=== PATIENT | male | born 1950 | race Two or more races ===

== ENCOUNTER 2017-02-26 08:55 | Inpatient (IN) | payer MEDICARE, MEDICAID ==
[2017-02-26] VITALS (9 sets, daily range): BP systolic 94–160; BP diastolic 41–63
[~2017-02-26] VITALS: Ht 165.1 cm; Wt 57.6 kg
--- NOTE | 2017-02-26 08:59 | Emergency Room Report ---
History of Present Illness General Chief Complaint: To Be Triaged Present Illness HPI [id number] here because of missed HD sessions 2x last week because "they were unorganized." Denies chest pain, SOB, abd pain, fever/chills. Feels well otherwise Has had intractable hiccups. Allergies: Coded Allergies: No Known Allergies (Unverified , 02/15/13) Patient History Past Medical History: DM, LA, CAD, renal disease, dialysis, other - Anemia, HLD Past Surgical History: none Pertinent Family History: none Social History: Denies: alcohol use, drug use, smoking Immunizations: UTD Reviewed Nursing Documentation: PMH: Agreed, PSxH: Agreed Nursing Documentation-PMH Hx Cardiac Problems: Yes - Hyperlipidemia Hx Hypertension: Yes Hx Diabetes: Yes Hx Cancer: No Hx Gastrointestinal Problems: No Hx Neurological Problems: No Review of Systems All Other Systems: negative except mentioned in HPI Physical Exam Sp02 EP Interpretation: reviewed, normal General Appearance: normal inspection, well appearing, no apparent distress, alert, GCS 15, non-toxic, other - Intractable hiccups Head: normocephalic, atraumatic Eyes: bilateral eye EOMI, bilateral eye PERRL ENT: normal ENT inspection, hearing grossly normal, normal voice Neck: normal inspection, full range of motion, supple, no bony tend Respiratory: normal inspection, lungs clear, normal breath sounds, no respiratory distress, no retraction, no accessory muscle use, no wheezing, speaking full sentences Cardiovascular #1: regular rate, rhythm, no edema Gastrointestinal: normal inspection, normal bowel sounds, non tender, soft, no guarding, no hernia Genitourinary: no CVA tenderness Musculoskeletal: normal inspection, back normal, normal range of motion, Christian' s Sign negative Neurologic: normal inspection, alert, oriented x3, responsive, azure architect III-XII nml as tested, motor strength/tone normal, speech normal Psychiatric: normal inspection, judgement/insight normal, mood/affect normal Skin: normal inspection, normal color, no rash Lymphatic: normal inspection Medical Decision Making Diagnostic Impression: Primary Impression: ESRD (end stage renal disease) on dialysis Additional Impression: Hyperkalemia ER Course Missed dialysis, ESRD HyperK - 6.3 - no significant EKG changes - Tx in ED with nebs, kayexelate, calcium - Elevated BNP in setting of elevated serumCr is unreliable - CXR: No PNA or pulm congestion. Endorsed to Dr Armendariz for tele admit at 1130am. EKG Diagnostic Results Rate: normal Rhythm: NSR ST Segments: no acute changes ASA given to the pt in ED: No Rhythm Strip Diag. Results EP Interpretation: yes Rate: 77 Rhythm: NSR, no PVC's, no ectopy Chest X-Ray Diagnostic Results Chest X-Ray Diagnostic Results : Chest X-Ray Ordered: Yes # of Views/Limited/Complete: 1 View Indication: Other - missed HD EP Interpretation: Yes Interpretation: no consolidation, no pneumothorax, no acute cardiopulmonary disease Impression: No acute disease Interpreting ER Provider: Electronically signed by Dr Saab Status: improved Disposition: ADMITTED INPATIENT Condition: Serious GRACIELA SAAB M.D. Feb 26, 2017 08:59
[2017-02-26 10:16] LABS: BASOPHILS % (AUTO) 0.6 % (0.0-2.0); EOSINOPHILS % (AUTO) 0.4 % (0.0-3.0); LYMPHOCYTES % (AUTO) 8.3 % (20.0-45.0); MEAN CORPUSCULAR HEMOGLOBIN 33.9 PG (27.0-31.0); MEAN CORPUSCULAR HGB CONC 32.1 G/DL (32.0-36.0); MEAN CORPUSCULAR VOLUME 106 FL (80-99); MONOCYTES % (AUTO) 9.3 % (1.0-10.0); NEUTROPHILS % (AUTO) 81.4 % (45.0-75.0); PLATELET COUNT 335 K/UL (150-450); RED BLOOD COUNT 3.45 M/UL (4.70-6.10); RED CELL DISTRIBUTION WIDTH 15.6 % (11.6-14.8); WHITE BLOOD COUNT 8.5 K/UL (4.8-10.8)
[2017-02-26 10:30] LABS: ALBUMIN/GLOBULIN RATIO 0.8 (1.0-2.7); CALCIUM 8.7 mg/dL (8.6-10.2); CREATININE 7.1 mg/dL (0.7-1.2); GLOMERULAR FILTRATION RATE 7.8 mL/min (>60); TOTAL PROTEIN 7.3 g/dL (6.6-8.7); TROPONIN I < 0.30 ng/mL (<=0.30)
[2017-02-26 10:33] LABS: POTASSIUM 6.3 mEQ/L (3.4-4.9)
[2017-02-26 10:40] LABS: CKMB 5.8 ng/mL (< 6.7)
[2017-02-26] MEDS ORDERED: Calcium Gluconate 1gm/10ml vial IVP ONE (10:45)
[2017-02-26] MEDS ORDERED: Sodium Polystyrene Sulfonate 15gm Powder ORAL ONE (10:45)
[2017-02-26] MEDS: Albuterol ud Inhalation HHN SCH ×6 (10:48→12:00)
[2017-02-26] MEDS ORDERED: ATORVASTATIN CA80 MG ORAL (11:42)
[2017-02-26] MEDS ORDERED: ENALAPRIL MALEAT5 MG ORAL (11:42)
[2017-02-26] MEDS ORDERED: ASPIR 8181 MG ORAL (11:42)
[2017-02-26] MEDS ORDERED: METOPROLOL SUCC25 MG ORAL (11:43)
[2017-02-26] MEDS ORDERED: Miralax 17gm pkt ORAL PRN ×2 (13:15→16:16)
[2017-02-26] MEDS ORDERED: DuoNeb 0.5-3(2.5)mg/3ml neb HHN PRN ×2 (13:15→16:15)
--- NOTE | 2017-02-26 15:14 | Cardiac Electrophysiology PN ---
Subjective Subjective [id number]. [facility] records reviewed Atrial flutter with RVR Transfer to ICU on Bridget bueno S/P RCA stent and PINTO to LAD MIDCAB at [facility] 02/17/17 Ischemic cardiomyopathy EF 30% ESRD on HD DW Dr Larsen Objective Last 24 Hour Vital Signs Date Time Temp Pulse Resp B/P Pulse Ox O2 Delivery O2 Flow Rate FiO2 02/26/17 13:05 97.9 109 20 127/51 100 Room Air 02/26/17 12:45 109 20 127/51 100 02/26/17 12:25 150 20 123/51 100 02/26/17 12:22 150 18 100 Room Air 02/26/17 12:22 Room Air 02/26/17 12:00 95 20 142/56 100 02/26/17 11:59 96 18 100 Room Air 02/26/17 11:55 21 02/26/17 11:55 96 18 100 Room Air 02/26/17 11:37 21 02/26/17 11:36 89 16 100 Room Air 02/26/17 11:26 88 14 100 Room Air 02/26/17 11:23 21 02/26/17 11:22 88 14 100 Room Air 02/26/17 11:08 89 14 100 Room Air 02/26/17 11:07 21 02/26/17 11:06 88 14 100 Room Air 02/26/17 10:54 02/26/17 10:54 85 14 100 Room Air 02/26/17 10:53 85 14 100 Room Air 02/26/17 10:50 85 14 Room Air 02/26/17 08:56 97.9 81 16 163/72 100 Room Air Laboratory Tests Test 02/26/17 09:20 White Blood Count 8.5 K/UL (4.8-10.8) Red Blood Count 3.45 M/UL (4.70-6.10) L Hemoglobin 11.7 G/DL (14.2-18.0) L Hematocrit 36.5 % (42.0-52.0) L Mean Corpuscular Volume 106 FL (80-99) H Mean Corpuscular Hemoglobin 33.9 PG (27.0-31.0) H Mean Corpuscular Hemoglobin Concent 32.1 G/DL (32.0-36.0) Red Cell Distribution Width 15.6 % (11.6-14.8) H Platelet Count 335 K/UL (150-450) Mean Platelet Volume 5.0 FL (6.5-10.1) L Neutrophils (%) (Auto) 81.4 % (45.0-75.0) H Lymphocytes (%) (Auto) 8.3 % (20.0-45.0) L Monocytes (%) (Auto) 9.3 % (1.0-10.0) Eosinophils (%) (Auto) 0.4 % (0.0-3.0) Basophils (%) (Auto) 0.6 % (0.0-2.0) Sodium Level 141 mEQ/L (135-145) Potassium Level 6.3 mEQ/L (3.4-4.9) *H Chloride Level 100 mEQ/L (98-107) Carbon Dioxide Level 16 mEQ/L (20-30) L Anion Gap 25 (5-15) H Blood Urea Nitrogen 88 mg/dL (7-23) H Creatinine 7.1 mg/dL (0.7-1.2) H Estimat Glomerular Filtration Rate 7.8 mL/min (>60) Glucose Level 73 mg/dL (74-106) L Calcium Level 8.7 mg/dL (8.6-10.2) Total Bilirubin 0.5 mg/dL (0.0-1.2) Aspartate Amino Transf (AST/SGOT) 30 U/L (5-40) Alanine Aminotransferase (ALT/SGPT) 11 U/L (3-41) Alkaline Phosphatase 81 U/L (40-129) Total Creatine Kinase 141 U/L (38-174) Creatine Kinase MB 5.8 ng/mL (< 6.7) Creatine Kinase MB Relative Index 4.1 Troponin I < 0.30 ng/mL (<=0.30) Pro-B-Type Natriuretic Peptide 9833 pg/mL (0-125) H Total Protein 7.3 g/dL (6.6-8.7) Albumin 3.4 g/dL (3.5-5.2) L Globulin 3.9 g/dL Albumin/Globulin Ratio 0.8 (1.0-2.7) SAMM JOHNSON Feb 26, 2017 15:14
[2017-02-26] MEDS ORDERED: Heparin 25,000u/D5W 500ml 500 ML IV SCH ×3 (15:45→23:58)
[2017-02-26] MEDS ORDERED: Heparin 5000 units/ml inj IV ONE (15:45)
[2017-02-26 16:26] LABS: MEAN CORPUSCULAR HEMOGLOBIN 36.1 PG (27.0-31.0); MEAN CORPUSCULAR HGB CONC 33.8 G/DL (32.0-36.0); MEAN CORPUSCULAR VOLUME 107 FL (80-99); PLATELET COUNT 273 K/UL (150-450); RED BLOOD COUNT 2.92 M/UL (4.70-6.10); RED CELL DISTRIBUTION WIDTH 15.4 % (11.6-14.8); WHITE BLOOD COUNT 10.3 K/UL (4.8-10.8)
[2017-02-26 16:30] LABS: BASOPHILS % (AUTO) 0.4 % (0.0-2.0); LYMPHOCYTES % (AUTO) 3.3 % (20.0-45.0); MONOCYTES % (AUTO) 5.3 % (1.0-10.0)
[2017-02-26] MEDS ORDERED: HYDROmorphone 1mg/ml Carpuject IVP PRN (16:30)
--- NOTE | 2017-02-26 16:38 | History & Physical ---
History and Physical History & Physicial Dictsted for Int Med-Dr Armendariz ICU no. [id number]. RIP VEGA Feb 26, 2017 16:38
[2017-02-26] MEDS: Metoprolol 50mg tab ORAL SCH (20:27)
[2017-02-26] MEDS ORDERED: Heparin 5000 units/ml inj SUBQ SCH (21:00)
[2017-02-26] MEDS ORDERED: Metoprolol 50mg tab ORAL SCH (21:00)
[2017-02-26] MEDS ORDERED: Atorvastatin 80mg tab ORAL SCH ×2 (21:00)
[2017-02-26] MEDS ORDERED: Heparin 5000 units/ml inj SUBQ ONE (23:45)
[2017-02-27] VITALS (21 sets, daily range): BP systolic 99–178; BP diastolic 0–100
[2017-02-27] MEDS ORDERED: Heparin 5000 units/ml inj IV ONE (00:30)
--- NOTE | 2017-02-27 03:00 | History and Physical Report ---
DATE OF ADMISSION: 02/26/2017 CHIEF COMPLAINT: The patient is a 66-year-old male with history of coronary artery bypass graft on Monday02/17/2017, who presents with chief complaint of shortness of breath. HISTORY OF PRESENT ILLNESS: The patient was admitted to [facility] earlier this month. The patient underwent a robotically assisted system minimally invasive direct coronary artery bypass graft on 02/17/2017 at [facility]. The patient has dialysis every Monday, Monday, and Monday. The patient's last dialysis was on Monday02/20/2017. The patient began to experience shortness of breath on Monday02/25/2017. The patient presented to the [place] [facility]. The patient was admitted for shortness of breath and probable volume overload secondary to missed dialysis. PAST MEDICAL HISTORY: Significant for: 1. Type 2 diabetes. 2. Hypertension. 3. Coronary artery disease. 4. Congestive heart failure. 5. Hypercholesterolemia. PAST SURGICAL HISTORY: Significant for: 1. Robotically assisted system minimally invasive direct coronary artery bypass graft on 02/17/2017 at [facility]. 2. Left arteriovenous graft for dialysis. CURRENT MEDICATIONS: 1. Aspirin 81 mg one tablet p.o. daily. 2. Lipitor 80 mg one tablet p.o. daily. 3. Vasotec 5 mg one tablet p.o. daily. 4. Metoprolol 25 mg one tablet p.o. daily. ALLERGIES: No known drug allergies. SOCIAL HISTORY: The patient is . The patient denies tobacco use having quit 20 years ago. The patient admits to social alcohol use. REVIEW OF SYSTEMS: Constitutional: The patient denies weight loss or weight gain. The patient denies fevers or chills. HEENT: The patient denies ear or throat pain. The patient denies headache. Cardiovascular: The patient denies palpitations or chest pain. Chest: The patient complains of shortness of breath as above. The patient denies wheezes. Abdomen: The patient denies nausea, vomiting, diarrhea, or constipation. Genitourinary: The patient denies dysuria or increased frequency of urination. PHYSICAL EXAMINATION: VITAL SIGNS: Temperature 97.9 degrees, respirations 20, pulse 109 to 150, and blood pressure 127/51. GENERAL: The patient is a well-developed, well-nourished, male, in no apparent distress. HEENT: Eyes, pupils are equal and responsive to light and accommodation. Extraocular movements are intact. NECK: Supple without lymphadenopathy. CHEST: Decreased breath sounds at bilateral bases with few crackles. Otherwise, without wheezes or rales. CARDIOVASCULAR: Tachycardic. Regular rhythm. S1 and S2 are normal without murmurs, rubs, or gallops. ABDOMEN: Soft, nontender, and nondistended. Positive bowel sounds. No hepatosplenomegaly. Currently, no rebound or guarding noted. EXTREMITIES: Negative for clubbing, cyanosis, or edema. RECTAL: Refused. GENITAL: Refused. NEUROLOGICAL: Cranial nerves II through XII are grossly intact without focal deficits. Motor strength is 5/5 bilaterally. Deep tendon reflexes are 2+ plantar. presence of an approximate 10 cm scar under the left areola. Wound is clean and dry. LABORATORY STUDIES: WBC 8.5, hemoglobin 11.7, hematocrit 36.5, and platelets 325,000. Sodium 141, potassium elevated at 6.3, chloride 100, CO2 16, BUN 88, creatinine 7.1, and glucose 73. Troponin is less than 0.3. BNP elevated at 9833. ASSESSMENT: This is a 66-year-old male. 1. Shortness of breath. 2. End-stage renal disease. 3. Diabetes type 2. 4. Hypertension. 5. Hypercholesterolemia. 6. Coronary artery disease. 7. Congestive heart failure. TREATMENT: 1. Shortness of breath/end-stage renal disease. The patient has missed dialysis x2. The patient's last dialysis was on Monday02/20/2017. A Renal consultation was obtained with Dr. Noel Julio. We will follow recommendations of Dr. Julio. 2. Diabetes type 2. The patient is currently off antihyperglycemic medication. 3. Hypertension. The patient is currently receiving Cardizem for blood pressure control as well as heart rate. 4. Hypercholesterolemia. Continue Lipitor as above. 5. Coronary artery disease. The patient is status post coronary artery bypass graft on 02/17/2017. 6. Congestive heart failure. A Cardiology consultation was obtained with Dr. Aron Nichols. 7. Hypercholesterolemia. Continue Lipitor as above. Claude Larsen M.D. DR: CRISTIAN JOB#: [id number] CC:
--- NOTE | 2017-02-27 03:15 | Consultation ---
DATE OF CONSULTATION: 02/26/2017 CARDIOLOGY CONSULTATION REFERRING PHYSICIAN: Alok Armendariz M.D. REASON FOR CONSULTATION: Management of atrial flutter with rapid ventricular response in a patient with history of coronary artery disease. HISTORY OF PRESENT ILLNESS: The patient is a very pleasant 66-year-old, gentleman with history of hypertension and coronary artery disease, who underwent recently PCI to the right coronary artery as well as MIDCAB with PINTO to the LAD at [facility]. The patient was discharged just last week. The patient also has end-stage renal disease, on hemodialysis as well as ischemic cardiomyopathy with ejection fraction of only 30%. The patient presented to the hospital as he missed dialysis since last week and hiccups was intractable. The patient came to the emergency room and was admitted to the telemetry unit. In the telemetry, the patient was found to be in atrial flutter with rapid ventricular response under 150. This was confirmed by 12-lead electrocardiogram. The patient denies any chest pain or shortness of breath. PAST MEDICAL HISTORY: 1. Hypertension. 2. Coronary artery disease. 3. History of RCA stent in July in 2016 and status post PINTO to the LAD with da Kathy on 02/17/2017 at [facility]. 4. Ischemic cardiomyopathy with ejection fraction of only 30% to 35%. 5. Congestive heart failure. 6. History of right total ischemia status post angioplasty in December [address] Mckeon. Of note, the patient was discharged on 02/21/2017 from [facility]. FAMILY HISTORY: Noncontributory. SOCIAL HISTORY: He does not smoke or drink alcohol. MEDICATIONS ON DISCHARGE: 1. Metoprolol 25 mg b.i.d. 2. Aspirin 81 mg daily. 3. Lipitor 80 mg daily. 4. Plavix 75 mg daily. 5. Glipizide. REVIEW OF SYSTEMS: Review of systems was performed and was negative other than what was mentioned in history of present illness. PHYSICAL EXAMINATION: VITAL SIGNS: Show blood pressure of 127/51, pulse 150, respirations 20, and he is afebrile. HEAD AND NECK: Shows no JVD. LUNGS: Decreased breath sounds. CARDIOVASCULAR: Tachycardic. S1 and S2 with no gallop. Status post MIDCAB surgery. Incision is still under the left nipple. ABDOMEN: Soft. EXTREMITIES: No pitting edema. LABORATORY AND DIAGNOSTIC DATA: His EKG showed atrial flutter with rapid ventricular response in the old inferolateral infarct. His labs showed white count of 8.5, hemoglobin , hematocrit 36.5, and platelets 235,000. Sodium 141, potassium 6.3, BUN 80, creatinine 7.1, and glucose 73. BNP is 9833. Troponin is negative. ASSESSMENT AND PLAN: 1. Atrial flutter with rapid ventricular response. We will transfer the patient to the intensive care unit. We will start the patient on Cardizem drip. In the meantime, we will maximize his metoprolol to 50 mg twice a day and hopefully we will be able to take him off of his Cardizem soon. In the meantime, we will start the patient on anticoagulation to prevent thromboembolic event. 2. Ischemic cardiomyopathy. Ejection fraction is 30%. The patient is on aspirin and Lipitor 80 mg as well as as that will be as mentioned above. 3. History of right coronary artery stent as well as PINTO to the LAD and MIDCAB, single-vessel bypass on 02/17/2017, on aspirin, Lopressor, and Lipitor. 4. History of peripheral vascular disease. 5. End-stage renal disease, on hemodialysis. 6. Hyperkalemia. 7. Diabetes. Thank you very much, Dr. Armendariz and Dr. Larsen for allowing me to participate in the care of this patient. Please do not hesitate to contact me for any questions regarding my evaluation. Aron Nicohls M.D. DR: HUGO JOB#: [id number] CC:
[2017-02-27 06:05] LABS: BASOPHILS % (AUTO) 0.9 % (0.0-2.0); EOSINOPHILS % (AUTO) 0.6 % (0.0-3.0); LYMPHOCYTES % (AUTO) 7.5 % (20.0-45.0); MEAN CORPUSCULAR HEMOGLOBIN 33.9 PG (27.0-31.0); MEAN CORPUSCULAR HGB CONC 32.7 G/DL (32.0-36.0); MEAN CORPUSCULAR VOLUME 104 FL (80-99); MEAN PLATELET VOLUME 5.1 FL (6.5-10.1); MONOCYTES % (AUTO) 12.2 % (1.0-10.0); NEUTROPHILS % (AUTO) 78.8 % (45.0-75.0); PLATELET COUNT 278 K/UL (150-450); RED BLOOD COUNT 2.95 M/UL (4.70-6.10); WHITE BLOOD COUNT 7.9 K/UL (4.8-10.8)
[2017-02-27 06:31] LABS: CALCIUM 7.9 mg/dL (8.6-10.2); CREATININE 7.4 mg/dL (0.7-1.2); GLOMERULAR FILTRATION RATE 7.5 mL/min (>60); POTASSIUM 4.1 mEQ/L (3.4-4.9)
[2017-02-27 06:41] LABS: TROPONIN I 1.72 ng/mL (<=0.30)
[2017-02-27 06:42] LABS: THYROID STIMULATING HORMONE 0.23 uIU/mL (0.300-4.500)
[2017-02-27] MEDS: Metoprolol 50mg tab ORAL SCH ×2 (08:16→20:46)
[2017-02-27] MEDS: Heparin 25,000u/D5W 500ml 500 ML IV SCH ×2 (08:21→16:37)
--- NOTE | 2017-02-27 08:39 | Diagnostic Imaging Report ---
Indication: Chest pain Technique: XRAY CHEST 1 V Comparison: None Findings: Cardiac silhouette is prominent. There is a right internal jugular permacath. There is tenting of the left hemidiaphragm. There is no obvious consolidation or pleural effusion. There is a questionable nodular density projecting over the left upper lobe measuring approximately 1.5 cm. Impression: No acute cardiopulmonary disease. Cardiomegaly and right internal jugular permacath. Tenting of the left hemidiaphragm. Questionable 1.5 cm nodular density projecting over the left upper lobe. Comparison to prior study should be made if available. Consider followup or further evaluation.
[2017-02-27] MEDS ORDERED: Enalapril 5mg tab ORAL SCH ×2 (09:00)
[2017-02-27] MEDS ORDERED: Aspirin EC 81mg tab ORAL SCH ×2 (09:00)
--- NOTE | 2017-02-27 09:07 | Consultation ---
Consult Note Assessment/Plan Renal consult dictated # [id number] CONCETTA NEGRO Feb 27, 2017 09:07
[2017-02-27] MEDS ORDERED: chlorproMAZINE 10mg tab ORAL PRN ×2 (10:00→22:00)
--- NOTE | 2017-02-27 10:18 | Pulmonolgy Critical Care Note ---
Critical Care - Asmt/Plan Problems: (1) Non-STEMI (non-ST elevated myocardial infarction) (2) Atrial flutter (3) ESRD (end stage renal disease) on dialysis (4) HTN (hypertension) (5) Cardiomyopathy (6) Diabetes mellitus Respiratory: monitor respiratory rate, adjust FIO2 Cardiac: continue to monitor HR/BP Renal: check electrolytes Gastrointestinal: continue feedings/current rate Endocrine: monitor blood sugar, other - start sliding scale Hematologic: monitor H/H Neurologic: PRN Ativan, PRN Morphine Affect: PRN ativan Prophylaxis: Protonix Notes Reviewed: hypo dipper, cardio, renal Discussed with: nurses, consultants Critical Care - Objective Last 24 Hour Vital Signs Date Time Temp Pulse Resp B/P Pulse Ox O2 Delivery O2 Flow Rate FiO2 02/27/17 10:00 67 18 157/58 100 Nasal Cannula 2.0 02/27/17 09:00 68 18 178/61 100 Nasal Cannula 2.0 02/27/17 08:00 57 02/27/17 08:00 97.5 69 17 161/55 100 Nasal Cannula 2.0 02/27/17 07:00 60 16 118/50 100 Nasal Cannula 2.0 02/27/17 06:47 100 Nasal Cannula 2.0 02/27/17 06:47 87 16 Nasal Cannula 2.0 02/27/17 06:47 Nasal Cannula 2.0 02/27/17 06:00 64 16 164/66 100 Nasal Cannula 2.0 02/27/17 05:00 69 17 164/58 100 Nasal Cannula 2.0 02/27/17 04:00 97.7 66 18 164/58 100 Nasal Cannula 2.0 02/27/17 04:00 67 02/27/17 03:00 63 15 128/54 100 Nasal Cannula 2.0 02/27/17 02:00 63 14 116/50 100 Nasal Cannula 2.0 02/27/17 01:00 66 14 118/46 100 Nasal Cannula 2.0 02/27/17 00:00 76 02/27/17 00:00 97.8 67 15 109/51 100 Nasal Cannula 2.0 02/26/17 23:14 76 21 100 Facial 30 02/26/17 23:00 78 18 122/51 100 Nasal Cannula 2.0 02/26/17 22:00 73 19 113/41 100 Nasal Cannula 2.0 02/26/17 21:00 87 18 113/41 100 Nasal Cannula 2.0 02/26/17 20:27 89 160/60 02/26/17 20:00 89 18 134/63 100 Nasal Cannula 2.0 02/26/17 20:00 92 02/26/17 19:04 Nasal Cannula 2.0 02/26/17 19:04 100 Nasal Cannula 2.0 02/26/17 19:03 89 22 Nasal Cannula 2.0 02/26/17 19:00 97.9 88 19 160/51 100 Nasal Cannula 2.0 02/26/17 16:54 102 94/51 02/26/17 16:30 100 02/26/17 16:00 98.7 105 22 94/51 100 Nasal Cannula 2.0 02/26/17 16:00 108 02/26/17 13:05 97.9 109 20 127/51 100 Room Air 21 02/26/17 12:45 109 20 127/51 100 02/26/17 12:25 150 20 123/51 100 02/26/17 12:22 150 18 100 Room Air 21 02/26/17 12:22 Room Air 21 02/26/17 12:00 95 20 142/56 100 02/26/17 11:59 96 18 100 Room Air 02/26/17 11:55 21 02/26/17 11:55 96 18 100 Room Air 21 02/26/17 11:37 21 02/26/17 11:36 89 16 100 Room Air 02/26/17 11:26 88 14 100 Room Air 02/26/17 11:23 21 02/26/17 11:22 88 14 100 Room Air 02/26/17 11:08 89 14 100 Room Air 02/26/17 11:07 21 02/26/17 11:06 88 14 100 Room Air 02/26/17 10:54 21 02/26/17 10:54 85 14 100 Room Air 21 02/26/17 10:53 85 14 100 Room Air 02/26/17 10:50 85 14 Room Air 21 Status: awake Condition: critical HEENT: atraumatic, normocephalic Neck: full ROM Lungs: clear Heart: HR/BP stable Abdomen: soft, non-tender, feeding tube Extremities: no C/C/E, edema Decubiti: location Critical Care - Subjective ROS Limited/Unobtainable: No ICU Day: 2 Interval Events: 66 year old male with hx of ESRF on HD MWF, DM, CAD, CABG 8 years ago, presented to ER because he missed his HD twice. He had atrial flutter, started on cardizem drip and heparin and transferred to ICU. Pt converted to sinus already and getting his HD now. FI02: 30 Sputum Amount: None Fluids: 0 I&O: Intake and Output 02/26/17 02/27/17 19:00 07:00 Intake Total 204.742 ml 445.854 ml Output Total 280 ml Balance 204.742 ml 165.854 ml Intake Oral 150 ml 100 ml IV Total 54.742 ml 345.854 ml Output Urine Total 250 ml Emesis 30 ml # Voids 2 # Bowel Movements 1 CXR: cardiomegaly Labs: Laboratory Tests Test 02/26/17 16:02 02/26/17 22:50 02/27/17 05:50 White Blood Count 10.3 K/UL (4.8-10.8) 7.9 K/UL (4.8-10.8) Red Blood Count 2.92 M/UL (4.70-6.10) L 2.95 M/UL (4.70-6.10) L Hemoglobin 10.5 G/DL (14.2-18.0) L 10.0 G/DL (14.2-18.0) L Hematocrit 31.2 % (42.0-52.0) L 30.7 % (42.0-52.0) L Mean Corpuscular Volume 107 FL (80-99) H 104 FL (80-99) H Mean Corpuscular Hemoglobin 36.1 PG (27.0-31.0) H 33.9 PG (27.0-31.0) H Mean Corpuscular Hemoglobin Concent 33.8 G/DL (32.0-36.0) 32.7 G/DL (32.0-36.0) Red Cell Distribution Width 15.4 % (11.6-14.8) H 15.0 % (11.6-14.8) H Platelet Count 273 K/UL (150-450) 278 K/UL (150-450) Mean Platelet Volume 5.0 FL (6.5-10.1) L 5.1 FL (6.5-10.1) L Neutrophils (%) (Auto) 91.0 % (45.0-75.0) H 78.8 % (45.0-75.0) H Lymphocytes (%) (Auto) 3.3 % (20.0-45.0) L 7.5 % (20.0-45.0) L Monocytes (%) (Auto) 5.3 % (1.0-10.0) 12.2 % (1.0-10.0) H Eosinophils (%) (Auto) 0.0 % (0.0-3.0) 0.6 % (0.0-3.0) Basophils (%) (Auto) 0.4 % (0.0-2.0) 0.9 % (0.0-2.0) Activated Partial Thromboplast Time 29 SEC (23-33) 59 SEC (23-33) H > 150 SEC (23-33) *H Sodium Level 140 mEQ/L (135-145) Potassium Level 4.1 mEQ/L (3.4-4.9) Chloride Level 99 mEQ/L (98-107) Carbon Dioxide Level 20 mEQ/L (20-30) Anion Gap 21 (5-15) H Blood Urea Nitrogen 93 mg/dL (7-23) H Creatinine 7.4 mg/dL (0.7-1.2) H Estimat Glomerular Filtration Rate 7.5 mL/min (>60) Glucose Level 237 mg/dL (74-106) #H Calcium Level 7.9 mg/dL (8.6-10.2) L Troponin I 1.72 ng/mL (<=0.30) *H Pro-B-Type Natriuretic Peptide 70648 pg/mL (0-125) H Thyroid Stimulating Hormone (TSH) 0.230 uIU/mL (0.300-4.500) Free Thyroxine 1.30 ng/dL (0.86-1.85) JASPAL MENDOZA Feb 27, 2017 10:18
--- NOTE | 2017-02-27 11:07 | Internal Med Progress Note ---
Subjective Date of Service: Feb 27, 2017 Physician Name LarsenRip hughes Attending Physician Alok Armendariz MD Current Medications Medications (Trade) Dose Ordered Sig/Ailyn Route PRN Reason Start Time Stop Time Status Last Admin Dose Admin Acetaminophen (Tylenol) 650 mg Q4H PRN ORAL Fever 02/26/17 16:15 03/28/17 16:14 Albuterol/ Ipratropium (DuoNeb 0.5-3(2.5)mg/3ml) 3 ml Q4H PRN HHN Shortness of Breath 02/26/17 16:15 03/03/17 16:14 Aspirin (Ecotrin) 81 mg DAILY ORAL 02/27/17 09:00 03/29/17 08:59 02/27/17 08:13 Atorvastatin Calcium (Lipitor) 80 mg BEDTIME ORAL 02/26/17 21:00 03/28/17 20:59 02/26/17 20:27 Baclofen 5 mg 5 mg Q8H PRN ORAL hiccups 02/26/17 19:45 03/28/17 19:44 02/27/17 04:25 Chlorhexidine Gluconate (Lora-Hex 2%) 1 applic QHS TOPIC 02/27/17 21:00 03/29/17 20:59 Chlorpromazine (Thorazine) 10 mg Q6H PRN ORAL hiccups 02/27/17 10:00 03/29/17 09:59 02/27/17 09:36 Dextrose (Dextrose 50%) 50 ml STAT PRN IV Hypoglycemia 02/26/17 16:15 03/28/17 16:14 Diltiazem HCl/ Dextrose (Cardizem/D5W) 125 ml @ 5 mls/hr Q24H IV 02/26/17 16:30 03/28/17 16:29 02/26/17 16:54 Enalapril Maleate (Vasotec) 5 mg DAILY ORAL 02/27/17 09:00 03/29/17 08:59 Heparin Sodium/ Dextrose (Heparin) 500 ml @ 19.885 mls/ hr adjust per protocol IV 02/27/17 08:00 03/29/17 07:59 02/27/17 08:21 Hydromorphone HCl (Dilaudid) 1 mg Q4H PRN IVP For Pain 4-10 02/26/17 16:30 03/05/17 16:29 Metoprolol Tartrate (Lopressor) 50 mg Q12HR ORAL 02/26/17 21:00 03/28/17 20:59 02/26/17 20:27 Ondansetron HCl (Zofran) 4 mg Q6H PRN IVP Nausea & Vomiting 02/26/17 16:16 03/28/17 16:15 02/26/17 20:42 Polyethylene Glycol (Miralax) 17 gm DAILYPRN PRN ORAL Constipation 02/26/17 16:16 03/28/17 16:15 Temazepam 15 mg 15 mg HSPRN PRN ORAL Insomnia 02/26/17 16:16 03/05/17 16:15 Allergies: Coded Allergies: No Known Allergies (Unverified , 02/15/13) ROS Limited/Unobtainable: No Constitutional: Reports: no symptoms HEENT: Reports: no symptoms Cardiovascular: Reports: chest pain Respiratory: Reports: shortness of breath Gastrointestinal/Abdominal: Reports: no symptoms Genitourinary: Reports: no symptoms Neurologic/Psychiatric: Reports: no symptoms Subjective 66 YO M admitted with shortness of breath. Now elevated troponin and atrial flutter. Cover for Int Med - Dr Armendariz. Currently on hemodialysis Objective Last Vital Signs Date Time Temp Pulse Resp B/P Pulse Ox O2 Delivery O2 Flow Rate FiO2 02/27/17 10:00 67 18 157/58 100 Nasal Cannula 2.0 02/27/17 08:00 97.5 02/26/17 23:14 30 General Appearance: alert, mild distress, thin EENT: PERRL/EOMI, normal ENT inspection Neck: non-tender, normal alignment, supple, normal inspection Cardiovascular: normal peripheral pulses, normal rate, regular rhythm, no gallop/murmur, no JVD Respiratory/Chest: chest wall non-tender, no accessory muscle use, crackles/ rales Abdomen: normal bowel sounds, non tender, soft, no organomegaly, no mass 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: 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 grossly normal Skin: normal pigmentation, warm/dry Laboratory Tests Test 02/26/17 16:02 02/26/17 22:50 02/27/17 05:50 White Blood Count 10.3 K/UL (4.8-10.8) 7.9 K/UL (4.8-10.8) Red Blood Count 2.92 M/UL (4.70-6.10) L 2.95 M/UL (4.70-6.10) L Hemoglobin 10.5 G/DL (14.2-18.0) L 10.0 G/DL (14.2-18.0) L Hematocrit 31.2 % (42.0-52.0) L 30.7 % (42.0-52.0) L Mean Corpuscular Volume 107 FL (80-99) H 104 FL (80-99) H Mean Corpuscular Hemoglobin 36.1 PG (27.0-31.0) H 33.9 PG (27.0-31.0) H Mean Corpuscular Hemoglobin Concent 33.8 G/DL (32.0-36.0) 32.7 G/DL (32.0-36.0) Red Cell Distribution Width 15.4 % (11.6-14.8) H 15.0 % (11.6-14.8) H Platelet Count 273 K/UL (150-450) 278 K/UL (150-450) Mean Platelet Volume 5.0 FL (6.5-10.1) L 5.1 FL (6.5-10.1) L Neutrophils (%) (Auto) 91.0 % (45.0-75.0) H 78.8 % (45.0-75.0) H Lymphocytes (%) (Auto) 3.3 % (20.0-45.0) L 7.5 % (20.0-45.0) L Monocytes (%) (Auto) 5.3 % (1.0-10.0) 12.2 % (1.0-10.0) H Eosinophils (%) (Auto) 0.0 % (0.0-3.0) 0.6 % (0.0-3.0) Basophils (%) (Auto) 0.4 % (0.0-2.0) 0.9 % (0.0-2.0) Activated Partial Thromboplast Time 29 SEC (23-33) 59 SEC (23-33) H > 150 SEC (23-33) *H Sodium Level 140 mEQ/L (135-145) Potassium Level 4.1 mEQ/L (3.4-4.9) Chloride Level 99 mEQ/L (98-107) Carbon Dioxide Level 20 mEQ/L (20-30) Anion Gap 21 (5-15) H Blood Urea Nitrogen 93 mg/dL (7-23) H Creatinine 7.4 mg/dL (0.7-1.2) H Estimat Glomerular Filtration Rate 7.5 mL/min (>60) Glucose Level 237 mg/dL (74-106) #H Calcium Level 7.9 mg/dL (8.6-10.2) L Troponin I 1.72 ng/mL (<=0.30) *H Pro-B-Type Natriuretic Peptide 30445 pg/mL (0-125) H Thyroid Stimulating Hormone (TSH) 0.230 uIU/mL (0.300-4.500) Free Thyroxine 1.30 ng/dL (0.86-1.85) Intake and Output 02/26/17 02/27/17 19:00 07:00 Intake Total 204.742 ml 445.854 ml Output Total 280 ml Balance 204.742 ml 165.854 ml Intake Oral 150 ml 100 ml IV Total 54.742 ml 345.854 ml Output Urine Total 250 ml Emesis 30 ml # Voids 2 # Bowel Movements 1 Assessment/Plan Problem List: (1) Hypercholesterolemia (2) CAD (coronary artery disease) (3) CHF exacerbation (4) Shortness of breath Assessment & Plan: Due to acute exacerbation of CHF (5) ESRD (end stage renal disease) on dialysis Assessment & Plan: Hemodialysis today per nephrology (6) Elevated troponin Assessment & Plan: See cardiology note. (7) HTN (hypertension) Assessment & Plan: Continue metoprolol and diltiazem (8) Diabetes mellitus (9) Hyperkalemia (10) Atrial flutter Assessment & Plan: Continue cardizem drip and heparin drip per cardiology Status: not improved RIP LARSEN Feb 27, 2017 11:07
--- NOTE | 2017-02-27 11:30 | Consultation ---
DATE OF CONSULTATION: NEPHROLOGY CONSULTATION REFERRING PHYSICIAN: Alok Armendariz M.D. REASON FOR CONSULTATION: End-stage renal disease, requiring hemodialysis. HISTORY OF PRESENT ILLNESS: This is a 66-year-old male with history of diabetes mellitus, hypertension, and cardiomyopathy, who was just recently discharged from [facility] after having the PCI to right coronary artery as well as coronary artery bypass graft, PINTO to LAD. The patient went to his dialysis unit last week, however, he wanted his PermCath to be used and there was no order for it, so the nurse called me to get the order. By the time I called back, the patient had become angry and left the unit without getting dialysis. The patient was admitted last night with a diagnosis of a atrial flutter with rapid ventricular response and he was started on Cardizem drip and admitted to intensive care unit. The patient himself he said that he is not complaining of any palpitations. He says that he has had hiccups since he left the hospital then he continues to have hiccups. PAST MEDICAL HISTORY: Also includes history of diabetes mellitus, peripheral vascular disease. He has history of eye problems from diabetes and history of hyperlipidemia. MEDICATIONS: Reviewed in the EMR. ALLERGIES: No known drug allergies. SOCIAL HISTORY: No history of smoking or alcohol abuse. The patient lives at home with . REVIEW OF SYSTEMS: As above. PHYSICAL EXAMINATION: GENERAL: The patient is a 66-year-old male. He has continuous hiccups. VITAL SIGNS: Blood pressure is 161/55, pulse 69, temperature 97.9, and respiratory rate is 17. HEENT: Some pale conjunctivae. Anicteric sclerae. NECK: Supple. LUNGS: Clear to auscultation. HEART: S1 and S2 without murmurs or rubs. ABDOMEN: Soft and nontender. EXTREMITIES: No cyanosis or edema. LABORATORY FINDINGS: The CBC shows a WBC of 7.9, hematocrit is 30.7, hemoglobin is 10, and platelet is 278,000. Chemistry panel shows a serum sodium 140, potassium 4.1, chloride 99, CO2 20, BUN is 93, creatinine 7.4, blood sugar is 237, and calcium is 7.9. Troponin is 1.72. TSH is 0.23. ASSESSMENT: This is a 66-year-old male was admitted with atrial flutter or fibrillation with rapid ventricular response. He was started on Cardizem drip. He converted to sinus rhythm. He was hypokalemic. He is being dialyzed now. He has also elevated troponin the possibility of acute myocardial infarction. PLAN: The patient will be dialysis as tolerated. I will restart the patient on Thorazine p.r.n. for hiccups, GI consultation will be obtained. The patient will be followed by wrister. The case was also discussed with the ICU nurse. Noel Julio M.D. DR: ZEN JOB#: [id number] CC:
--- NOTE | 2017-02-27 13:28 | Diagnostic Imaging Report ---
Indication: Dyspnea Comparison: 02/26/17 A single view chest radiograph was obtained. Findings: Heart is enlarged. Pulmonary vascularity is within normal limits. There is a vague density in the left perihilar region but this was seen previously as well as likely chronic disease. There is a right-sided permacath in good position. Bones are osteopenic. Impression: No acute disease
--- NOTE | 2017-02-27 18:03 | Cardiology Progress Note ---
Assessment/Plan Assessment/Plan nstemi related to natalee mclain underlying cad cad (pci to rca mid cab ro lad recently need pci to cx ) icm htn aflutter s/p conversion dm esrn on hd will transfer to tele will try to se if able to transfer to [facility] for cath pci soon when bed avialbel keep on heparin adn antiplt agent and statin repeat serial trop ekg echo [id number] Objective Last 24 Hour Vital Signs Date Time Temp Pulse Resp B/P Pulse Ox O2 Delivery O2 Flow Rate FiO2 02/27/17 17:00 72 17 145/62 100 Nasal Cannula 2.0 02/27/17 16:36 72 148/57 02/27/17 16:00 68 02/27/17 16:00 97.5 70 15 148/57 100 Nasal Cannula 2.0 02/27/17 15:00 72 17 138/58 100 Nasal Cannula 2.0 02/27/17 14:00 70 18 161/70 100 Nasal Cannula 2.0 02/27/17 14:00 73 15 138/58 100 Nasal Cannula 2.0 02/27/17 13:00 73 18 164/84 100 Nasal Cannula 2.0 02/27/17 12:00 72 02/27/17 12:00 98.0 74 17 134/100 100 Nasal Cannula 2.0 02/27/17 11:15 Room Air 2.0 02/27/17 11:00 71 18 99/55 99 Nasal Cannula 2.0 02/27/17 10:00 67 18 157/58 100 Nasal Cannula 2.0 02/27/17 09:00 68 18 178/61 100 Nasal Cannula 2.0 02/27/17 08:10 Nasal Cannula 2.0 02/27/17 08:00 57 02/27/17 08:00 97.5 69 17 161/55 100 Nasal Cannula 2.0 02/27/17 07:00 60 16 118/50 100 Nasal Cannula 2.0 02/27/17 06:47 100 Nasal Cannula 2.0 02/27/17 06:47 87 16 Nasal Cannula 2.0 02/27/17 06:47 Nasal Cannula 2.0 02/27/17 06:00 64 16 164/66 100 Nasal Cannula 2.0 02/27/17 05:00 69 17 164/58 100 Nasal Cannula 2.0 02/27/17 04:00 97.7 66 18 164/58 100 Nasal Cannula 2.0 02/27/17 04:00 67 02/27/17 03:00 63 15 128/54 100 Nasal Cannula 2.0 02/27/17 02:00 63 14 116/50 100 Nasal Cannula 2.0 02/27/17 01:00 66 14 118/46 100 Nasal Cannula 2.0 02/27/17 00:00 76 02/27/17 00:00 97.8 67 15 109/51 100 Nasal Cannula 2.0 02/26/17 23:14 76 21 100 Facial 30 02/26/17 23:00 78 18 122/51 100 Nasal Cannula 2.0 02/26/17 22:00 73 19 113/41 100 Nasal Cannula 2.0 02/26/17 21:00 87 18 113/41 100 Nasal Cannula 2.0 02/26/17 20:27 89 160/60 02/26/17 20:00 89 18 134/63 100 Nasal Cannula 2.0 02/26/17 20:00 92 02/26/17 19:04 Nasal Cannula 2.0 02/26/17 19:04 100 Nasal Cannula 2.0 02/26/17 19:03 89 22 Nasal Cannula 2.0 02/26/17 19:00 97.9 88 19 160/51 100 Nasal Cannula 2.0 Intake and Output 02/26/17 02/27/17 19:00 07:00 Intake Total 204.742 ml 445.854 ml Output Total 280 ml Balance 204.742 ml 165.854 ml Intake Oral 150 ml 100 ml IV Total 54.742 ml 345.854 ml Output Urine Total 250 ml Emesis 30 ml # Voids 2 # Bowel Movements 1 Laboratory Tests Test 02/26/17 22:50 02/27/17 05:50 02/27/17 14:30 Activated Partial Thromboplast Time 59 SEC (23-33) H > 150 SEC (23-33) *H 89 SEC (23-33) H White Blood Count 7.9 K/UL (4.8-10.8) Red Blood Count 2.95 M/UL (4.70-6.10) L Hemoglobin 10.0 G/DL (14.2-18.0) L Hematocrit 30.7 % (42.0-52.0) L Mean Corpuscular Volume 104 FL (80-99) H Mean Corpuscular Hemoglobin 33.9 PG (27.0-31.0) H Mean Corpuscular Hemoglobin Concent 32.7 G/DL (32.0-36.0) Red Cell Distribution Width 15.0 % (11.6-14.8) H Platelet Count 278 K/UL (150-450) Mean Platelet Volume 5.1 FL (6.5-10.1) L Neutrophils (%) (Auto) 78.8 % (45.0-75.0) H Lymphocytes (%) (Auto) 7.5 % (20.0-45.0) L Monocytes (%) (Auto) 12.2 % (1.0-10.0) H Eosinophils (%) (Auto) 0.6 % (0.0-3.0) Basophils (%) (Auto) 0.9 % (0.0-2.0) Sodium Level 140 mEQ/L (135-145) Potassium Level 4.1 mEQ/L (3.4-4.9) Chloride Level 99 mEQ/L (98-107) Carbon Dioxide Level 20 mEQ/L (20-30) Anion Gap 21 (5-15) H Blood Urea Nitrogen 93 mg/dL (7-23) H Creatinine 7.4 mg/dL (0.7-1.2) H Estimat Glomerular Filtration Rate 7.5 mL/min (>60) Glucose Level 237 mg/dL (74-106) #H Calcium Level 7.9 mg/dL (8.6-10.2) L Troponin I 1.72 ng/mL (<=0.30) *H Pro-B-Type Natriuretic Peptide 52650 pg/mL (0-125) H Thyroid Stimulating Hormone (TSH) 0.230 uIU/mL (0.300-4.500) Free Thyroxine 1.30 ng/dL (0.86-1.85) RAY COYLE Feb 27, 2017 18:03
--- NOTE | 2017-02-27 18:22 | Cardiac Electrophysiology PN ---
Assessment/Plan Assessment/Plan 1. Atrial flutter with rapid ventricular response. Converted to SR. DC Cardizem drip. Continue metoprolol 50 mg twice a day and heparin drip. 2. Ischemic cardiomyopathy EF 30%. Ejection fraction is ow 60%. Continue aspirin Lipitor 80 mg and Lopressor. 3. Troponin leak and history of right coronary artery stent as well as PINTO to the LAD and MIDCAB, single-vessel bypass on 02/17/2017, on aspirin, Lopressor, and Lipitor. [place] Schroeder. Likely needs to be transferred to [facility] for intervention on his Cx. 4. History of peripheral vascular disease. 5. End-stage renal disease, on hemodialysis. 6. Hyperkalemia. 7. Diabetes. DW Dr. 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 In ICU no chest pain or SOB. Objective Last 24 Hour Vital Signs Date Time Temp Pulse Resp B/P Pulse Ox O2 Delivery O2 Flow Rate FiO2 02/27/17 18:00 75 16 155/0 100 Nasal Cannula 2.0 02/27/17 17:00 72 17 145/62 100 Nasal Cannula 2.0 02/27/17 16:36 72 148/57 02/27/17 16:00 68 02/27/17 16:00 97.5 70 15 148/57 100 Nasal Cannula 2.0 02/27/17 15:00 72 17 138/58 100 Nasal Cannula 2.0 02/27/17 14:00 70 18 161/70 100 Nasal Cannula 2.0 02/27/17 14:00 73 15 138/58 100 Nasal Cannula 2.0 02/27/17 13:00 73 18 164/84 100 Nasal Cannula 2.0 02/27/17 12:00 72 02/27/17 12:00 98.0 74 17 134/100 100 Nasal Cannula 2.0 02/27/17 11:15 Room Air 2.0 02/27/17 11:00 71 18 99/55 99 Nasal Cannula 2.0 02/27/17 10:00 67 18 157/58 100 Nasal Cannula 2.0 02/27/17 09:00 68 18 178/61 100 Nasal Cannula 2.0 02/27/17 08:10 Nasal Cannula 2.0 02/27/17 08:00 57 02/27/17 08:00 97.5 69 17 161/55 100 Nasal Cannula 2.0 02/27/17 07:00 60 16 118/50 100 Nasal Cannula 2.0 02/27/17 06:47 100 Nasal Cannula 2.0 02/27/17 06:47 87 16 Nasal Cannula 2.0 02/27/17 06:47 Nasal Cannula 2.0 02/27/17 06:00 64 16 164/66 100 Nasal Cannula 2.0 02/27/17 05:00 69 17 164/58 100 Nasal Cannula 2.0 02/27/17 04:00 97.7 66 18 164/58 100 Nasal Cannula 2.0 02/27/17 04:00 67 02/27/17 03:00 63 15 128/54 100 Nasal Cannula 2.0 02/27/17 02:00 63 14 116/50 100 Nasal Cannula 2.0 02/27/17 01:00 66 14 118/46 100 Nasal Cannula 2.0 02/27/17 00:00 76 02/27/17 00:00 97.8 67 15 109/51 100 Nasal Cannula 2.0 02/26/17 23:14 76 21 100 Facial 30 02/26/17 23:00 78 18 122/51 100 Nasal Cannula 2.0 02/26/17 22:00 73 19 113/41 100 Nasal Cannula 2.0 02/26/17 21:00 87 18 113/41 100 Nasal Cannula 2.0 02/26/17 20:27 89 160/60 02/26/17 20:00 89 18 134/63 100 Nasal Cannula 2.0 02/26/17 20:00 92 02/26/17 19:04 Nasal Cannula 2.0 02/26/17 19:04 100 Nasal Cannula 2.0 02/26/17 19:03 89 22 Nasal Cannula 2.0 02/26/17 19:00 97.9 88 19 160/51 100 Nasal Cannula 2.0 Intake and Output 02/26/17 02/27/17 19:00 07:00 Intake Total 204.742 ml 445.854 ml Output Total 280 ml Balance 204.742 ml 165.854 ml Intake Oral 150 ml 100 ml IV Total 54.742 ml 345.854 ml Output Urine Total 250 ml Emesis 30 ml # Voids 2 # Bowel Movements 1 Laboratory Tests Test 02/26/17 22:50 02/27/17 05:50 7/17/17 14:30 Activated Partial Thromboplast Time 59 SEC (23-33) H > 150 SEC (23-33) *H 89 SEC (23-33) H White Blood Count 7.9 K/UL (4.8-10.8) Red Blood Count 2.95 M/UL (4.70-6.10) L Hemoglobin 10.0 G/DL (14.2-18.0) L Hematocrit 30.7 % (42.0-52.0) L Mean Corpuscular Volume 104 FL (80-99) H Mean Corpuscular Hemoglobin 33.9 PG (27.0-31.0) H Mean Corpuscular Hemoglobin Concent 32.7 G/DL (32.0-36.0) Red Cell Distribution Width 15.0 % (11.6-14.8) H Platelet Count 278 K/UL (150-450) Mean Platelet Volume 5.1 FL (6.5-10.1) L Neutrophils (%) (Auto) 78.8 % (45.0-75.0) H Lymphocytes (%) (Auto) 7.5 % (20.0-45.0) L Monocytes (%) (Auto) 12.2 % (1.0-10.0) H Eosinophils (%) (Auto) 0.6 % (0.0-3.0) Basophils (%) (Auto) 0.9 % (0.0-2.0) Sodium Level 140 mEQ/L (135-145) Potassium Level 4.1 mEQ/L (3.4-4.9) Chloride Level 99 mEQ/L (98-107) Carbon Dioxide Level 20 mEQ/L (20-30) Anion Gap 21 (5-15) H Blood Urea Nitrogen 93 mg/dL (7-23) H Creatinine 7.4 mg/dL (0.7-1.2) H Estimat Glomerular Filtration Rate 7.5 mL/min (>60) Glucose Level 237 mg/dL (74-106) #H Calcium Level 7.9 mg/dL (8.6-10.2) L Troponin I 1.72 ng/mL (<=0.30) *H Pro-B-Type Natriuretic Peptide 80454 pg/mL (0-125) H Thyroid Stimulating Hormone (TSH) 0.230 uIU/mL (0.300-4.500) Free Thyroxine 1.30 ng/dL (0.86-1.85) Objective HEAD AND NECK: Shows no JVD. LUNGS: Decreased breath sounds. CARDIOVASCULAR: Regular S1 and S2 with no gallop. Status post MIDCAB surgery. Incision is still under the left nipple. ABDOMEN: Soft. EXTREMITIES: No pitting edema. SAMM DANG Feb 27, 2017 18:22
--- NOTE | 2017-02-27 18:56 | GI Initial Consult Note ---
Lucero,Shonaavel Guillermo NCierra 02/27/17 1856: History of Present Illness General Date patient seen: Feb 27, 2017 Time patient seen: 18:38 Reason for Hospitalization: General Complaint Referring physician: DHAVAL ASH Reason for Consultation: HICCUPS Present Illness HPI 66YOM here because of missed HD sessions 2x last week because "they were unorganized." Denies chest pain, SOB, abd pain, fever/chills. Feels well otherwise Has had intractable hiccups. GI Consult. HPI as noted above. GI consulted for hiccups. Pt seen on floor, awake A&Ox NAD with no active s/sx of hiccups. On diet, but refusing to eat, states eating causes him to have hiccups. He presents today with anemia and intractable hiccups. Home Meds Reported Medications Metoprolol Succinate* (METOPROLOL SUCCINATE*) 25 Mg Tab.er.24h, 25 MG ORAL DAILY , TAB 02/26/17 Atorvastatin Calcium* (LIPITOR*) 80 Mg Tablet, 80 MG ORAL BEDTIME, TAB 02/26/17 Enalapril Maleate* (ENALAPRIL MALEATE*) 5 Mg Tablet, 5 MG ORAL, TAB 02/26/17 Aspirin* (ASPIR 81*) 81 Mg Tablet.dr, 81 MG ORAL DAILY, TAB 02/26/17 Med list reviewed/reconciled: Yes Allergies: Coded Allergies: No Known Allergies (Unverified , 02/15/13) Patient History History Provided By: Patient, Medical Record PMH Narrative Past Medical History: DM, [place], CAD, renal disease, dialysis, other - Anemia, HLD Past Surgical History: none Pertinent Family History: none Social History: Denies: alcohol use, drug use, smoking Immunizations: UTD Reviewed Nursing Documentation: PMH: Agreed, PSxH: Agreed Nursing Documentation-PMH Hx Cardiac Problems: Yes - Hyperlipidemia Hx Hypertension: Yes Hx Diabetes: Yes Hx Cancer: No Hx Gastrointestinal Problems: No Hx Neurological Problems: No Social History: Denies: alcohol use, drug use, other, smoking Review of Systems All Other Systems: negative except mentioned in HPI Physical Exam Vital Signs Date Time Temp Pulse Resp B/P Pulse Ox O2 Delivery O2 Flow Rate FiO2 02/26/17 08:56 97.9 81 16 163/72 100 Room Air 7/16/17 10:50 21 02/26/17 16:00 2.0 Sp02 EP Interpretation: reviewed Labs Laboratory Tests Test 02/26/17 22:50 02/27/17 05:50 02/27/17 14:30 Activated Partial Thromboplast Time 59 SEC (23-33) H > 150 SEC (23-33) *H 89 SEC (23-33) H White Blood Count 7.9 K/UL (4.8-10.8) Red Blood Count 2.95 M/UL (4.70-6.10) L Hemoglobin 10.0 G/DL (14.2-18.0) L Hematocrit 30.7 % (42.0-52.0) L Mean Corpuscular Volume 104 FL (80-99) H Mean Corpuscular Hemoglobin 33.9 PG (27.0-31.0) H Mean Corpuscular Hemoglobin Concent 32.7 G/DL (32.0-36.0) Red Cell Distribution Width 15.0 % (11.6-14.8) H Platelet Count 278 K/UL (150-450) Mean Platelet Volume 5.1 FL (6.5-10.1) L Neutrophils (%) (Auto) 78.8 % (45.0-75.0) H Lymphocytes (%) (Auto) 7.5 % (20.0-45.0) L Monocytes (%) (Auto) 12.2 % (1.0-10.0) H Eosinophils (%) (Auto) 0.6 % (0.0-3.0) Basophils (%) (Auto) 0.9 % (0.0-2.0) Sodium Level 140 mEQ/L (135-145) Potassium Level 4.1 mEQ/L (3.4-4.9) Chloride Level 99 mEQ/L (98-107) Carbon Dioxide Level 20 mEQ/L (20-30) Anion Gap 21 (5-15) H Blood Urea Nitrogen 93 mg/dL (7-23) H Creatinine 7.4 mg/dL (0.7-1.2) H Estimat Glomerular Filtration Rate 7.5 mL/min (>60) Glucose Level 237 mg/dL (74-106) #H Calcium Level 7.9 mg/dL (8.6-10.2) L Troponin I 1.72 ng/mL (<=0.30) *H Pro-B-Type Natriuretic Peptide 19059 pg/mL (0-125) H Thyroid Stimulating Hormone (TSH) 0.230 uIU/mL (0.300-4.500) Free Thyroxine 1.30 ng/dL (0.86-1.85) General Appearance: well appearing, no apparent distress, alert Head: normocephalic EENT: normal ENT inspection Neck: supple Respiratory: normal breath sounds, no respiratory distress Cardiovascular: normal rate Gastrointestinal: normal inspection, non tender, soft Rectal: deferred Genitourinary: no CVA tenderness Musculoskeletal: back normal Neurologic: normal inspection, alert, oriented x3, responsive Psychiatric: normal inspection, judgement/insight normal, memory normal Skin: normal inspection, normal color, no rash, warm/dry Lymphatic: normal inspection, no adenopathy Current Medications Current Medications Medications (Trade) Dose Ordered Sig/Ailyn Route PRN Reason Start Time Stop Time Status Last Admin Dose Admin Acetaminophen (Tylenol) 650 mg Q4H PRN ORAL Fever 02/26/17 16:15 03/28/17 16:14 Albuterol/ Ipratropium (DuoNeb 0.5-3(2.5)mg/3ml) 3 ml Q4H PRN HHN Shortness of Breath 02/26/17 16:15 03/03/17 16:14 Aspirin (Ecotrin) 81 mg DAILY ORAL 02/27/17 09:00 03/29/17 08:59 02/27/17 08:13 Atorvastatin Calcium (Lipitor) 80 mg BEDTIME ORAL 02/26/17 21:00 03/28/17 20:59 02/26/17 20:27 Baclofen 5 mg 5 mg Q8H PRN ORAL hiccups 02/26/17 19:45 03/28/17 19:44 02/27/17 12:46 Chlorhexidine Gluconate (Lora-Hex 2%) 1 applic QHS TOPIC 02/27/17 21:00 03/29/17 20:59 Chlorpromazine (Thorazine) 10 mg Q6H PRN ORAL hiccups 02/27/17 10:00 03/29/17 09:59 02/27/17 09:36 Dextrose (Dextrose 50%) 50 ml STAT PRN IV Hypoglycemia 02/26/17 16:15 03/28/17 16:14 Enalapril Maleate (Vasotec) 5 mg DAILY ORAL 02/27/17 09:00 03/29/17 08:59 Heparin Sodium/ Dextrose (Heparin) 500 ml @ 19.885 mls/ hr adjust per protocol IV 02/27/17 08:00 03/29/17 07:59 02/27/17 16:37 Hydromorphone HCl (Dilaudid) 1 mg Q4H PRN IVP For Pain 4-10 02/26/17 16:30 03/05/17 16:29 Metoprolol Tartrate (Lopressor) 50 mg Q12HR ORAL 02/26/17 21:00 03/28/17 20:59 02/26/17 20:27 Ondansetron HCl (Zofran) 4 mg Q6H PRN IVP Nausea & Vomiting 02/26/17 16:16 03/28/17 16:15 02/27/17 13:06 Pantoprazole (Protonix) 40 mg DAILY ORAL 02/27/17 12:00 03/29/17 11:59 02/27/17 12:08 Polyethylene Glycol (Miralax) 17 gm DAILYPRN PRN ORAL Constipation 02/26/17 16:16 03/28/17 16:15 Temazepam (Restoril) 15 mg HSPRN PRN ORAL Insomnia 02/26/17 16:16 03/05/17 16:15 GI: Plan Problems: (1) Intractable hiccups (2) Anemia (3) Diabetes mellitus Plan defer GI procedures given elevated troponin levels - multiple GI dx that can irritate vagus or phrenic nerve >> patient will benefit from EGD when stable. intractable hiccups >> cont ppi + Thorazine + baclofen consider physical maneuvers - interrupt normal respiratory function (breath holding, Valsalva) - stimulate nasopharynx of uvula (sipping cold water) - increase vagal stimulation (pressing on the eye balls) - counteract irritation of the diaphragm (pulling needs to chest to compress chest.) anemia work up OB stool r/o GI bleed ADA diet, pt refusing due to hiccups. fu labs Discussed with Dr. Fung. Thank you for referring this patient, we will follow. YANDEL FUNG 03/01/17 3060: History of Present Illness General Reason for Hospitalization: General Complaint Present Illness Home Meds Reported Medications Metoprolol Succinate* (METOPROLOL SUCCINATE*) 25 Mg Tab.er.24h, 25 MG ORAL DAILY , TAB 02/26/17 Atorvastatin Calcium* (LIPITOR*) 80 Mg Tablet, 80 MG ORAL BEDTIME, TAB 02/26/17 Enalapril Maleate* (ENALAPRIL MALEATE*) 5 Mg Tablet, 5 MG ORAL, TAB 02/26/17 Aspirin* (ASPIR 81*) 81 Mg Tablet.dr, 81 MG ORAL DAILY, TAB 02/26/17 Allergies: Coded Allergies: No Known Allergies (Unverified , 02/15/13) GI: Plan Plan The patient was seen and examined at bedside and all new and available data was reviewed in the patients chart. I agree with the above findings, impression and plan. (Patient seen earlier today. Signature stamp does not reflect patient encounter time.). -Sparkle Aparicio MDh Eagle TonyPKaryna Feb 27, 2017 18:56 YANDEL FUNG Mar 01, 2017 07:50
[2017-02-27] MEDS ORDERED: Heparin 25,000u/D5W 500ml 500 ML IV SCH (20:00)
[2017-02-27] MEDS ORDERED: DuoNeb 0.5-3(2.5)mg/3ml neb HHN PRN (20:15)
[2017-02-27] MEDS ORDERED: HYDROmorphone 1mg/ml Carpuject IVP PRN (20:30)
[2017-02-27] MEDS ORDERED: Atorvastatin 80mg tab ORAL SCH (21:00)
[2017-02-27] MEDS ORDERED: Dyna-Hex 2% Top Sol 8oz TOPIC SCH ×2 (21:00)
[2017-02-27 21:07] LABS: TROPONIN I 2.78 ng/mL (<=0.30)
[2017-02-28] VITALS: BP 146/70
--- NOTE | 2017-02-28 02:45 | Consultation ---
DATE OF CONSULTATION: 02/27/2017 CARDIAC CONSULTATION REFERRING PHYSICIAN: Alok Armendariz M.D. HISTORY OF PRESENT ILLNESS: This is a middle-aged gentleman, 66 years old, who is known to me. The patient has basically history of cardiomyopathy. He had underlying coronary disease and was treated after acute event back in July and subsequently was stapled and the plan of care had included the possibility of performing the PINTO to LAD, off pump bypass surgery, which he had one done last week and was discharged procedure was to have the PCI in the future date. He apparently came to the hospital because of shortness of breath and having missed his dialysis session on Monday and was subsequently admitted to the hospital. He subsequently developed atrial fibrillation with rapid ventricular response and atrial flutter and was started on Cardizem drip, on anticoagulation and has spontaneously converted to sinus. The patient has had cardiac enzyme abnormalities therefore this consultation has been requested in addition to follow up on this fibrillation and today the patient converted back in sinus rhythm. PAST MEDICAL HISTORY: History of congestive heart failure, cardiomyopathy, and coronary disease as mentioned, ejection fraction 30% to 35%, diabetes mellitus type 2, peripheral vascular disease, end-stage renal disease on hemodialysis, history of anemia and PCI, hyperlipidemia, and hypertension. He had a cardiac stent implanted in July 2014, and AV fistula creation and then subsequently, institution of dialysis therapy. ALLERGIES: He is not known to be allergic to any medications. SOCIAL HISTORY: He does not smoke or drink alcoholic beverages. At the present time, he does not use drugs. REVIEW OF SYSTEMS: Gastrointestinal: He has had hiccups right now. He has had some nausea and vomiting and not been able to keep much in the past few days. He had some constipation. Genitourinary: He does make some urine, but he is on dialysis. As mentioned, he has missed his dialysis session. Pulmonary: He has basically hiccups as mentioned. Constitutional: No fevers, chills, or night sweats. Neurologic: Negative. PHYSICAL EXAMINATION: GENERAL: Shows him to be middle-aged gentleman, in no respiratory distress. He is in the intensive care unit on monitor. NECK: Supple. No jugular venous distention. There is a dialysis catheter that tunnel towards the right side of the chest and neck. LUNGS: Appear to be clear to auscultation at the present time. CARDIAC: S1 is normal. S2 is normal. Regular rate and rhythm. No heaves, thrills, gallops, or rubs are noted. ABDOMEN: Soft and nontender. Positive bowel sounds. EXTREMITIES: He has basically no clubbing, cyanosis, or edema. NEUROLOGIC: He is awake, alert, responsive, in no apparent respiratory distress. LABORATORY VALUES: White count 7.9, hemoglobin 10, and platelet count of 278,000. Sodium is 140, potassium 4.1, chloride 99, bicarbonate of 20, BUN of 92, creatinine 7.4, and glucose of 236. Calcium 7.9. First set of cardiac enzymes less than 0.3 yesterday subsequently troponin at 5 o'clock this morning was 1.72. His TSH is 0.23 and free T4 is 1.3, which is normal. His proBNP is 12,766 and his PTT of 89 on heparin drip. Urinalysis . His vital signs his temperature is 97.5, actually heart rate is 72, and blood pressure 145/62. EKG Findings: EKG shows atrial flutter with 2:1 block and some nonspecific ST and T-wave changes. Subsequent EKG post conversion, shown sinus rhythm/sinus bradycardia with leftward axis and T-wave inversions in lead V2 and V3 only. ASSESSMENT: 1. Non-ST elevation myocardial infarction likely secondary to combination of demand and coronary artery disease. 2. Coronary artery disease with history of percutaneous coronary intervention to the right coronary artery status post MIDCAB with PINTO to LAD approximately two weeks ago with the circumflex artery needing PCI. 3. Cardiomyopathy. 4. Hypertension. 5. Diabetes mellitus. 6. End-stage renal disease, on hemodialysis. 7. Hyperlipidemia. 8. History of atrial flutter, status post conversion. 9. Borderline hypothyroidism. PLAN: This patient was seen in cardiac consultation. The patient should have repeat cardiac enzymes, should be on aspirin and he is on anticoagulation to be continued. I will try to see if I can arrange for a cardiac catheterization to treat the underlying circumflex disease. He should be continued on his Lipitor, aspirin, and other blood pressure medications to control his blood pressure. Beta-blockers to be continued. He had been on some nifedipine previously as well as ARIADNA inhibitors. Those are to be continued. Statins also will be continued until arrangements are properly made. Donnie Schroeder M.D. DR: JAVIER JOB#: [id number] CC:
[2017-02-28 04:06] VITALS: BP 148/62
[2017-02-28 07:47] VITALS: BP 155/82
[2017-02-28 08:24] LABS: BASOPHILS % (AUTO) 0.6 % (0.0-2.0); EOSINOPHILS % (AUTO) 0.8 % (0.0-3.0); MEAN CORPUSCULAR HGB CONC 34.6 G/DL (32.0-36.0); MEAN CORPUSCULAR VOLUME 101 FL (80-99); MEAN PLATELET VOLUME 5.4 FL (6.5-10.1); MONOCYTES % (AUTO) 10.2 % (1.0-10.0); NEUTROPHILS % (AUTO) 77.4 % (45.0-75.0); PLATELET COUNT 180 K/UL (150-450); RED BLOOD COUNT 3.02 M/UL (4.70-6.10); WHITE BLOOD COUNT 6.9 K/UL (4.8-10.8)
[2017-02-28 08:37] LABS: CALCIUM 8.1 mg/dL (8.6-10.2); CREATININE 5.7 mg/dL (0.7-1.2); GLOMERULAR FILTRATION RATE 10.1 mL/min (>60); POTASSIUM 3.2 mEQ/L (3.4-4.9)
[2017-02-28] MEDS ORDERED: Enalapril 5mg tab ORAL SCH (09:00)
[2017-02-28] MEDS ORDERED: Aspirin EC 81mg tab ORAL SCH (09:00)
[2017-02-28] MEDS: Metoprolol 50mg tab ORAL SCH (09:19)
--- NOTE | 2017-02-28 10:08 | Cardiac Electrophysiology PN ---
Assessment/Plan Assessment/Plan 1.Recurrent Atrial flutter with rapid ventricular response. Converted to SR. Continue metoprolol 50 mg twice a day and heparin drip.Add Amiodarone 400 bid. 2. Ischemic cardiomyopathy EF 30%. Ejection fraction is ow 60%. Continue aspirin Lipitor 80 mg and Lopressor. 3. Troponin leak and history of right coronary artery stent as well as PINTO to the LAD and MIDCAB, single-vessel bypass on 02/17/2017, on aspirin, Lopressor, and Lipitor. [place] Schroeder. Likely needs to be transferred to [facility] for intervention on his Cx. 4. History of peripheral vascular disease. 5. End-stage renal disease, on hemodialysis. 6. Hyperkalemia. 7. Diabetes. [place] RN Subjective Subjective Converted to fib again last night and back again to SR . Out of ICU. no chest pain or SOB. Objective Last 24 Hour Vital Signs Date Time Temp Pulse Resp B/P Pulse Ox O2 Delivery O2 Flow Rate FiO2 02/28/17 09:19 88 155/82 02/28/17 09:18 155/82 02/28/17 07:47 99.3 88 20 155/82 99 Room Air 02/28/17 04:06 97.9 74 18 148/62 99 Nasal Cannula 3.0 02/28/17 04:00 109 02/28/17 00:00 72 02/28/17 00:00 98.1 74 19 146/70 99 Nasal Cannula 3.0 02/27/17 20:46 80 149/75 02/27/17 20:19 Nasal Cannula 2.0 02/27/17 20:19 99 Nasal Cannula 2.0 02/27/17 20:18 83 18 Nasal Cannula 2.0 02/27/17 20:00 98.2 81 20 149/71 100 Room Air 02/27/17 20:00 89 02/27/17 19:00 74 13 133/56 100 Nasal Cannula 2.0 02/27/17 18:00 75 16 155/60 100 Nasal Cannula 2.0 02/27/17 17:00 72 17 145/62 100 Nasal Cannula 2.0 02/27/17 16:36 72 148/57 02/27/17 16:00 68 02/27/17 16:00 97.5 70 15 148/57 100 Nasal Cannula 2.0 02/27/17 15:00 72 17 138/58 100 Nasal Cannula 2.0 02/27/17 14:00 70 18 161/70 100 Nasal Cannula 2.0 02/27/17 14:00 73 15 138/58 100 Nasal Cannula 2.0 02/27/17 13:00 73 18 164/84 100 Nasal Cannula 2.0 02/27/17 12:00 72 02/27/17 12:00 98.0 74 17 134/100 100 Nasal Cannula 2.0 02/27/17 11:15 Room Air 2.0 02/27/17 11:00 71 18 99/55 99 Nasal Cannula 2.0 Intake and Output 02/27/17 02/28/17 19:00 07:00 Intake Total 368.965 ml 678.850 ml Output Total 1860 ml Balance -1491.035 ml 678.850 ml Intake Oral 60 ml 480 ml IV Total 218.965 ml 198.850 ml Other 90 ml Emesis 10 ml Hemodialysis UF 1850 ml # Voids 2 2 Laboratory Tests Test 02/27/17 14:30 02/27/17 19:50 02/28/17 07:15 Activated Partial Thromboplast Time 89 SEC (23-33) H 89 SEC (23-33) H Troponin I 2.78 ng/mL (<=0.30) *H 2.00 ng/mL (<=0.30) *H White Blood Count 6.9 K/UL (4.8-10.8) Red Blood Count 3.02 M/UL (4.70-6.10) L Hemoglobin 10.6 G/DL (14.2-18.0) L Hematocrit 30.6 % (42.0-52.0) L Mean Corpuscular Volume 101 FL (80-99) H Mean Corpuscular Hemoglobin 35.0 PG (27.0-31.0) H Mean Corpuscular Hemoglobin Concent 34.6 G/DL (32.0-36.0) Red Cell Distribution Width 14.0 % (11.6-14.8) Platelet Count 180 K/UL (150-450) Mean Platelet Volume 5.4 FL (6.5-10.1) L Neutrophils (%) (Auto) 77.4 % (45.0-75.0) H Lymphocytes (%) (Auto) 11.0 % (20.0-45.0) L Monocytes (%) (Auto) 10.2 % (1.0-10.0) H Eosinophils (%) (Auto) 0.8 % (0.0-3.0) Basophils (%) (Auto) 0.6 % (0.0-2.0) Sodium Level 140 mEQ/L (135-145) Potassium Level 3.2 mEQ/L (3.4-4.9) L Chloride Level 96 mEQ/L (98-107) L Carbon Dioxide Level 24 mEQ/L (20-30) Anion Gap 20 (5-15) H Blood Urea Nitrogen 49 mg/dL (7-23) #H Creatinine 5.7 mg/dL (0.7-1.2) H Estimat Glomerular Filtration Rate 10.1 mL/min (>60) Glucose Level 179 mg/dL (74-106) H Calcium Level 8.1 mg/dL (8.6-10.2) L Pro-B-Type Natriuretic Peptide 70050 pg/mL (0-125) H Microbiology Date/Time Source Procedure Growth Status 02/26/17 12:30 Nasal Nares MRSA Culture - Final NO METHICILLIN RESISTANT STAPH AUREUS... Complete 02/26/17 12:30 Rectum VRE Culture - Final NO VANCOMYCIN RESISTANT ENTEROCOCCUS ... Complete Objective HEAD AND NECK: Shows no JVD. LUNGS: Decreased breath sounds. CARDIOVASCULAR: Regular S1 and S2 with no gallop. Status post MIDCAB surgery. Incision healing under the left breast. ABDOMEN: Soft. EXTREMITIES: No pitting edema. SAMM DANG Feb 28, 2017 10:08
[2017-02-28 11:28] VITALS: BP 119/57
--- NOTE | 2017-02-28 12:17 | GI Progress Note ---
Assessment/Plan Problems: (1) Diabetes mellitus ICD Codes: E11.9 - Type 2 diabetes mellitus without complications SNOMED: 13125495 (2) Anemia ICD Codes: D64.9 - Anemia, unspecified SNOMED: 053508910 (3) Intractable hiccups ICD Codes: R06.6 - Hiccough SNOMED: 89709814 (4) Elevated troponin ICD Codes: R79.89 - Other specified abnormal findings of blood chemistry SNOMED: 117567394, 615725626 Status: unchanged Status Narrative Discussed with Dr. Carl. Assessment/Plan defer GI procedures given elevated troponin levels - multiple GI dx that can irritate vagus or phrenic nerve >> patient will benefit from EGD when stable. intractable hiccups >> cont ppi + Thorazine + baclofen consider physical maneuvers - interrupt normal respiratory function (breath holding, Valsalva) - stimulate nasopharynx of uvula (sipping cold water) - increase vagal stimulation (pressing on the eye balls) - counteract irritation of the diaphragm (pulling knees to chest to compress chest.) OB stool r/o GI bleed ADA diet, tolerating fu labs Subjective Subjective hiccups resolved tolerating diet Objective Last 24 Hour Vital Signs Date Time Temp Pulse Resp B/P Pulse Ox O2 Delivery O2 Flow Rate FiO2 02/28/17 11:28 97.2 68 20 119/57 99 Room Air 02/28/17 09:19 88 155/82 02/28/17 09:18 155/82 02/28/17 08:43 98 Room Air 02/28/17 08:43 Room Air 02/28/17 08:43 74 18 Room Air 02/28/17 07:47 99.3 88 20 155/82 99 Room Air 02/28/17 04:06 97.9 74 18 148/62 99 Nasal Cannula 3.0 02/28/17 04:00 109 02/28/17 00:00 72 02/28/17 00:00 98.1 74 19 146/70 99 Nasal Cannula 3.0 02/27/17 20:46 80 149/75 02/27/17 20:19 Nasal Cannula 2.0 02/27/17 20:19 99 Nasal Cannula 2.0 02/27/17 20:18 83 18 Nasal Cannula 2.0 02/27/17 20:00 98.2 81 20 149/71 100 Room Air 02/27/17 20:00 89 02/27/17 19:00 74 13 133/56 100 Nasal Cannula 2.0 02/27/17 18:00 75 16 155/60 100 Nasal Cannula 2.0 02/27/17 17:00 72 17 145/62 100 Nasal Cannula 2.0 02/27/17 16:36 72 148/57 02/27/17 16:00 68 02/27/17 16:00 97.5 70 15 148/57 100 Nasal Cannula 2.0 02/27/17 15:00 72 17 138/58 100 Nasal Cannula 2.0 02/27/17 14:00 70 18 161/70 100 Nasal Cannula 2.0 02/27/17 14:00 73 15 138/58 100 Nasal Cannula 2.0 02/27/17 13:00 73 18 164/84 100 Nasal Cannula 2.0 Intake and Output 02/27/17 02/28/17 19:00 07:00 Intake Total 368.965 ml 678.850 ml Output Total 1860 ml Balance -1491.035 ml 678.850 ml Intake Oral 60 ml 480 ml IV Total 218.965 ml 198.850 ml Other 90 ml Emesis 10 ml Hemodialysis UF 1850 ml # Voids 2 2 Laboratory Tests Test 02/27/17 14:30 02/27/17 19:50 02/28/17 07:15 Activated Partial Thromboplast Time 89 SEC (23-33) H 89 SEC (23-33) H Troponin I 2.78 ng/mL (<=0.30) *H 2.00 ng/mL (<=0.30) *H White Blood Count 6.9 K/UL (4.8-10.8) Red Blood Count 3.02 M/UL (4.70-6.10) L Hemoglobin 10.6 G/DL (14.2-18.0) L Hematocrit 30.6 % (42.0-52.0) L Mean Corpuscular Volume 101 FL (80-99) H Mean Corpuscular Hemoglobin 35.0 PG (27.0-31.0) H Mean Corpuscular Hemoglobin Concent 34.6 G/DL (32.0-36.0) Red Cell Distribution Width 14.0 % (11.6-14.8) Platelet Count 180 K/UL (150-450) Mean Platelet Volume 5.4 FL (6.5-10.1) L Neutrophils (%) (Auto) 77.4 % (45.0-75.0) H Lymphocytes (%) (Auto) 11.0 % (20.0-45.0) L Monocytes (%) (Auto) 10.2 % (1.0-10.0) H Eosinophils (%) (Auto) 0.8 % (0.0-3.0) Basophils (%) (Auto) 0.6 % (0.0-2.0) Sodium Level 140 mEQ/L (135-145) Potassium Level 3.2 mEQ/L (3.4-4.9) L Chloride Level 96 mEQ/L (98-107) L Carbon Dioxide Level 24 mEQ/L (20-30) Anion Gap 20 (5-15) H Blood Urea Nitrogen 49 mg/dL (7-23) #H Creatinine 5.7 mg/dL (0.7-1.2) H Estimat Glomerular Filtration Rate 10.1 mL/min (>60) Glucose Level 179 mg/dL (74-106) H Calcium Level 8.1 mg/dL (8.6-10.2) L Pro-B-Type Natriuretic Peptide 50376 pg/mL (0-125) H Height (Feet): 5 Height (Inches): 5.00 Weight (Pounds): 127 General Appearance: no apparent distress, alert Cardiovascular: normal rate Respiratory/Chest: normal breath sounds, no respiratory distress Abdominal Exam: normal bowel sounds, non tender, soft Extremities: normal range of motion Shona Lucero N.P. Feb 28, 2017 12:17
--- NOTE | 2017-02-28 15:19 | Nephrology Progress Note ---
Assessment/Plan Problem List: (1) ESRD (end stage renal disease) on dialysis (2) Atrial flutter (3) Diabetes mellitus (4) Cardiomyopathy (5) HTN (hypertension) (6) CAD (coronary artery disease) (7) Elevated troponin (8) CHF exacerbation Plan HD tomorrow Transfer [facility] today Discussed with Dr Schroeder Subjective Subjective Hiccups gone Objective Objective Last 24 Hour Vital Signs Date Time Temp Pulse Resp B/P Pulse Ox O2 Delivery O2 Flow Rate FiO2 02/28/17 12:00 67 02/28/17 11:28 97.2 68 20 119/57 99 Room Air 02/28/17 09:19 88 155/82 02/28/17 09:18 155/82 02/28/17 08:43 98 Room Air 02/28/17 08:43 Room Air 02/28/17 08:43 74 18 Room Air 02/28/17 08:00 91 02/28/17 07:47 99.3 88 20 155/82 99 Room Air 02/28/17 04:06 97.9 74 18 148/62 99 Nasal Cannula 3.0 02/28/17 04:00 109 02/28/17 00:00 72 02/28/17 00:00 98.1 74 19 146/70 99 Nasal Cannula 3.0 02/27/17 20:46 80 149/75 02/27/17 20:19 Nasal Cannula 2.0 02/27/17 20:19 99 Nasal Cannula 2.0 02/27/17 20:18 83 18 Nasal Cannula 2.0 02/27/17 20:00 98.2 81 20 149/71 100 Room Air 02/27/17 20:00 89 02/27/17 19:00 74 13 133/56 100 Nasal Cannula 2.0 02/27/17 18:00 75 16 155/60 100 Nasal Cannula 2.0 02/27/17 17:00 72 17 145/62 100 Nasal Cannula 2.0 02/27/17 16:36 72 148/57 02/27/17 16:00 68 02/27/17 16:00 97.5 70 15 148/57 100 Nasal Cannula 2.0 Intake and Output 02/27/17 02/28/17 19:00 07:00 Intake Total 368.965 ml 678.850 ml Output Total 1860 ml Balance -1491.035 ml 678.850 ml Intake Oral 60 ml 480 ml IV Total 218.965 ml 198.850 ml Other 90 ml Emesis 10 ml Hemodialysis UF 1850 ml # Voids 2 2 Laboratory Tests 02/27/17 19:50: Troponin I 2.78*H 02/28/17 07:15: Troponin I 2.00*H, White Blood Count 6.9, Red Blood Count 3.02L, Hemoglobin 10.6L, Hematocrit 30.6L, Mean Corpuscular Volume 101H, Mean Corpuscular Hemoglobin 35.0H, Mean Corpuscular Hemoglobin Concent 34.6, Red Cell Distribution Width 14.0, Platelet Count 180, Mean Platelet Volume 5.4L, Neutrophils (%) (Auto) 77.4H, Lymphocytes (%) (Auto) 11.0L, Monocytes (%) (Auto ) 10.2H, Eosinophils (%) (Auto) 0.8, Basophils (%) (Auto) 0.6, Activated Partial Thromboplast Time 89H, Sodium Level 140, Potassium Level 3.2L, Chloride Level 96L, Carbon Dioxide Level 24, Anion Gap 20H, Blood Urea Nitrogen 49#H, Creatinine 5.7H, Estimat Glomerular Filtration Rate 10.1, Glucose Level 179H, Calcium Level 8.1L, Pro-B-Type Natriuretic Peptide 26200D Height (Feet): 5 Height (Inches): 5.00 Weight (Pounds): 127 Cardiovascular: normal rate Respiratory/Chest: lungs clear Extremities: other - no edema CONCETTA NEGRO Feb 28, 2017 15:19
[2017-02-28 15:27] VITALS: BP 114/55
[2017-02-28] MEDS ORDERED: Miralax 17gm pkt ORAL PRN (16:30)
--- NOTE | 2017-02-28 16:34 | Internal Med Progress Note ---
Subjective Date of Service: Feb 28, 2017 Physician Name Vega,Rip Attending Physician Alok Armendariz MD Current Medications Medications (Trade) Dose Ordered Sig/Ailyn Route PRN Reason Start Time Stop Time Status Last Admin Dose Admin Acetaminophen (Tylenol) 650 mg Q4H PRN ORAL Fever 02/27/17 20:15 03/29/17 20:14 Albuterol/ Ipratropium (DuoNeb 0.5-3(2.5)mg/3ml) 3 ml Q4H PRN HHN Shortness of Breath 02/27/17 20:15 03/04/17 20:14 Amiodarone HCl (Cordarone) 400 mg EVERY 12 HOURS ORAL 02/28/17 21:00 03/07/17 20:59 Aspirin (Ecotrin) 81 mg DAILY ORAL 02/28/17 09:00 03/30/17 08:59 02/28/17 09:18 Atorvastatin Calcium (Lipitor) 80 mg BEDTIME ORAL 02/27/17 21:00 03/29/17 20:59 02/27/17 20:45 Baclofen (Lioresal) 5 mg Q8H PRN ORAL hiccups 02/28/17 03:45 03/30/17 03:44 Chlorhexidine Gluconate (Lora-Hex 2%) 1 applic QHS TOPIC 02/27/17 21:00 03/29/17 20:59 02/27/17 20:48 Chlorpromazine (Thorazine) 10 mg Q6H PRN ORAL hiccups 02/27/17 22:00 03/29/17 21:59 Dextrose (Dextrose 50%) 50 ml STAT PRN IV Hypoglycemia 02/28/17 16:15 03/30/17 16:14 Enalapril Maleate (Vasotec) 5 mg DAILY ORAL 02/28/17 09:00 03/30/17 08:59 02/28/17 09:18 Heparin Sodium/ Dextrose (Heparin) 500 ml @ 19.885 mls/ hr adjust per protocol IV 02/27/17 20:00 03/29/17 19:59 02/27/17 20:45 Hydromorphone HCl (Dilaudid) 1 mg Q4H PRN IVP For Pain 4-10 02/27/17 20:30 03/06/17 20:29 Metoprolol Tartrate (Lopressor) 50 mg Q12HR ORAL 02/27/17 21:00 03/29/17 20:59 02/28/17 09:19 Ondansetron HCl (Zofran) 4 mg Q6H PRN IVP Nausea & Vomiting 02/27/17 22:30 03/29/17 22:29 Pantoprazole (Protonix) 40 mg DAILY ORAL 02/28/17 09:00 03/30/17 08:59 02/28/17 09:18 Polyethylene Glycol (Miralax) 17 gm DAILYPRN PRN ORAL Constipation 02/28/17 16:30 03/30/17 16:29 Temazepam (Restoril) 15 mg HSPRN PRN ORAL Insomnia 02/28/17 16:30 03/07/17 16:29 Allergies: Coded Allergies: No Known Allergies (Unverified , 02/15/13) ROS Limited/Unobtainable: No Constitutional: Reports: no symptoms HEENT: Reports: no symptoms Cardiovascular: Reports: no symptoms Respiratory: Reports: shortness of breath Gastrointestinal/Abdominal: Reports: no symptoms Genitourinary: Reports: no symptoms Neurologic/Psychiatric: Reports: no symptoms Subjective 66 YO M admitted with shortness of breath. Now elevated troponin and atrial flutter. Cover for Int Med - Dr Armendariz. Await transfer to [facility] for cardiac catheterization Objective Last Vital Signs Date Time Temp Pulse Resp B/P Pulse Ox O2 Delivery O2 Flow Rate FiO2 02/28/17 15:27 98.1 66 20 114/55 99 Room Air 02/28/17 04:06 3.0 02/26/17 23:14 30 Laboratory Tests Test 02/27/17 19:50 02/28/17 07:15 Troponin I 2.78 ng/mL (<=0.30) *H 2.00 ng/mL (<=0.30) *H White Blood Count 6.9 K/UL (4.8-10.8) Red Blood Count 3.02 M/UL (4.70-6.10) L Hemoglobin 10.6 G/DL (14.2-18.0) L Hematocrit 30.6 % (42.0-52.0) L Mean Corpuscular Volume 101 FL (80-99) H Mean Corpuscular Hemoglobin 35.0 PG (27.0-31.0) H Mean Corpuscular Hemoglobin Concent 34.6 G/DL (32.0-36.0) Red Cell Distribution Width 14.0 % (11.6-14.8) Platelet Count 180 K/UL (150-450) Mean Platelet Volume 5.4 FL (6.5-10.1) L Neutrophils (%) (Auto) 77.4 % (45.0-75.0) H Lymphocytes (%) (Auto) 11.0 % (20.0-45.0) L Monocytes (%) (Auto) 10.2 % (1.0-10.0) H Eosinophils (%) (Auto) 0.8 % (0.0-3.0) Basophils (%) (Auto) 0.6 % (0.0-2.0) Activated Partial Thromboplast Time 89 SEC (23-33) H Sodium Level 140 mEQ/L (135-145) Potassium Level 3.2 mEQ/L (3.4-4.9) L Chloride Level 96 mEQ/L (98-107) L Carbon Dioxide Level 24 mEQ/L (20-30) Anion Gap 20 (5-15) H Blood Urea Nitrogen 49 mg/dL (7-23) #H Creatinine 5.7 mg/dL (0.7-1.2) H Estimat Glomerular Filtration Rate 10.1 mL/min (>60) Glucose Level 179 mg/dL (74-106) H Calcium Level 8.1 mg/dL (8.6-10.2) L Pro-B-Type Natriuretic Peptide 74147 pg/mL (0-125) H Microbiology Date/Time Source Procedure Growth Status 02/26/17 12:30 Nasal Nares MRSA Culture - Final NO METHICILLIN RESISTANT STAPH AUREUS... Complete 02/26/17 12:30 Rectum VRE Culture - Final NO VANCOMYCIN RESISTANT ENTEROCOCCUS ... Complete Intake and Output 02/27/17 02/28/17 19:00 07:00 Intake Total 368.965 ml 678.850 ml Output Total 1860 ml Balance -1491.035 ml 678.850 ml Intake Oral 60 ml 480 ml IV Total 218.965 ml 198.850 ml Other 90 ml Emesis 10 ml Hemodialysis UF 1850 ml # Voids 2 2 Objective General Appearance: alert, mild distress, thin EENT: PERRL/EOMI, normal ENT inspection Neck: non-tender, normal alignment, supple, normal inspection Cardiovascular: normal peripheral pulses, normal rate, regular rhythm, no gallop/murmur, no JVD Respiratory/Chest: chest wall non-tender, no accessory muscle use, crackles/ rales Abdomen: normal bowel sounds, non tender, soft, no organomegaly, no mass 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 (3) CHF exacerbation (4) Shortness of breath Assessment & Plan: Due to acute exacerbation of CHF (5) ESRD (end stage renal disease) on dialysis Assessment & Plan: Hemodialysis today per nephrology (6) Elevated troponin Assessment & Plan: See cardiology note. (7) HTN (hypertension) Assessment & Plan: Continue metoprolol and diltiazem (8) Diabetes mellitus (9) Hyperkalemia (10) Atrial flutter Assessment & Plan: Continue cardizem drip and heparin drip per cardiology Status: not improved RIP VEGA Feb 28, 2017 16:34
--- NOTE | 2017-02-28 17:51 | Cardiology Report ---
APPROVED REPORT EKG Measurement Heart [id number] [place] [id number] [id number] Sinus tachycardia Septal infarct, age undetermined Possible Inferior infarct, age undetermined Abnormal ECG
--- NOTE | 2017-02-28 17:54 | Cardiology Report ---
APPROVED REPORT EKG Measurement Heart [id number] [place] 170P57 [id number] Normal sinus rhythm Inferior infarct, age undetermined Cannot rule out Anterior infarct, age undetermined Abnormal ECG
--- NOTE | 2017-02-28 18:44 | Pulmonology Progress Note ---
Assessment/Plan Problems: (1) CHF exacerbation (2) Cardiomyopathy (3) Diabetes mellitus (4) Atrial flutter (5) ESRD (end stage renal disease) on dialysis (6) Anemia (7) HTN (hypertension) Assessment/Plan improving no new complains, continue current management HD dc planning Subjective ROS Limited/Unobtainable: No Constitutional: Reports: no symptoms HEENT: Repors: no symptoms Respiratory: Reports: no symptoms Allergies: Coded Allergies: No Known Allergies (Unverified , 02/15/13) Objective Last 24 Hour Vital Signs Date Time Temp Pulse Resp B/P Pulse Ox O2 Delivery O2 Flow Rate FiO2 02/28/17 15:27 98.1 66 20 114/55 99 Room Air 02/28/17 12:00 67 02/28/17 11:28 97.2 68 20 119/57 99 Room Air 02/28/17 09:19 88 155/82 02/28/17 09:18 155/82 02/28/17 08:43 98 Room Air 02/28/17 08:43 Room Air 02/28/17 08:43 74 18 Room Air 02/28/17 08:00 91 02/28/17 07:47 99.3 88 20 155/82 99 Room Air 02/28/17 04:06 97.9 74 18 148/62 99 Nasal Cannula 3.0 02/28/17 04:00 109 02/28/17 00:00 72 02/28/17 00:00 98.1 74 19 146/70 99 Nasal Cannula 3.0 02/27/17 20:46 80 149/75 02/27/17 20:19 Nasal Cannula 2.0 02/27/17 20:19 99 Nasal Cannula 2.0 02/27/17 20:18 83 18 Nasal Cannula 2.0 02/27/17 20:00 98.2 81 20 149/71 100 Room Air 02/27/17 20:00 89 02/27/17 19:00 74 13 133/56 100 Nasal Cannula 2.0 Intake and Output 02/27/17 02/28/17 19:00 07:00 Intake Total 368.965 ml 678.850 ml Output Total 1860 ml Balance -1491.035 ml 678.850 ml Intake Oral 60 ml 480 ml IV Total 218.965 ml 198.850 ml Other 90 ml Emesis 10 ml Hemodialysis UF 1850 ml # Voids 2 2 General Appearance: WD/WN HEENT: normocephalic Respiratory/Chest: chest wall non-tender, lungs clear, normal breath sounds Cardiovascular: normal peripheral pulses, normal rate Abdomen: normal bowel sounds, soft, non tender, no scars Genitourinary: normal external genitalia Extremities: no cyanosis Microbiology Date/Time Source Procedure Growth Status 02/26/17 12:30 Nasal Nares MRSA Culture - Final NO METHICILLIN RESISTANT STAPH AUREUS... Complete 02/26/17 12:30 Rectum VRE Culture - Final NO VANCOMYCIN RESISTANT ENTEROCOCCUS ... Complete Laboratory Tests 02/27/17 19:50: Troponin I 2.78*H 02/28/17 07:15: Troponin I 2.00*H, White Blood Count 6.9, Red Blood Count 3.02L, Hemoglobin 10.6L, Hematocrit 30.6L, Mean Corpuscular Volume 101H, Mean Corpuscular Hemoglobin 35.0H, Mean Corpuscular Hemoglobin Concent 34.6, Red Cell Distribution Width 14.0, Platelet Count 180, Mean Platelet Volume 5.4L, Neutrophils (%) (Auto) 77.4H, Lymphocytes (%) (Auto) 11.0L, Monocytes (%) (Auto ) 10.2H, Eosinophils (%) (Auto) 0.8, Basophils (%) (Auto) 0.6, Activated Partial Thromboplast Time 89H, Sodium Level 140, Potassium Level 3.2L, Chloride Level 96L, Carbon Dioxide Level 24, Anion Gap 20H, Blood Urea Nitrogen 49#H, Creatinine 5.7H, Estimat Glomerular Filtration Rate 10.1, Glucose Level 179H, Calcium Level 8.1L, Pro-B-Type Natriuretic Peptide [id number] JASPAL MENDOZA Feb 28, 2017 18:44
[2017-02-28] MEDS ORDERED: Amiodarone 200mg tab ORAL SCH ×2 (21:00)
--- NOTE | 2017-03-01 08:40 | Cardiology Report ---
APPROVED REPORT EKG Measurement Heart [id number] [place] [id number] [id number] Atrial Flutter. Possible Lateral infarct, age undetermined Inferior infarct, age undetermined Abnormal ECG
--- NOTE | 2017-03-01 16:18 | Cardiology Report ---
APPROVED REPORT EXAM: Two-dimensional and M-mode echocardiogram with Doppler and color Doppler. INDICATION Left ventricular function M-Mode DIMENSIONS IVSd1.1 (0.7-1.1cm)Left Atrium (MM)3.6 (1.6-4.0cm) LVDd4.0 (3.5-5.6cm)Aortic Root2.6 (2.0-3.7cm) PWd1.2 (0.7-1.1cm)Aortic Cusp Exc.1.6 (1.5-2.0cm) LVDs2.7 (2.5-4.0cm) PWs1.3 cm Normal left ventricular chamber size, systolic function and wall motion. Left ventricular ejection fraction estimated to be 60-65%. No evidence of left ventricular hypertrophy. Small posterior pericardial effusion. All other cardiac chamber sizes are within normal limits. Focal aortic valve sclerosis with adequate cusp excursion Thickened mitral valve leaflets with normal excursion. Mitral annulus and aortic root calcification. Pulmonic valve is well visualized. Normal tricuspid valve structure. IVC is normal in size with physiologic collapse. Probable pacemaker wire present in the right side chambers. A color flow and spectral Doppler study was performed and revealed: Mild aortic regurgitation. Trace mitral regurgitation. Left ventricular diastolic dysfunction not obtainable due to arrhythmia. Trace tricuspid regurgitation. Tricuspid systolic velocities suggests peak right ventricular systolic pressure of 30 mmHg
--- NOTE | 2017-03-01 16:53 | Cardiology Report ---
APPROVED REPORT EKG Measurement Heart [id number] [place] 174P46 [id number] Normal sinus rhythm Minimal voltage criteria for LVH, may be normal variant Inferior infarct, age undetermined Abnormal ECG
--- NOTE | 2017-03-02 09:45 | Cardiology Report ---
APPROVED REPORT EKG Measurement Heart [id number] [place] 176P52 [id number] Normal sinus rhythm Normal ECG
--- NOTE | 2017-03-02 16:29 | Discharge Summary ---
Discharge Summary Hospital Course Date of Admission Feb 26, 2017 at 11:53 Date of Discharge Feb 28, 2017 at 17:00 Admitting Diagnosis weakness/dialysis HPI Ashwin Santos is a 66 year old male who was admitted on Feb 26, 2017 at 11:53 for Weakness,Dialysis Hospital Course [id number] Discharge Discharge Disposition Patient was discharged to [facility] Discharge Diagnoses: Joanie Jones NP Mar 02, 2017 16:29
--- NOTE | 2017-03-02 19:15 | Discharge Summary 2 SIG ---
DATE OF ADMISSION: 02/26/2017 DATE OF DISCHARGE: 02/28/2017 CONSULTANTS: 1. Donnie Schroeder M.D. 2. Aron Nichols M.D. 3. Noel Julio M.D. 4. Robinson Carl M.d. BRIEF HOSPITAL COURSE: The patient is an 66-year-old male with history of coronary artery bypass graft on 02/17/2017, presented to ED for evaluation of shortness of breath. The patient was recently admitted to [facility] early this month and underwent the robotically-assisted minimally invasive direct coronary artery bypass graft on 02/17/2017 and began to experience shortness of breath. He has history of end-stage renal disease, on hemodialysis and has missed hemodialysis sessions. He presented to [facility] [place] ED and on evaluation, had hyperkalemia, potassium was 6.3. There were no significant EKG changes. He was given nebulizer treatments, Kayexalate, and calcium. He also had elevated BNP. Chest x-ray done showed no pneumonia or pulmonary congestion. EKG was in normal sinus rhythm. He was admitted to telemetry for shortness of breath due to missed hemodialysis, diabetes mellitus, hypertension, hypercholesterolemia, coronary artery disease, congestive heart failure, and hypercholesterolemia. Dr. Julio was consulted for inpatient hemodialysis. The patient was initially admitted to telemetry, however, the patient went into rapid atrial fibrillation and to atrial flutter on arrival to the floor. The patient was then immediately transferred to ICU and was started on Cardizem drip. Metoprolol was increased to 50 mg twice a day. He was continued on aspirin and Lipitor 80 mg. Echocardiogram done showed ejection fraction 60% to 65%. On admission, troponin was less than 0.30, however, subsequent troponins were elevated. The patient had a non-ST elevated myocardial infarction related to demand ischemia. The patient converted back to sinus rhythm and was transferred out of ICU. Amiodarone 400 mg b.i.d. was added. He was also seen by gastrointestinal for evaluation of hiccups, which were intractable. Gastrointestinal procedures were deferred secondary to elevated troponin level. The patient will benefit from an esophagogastroduodenoscopy when stable. He was given Thorazine and baclofen. He was eventually transferred to [facility] for cardiac catheterization. FINAL DIAGNOSES: 1. Non-ST elevated myocardial infarction. 2. Coronary artery disease. 3. End-stage renal disease, on hemodialysis. 4. Acute congestive heart failure exacerbation. 5. Hypercholesterolemia. 6. Hypertension. 7. Hyperkalemia. 8. Recurrent atrial flutter with rapid ventricular response. 9. Ischemic cardiomyopathy. 10. Peripheral vascular disease. 11. Intractable hiccups. 12. Anemia. Claude Larsen M.D. I have been assigned to dictate discharge summary on this account and I was not involved in the patient's management. Joanie Jones N.P. DR: NEHEMIAS JOB#: [id number] CC:
== END 2017-02-28 17:00 | disposition short-term general hospital (02) | DRG 280 ==
LOC: EMR 09:22 → EDBEDREQSVC 11:20 → EDBEDREQ 11:30 → 2E 11:53 → ICU 15:23 → 2E 02-27 19:49
PROC: 5A1D00Z (ICD-10-PCS; principal; 2017-02-27)
DX: I21.4 Non-ST elevation (NSTEMI) myocardial infarction (principal); N18.6 End stage renal disease; I12.0 Hypertensive chronic kidney disease with stage 5 chronic kidney disease or end stage renal disease; I48.92 Unspecified atrial flutter; I73.9 Peripheral vascular disease, unspecified; E13.39 Other specified diabetes mellitus with other diabetic ophthalmic complication; I25.5 Ischemic cardiomyopathy; Z99.2 Dependence on renal dialysis; Z95.1 Presence of aortocoronary bypass graft; I25.10 Atherosclerotic heart disease of native coronary artery without angina pectoris; E78.00 Pure hypercholesterolemia, unspecified; E87.5 Hyperkalemia; R06.6 Hiccough; D64.9 Anemia, unspecified; Z95.5 Presence of coronary angioplasty implant and graft; Z79.02 Long term (current) use of antithrombotics/antiplatelets
CPT/HCPCS: 36415; 71010; 80048; 80053; 82550; 82553; 83880; 84439; 84443; 84484; 85025; 85730; 87081; 93005; 93306; 94640; 94664; 94760; J2405

== ENCOUNTER 2017-05-18 11:31 | Inpatient (IN) | payer MEDICARE, MEDICAID ==
[~2017-05-18] VITALS: Ht 165.1 cm; Wt 61.2 kg
[~2017-05-18 11:31] MED LIST: ASPIR 8181 MG ORAL; ATORVASTATIN CA80 MG ORAL; ENALAPRIL MALEAT5 MG ORAL; FERROUS SULFAT325 MG ORAL; GLIPIZIDE5 MG ORAL; LIPITOR80 MG ORAL; LOVASTATIN10 MG ORAL; METOPROLOL SUCC25 MG ORAL; NIFEDIPINE ER60 M2 ORAL
[2017-05-18 11:32] VITALS: BP 156/50
[2017-05-18 12:01] VITALS: BP 133/85
--- NOTE | 2017-05-18 12:28 | Emergency Room Report ---
History of Present Illness General Chief Complaint: Altered Level of Consciousness Source: Patient, Medical Record Present Illness HPI Patient presents with complaints of altered mental status Patient is a diabetic and was found to be hypoglycemic by paramedics Patient resides at a rehabilitation facility Has diabetic foot ulcers Patient reports that this has happened to him before when his blood sugar has become very low Currently complain of some nausea denies any chest pain or shortness of breath denies any back or flank pain Denies any recent fevers patient reports he ate breakfast this morning as usual Allergies: Coded Allergies: No Known Allergies (Unverified , 02/15/13) Patient History Past Medical History: see triage record Pertinent Family History: none Reviewed Nursing Documentation: PMH: Agreed, PSxH: Agreed Nursing Documentation-PMH Past Medical History: No History, Except For Hx Cardiac Problems: Yes Hx Hypertension: Yes Hx Pacemaker: No Hx Asthma: No Hx COPD: No Hx Diabetes: Yes Hx Cancer: No Hx Gastrointestinal Problems: No Hx Dialysis: Yes - CKD, MWF History Of Psychiatric Problem: No Hx Neurological Problems: No Hx Cerebrovascular Accident: No Hx Seizures: No Hx Neurologic Surgery: No Review of Systems All Other Systems: negative except mentioned in HPI Physical Exam Vital Signs Date Time Temp Pulse Resp B/P (MAP) Pulse Ox O2 Delivery O2 Flow Rate FiO2 05/18/17 11:32 97.5 82 19 156/50 100 Room Air Sp02 EP Interpretation: reviewed, normal General Appearance: lethargic Head: normocephalic, atraumatic Eyes: bilateral eye PERRL, bilateral eye EOMI ENT: hearing grossly normal, normal pharynx, TMs + canals normal, uvula midline Neck: full range of motion, supple, no meningismus, no bony tend Respiratory: lungs clear, normal breath sounds, no rhonchi, no respiratory distress, no retraction, no accessory muscle use Cardiovascular #1: normal peripheral pulses, regular rate, rhythm, no edema, no gallop, no JVD, no murmur Gastrointestinal: normal bowel sounds, non tender, soft, no mass, no organomegaly, non-distended, no guarding, no hernia, no pulsatile mass, no rebound Genitourinary: no CVA tenderness Musculoskeletal: normal inspection Neurologic: oriented x3, responsive, pot washer III-XII nml as tested, motor strength/ tone normal, sensory intact Psychiatric: mood/affect normal Skin: other - Bilateral heel ulcers Lymphatic: normal inspection, no adenopathy Medical Decision Making Diagnostic Impression: Primary Impression: Sepsis Additional Impressions: Cellulitis of foot Cellulitis in diabetic foot ER Course Multiple differentials considered including but not limited to medication, infectious, cardiac Patient's white blood cell count returned significantly elevated Patient has had bilateral foot cellulitis and ulcer Patient however also has a PICC line in place which raises concern of line sepsis patient provided with broad-spectrum antibiotics and admitted for further care Labs Test 05/18/17 11:55 05/18/17 12:55 White Blood Count 21.4 K/UL (4.8-10.8) Red Blood Count 3.26 M/UL (4.70-6.10) Hemoglobin 10.2 G/DL (14.2-18.0) Hematocrit 30.6 % (42.0-52.0) Mean Corpuscular Volume 94 FL (80-99) Mean Corpuscular Hemoglobin 31.4 PG (27.0-31.0) Mean Corpuscular Hemoglobin Concent 33.5 G/DL (32.0-36.0) Red Cell Distribution Width 13.7 % (11.6-14.8) Platelet Count 272 K/UL (150-450) Mean Platelet Volume 5.3 FL (6.5-10.1) Neutrophils (%) (Auto) % (45.0-75.0) Lymphocytes (%) (Auto) % (20.0-45.0) Monocytes (%) (Auto) % (1.0-10.0) Eosinophils (%) (Auto) % (0.0-3.0) Basophils (%) (Auto) % (0.0-2.0) Differential Total Cells Counted 100 Neutrophils % (Manual) 91 % (45-75) Lymphocytes % (Manual) 3 % (20-45) Monocytes % (Manual) 4 % (1-10) Eosinophils % (Manual) 2 % (0-3) Basophils % (Manual) 0 % (0-2) Band Neutrophils 0 % (0-8) Platelet Estimate Adequate Platelet Morphology Normal Hypochromasia 1+ Sodium Level 131 mEQ/L (135-145) Potassium Level 3.8 mEQ/L (3.4-4.9) Chloride Level 93 mEQ/L (98-107) Carbon Dioxide Level 19 mEQ/L (20-30) Anion Gap 19 (5-15) Blood Urea Nitrogen 59 mg/dL (7-23) Creatinine 6.6 mg/dL (0.7-1.2) Estimat Glomerular Filtration Rate 8.5 mL/min (>60) Glucose Level 208 mg/dL (74-106) Calcium Level 7.7 mg/dL (8.6-10.2) Total Bilirubin < 0.2 mg/dL (0.0-1.2) Aspartate Amino Transf (AST/SGOT) 47 U/L (5-40) Alanine Aminotransferase (ALT/SGPT) 40 U/L (3-41) Alkaline Phosphatase 88 U/L (40-129) Total Creatine Kinase 57 U/L (38-174) Creatine Kinase MB 4.1 ng/mL (< 6.7) Creatine Kinase MB Relative Index 7.1 Troponin I < 0.30 ng/mL (<=0.30) Total Protein 6.5 g/dL (6.6-8.7) Albumin 2.4 g/dL (3.5-5.2) Globulin 4.1 g/dL Albumin/Globulin Ratio 0.5 (1.0-2.7) Urine Color Pale yellow Urine Appearance Clear Urine pH 8 (4.5-8.0) Urine Specific [place] 1.010 (1.005-1.035) Urine Protein 3+ (NEGATIVE) Urine Glucose (UA) 2+ (NEGATIVE) Urine Ketones Negative (NEGATIVE) Urine Occult Blood 1+ (NEGATIVE) Urine Nitrite Negative (NEGATIVE) Urine Bilirubin Negative (NEGATIVE) Urine Urobilinogen Normal MG/DL (0.0-1.0) Urine Leukocyte Esterase Negative (NEGATIVE) Urine RBC 2-4 /HPF (0 - 0) Urine WBC 0-2 /HPF (0 - 0) Urine Squamous Epithelial Cells Occasional /LPF Urine Bacteria Occasional /HPF (NONE) Lactic Acid Level 1.70 mmol/L (0.66-2.22) Rhythm Strip Diag. Results EP Interpretation: yes Rate: 88 Rhythm: NSR, no PVC's, no ectopy Chest X-Ray Diagnostic Results Chest X-Ray Diagnostic Results : Chest X-Ray Ordered: Yes # of Views/Limited/Complete: 1 View Indication: Chest Pain EP Interpretation: Yes Interpretation: no consolidation, no effusion, no pneumothorax, no acute cardiopulmonary disease Impression: No acute disease Electronically Signed by: Ali Jamehdor, DO CT/MRI/US Diagnostic Results CT/MRI/US Diagnostic Results : Impression CT abdomen pelvisImpression: Mild dilatation of diffuse fluid-filled small bowel. Suspect enteritis. Please correlate clinically. Atherosclerotic vascular disease involving small vessels. Right basal atelectasis Small hiatal hernia Lower lumbar degenerative changes. Last Vital Signs Date Time Temp Pulse Resp B/P (MAP) Pulse Ox O2 Delivery O2 Flow Rate FiO2 05/18/17 11:32 97.5 82 19 156/50 100 Room Air Status: improved Disposition: ADMITTED INPATIENT Condition: Serious Referrals: NON PHYSICIAN (PCP) LAUREN MCKINLEY D.O. May 18, 2017 12:28
[2017-05-18 12:35] LABS: MEAN CORPUSCULAR HEMOGLOBIN 31.4 PG (27.0-31.0); MEAN CORPUSCULAR HGB CONC 33.5 G/DL (32.0-36.0); MEAN CORPUSCULAR VOLUME 94 FL (80-99); MEAN PLATELET VOLUME 5.3 FL (6.5-10.1); PLATELET COUNT 272 K/UL (150-450); RED BLOOD COUNT 3.26 M/UL (4.70-6.10); RED CELL DISTRIBUTION WIDTH 13.7 % (11.6-14.8); WHITE BLOOD COUNT 21.4 K/UL (4.8-10.8)
[2017-05-18 12:53] LABS: ALANINE AMINOTRANSFERASE 40 U/L (3-41); ALBUMIN/GLOBULIN RATIO 0.5 (1.0-2.7); ANION GAP 19 (5-15); ASPARTATE AMINO TRANSFERASE 47 U/L (5-40); CALCIUM 7.7 mg/dL (8.6-10.2); CARBON DIOXIDE 19 mEQ/L (20-30); CHLORIDE 93 mEQ/L (98-107); CREATININE 6.6 mg/dL (0.7-1.2); GLOMERULAR FILTRATION RATE 8.5 mL/min (>60); HEMOLYSIS 2; POTASSIUM 3.8 mEQ/L (3.4-4.9); SODIUM 131 mEQ/L (135-145); TOTAL PROTEIN 6.5 g/dL (6.6-8.7)
[2017-05-18 12:55] LABS: TROPONIN I < 0.30 ng/mL (<=0.30)
[2017-05-18 13:05] LABS: CKMB 4.1 ng/mL (< 6.7)
[2017-05-18] MEDS ORDERED: Piperacillin/Tazobactam 3.375 GM in NS 110 ML IVPB ONE (13:15)
[2017-05-18 13:22] LABS: APPEARANCE,URINE CLEAR; KETONES,URINE NEGATIVE (NEGATIVE); LEUKOCYTE ESTERASE ,URINE NEGATIVE (NEGATIVE); NITRITE,URINE NEGATIVE (NEGATIVE); PH,URINE 8 (4.5-8.0); PROTEIN,URINE 3+ (NEGATIVE); UROBILINOGEN,URINE NORMAL MG/DL (0.0-1.0)
[2017-05-18 13:29] LABS: BAND NEUTROPHILS % (MANUAL) 0 % (0-8); BASOPHILS % (MANUAL) 0 % (0-2); EOSINOPHILS % (MANUAL) 2 % (0-3); HYPOCHROMASIA 1+; LYMPHOCYTES % (MANUAL) 3 % (20-45); NEUTROPHILS % (MANUAL) 91 % (45-75); PLATELET ESTIMATE ADEQUATE; PLATELET MORPHOLOGY NORMAL; TOTAL CELLS COUNTED 100
[2017-05-18 13:44] LABS: BACTERIA,URINE OCCASIONAL /HPF; SQUAMOUS EPITHELIAL CELL,UR OCCASIONAL /LPF (NONE/OCC); WBC,URINE 0-2 /HPF (0 - 0)
[2017-05-18] MEDS ORDERED: Zosyn 3.375gm inj ONE (13:44)
[2017-05-18 13:56] VITALS: BP 132/86
--- NOTE | 2017-05-18 14:09 | Diagnostic Imaging Report ---
Indication: Dyspnea Comparison: None A single view chest radiograph was obtained. Findings: PICC line is in good position. Heart size is normal. Lungs are clear. Bones are unremarkable. Impression: No acute disease. PICC line in good position
[2017-05-18] MEDS ORDERED: NEPHROVITE1 TAB ORAL (14:18)
[2017-05-18] MEDS ORDERED: ASPIR 8181 MG ORAL (14:18)
[2017-05-18] MEDS ORDERED: ADALAT10 MG ORAL (14:18)
[2017-05-18] MEDS ORDERED: CYMBALTA30 MG ORAL (14:18)
[2017-05-18] MEDS ORDERED: GLIPIZIDE5 MG ORAL (14:18)
[2017-05-18] MEDS ORDERED: NORCO 10/3251 EA ORAL (14:18)
[2017-05-18] MEDS ORDERED: ACETAMINOPHEN325 M1 ORAL (14:18)
[2017-05-18] MEDS ORDERED: NORCO 5-325 TA1 EAC1 ORAL (14:18)
[2017-05-18] MEDS ORDERED: LEVOFLOXACIN250 MG ORAL (14:18)
[2017-05-18] MEDS ORDERED: CALCITRIOL0.5 MCG PO (14:18)
[2017-05-18] MEDS ORDERED: CLOPIDOGREL75 MG ORAL (14:18)
[2017-05-18] MEDS ORDERED: PRINIVIL10 MG ORAL (14:18)
[2017-05-18] MEDS ORDERED: LYRICA75 M1 ORAL (14:18)
[2017-05-18] MEDS ORDERED: METOPROLOL SUCC50 MG ORAL (14:18)
[2017-05-18] MEDS ORDERED: Miralax 17gm pkt ORAL PRN (14:45)
[2017-05-18] MEDS ORDERED: Zolpidem 5mg tab ORAL PRN (14:45)
[2017-05-18] MEDS ORDERED: Albuterol/Ipratropium 3ml neb HHN PRN (14:45)
[2017-05-18] MEDS ORDERED: Mylanta II UD 30ml ORAL PRN (14:45)
--- NOTE | 2017-05-18 14:51 | Diagnostic Imaging Report ---
Indication: Abdominal pain Technique: Continuous helical transaxial imaging of the abdomen and pelvis was obtained from the lung bases to the pubic symphysis. No intravenous contrast was administered. Coronal 2-D reformats were also obtained. Total Dose length Product (DLP): [address] Dose Index Volume (CTDIvol): 0.15, 10.45 mGy Comparison: none Findings: There are basilar horizontally oriented densities likely atelectasis noted at the right lung base and some extent on the left as well. Extensive vascular calcifications are present. This also involves small vessels that extend into both kidneys likely accounting for the calcification seen within the kidneys. Difficult to completely exclude the possibility of one or 2 small nonobstructive stones. That said the calcifications seen appear largely vascular in nature. There is no hydronephrosis. Multiple mildly distended loops of small bowel that are fluid-filled demonstrated. There is also some liquefied stool the colon. Please correlate clinically for enteritis. Gallbladder is grossly unremarkable in appearance. There is no ascites. Urinary bladder is unremarkable. Degenerative disc disease with vacuum phenomenon narrowing at L5-S1 and L4-5 noted. Facet hypertrophy noted as well the lower lumbar spine. Impression: Mild dilatation of diffuse fluid-filled small bowel. Suspect enteritis. Please correlate clinically. Atherosclerotic vascular disease involving small vessels. Right basal atelectasis Small hiatal hernia Lower lumbar degenerative changes. The CT scanner at [facility] is accredited by the [employer] and the scans are performed using dose optimization techniques as appropriate to a performed exam including Automatic Exposure control.
--- NOTE | 2017-05-18 15:25 | History and Physical ---
History of Present Illness General Reason for Hospitalization: Altered Level of Consciousness Present Illness HPI 66 year old male with hx of ESRF, dm, necrotic left foot, [facility] resident was brought in by paramedics with CC of aloc and hypoglycemia. Pt was persistently hypoglycemia in the ER and also was diagnosed with cellulitis of right foot ulcer. Allergies: Coded Allergies: No Known Allergies (Unverified , 02/15/13) Medication History Scheduled Aspirin* (Aspir 81*), 81 MG ORAL DAILY, (Reported) Aspirin* (Aspir 81*), 81 MG ORAL DAILY, (Reported) Atorvastatin Calcium* (Lipitor*), 80 MG ORAL BEDTIME, (Reported) Calcitriol (Calcitriol), 0.5 MCG PO DAILY, (Reported) Clopidogrel* (Clopidogrel*), 75 MG ORAL DAILY, (Reported) Duloxetine Hcl* (Cymbalta*), 30 MG ORAL DAILY, (Reported) Glipizide* (Glipizide*), 5 MG ORAL DAILY, (Reported) Levofloxacin (Levofloxacin*), 250 MG ORAL DAILY, (Reported) Lisinopril* (Prinivil*), 10 MG ORAL BID, (Reported) Metoprolol Succinate* (Metoprolol Succinate*), 25 MG ORAL DAILY, (Reported) Metoprolol Succinate* (Metoprolol Succinate*), 50 MG ORAL DAILY, (Reported) Metoprolol Succinate* (Metoprolol Succinate*), 50 MG ORAL DAILY, (Reported) Nifedipine (Nifedipine*), 10 MG ORAL DAILY, (Reported) Pregabalin* (Lyrica*), 75 MG ORAL Q12HR, (Reported) Vitamin B Cmplx/Vit C/Folic AC (Nephro-Kofi Tablet), 1 TAB ORAL DAILY, (Reported ) Scheduled PRN Acetaminophen* (Acetaminophen 325MG Tablet*), 650 MG ORAL Q4H PRN for For Pain Level <=5, (Reported) Hydrocodone Bit/Acetaminophen 5-325* ([place] 5-325 Tablet*), 1 TAB ORAL Q4H PRN for For Pain, (Reported) Hydrocodone/Acetaminophen (Hydrocodon-Acetaminophn 10-325), 1 TAB ORAL Q4H PRN for For Pain, (Reported) Miscellaneous Medications Enalapril Maleate* (Enalapril Maleate*), 5 MG ORAL, (Reported) Patient History Healthcare decision maker Resuscitation status Full Code Advanced Directive on File No Past Medical/Surgical History Past Medical/Surgical History: (1) Anemia (2) Cellulitis of foot (3) CAD (coronary artery disease) (4) HTN (hypertension) (5) Diabetes mellitus (6) ESRD (end stage renal disease) on dialysis Review of Systems All Other Systems: negative except mentioned in HPI Physical Exam General Appearance: WD/WN, no apparent distress, cachetic Lines, tubes and drains: peripheral, central line HEENT: normocephalic, atraumatic Neck: non-tender, normal alignment Respiratory/Chest: chest wall non-tender, lungs clear Breasts: no masses Cardiovascular/Chest: normal rate Abdomen: normal bowel sounds, non tender Genitourinary/Rectal: normal genital exam Extremities: normal range of motion Skin Exam: normal pigmentation 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 Last 24 Hour Vital Signs Date Time Temp Pulse Resp B/P (MAP) Pulse Ox O2 Delivery O2 Flow Rate FiO2 05/18/17 14:36 97.6 71 17 132/86 100 Room Air 05/18/17 13:56 97.6 70 14 132/86 100 Room Air 05/18/17 12:01 97.6 68 17 133/85 100 Room Air 05/18/17 11:32 97.5 82 19 156/50 100 Room Air 05/18/17 11:32 97.5 82 19 156/50 100 Room Air Intake and Output 05/18/17 05/19/17 19:00 07:00 Intake Total 0 ml Balance 0 ml Intake Oral 0 ml Laboratory Tests Test 05/18/17 11:55 05/18/17 12:55 White Blood Count 21.4 K/UL (4.8-10.8) H Red Blood Count 3.26 M/UL (4.70-6.10) L Hemoglobin 10.2 G/DL (14.2-18.0) L Hematocrit 30.6 % (42.0-52.0) L Mean Corpuscular Volume 94 FL (80-99) Mean Corpuscular Hemoglobin 31.4 PG (27.0-31.0) H Mean Corpuscular Hemoglobin Concent 33.5 G/DL (32.0-36.0) Red Cell Distribution Width 13.7 % (11.6-14.8) Platelet Count 272 K/UL (150-450) Mean Platelet Volume 5.3 FL (6.5-10.1) L Neutrophils (%) (Auto) % (45.0-75.0) Lymphocytes (%) (Auto) % (20.0-45.0) Monocytes (%) (Auto) % (1.0-10.0) Eosinophils (%) (Auto) % (0.0-3.0) Basophils (%) (Auto) % (0.0-2.0) Differential Total Cells Counted 100 Neutrophils % (Manual) 91 % (45-75) H Lymphocytes % (Manual) 3 % (20-45) L Monocytes % (Manual) 4 % (1-10) Eosinophils % (Manual) 2 % (0-3) Basophils % (Manual) 0 % (0-2) Band Neutrophils 0 % (0-8) Platelet Estimate Adequate Platelet Morphology Normal Hypochromasia 1+ Sodium Level 131 mEQ/L (135-145) L Potassium Level 3.8 mEQ/L (3.4-4.9) Chloride Level 93 mEQ/L (98-107) L Carbon Dioxide Level 19 mEQ/L (20-30) L Anion Gap 19 (5-15) H Blood Urea Nitrogen 59 mg/dL (7-23) H Creatinine 6.6 mg/dL (0.7-1.2) H Estimat Glomerular Filtration Rate 8.5 mL/min (>60) Glucose Level 208 mg/dL (74-106) H Calcium Level 7.7 mg/dL (8.6-10.2) L Total Bilirubin < 0.2 mg/dL (0.0-1.2) Aspartate Amino Transf (AST/SGOT) 47 U/L (5-40) H Alanine Aminotransferase (ALT/SGPT) 40 U/L (3-41) Alkaline Phosphatase 88 U/L (40-129) Total Creatine Kinase 57 U/L (38-174) Creatine Kinase MB 4.1 ng/mL (< 6.7) Creatine Kinase MB Relative Index 7.1 Troponin I < 0.30 ng/mL (<=0.30) Total Protein 6.5 g/dL (6.6-8.7) L Albumin 2.4 g/dL (3.5-5.2) L Globulin 4.1 g/dL Albumin/Globulin Ratio 0.5 (1.0-2.7) L Urine Color Pale yellow Urine Appearance Clear Urine pH 8 (4.5-8.0) Urine Specific [place] 1.010 (1.005-1.035) Urine Protein 3+ (NEGATIVE) H Urine Glucose (UA) 2+ (NEGATIVE) H Urine Ketones Negative (NEGATIVE) Urine Occult Blood 1+ (NEGATIVE) H Urine Nitrite Negative (NEGATIVE) Urine Bilirubin Negative (NEGATIVE) Urine Urobilinogen Normal MG/DL (0.0-1.0) Urine Leukocyte Esterase Negative (NEGATIVE) Urine RBC 2-4 /HPF (0 - 0) H Urine WBC 0-2 /HPF (0 - 0) Urine Squamous Epithelial Cells Occasional /LPF Urine Bacteria Occasional /HPF (NONE) Lactic Acid Level 1.70 mmol/L (0.66-2.22) Height (Feet): 5 Height (Inches): 5.00 Weight (Pounds): 135 Medications Current Medications Medications (Trade) Dose Ordered Sig/Ailyn Route PRN Reason Start Time Stop Time Status Last Admin Dose Admin Acetaminophen (Tylenol) 650 mg Q4H PRN ORAL fever 05/18/17 14:45 06/17/17 14:44 Acetaminophen/ Hydrocodone Bitart ([place] 5/325) 1 tab Q4H PRN ORAL For Pain 4-6 05/18/17 14:45 05/25/17 14:44 Al Hydroxide/Mg Hydroxide (Mylanta II) 30 ml Q6H PRN ORAL dyspepsia 05/18/17 14:45 06/17/17 14:44 Albuterol/ Ipratropium (DuoNeb 0.5-3(2.5)mg/3ml) 3 ml Q6HR PRN HHN dyspnea 05/18/17 14:45 05/23/17 14:44 Clonidine HCl (Catapres) 0.1 mg Q4H PRN ORAL SBP > 160 05/18/17 14:45 06/17/17 14:44 Dextrose (Dextrose 50%) STAT PRN IV Hypoglycemia 05/18/17 14:45 06/17/17 14:44 Duloxetine HCl (Cymbalta) 30 mg DAILY ORAL 05/19/17 09:00 06/18/17 08:59 Enalapril Maleate (Vasotec) 5 mg DAILY ORAL 05/19/17 09:00 06/18/17 08:59 Furosemide (Lasix) 100 mg Q8H PRN IV dyspnea due to volume overload 05/18/17 15:00 06/17/17 14:44 Heparin Sodium (Porcine) (Heparin 5000 units/ml) 5,000 units EVERY 12 HOURS SUBQ 05/18/17 21:00 06/17/17 20:59 Insulin Aspart (NovoLOG) BEFORE MEALS AND HS SUBQ 05/18/17 16:30 06/17/17 16:29 Lisinopril (Zestril) 10 mg BID ORAL 05/18/17 18:00 06/17/17 17:59 Metoprolol Succinate (Toprol XL) 50 mg DAILY ORAL 05/19/17 09:00 06/18/17 08:59 Morphine Sulfate (Morphine Sulfate) 1 mg Q4H PRN IVP For Pain 7-10 05/18/17 14:45 05/25/17 14:44 Nifedipine (Adalat) 10 mg DAILY ORAL 05/19/17 09:00 06/18/17 08:59 UNV Ondansetron HCl (Zofran) 4 mg Q6H PRN IVP Nausea & Vomiting 05/18/17 14:45 06/17/17 14:44 Polyethylene Glycol (Miralax) 17 gm HSPRN PRN ORAL Constipation 05/18/17 14:45 06/17/17 14:44 Pregabalin (Lyrica) 75 mg Q12HR ORAL 05/18/17 21:00 06/17/17 20:59 Zolpidem Tartrate (Ambien) 5 mg HSPRN PRN ORAL Insomnia 05/18/17 14:45 05/25/17 14:44 Assessment/Plan Problem List: (1) Hypoglycemia ICD Codes: E16.2 - Hypoglycemia, unspecified SNOMED: 068270244 (2) Cellulitis in diabetic foot ICD Codes: E13.628 - Other specified diabetes mellitus with other skin complications; L03.119 - Cellulitis of unspecified part of limb SNOMED: 008280017, 37690445 (3) Diabetes mellitus ICD Codes: E11.9 - Type 2 diabetes mellitus without complications SNOMED: 28290622 (4) Anemia ICD Codes: D64.9 - Anemia, unspecified SNOMED: 342712188 (5) ESRD (end stage renal disease) on dialysis ICD Codes: N18.6 - End stage renal disease; Z99.2 - Dependence on renal dialysis SNOMED: 133590050 Assessment/Plan DW fluids wound care endo consult renal consult for HD JASPAL MENDOZA May 18, 2017 15:25
[2017-05-18 15:30] VITALS: BP 156/61
[2017-05-18 16:00] VITALS: BP 137/54
[2017-05-18] MEDS: NovoLOG Insulin Flexpen SUBQ SCH ×2 (16:30→20:55)
[2017-05-18] MEDS: Lisinopril 10mg tab ORAL SCH (18:13)
[2017-05-18 20:00] VITALS: BP 126/58
[2017-05-18] MEDS: Lyrica 75mg cap ORAL SCH (20:41)
[2017-05-18] MEDS: Heparin 5000 units/ml inj SUBQ SCH (20:43)
[2017-05-19] VITALS: BP 117/51
[2017-05-19] MEDS: Norco 5mg/325mg tab ORAL PRN (00:41)
[2017-05-19 04:00] VITALS: BP 115/51
[2017-05-19] MEDS: Morphine Sulfate 2mg/ml Inj IVP PRN ×5 (05:00→23:33)
[2017-05-19] MEDS: NovoLOG Insulin Flexpen SUBQ SCH ×4 (06:30→21:00)
[2017-05-19 08:29] VITALS: BP 123/63
[2017-05-19] MEDS: Lisinopril 10mg tab ORAL SCH ×2 (08:44→18:44)
[2017-05-19] MEDS: Metoprolol Succinate XL 50mg tab ORAL SCH (08:44)
[2017-05-19] MEDS: DULoxetine 30mg cap ORAL SCH (08:44)
[2017-05-19] MEDS: Lyrica 75mg cap ORAL SCH ×2 (08:44→20:19)
[2017-05-19] MEDS: Heparin 5000 units/ml inj SUBQ SCH ×2 (08:46→20:21)
[2017-05-19] MEDS ORDERED: NIFEdipine 10mg cap ORAL SCH (09:00)
[2017-05-19] MEDS ORDERED: Enalapril 5mg tab ORAL SCH (09:00)
--- NOTE | 2017-05-19 09:10 | Consultation ---
Consult Note Consult Note ESRD Last dialysis 3 days ago Diabetic Has right foot gangerene HPI Patient presents with complaints of altered mental status Patient is a diabetic and was found to be hypoglycemic by paramedics Patient resides at a rehabilitation facility Has diabetic foot ulcers Patient reports that this has happened to him before when his blood sugar has become very low Currently complain of some nausea denies any chest pain or shortness of breath denies any back or flank pain Denies any recent fevers patient reports he ate breakfast this morning as usual Past Medical History: No History, Except For Hx Cardiac Problems: Yes Hx Hypertension: Yes Hx Diabetes: Yes Hx Dialysis: Yes - CKD, MWF Assessment/Plan ESRD- Right foot gangeren DM Retinopathy plan: per consultants dialysis ordered meds adjusted JADON ROCKWELL May 19, 2017 09:10
[2017-05-19 10:20] LABS: MEAN CORPUSCULAR HEMOGLOBIN 31.7 PG (27.0-31.0); MEAN CORPUSCULAR HGB CONC 33.5 G/DL (32.0-36.0); MEAN CORPUSCULAR VOLUME 94 FL (80-99); MEAN PLATELET VOLUME 4.4 FL (6.5-10.1); PLATELET COUNT 248 K/UL (150-450); RED BLOOD COUNT 2.81 M/UL (4.70-6.10); RED CELL DISTRIBUTION WIDTH 14.1 % (11.6-14.8); WHITE BLOOD COUNT 11.7 K/UL (4.8-10.8)
--- NOTE | 2017-05-19 10:22 | Consultation ---
Consult Note Consult Note PODIATRY CONSULTATION DATE OF CONSULTATION: 05/19/17 REASON FOR CONSULT: BILATERAL FOOT ULCERS HISTORY OF PRESENT ILLNESS: Patient is a 66 year old male with over one month history of bilateral foot ulcers. Patient states wound care was being implemented at the SNF he was at. A wound vac was also being used in the past but was recently discontinued due to desiccation of the wound. Patient reports no nausea, vomiting, fevers, or chills. PAST MEDICAL HISTORY: ESRD on hemodialysis, T2DM, hypercholesterolemia, HTN, CAD , NSTEMI, CHF, and foot cellulitis FAMILY, SURGICAL, AND SOCIAL HISTORY: No pertinent findings ALLERGIES: No known ANTIBIOTICS: Zosyn Last 24 Hour Vital Signs Date Time Temp Pulse Resp B/P (MAP) Pulse Ox O2 Delivery O2 Flow Rate FiO2 05/19/17 09:40 97.6 05/19/17 08:45 123/63 05/19/17 08:44 71 123/63 05/19/17 08:44 123/63 05/19/17 08:43 71 123/63 05/19/17 08:29 97.6 71 18 123/63 97 Room Air 05/19/17 07:44 73 16 Room Air 05/19/17 04:00 97.7 69 18 115/51 99 Room Air 05/19/17 00:00 98.2 69 17 117/51 99 Room Air 05/18/17 20:00 98.2 65 18 126/58 99 Room Air 05/18/17 18:13 140/71 05/18/17 16:00 97.3 84 19 137/54 100 Room Air 05/18/17 15:30 98.1 79 18 156/61 100 Room Air 05/18/17 14:36 97.6 71 17 132/86 100 Room Air 05/18/17 13:56 97.6 70 14 132/86 100 Room Air 05/18/17 12:01 97.6 68 17 133/85 100 Room Air 05/18/17 11:32 97.5 82 19 156/50 100 Room Air 05/18/17 11:32 97.5 82 19 156/50 100 Room Air Laboratory Tests Test 05/18/17 11:55 05/18/17 12:55 05/19/17 09:40 White Blood Count 21.4 K/UL (4.8-10.8) H Pending Red Blood Count 3.26 M/UL (4.70-6.10) L Pending Hemoglobin 10.2 G/DL (14.2-18.0) L Pending Hematocrit 30.6 % (42.0-52.0) L Pending Mean Corpuscular Volume 94 FL (80-99) Pending Mean Corpuscular Hemoglobin 31.4 PG (27.0-31.0) H Pending Mean Corpuscular Hemoglobin Concent 33.5 G/DL (32.0-36.0) Pending Red Cell Distribution Width 13.7 % (11.6-14.8) Pending Platelet Count 272 K/UL (150-450) Pending Mean Platelet Volume 5.3 FL (6.5-10.1) L Pending Neutrophils (%) (Auto) % (45.0-75.0) Pending Lymphocytes (%) (Auto) % (20.0-45.0) Pending Monocytes (%) (Auto) % (1.0-10.0) Pending Eosinophils (%) (Auto) % (0.0-3.0) Pending Basophils (%) (Auto) % (0.0-2.0) Pending Differential Total Cells Counted 100 Neutrophils % (Manual) 91 % (45-75) H Lymphocytes % (Manual) 3 % (20-45) L Monocytes % (Manual) 4 % (1-10) Eosinophils % (Manual) 2 % (0-3) Basophils % (Manual) 0 % (0-2) Band Neutrophils 0 % (0-8) Platelet Estimate Adequate Platelet Morphology Normal Hypochromasia 1+ Sodium Level 131 mEQ/L (135-145) L Pending Potassium Level 3.8 mEQ/L (3.4-4.9) Pending Chloride Level 93 mEQ/L (98-107) L Pending Carbon Dioxide Level 19 mEQ/L (20-30) L Pending Anion Gap 19 (5-15) H Blood Urea Nitrogen 59 mg/dL (7-23) H Pending Creatinine 6.6 mg/dL (0.7-1.2) H Pending Estimat Glomerular Filtration Rate 8.5 mL/min (>60) Pending Glucose Level 208 mg/dL (74-106) H Pending Calcium Level 7.7 mg/dL (8.6-10.2) L Pending Total Bilirubin < 0.2 mg/dL (0.0-1.2) Pending Aspartate Amino Transf (AST/SGOT) 47 U/L (5-40) H Pending Alanine Aminotransferase (ALT/SGPT) 40 U/L (3-41) Pending Alkaline Phosphatase 88 U/L (40-129) Pending Total Creatine Kinase 57 U/L (38-174) Creatine Kinase MB 4.1 ng/mL (< 6.7) Creatine Kinase MB Relative Index 7.1 Troponin I < 0.30 ng/mL (<=0.30) Total Protein 6.5 g/dL (6.6-8.7) L Pending Albumin 2.4 g/dL (3.5-5.2) L Pending Globulin 4.1 g/dL Pending Albumin/Globulin Ratio 0.5 (1.0-2.7) L Urine Color Pale yellow Urine Appearance Clear Urine pH 8 (4.5-8.0) Urine Specific [place] 1.010 (1.005-1.035) Urine Protein 3+ (NEGATIVE) H Urine Glucose (UA) 2+ (NEGATIVE) H Urine Ketones Negative (NEGATIVE) Urine Occult Blood 1+ (NEGATIVE) H Urine Nitrite Negative (NEGATIVE) Urine Bilirubin Negative (NEGATIVE) Urine Urobilinogen Normal MG/DL (0.0-1.0) Urine Leukocyte Esterase Negative (NEGATIVE) Urine RBC 2-4 /HPF (0 - 0) H Urine WBC 0-2 /HPF (0 - 0) Urine Squamous Epithelial Cells Occasional /LPF Urine Bacteria Occasional /HPF (NONE) Lactic Acid Level 1.70 mmol/L (0.66-2.22) Hemoglobin A1c Pending Uric Acid Pending Phosphorus Level Pending Magnesium Level Pending C-Reactive Protein, Quantitative Pending Pro-B-Type Natriuretic Peptide Pending Triglycerides Level Pending Cholesterol Level Pending LDL Cholesterol Pending HDL Cholesterol Pending Cholesterol/HDL Ratio Pending Thyroid Stimulating Hormone (TSH) Pending PHYSICAL EXAM: DERM: Patient has a large full thickness ulcer at the plantar right foot to the level of bone with exposed 5th metatarsal base. Necrotic tissue proximally. Patient also has skin necrosis at the right hallux nail bed. Patient has a left heel partial thickness ulcer. No purulence or malodor from either wounds NEURO: Decreased sensation to light touch VASC: Pedal pulses lightly palpable MSK: Decreased muscle strength noted . Assessment/Plan ASSESSMENT: - Large right plantar foot ulcer with osteomyelitis and exposed bone and necrotic tissue - Left heel with partial thickness ulcer - Leukocytosis - T2DM - Peripheral neuropathy - ESRD on hemodialysis PLAN: - Ordering right foot MRI - Ordering bilateral lower extremity vascular studies - Obtained wound cultures - Continue daily wound care using xeroform and dry dressing - Offload heels - Discussed plan with patient. He is at high risk for more proximal amputation, such as below the knee, if the wound does not improve - Will consider debridement after vascular studies and MRI is completed - Continue antibiotics David Stanley DPM May 19, 2017 10:22
[2017-05-19 10:41] LABS: CHOLESTEROL/HDL RATIO 3.4 (3.3-4.4)
[2017-05-19 10:48] LABS: ALANINE AMINOTRANSFERASE 33 U/L (3-41); ALBUMIN/GLOBULIN RATIO 0.9 (1.0-2.7); ANION GAP 16 (5-15); ASPARTATE AMINO TRANSFERASE 32 U/L (5-40); CALCIUM 6.9 mg/dL (8.6-10.2); CARBON DIOXIDE 20 mEQ/L (20-30); CHLORIDE 90 mEQ/L (98-107); CREATININE 6.7 mg/dL (0.7-1.2); CRP QUANT 6.4 mg/dL (< 0.5); GLOMERULAR FILTRATION RATE 8.4 mL/min (>60); HEMOLYSIS 1; MAGNESIUM 2.2 mg/dL (1.7-2.5); POTASSIUM 4.4 mEQ/L (3.4-4.9); SODIUM 126 mEQ/L (135-145); TOTAL PROTEIN 5.2 g/dL (6.6-8.7); URIC ACID 5.2 mg/dL (3.0-7.5)
[2017-05-19 10:52] LABS: THYROID STIMULATING HORMONE 4.53 uIU/mL (0.300-4.500)
[2017-05-19 10:53] LABS: EOSINOPHILS % (MANUAL) 1 % (0-3); LYMPHOCYTES % (MANUAL) 12 % (20-45); NEUTROPHILS % (MANUAL) 80 % (45-75); TOTAL CELLS COUNTED 100
[2017-05-19 10:54] LABS: ANISOCYTOSIS 1+; BAND NEUTROPHILS % (MANUAL) 0 % (0-8); BASOPHILS % (MANUAL) 0 % (0-2); PLATELET ESTIMATE ADEQUATE; PLATELET MORPHOLOGY NORMAL
[2017-05-19 11:18] LABS: HEMOGLOBIN A1C 5.4 % (< 6.0)
[2017-05-19 12:00] VITALS: BP 142/59
[2017-05-19 16:00] VITALS: BP 121/76
--- NOTE | 2017-05-19 18:54 | Pulmonology Progress Note ---
Assessment/Plan Problems: (1) Hypoglycemia (2) ESRD (end stage renal disease) on dialysis (3) HTN (hypertension) (4) Anemia (5) Diabetes mellitus (6) Cellulitis in diabetic foot Assessment/Plan sliding scale wound care iv abx podiatry anemia work up Subjective ROS Limited/Unobtainable: No Constitutional: Reports: no symptoms HEENT: Repors: no symptoms Respiratory: Reports: no symptoms Cardiovascular: Reports: no symptoms Allergies: Coded Allergies: No Known Allergies (Unverified , 02/15/13) Objective Last 24 Hour Vital Signs Date Time Temp Pulse Resp B/P (MAP) Pulse Ox O2 Delivery O2 Flow Rate FiO2 05/19/17 18:44 121/76 05/19/17 16:30 Room Air 05/19/17 16:00 97.3 72 18 121/76 98 Room Air 05/19/17 13:50 97.3 05/19/17 13:25 Room Air 05/19/17 12:00 97.3 71 20 142/59 98 Room Air 05/19/17 10:15 97.6 05/19/17 09:40 97.6 05/19/17 08:45 123/63 05/19/17 08:44 71 123/63 05/19/17 08:44 123/63 05/19/17 08:43 71 123/63 05/19/17 08:29 97.6 71 18 123/63 97 Room Air 05/19/17 07:44 73 16 Room Air 05/19/17 04:00 97.7 69 18 115/51 99 Room Air 05/19/17 00:00 98.2 69 17 117/51 99 Room Air 05/18/17 20:00 98.2 65 18 126/58 99 Room Air Intake and Output 05/19/17 05/20/17 18:59 06:59 Intake Total 1010 ml Output Total 1300 ml Balance -290 ml Intake Oral 660 ml IV Total 350 ml Output Urine Total 100 ml Hemodialysis UF 1200 ml General Appearance: cachetic HEENT: normocephalic, atraumatic Respiratory/Chest: chest wall non-tender, lungs clear Cardiovascular: normal peripheral pulses, normal rate Abdomen: normal bowel sounds Genitourinary: normal external genitalia Extremities: no clubbing Neurologic/Psychiatric: creative intern II-XII grossly normal Microbiology Date/Time Source Procedure Growth Status 05/19/17 11:00 Foot Right Received Laboratory Tests 05/19/17 09:40: White Blood Count 11.7H, Red Blood Count 2.81L, Hemoglobin 8.9L, Hematocrit 26.6L, Mean Corpuscular Volume 94, Mean Corpuscular Hemoglobin 31.7H, Mean Corpuscular Hemoglobin Concent 33.5, Red Cell Distribution Width 14.1, Platelet Count 248, Mean Platelet Volume 4.4L, Neutrophils (%) (Auto) , Lymphocytes (%) ( Auto) , Monocytes (%) (Auto) , Eosinophils (%) (Auto) , Basophils (%) (Auto) , Differential Total Cells Counted 100, Neutrophils % (Manual) 80H, Lymphocytes % (Manual) 12L, Monocytes % (Manual) 7, Eosinophils % (Manual) 1, Basophils % ( Manual) 0, Band Neutrophils 0, Platelet Estimate Adequate, Platelet Morphology Normal, Hypochromasia , Anisocytosis 1+, Sodium Level 126L, Potassium Level 4.4 , Chloride Level 90L, Carbon Dioxide Level 20, Anion Gap 16H, Blood Urea Nitrogen 61H, Creatinine 6.7H, Estimat Glomerular Filtration Rate 8.4, Glucose Level 261H, Hemoglobin A1c 5.4, Uric Acid 5.2, Calcium Level 6.9L, Phosphorus Level 8.0H, Magnesium Level 2.2, Total Bilirubin < 0.2, Aspartate Amino Transf ( AST/SGOT) 32, Alanine Aminotransferase (ALT/SGPT) 33, Alkaline Phosphatase 73, C -Reactive Protein, Quantitative 6.4H, Pro-B-Type Natriuretic Peptide 7885H, Total Protein 5.2L, Albumin 2.5L, Globulin 2.7, Albumin/Globulin Ratio 0.9L, Triglycerides Level 104, Cholesterol Level 98, LDL Cholesterol 48L, HDL Cholesterol 29, Cholesterol/HDL Ratio 3.4, Thyroid Stimulating Hormone (TSH) 4.530H Current Medications Medications (Trade) Dose Ordered Sig/Ailyn Route PRN Reason Start Time Stop Time Status Last Admin Dose Admin Acetaminophen (Tylenol) 650 mg Q4H PRN ORAL fever 05/18/17 14:45 06/17/17 14:44 Acetaminophen/ Hydrocodone Bitart ([place] 5/325) 1 tab Q4H PRN ORAL For Pain 4-6 05/18/17 14:45 05/25/17 14:44 05/19/17 00:41 Albuterol/ Ipratropium (DuoNeb 0.5-3(2.5)mg/3ml) 3 ml Q6HR PRN HHN dyspnea 05/18/17 14:45 05/23/17 14:44 Chlorhexidine Gluconate (Lora-Hex 2%) 1 applic QHS TOPIC 05/19/17 21:00 06/18/17 20:59 Clonidine HCl (Catapres) 0.1 mg Q4H PRN ORAL SBP > 160 05/18/17 14:45 06/17/17 14:44 Dextrose 1,000 ml @ 50 mls/hr Q20H IV 05/18/17 23:00 06/17/17 22:59 05/18/17 23:00 Dextrose (Dextrose 50%) STAT PRN IV Hypoglycemia 05/18/17 14:45 06/17/17 14:44 05/19/17 02:13 Duloxetine HCl (Cymbalta) 30 mg DAILY ORAL 05/19/17 09:00 06/18/17 08:59 05/19/17 08:44 Heparin Sodium (Porcine) (Heparin 5000 units/ml) 5,000 units EVERY 12 HOURS SUBQ 05/18/17 21:00 06/17/17 20:59 05/19/17 08:46 Insulin Aspart (NovoLOG) BEFORE MEALS AND HS SUBQ 05/18/17 16:30 06/17/17 16:29 Lisinopril (Zestril) 10 mg BID ORAL 05/18/17 18:00 06/17/17 17:59 05/19/17 18:44 Metoprolol Succinate (Toprol XL) 50 mg DAILY ORAL 05/19/17 09:00 06/18/17 08:59 05/19/17 08:44 Morphine Sulfate (Morphine Sulfate) 2 mg Q4H PRN IVP For Pain 7-10 05/19/17 13:00 05/26/17 12:59 05/19/17 18:25 Ondansetron HCl (Zofran) 4 mg Q6H PRN IVP Nausea & Vomiting 05/18/17 14:45 06/17/17 14:44 Pantoprazole (Protonix) 40 mg DAILY ORAL 05/19/17 14:00 06/18/17 13:59 05/19/17 14:41 Polyethylene Glycol (Miralax) 17 gm HSPRN PRN ORAL Constipation 05/18/17 14:45 06/17/17 14:44 Pregabalin (Lyrica) 75 mg Q12HR ORAL 05/18/17 21:00 06/17/17 20:59 05/19/17 08:44 Zolpidem Tartrate (Ambien) 5 mg HSPRN PRN ORAL Insomnia 05/18/17 14:45 05/25/17 14:44 JASPAL MENDOZA May 19, 2017 18:54
--- NOTE | 2017-05-19 19:06 | Consultation ---
History of Present Illness General Date patient seen: May 19, 2017 Time patient seen: 21:15 Chief Complaint: Altered Level of Consciousness Present Illness HPI 66 y/o M with hx of DM2, ESRD on HD MWF, HLD, HTN, CAD, CHF, diabetic foot ulcers is admitted on 05/18 with AMS, found to be hypoglycemic by paramedics Denies nausea, CP, SOB, back/flank pain, fevers/chills ID is consulted for b/l foot ulcers. Ulcers have been present for over 1 month. Receiving wound care at SNF. Hx of wound vac in the past. Evaluated by podiatry and found to have large R plantar foot ulcer with exposed bone and necrotic tissue. MRI R foot ordred and vascular studies. Plan for debridement after MRI results. afebrile. Leukocytossi up to 21, now down to 11. Allergies: Coded Allergies: No Known Allergies (Unverified , 02/15/13) Medication History Scheduled Aspirin* (Aspir 81*), 81 MG ORAL DAILY, (Reported) Aspirin* (Aspir 81*), 81 MG ORAL DAILY, (Reported) Atorvastatin Calcium* (Lipitor*), 80 MG ORAL BEDTIME, (Reported) Calcitriol (Calcitriol), 0.5 MCG PO DAILY, (Reported) Clopidogrel* (Clopidogrel*), 75 MG ORAL DAILY, (Reported) Duloxetine Hcl* (Cymbalta*), 30 MG ORAL DAILY, (Reported) Glipizide* (Glipizide*), 5 MG ORAL DAILY, (Reported) Levofloxacin (Levofloxacin*), 250 MG ORAL DAILY, (Reported) Lisinopril* (Prinivil*), 10 MG ORAL BID, (Reported) Metoprolol Succinate* (Metoprolol Succinate*), 25 MG ORAL DAILY, (Reported) Metoprolol Succinate* (Metoprolol Succinate*), 50 MG ORAL DAILY, (Reported) Metoprolol Succinate* (Metoprolol Succinate*), 50 MG ORAL DAILY, (Reported) Nifedipine (Nifedipine*), 10 MG ORAL DAILY, (Reported) Pregabalin* (Lyrica*), 75 MG ORAL Q12HR, (Reported) Vitamin B Cmplx/Vit C/Folic AC (Nephro-Kofi Tablet), 1 TAB ORAL DAILY, (Reported ) Scheduled PRN Acetaminophen* (Acetaminophen 325MG Tablet*), 650 MG ORAL Q4H PRN for For Pain Level <=5, (Reported) Hydrocodone Bit/Acetaminophen 5-325* ([place] 5-325 Tablet*), 1 TAB ORAL Q4H PRN for For Pain, (Reported) Hydrocodone/Acetaminophen (Hydrocodon-Acetaminophn 10-325), 1 TAB ORAL Q4H PRN for For Pain, (Reported) Miscellaneous Medications Enalapril Maleate* (Enalapril Maleate*), 5 MG ORAL, (Reported) Patient History Healthcare decision maker Resuscitation status Full Code Advanced Directive on File No Patient History Narrative PMHx: Above FHx: non pertinent from ID Social Hx: Lives in SNF Review of Systems All Other Systems: negative except mentioned in HPI Physical Exam Physical Exam Narrative General Appearance: resting comforbly, AAO x3 HEENT: no oral lesions, PERRL Respiratory: lungs clear, normal breath sounds, no rhonchi Cardiovascular normal peripheral pulses, regular rate, rhythm, no edema, no gallop, no JVD, no murmur Gastrointestinal: normal bowel sounds, non tender, soft, no mass, no organomegaly, non-distended Musculoskeletal: R foot: large full thickness ulcer at the plantar right foot to the level of bone with exposed 5th metatarsal base. Necrotic tissue proximally. Patient also has skin necrosis at the right hallux nail bed. Patient has a left heel partial thickness ulcer. No purulence or malodor from either wounds Last 24 Hour Vital Signs Date Time Temp Pulse Resp B/P (MAP) Pulse Ox O2 Delivery O2 Flow Rate FiO2 05/19/17 18:50 97.3 05/19/17 18:44 121/76 05/19/17 16:30 Room Air 05/19/17 16:00 97.3 72 18 121/76 98 Room Air 05/19/17 13:25 Room Air 05/19/17 12:00 97.3 71 20 142/59 98 Room Air 05/19/17 10:15 97.6 05/19/17 09:40 97.6 05/19/17 08:45 123/63 05/19/17 08:44 71 123/63 05/19/17 08:44 123/63 05/19/17 08:43 71 123/63 05/19/17 08:29 97.6 71 18 123/63 97 Room Air 05/19/17 07:44 73 16 Room Air 05/19/17 04:00 97.7 69 18 115/51 99 Room Air 05/19/17 00:00 98.2 69 17 117/51 99 Room Air 05/18/17 20:00 98.2 65 18 126/58 99 Room Air Intake and Output 05/19/17 05/20/17 19:00 07:00 Intake Total 960 ml Output Total 1300 ml Balance -340 ml Intake Oral 660 ml IV Total 300 ml Output Urine Total 100 ml Hemodialysis UF 1200 ml Laboratory Tests Test 05/19/17 09:40 White Blood Count 11.7 K/UL (4.8-10.8) H Red Blood Count 2.81 M/UL (4.70-6.10) L Hemoglobin 8.9 G/DL (14.2-18.0) L Hematocrit 26.6 % (42.0-52.0) L Mean Corpuscular Volume 94 FL (80-99) Mean Corpuscular Hemoglobin 31.7 PG (27.0-31.0) H Mean Corpuscular Hemoglobin Concent 33.5 G/DL (32.0-36.0) Red Cell Distribution Width 14.1 % (11.6-14.8) Platelet Count 248 K/UL (150-450) Mean Platelet Volume 4.4 FL (6.5-10.1) L Neutrophils (%) (Auto) % (45.0-75.0) Lymphocytes (%) (Auto) % (20.0-45.0) Monocytes (%) (Auto) % (1.0-10.0) Eosinophils (%) (Auto) % (0.0-3.0) Basophils (%) (Auto) % (0.0-2.0) Differential Total Cells Counted 100 Neutrophils % (Manual) 80 % (45-75) H Lymphocytes % (Manual) 12 % (20-45) L Monocytes % (Manual) 7 % (1-10) Eosinophils % (Manual) 1 % (0-3) Basophils % (Manual) 0 % (0-2) Band Neutrophils 0 % (0-8) Platelet Estimate Adequate Platelet Morphology Normal Hypochromasia Anisocytosis 1+ Sodium Level 126 mEQ/L (135-145) L Potassium Level 4.4 mEQ/L (3.4-4.9) Chloride Level 90 mEQ/L (98-107) L Carbon Dioxide Level 20 mEQ/L (20-30) Anion Gap 16 (5-15) H Blood Urea Nitrogen 61 mg/dL (7-23) H Creatinine 6.7 mg/dL (0.7-1.2) H Estimat Glomerular Filtration Rate 8.4 mL/min (>60) Glucose Level 261 mg/dL (74-106) H Hemoglobin A1c 5.4 % (< 6.0) Uric Acid 5.2 mg/dL (3.0-7.5) Calcium Level 6.9 mg/dL (8.6-10.2) L Phosphorus Level 8.0 mg/dL (2.5-4.8) H Magnesium Level 2.2 mg/dL (1.7-2.5) Total Bilirubin < 0.2 mg/dL (0.0-1.2) Aspartate Amino Transf (AST/SGOT) 32 U/L (5-40) Alanine Aminotransferase (ALT/SGPT) 33 U/L (3-41) Alkaline Phosphatase 73 U/L (40-129) C-Reactive Protein, Quantitative 6.4 mg/dL (< 0.5) H Pro-B-Type Natriuretic Peptide 7885 pg/mL (0-125) H Total Protein 5.2 g/dL (6.6-8.7) L Albumin 2.5 g/dL (3.5-5.2) L Globulin 2.7 g/dL Albumin/Globulin Ratio 0.9 (1.0-2.7) L Triglycerides Level 104 mg/dL (< 150) Cholesterol Level 98 mg/dL (< 200) LDL Cholesterol 48 mg/dL (60-99) L HDL Cholesterol 29 mg/dL (> 60) Cholesterol/HDL Ratio 3.4 (3.3-4.4) Thyroid Stimulating Hormone (TSH) 4.530 uIU/mL (0.300-4.500) Microbiology Date/Time Source Procedure Growth Status 05/19/17 11:00 Foot Right Received Height (Feet): 5 Height (Inches): 5.00 Weight (Pounds): 135 Medications Current Medications Medications (Trade) Dose Ordered Sig/Aiyln Route PRN Reason Start Time Stop Time Status Last Admin Dose Admin Acetaminophen (Tylenol) 650 mg Q4H PRN ORAL fever 05/18/17 14:45 06/17/17 14:44 Acetaminophen/ Hydrocodone Bitart ([place] 5/325) 1 tab Q4H PRN ORAL For Pain 4-6 05/18/17 14:45 05/25/17 14:44 05/19/17 00:41 Albuterol/ Ipratropium (DuoNeb 0.5-3(2.5)mg/3ml) 3 ml Q6HR PRN HHN dyspnea 05/18/17 14:45 05/23/17 14:44 Chlorhexidine Gluconate (Lora-Hex 2%) 1 applic QHS TOPIC 05/19/17 21:00 06/18/17 20:59 Clonidine HCl (Catapres) 0.1 mg Q4H PRN ORAL SBP > 160 05/18/17 14:45 06/17/17 14:44 Dextrose 1,000 ml @ 50 mls/hr Q20H IV 05/18/17 23:00 06/17/17 22:59 05/19/17 19:05 Dextrose (Dextrose 50%) STAT PRN IV Hypoglycemia 05/18/17 14:45 06/17/17 14:44 05/19/17 02:13 Duloxetine HCl (Cymbalta) 30 mg DAILY ORAL 05/19/17 09:00 06/18/17 08:59 05/19/17 08:44 Heparin Sodium (Porcine) (Heparin 5000 units/ml) 5,000 units EVERY 12 HOURS SUBQ 05/18/17 21:00 06/17/17 20:59 05/19/17 08:46 Insulin Aspart (NovoLOG) BEFORE MEALS AND HS SUBQ 05/18/17 16:30 06/17/17 16:29 Lisinopril (Zestril) 10 mg BID ORAL 05/18/17 18:00 06/17/17 17:59 05/19/17 18:44 Metoprolol Succinate (Toprol XL) 50 mg DAILY ORAL 05/19/17 09:00 06/18/17 08:59 05/19/17 08:44 Morphine Sulfate (Morphine Sulfate) 2 mg Q4H PRN IVP For Pain 7-10 05/19/17 13:00 05/26/17 12:59 05/19/17 18:25 Ondansetron HCl (Zofran) 4 mg Q6H PRN IVP Nausea & Vomiting 05/18/17 14:45 06/17/17 14:44 Pantoprazole (Protonix) 40 mg DAILY ORAL 05/19/17 14:00 06/18/17 13:59 05/19/17 14:41 Polyethylene Glycol (Miralax) 17 gm HSPRN PRN ORAL Constipation 05/18/17 14:45 06/17/17 14:44 Pregabalin (Lyrica) 75 mg Q12HR ORAL 05/18/17 21:00 06/17/17 20:59 05/19/17 08:44 Zolpidem Tartrate (Ambien) 5 mg HSPRN PRN ORAL Insomnia 05/18/17 14:45 05/25/17 14:44 Assessment/Plan Assessment/Plan Abx: IV Zosyn x1 05/18 Assesment: R Diabetic foot ulcer with OM (exposed bone), L heel superficial ulceration -MRI pending -wound cx pending -Bcx pending Leukocytosis, improving -CXR no acute diseae -afebrile AMS, 2ry to hypoglycemia- resolved s/p CT abd/p: dilatation of diffuse fluid-filled small bowel. Suspect enteritis. Atherosclerotic vascular disease involving small vessels. Right basal atelectasis Small hiatal hernia. Lower lumbar degenerative changes. DM2, ESRD on HD MWF, HLD, HTN, CAD, CHF, diabetic foot ulcers Plan: -Start IV Vancomycin and Unasyn pending cx -f/u MRI -f/u cx -wound care -appreciate podiatry input -Monitor CBC/BMP, temperatures Thank you for this consultation. Will continue to follow along with you. Discussed with SRINATH. Ema Wallace M.D. May 19, 2017 19:06
[2017-05-19 20:00] VITALS: BP 126/68
[2017-05-19] MEDS: Dyna-Hex 2% Top Sol 2oz TOPIC SCH (21:00)
[2017-05-19] MEDS: Ampicillin/Sulbactam Sod 3 GM in NS 110 ML IVPB SCH (23:00)
[2017-05-19] MEDS ORDERED: Unasyn 3gm Inj ONE (23:21)
[2017-05-19] MEDS ORDERED: Vancomycin 1gm in D5W 275ml IVPB ONE (23:30)
[2017-05-20 00:43] VITALS: BP 121/74
[2017-05-20] MEDS ORDERED: Vancomycin 1gm inj IVPB ONE (00:55)
[2017-05-20 04:00] VITALS: BP 125/64
[2017-05-20] MEDS: Morphine Sulfate 2mg/ml Inj IVP PRN ×4 (05:22→22:09)
[2017-05-20] MEDS: NovoLOG Insulin Flexpen SUBQ SCH ×4 (06:30→20:41)
[2017-05-20 07:06] LABS: BASOPHILS % (AUTO) 0.6 % (0.0-2.0); EOSINOPHILS % (AUTO) 5.9 % (0.0-3.0); LYMPHOCYTES % (AUTO) 14.1 % (20.0-45.0); MEAN CORPUSCULAR HGB CONC 34.3 G/DL (32.0-36.0); MEAN CORPUSCULAR VOLUME 93 FL (80-99); MEAN PLATELET VOLUME 4.5 FL (6.5-10.1); MONOCYTES % (AUTO) 11.5 % (1.0-10.0); PLATELET COUNT 256 K/UL (150-450); RED CELL DISTRIBUTION WIDTH 13.8 % (11.6-14.8); WHITE BLOOD COUNT 10.1 K/UL (4.8-10.8)
[2017-05-20 07:50] LABS: THYROID STIMULATING HORMONE 4.81 uIU/mL (0.300-4.500)
[2017-05-20 07:53] LABS: ALBUMIN/GLOBULIN RATIO 0.4 (1.0-2.7); CALCIUM 7.2 mg/dL (8.6-10.2); CHOLESTEROL/HDL RATIO 5.2 (3.3-4.4); CREATININE 4.6 mg/dL (0.7-1.2); CRP QUANT 8.9 mg/dL (< 0.5); GLOMERULAR FILTRATION RATE 12.9 mL/min (>60); PHOSPHORUS 5.5 mg/dL (2.5-4.8); URIC ACID 3.3 mg/dL (3.0-7.5)
[2017-05-20 08:00] VITALS: BP 151/66
--- NOTE | 2017-05-20 09:11 | Infectious Diseases Prog Note ---
Assessment/Plan Assessment/Plan Abx: IV Zosyn x1 05/18 Vanc/unasyn 05/19- Assesment: R Diabetic foot ulcer with OM (exposed bone), L heel superficial ulceration -MRI pending -wound cx pending -Bcx pending Leukocytosis, resolved -CXR no acute diseae -afebrile AMS, 2ry to hypoglycemia- resolved s/p CT abd/p: dilatation of diffuse fluid-filled small bowel. Suspect enteritis. Atherosclerotic vascular disease involving small vessels. Right basal atelectasis Small hiatal hernia. Lower lumbar degenerative changes. DM2, ESRD on HD MWF, HLD, HTN, CAD, CHF, diabetic foot ulcers Plan: -Continue IV Vancomycin and Unasyn #2 pending cx -f/u MRI -f/u cx -wound care -appreciate podiatry input -Monitor CBC/BMP, temperatures Thank you for this consultation. Will continue to follow along with you. Discussed with RN. Subjective Allergies: Coded Allergies: No Known Allergies (Unverified , 02/15/13) Subjective afebrile VSS leukocytosis resolved Objective Vital Signs Last 24 Hour Vital Signs Date Time Temp Pulse Resp B/P (MAP) Pulse Ox O2 Delivery O2 Flow Rate FiO2 05/20/17 08:00 97.0 83 18 151/66 98 Room Air 05/20/17 04:00 98.4 74 19 125/64 95 Room Air 05/20/17 00:43 98.4 66 20 121/74 96 Room Air 05/19/17 20:00 98.6 70 19 126/68 95 Room Air 05/19/17 19:00 81 16 Room Air 21 05/19/17 18:50 97.3 05/19/17 18:44 121/76 05/19/17 16:30 Room Air 05/19/17 16:00 97.3 72 18 121/76 98 Room Air 05/19/17 13:25 Room Air 05/19/17 12:00 97.3 71 20 142/59 98 Room Air 05/19/17 10:15 97.6 05/19/17 09:40 97.6 Height (Feet): 5 Height (Inches): 5.00 Weight (Pounds): 135 Objective General Appearance: resting comforbly, AAO x3 HEENT: no oral lesions, PERRL Respiratory: lungs clear, normal breath sounds, no rhonchi Cardiovascular normal peripheral pulses, regular rate, rhythm, no edema, no gallop, no JVD, no murmur Gastrointestinal: normal bowel sounds, non tender, soft, no mass, no organomegaly, non-distended Musculoskeletal: R foot: large full thickness ulcer at the plantar right foot to the level of bone with exposed 5th metatarsal base. Necrotic tissue proximally. Patient also has skin necrosis at the right hallux nail bed. Patient has a left heel partial thickness ulcer. No purulence or malodor from either wounds Microbiology Date/Time Source Procedure Growth Status 05/18/17 12:10 Blood Blood Culture - Preliminary NO GROWTH AFTER 24 HOURS Resulted 05/18/17 11:55 Blood Blood Culture - Preliminary NO GROWTH AFTER 24 HOURS Resulted 05/18/17 22:10 Nasal Nares MRSA Culture - Final NO METHICILLIN RESISTANT STAPH AUREUS... Complete 05/19/17 11:00 Foot Right Gram Stain - Final Resulted 05/19/17 11:00 Foot Right Aerobic Culture Pending Resulted Laboratory Tests Test 05/19/17 09:40 05/20/17 05:30 White Blood Count 11.7 K/UL (4.8-10.8) H 10.1 K/UL (4.8-10.8) Red Blood Count 2.81 M/UL (4.70-6.10) L 2.80 M/UL (4.70-6.10) L Hemoglobin 8.9 G/DL (14.2-18.0) L 9.0 G/DL (14.2-18.0) L Hematocrit 26.6 % (42.0-52.0) L 26.1 % (42.0-52.0) L Mean Corpuscular Volume 94 FL (80-99) 93 FL (80-99) Mean Corpuscular Hemoglobin 31.7 PG (27.0-31.0) H 32.0 PG (27.0-31.0) H Mean Corpuscular Hemoglobin Concent 33.5 G/DL (32.0-36.0) 34.3 G/DL (32.0-36.0) Red Cell Distribution Width 14.1 % (11.6-14.8) 13.8 % (11.6-14.8) Platelet Count 248 K/UL (150-450) 256 K/UL (150-450) Mean Platelet Volume 4.4 FL (6.5-10.1) L 4.5 FL (6.5-10.1) L Neutrophils (%) (Auto) % (45.0-75.0) 68.0 % (45.0-75.0) Lymphocytes (%) (Auto) % (20.0-45.0) 14.1 % (20.0-45.0) L Monocytes (%) (Auto) % (1.0-10.0) 11.5 % (1.0-10.0) H Eosinophils (%) (Auto) % (0.0-3.0) 5.9 % (0.0-3.0) H Basophils (%) (Auto) % (0.0-2.0) 0.6 % (0.0-2.0) Differential Total Cells Counted 100 Neutrophils % (Manual) 80 % (45-75) H Lymphocytes % (Manual) 12 % (20-45) L Monocytes % (Manual) 7 % (1-10) Eosinophils % (Manual) 1 % (0-3) Basophils % (Manual) 0 % (0-2) Band Neutrophils 0 % (0-8) Platelet Estimate Adequate Platelet Morphology Normal Hypochromasia Anisocytosis 1+ Sodium Level 126 mEQ/L (135-145) L 139 mEQ/L (135-145) # Potassium Level 4.4 mEQ/L (3.4-4.9) 4.0 mEQ/L (3.4-4.9) Chloride Level 90 mEQ/L (98-107) L 94 mEQ/L (98-107) L Carbon Dioxide Level 20 mEQ/L (20-30) 29 mEQ/L (20-30) Anion Gap 16 (5-15) H 16 (5-15) H Blood Urea Nitrogen 61 mg/dL (7-23) H 47 mg/dL (7-23) H Creatinine 6.7 mg/dL (0.7-1.2) H 4.6 mg/dL (0.7-1.2) H Estimat Glomerular Filtration Rate 8.4 mL/min (>60) 12.9 mL/min (>60) Glucose Level 261 mg/dL (74-106) H 107 mg/dL (74-106) #H Hemoglobin A1c 5.4 % (< 6.0) Uric Acid 5.2 mg/dL (3.0-7.5) 3.3 mg/dL (3.0-7.5) Calcium Level 6.9 mg/dL (8.6-10.2) L 7.2 mg/dL (8.6-10.2) L Phosphorus Level 8.0 mg/dL (2.5-4.8) H 5.5 mg/dL (2.5-4.8) H Magnesium Level 2.2 mg/dL (1.7-2.5) 2.0 mg/dL (1.7-2.5) Total Bilirubin < 0.2 mg/dL (0.0-1.2) 0.4 mg/dL (0.0-1.2) Aspartate Amino Transf (AST/SGOT) 32 U/L (5-40) 31 U/L (5-40) Alanine Aminotransferase (ALT/SGPT) 33 U/L (3-41) 29 U/L (3-41) Alkaline Phosphatase 73 U/L (40-129) 81 U/L (40-129) C-Reactive Protein, Quantitative 6.4 mg/dL (< 0.5) H 8.9 mg/dL (< 0.5) H Pro-B-Type Natriuretic Peptide 7885 pg/mL (0-125) H 6550 pg/mL (0-125) H Total Protein 5.2 g/dL (6.6-8.7) L 7.0 g/dL (6.6-8.7) # Albumin 2.5 g/dL (3.5-5.2) L 2.1 g/dL (3.5-5.2) L Globulin 2.7 g/dL 4.9 g/dL Albumin/Globulin Ratio 0.9 (1.0-2.7) L 0.4 (1.0-2.7) L Triglycerides Level 104 mg/dL (< 150) 131 mg/dL (< 150) Cholesterol Level 98 mg/dL (< 200) 119 mg/dL (< 200) LDL Cholesterol 48 mg/dL (60-99) L 70 mg/dL (60-99) HDL Cholesterol 29 mg/dL (> 60) 23 mg/dL (> 60) Cholesterol/HDL Ratio 3.4 (3.3-4.4) 5.2 (3.3-4.4) H Thyroid Stimulating Hormone (TSH) 4.530 uIU/mL (0.300-4.500) 4.810 uIU/mL (0.300-4.500) Erythrocyte Sedimentation Rate Pending Iron Level 73 ug/dL (59-158) Total Iron Binding Capacity 90 ug/dL (250-400) L Percent Iron Saturation 81 % (15-50) H Unsaturated Iron Binding 17 ug/dL (112-346) L Ferritin 1107 ng/mL (10-230) H Vitamin B12 Level 146 pg/mL (211-946) L Folate Pending Current Medications Medications (Trade) Dose Ordered Sig/Ailyn Route PRN Reason Start Time Stop Time Status Last Admin Dose Admin Acetaminophen (Tylenol) 650 mg Q4H PRN ORAL fever 05/18/17 14:45 06/17/17 14:44 Acetaminophen/ Hydrocodone Bitart ([place] 5/325) 1 tab Q4H PRN ORAL For Pain 4-6 05/18/17 14:45 05/25/17 14:44 05/19/17 00:41 Albuterol/ Ipratropium (DuoNeb 0.5-3(2.5)mg/3ml) 3 ml Q6HR PRN HHN dyspnea 05/18/17 14:45 05/23/17 14:44 Ampicillin Sodium/ Sulbactam Sodium 3 gm/Sodium Chloride 110 ml @ 220 mls/hr Q24H IVPB 05/19/17 23:00 05/26/17 22:59 05/19/17 23:00 Chlorhexidine Gluconate (Lora-Hex 2%) 1 applic QHS TOPIC 05/19/17 21:00 06/18/17 20:59 05/19/17 21:00 Clonidine HCl (Catapres) 0.1 mg Q4H PRN ORAL SBP > 160 05/18/17 14:45 06/17/17 14:44 Dextrose 1,000 ml @ 50 mls/hr Q20H IV 05/18/17 23:00 06/17/17 22:59 05/19/17 19:05 Dextrose (Dextrose 50%) STAT PRN IV Hypoglycemia 05/18/17 14:45 06/17/17 14:44 05/19/17 02:13 Duloxetine HCl (Cymbalta) 30 mg DAILY ORAL 05/19/17 09:00 06/18/17 08:59 05/19/17 08:44 Heparin Sodium (Porcine) (Heparin 5000 units/ml) 5,000 units EVERY 12 HOURS SUBQ 05/18/17 21:00 06/17/17 20:59 05/19/17 20:21 Insulin Aspart (NovoLOG) BEFORE MEALS AND HS SUBQ 05/18/17 16:30 06/17/17 16:29 Lisinopril (Zestril) 10 mg BID ORAL 05/18/17 18:00 06/17/17 17:59 05/19/17 18:44 Metoprolol Succinate (Toprol XL) 50 mg DAILY ORAL 05/19/17 09:00 06/18/17 08:59 05/19/17 08:44 Morphine Sulfate (Morphine Sulfate) 2 mg Q4H PRN IVP For Pain 7-10 05/19/17 13:00 05/26/17 12:59 05/20/17 05:22 Ondansetron HCl (Zofran) 4 mg Q6H PRN IVP Nausea & Vomiting 05/18/17 14:45 06/17/17 14:44 Pantoprazole (Protonix) 40 mg DAILY ORAL 05/19/17 14:00 06/18/17 13:59 05/19/17 14:41 Polyethylene Glycol (Miralax) 17 gm HSPRN PRN ORAL Constipation 05/18/17 14:45 06/17/17 14:44 Pregabalin (Lyrica) 75 mg Q12HR ORAL 05/18/17 21:00 06/17/17 20:59 05/19/17 20:19 Vancomycin HCl (Vanco rx to dose) 1 ea DAILY PRN MISC Per rx protocol 05/19/17 22:30 06/18/17 22:29 Zolpidem Tartrate (Ambien) 5 mg HSPRN PRN ORAL Insomnia 05/18/17 14:45 05/25/17 14:44 Ema Wallace M.D. May 20, 2017 09:11
[2017-05-20] MEDS: Heparin 5000 units/ml inj SUBQ SCH ×2 (09:18→21:00)
[2017-05-20] MEDS: Lyrica 75mg cap ORAL SCH ×2 (09:18→20:52)
[2017-05-20] MEDS: Metoprolol Succinate XL 50mg tab ORAL SCH (09:18)
[2017-05-20] MEDS: DULoxetine 30mg cap ORAL SCH (09:19)
[2017-05-20] MEDS: Lisinopril 10mg tab ORAL SCH ×2 (09:19→17:08)
--- NOTE | 2017-05-20 09:49 | Diagnostic Imaging Report ---
Indication: Right foot wound/pain Technique: MRI of the right foot was performed on a 1.5 Sheri magnet without intravascular contrast and the following sequences were obtained: Axial, coronal and sagittal T1 and STIR Comparison: None Findings: Examination is markedly limited by gross motion. There is abnormal STIR signal of the first distal phalanx. There is also mild abnormal STIR signal of the second middle and distal phalanges. Abnormal STIR signal is also seen of the base of the fifth metatarsal. Lisfranc ligament is grossly intact. There is mild subcutaneous edema but no gross drainable abscess. There is fluid signal surrounding the flexor digitorum tendons within the midfoot at the tarsal and tarsometatarsal level with apparent foci of susceptibility artifact series 5 image 10. Impression: Examination markedly limited by motion. Apparent abnormal STIR signal of the first distal phalanx, the second middle and distal phalanges in the base of the fifth metatarsal. If overlying soft tissue ulcers are present, early osteomyelitis should be considered. Reactive marrow edema is also a consideration. Clinical correlation recommended. Apparent fluid signal surrounding the flexor digitorum tendons of the plantar midfoot. Few foci of apparent susceptibility artifact also noted within this area. Possibility of infected fluid and gas surrounding the flexor digitorum tendons should be considered. Clinical correlation recommended. Other findings as above. Given limitation stated above, followup recommended as indicated.
--- NOTE | 2017-05-20 09:51 | General Progress Note ---
Assessment/Plan Status: stable Status Narrative stable Assessment/Plan ESRD- Right foot gangeren DM Retinopathy plan: next HD 05/22 per consultants dialysed 05/19 meds adjusted Subjective ROS Limited/Unobtainable: No Constitutional: Reports: malaise, weakness Allergies: Coded Allergies: No Known Allergies (Unverified , 02/15/13) Objective Last 24 Hour Vital Signs Date Time Temp Pulse Resp B/P (MAP) Pulse Ox O2 Delivery O2 Flow Rate FiO2 05/20/17 09:19 151/66 05/20/17 09:18 83 151/66 05/20/17 08:00 97.0 83 18 151/66 98 Room Air 05/20/17 04:00 98.4 74 19 125/64 95 Room Air 05/20/17 00:43 98.4 66 20 121/74 96 Room Air 05/19/17 20:00 98.6 70 19 126/68 95 Room Air 05/19/17 19:00 81 16 Room Air 21 05/19/17 18:50 97.3 05/19/17 18:44 121/76 05/19/17 16:30 Room Air 05/19/17 16:00 97.3 72 18 121/76 98 Room Air 05/19/17 13:25 Room Air 05/19/17 12:00 97.3 71 20 142/59 98 Room Air 05/19/17 10:15 97.6 Intake and Output 05/20/17 05/21/17 19:00 07:00 Intake Total 300 ml Output Total 350 ml Balance -50 ml Intake Oral 300 ml Output Urine Total 350 ml Laboratory Tests 05/20/17 05:30: White Blood Count 10.1, Red Blood Count 2.80L, Hemoglobin 9.0L, Hematocrit 26.1L , Mean Corpuscular Volume 93, Mean Corpuscular Hemoglobin 32.0H, Mean Corpuscular Hemoglobin Concent 34.3, Red Cell Distribution Width 13.8, Platelet Count 256, Mean Platelet Volume 4.5L, Neutrophils (%) (Auto) 68.0, Lymphocytes ( %) (Auto) 14.1L, Monocytes (%) (Auto) 11.5H, Eosinophils (%) (Auto) 5.9H, Basophils (%) (Auto) 0.6, Erythrocyte Sedimentation Rate [Pending], Sodium Level 139#, Potassium Level 4.0, Chloride Level 94L, Carbon Dioxide Level 29, Anion Gap 16H, Blood Urea Nitrogen 47H, Creatinine 4.6H, Estimat Glomerular Filtration Rate 12.9, Glucose Level 107#H, Uric Acid 3.3, Calcium Level 7.2L, Phosphorus Level 5.5H, Magnesium Level 2.0, Iron Level 73, Total Iron Binding Capacity 90L, Percent Iron Saturation 81H, Unsaturated Iron Binding 17L, Ferritin 1107H, Total Bilirubin 0.4, Aspartate Amino Transf (AST/SGOT) 31, Alanine Aminotransferase (ALT/SGPT) 29, Alkaline Phosphatase 81, C-Reactive Protein, Quantitative 8.9H, Pro-B-Type Natriuretic Peptide 6550H, Total Protein 7.0#, Albumin 2.1L, Globulin 4.9, Albumin/Globulin Ratio 0.4L, Triglycerides Level 131, Cholesterol Level 119, LDL Cholesterol 70, HDL Cholesterol 23, Cholesterol/HDL Ratio 5.2H, Vitamin B12 Level 146L, Folate [Pending], Thyroid Stimulating Hormone (TSH) 4.810H Height (Feet): 5 Height (Inches): 5.00 Weight (Pounds): 135 General Appearance: no apparent distress Extremities: other - foot unchanged Objective no change in PE JADON ROCKWELL May 20, 2017 09:51
[2017-05-20 12:00] VITALS: BP 135/60
--- NOTE | 2017-05-20 14:11 | Podiatric Progress Note ---
Assessment/Plan Patient Ashwin Santos is a 66 year old male who was admitted on May 18, 2017 at 12:45 with hypoglycemia Problems: Assessment/Plan ASSESSMENT: - Right plantar foot ulcer with exposed bone. Osteomyelitis. Necrotic tissue - PVD. Moderated ischemia noted with arterial doppler - T2DM - Peripheral neuropathy - Leukocytosis. Improved PLAN: - Recommend wound debridement. However, patient will benefit from vascular optimization due to current necrotic tissue and poor healing potential. Once vascular optimization is complete plan is to debride the wound in the operating room and place a graft along with wound vac. This can also be performed as an outpatient - Patient will require extended antibiotics due to exposed bone and osteomyelitis seen on MRI - Continue daily dressing changes and offloading the heel Subjective Reason for consult Bilateral foot ulcers Allergies: Coded Allergies: No Known Allergies (Unverified , 02/15/13) Subjective Patient states he is doing well. No nausea, vomiting, fevers, or chills Objective Exam Last 24 Hour Vital Signs Date Time Temp Pulse Resp B/P (MAP) Pulse Ox O2 Delivery O2 Flow Rate FiO2 05/20/17 12:00 100.0 83 18 135/60 97 Room Air 05/20/17 10:15 97.0 05/20/17 10:00 97.0 05/20/17 09:19 151/66 05/20/17 09:18 83 151/66 05/20/17 08:40 82 18 Room Air 21 05/20/17 08:00 97.0 83 18 151/66 98 Room Air 05/20/17 04:00 98.4 74 19 125/64 95 Room Air 05/20/17 00:43 98.4 66 20 121/74 96 Room Air 05/19/17 20:00 98.6 70 19 126/68 95 Room Air 05/19/17 19:00 81 16 Room Air 21 05/19/17 18:44 121/76 05/19/17 16:30 Room Air 05/19/17 16:00 97.3 72 18 121/76 98 Room Air Laboratory Tests Test 05/20/17 05:30 White Blood Count 10.1 K/UL (4.8-10.8) Red Blood Count 2.80 M/UL (4.70-6.10) L Hemoglobin 9.0 G/DL (14.2-18.0) L Hematocrit 26.1 % (42.0-52.0) L Mean Corpuscular Volume 93 FL (80-99) Mean Corpuscular Hemoglobin 32.0 PG (27.0-31.0) H Mean Corpuscular Hemoglobin Concent 34.3 G/DL (32.0-36.0) Red Cell Distribution Width 13.8 % (11.6-14.8) Platelet Count 256 K/UL (150-450) Mean Platelet Volume 4.5 FL (6.5-10.1) L Neutrophils (%) (Auto) 68.0 % (45.0-75.0) Lymphocytes (%) (Auto) 14.1 % (20.0-45.0) L Monocytes (%) (Auto) 11.5 % (1.0-10.0) H Eosinophils (%) (Auto) 5.9 % (0.0-3.0) H Basophils (%) (Auto) 0.6 % (0.0-2.0) Erythrocyte Sedimentation Rate 126 MM/HR (0-20) H Sodium Level 139 mEQ/L (135-145) # Potassium Level 4.0 mEQ/L (3.4-4.9) Chloride Level 94 mEQ/L (98-107) L Carbon Dioxide Level 29 mEQ/L (20-30) Anion Gap 16 (5-15) H Blood Urea Nitrogen 47 mg/dL (7-23) H Creatinine 4.6 mg/dL (0.7-1.2) H Estimat Glomerular Filtration Rate 12.9 mL/min (>60) Glucose Level 107 mg/dL (74-106) #H Uric Acid 3.3 mg/dL (3.0-7.5) Calcium Level 7.2 mg/dL (8.6-10.2) L Phosphorus Level 5.5 mg/dL (2.5-4.8) H Magnesium Level 2.0 mg/dL (1.7-2.5) Iron Level 73 ug/dL (59-158) Total Iron Binding Capacity 90 ug/dL (250-400) L Percent Iron Saturation 81 % (15-50) H Unsaturated Iron Binding 17 ug/dL (112-346) L Ferritin 1107 ng/mL (10-230) H Total Bilirubin 0.4 mg/dL (0.0-1.2) Aspartate Amino Transf (AST/SGOT) 31 U/L (5-40) Alanine Aminotransferase (ALT/SGPT) 29 U/L (3-41) Alkaline Phosphatase 81 U/L (40-129) C-Reactive Protein, Quantitative 8.9 mg/dL (< 0.5) H Pro-B-Type Natriuretic Peptide 6550 pg/mL (0-125) H Total Protein 7.0 g/dL (6.6-8.7) # Albumin 2.1 g/dL (3.5-5.2) L Globulin 4.9 g/dL Albumin/Globulin Ratio 0.4 (1.0-2.7) L Triglycerides Level 131 mg/dL (< 150) Cholesterol Level 119 mg/dL (< 200) LDL Cholesterol 70 mg/dL (60-99) HDL Cholesterol 23 mg/dL (> 60) Cholesterol/HDL Ratio 5.2 (3.3-4.4) H Vitamin B12 Level 146 pg/mL (211-946) L Folate Pending Thyroid Stimulating Hormone (TSH) 4.810 uIU/mL (0.300-4.500) Microbiology Date/Time Source Procedure Growth Status 05/18/17 12:10 Blood Blood Culture - Preliminary NO GROWTH AFTER 24 HOURS Resulted 05/18/17 22:10 Nasal Nares MRSA Culture - Final NO METHICILLIN RESISTANT STAPH AUREUS... Complete 05/19/17 11:00 Foot Right Gram Stain - Final Resulted 05/19/17 11:00 Foot Right Aerobic Culture - Preliminary NO GROWTH Resulted Exam Narrative Right plantar foot necrotic ulcer with exposed bone. Left heel with healing blister. Pedal pulses lightly palpable. Decreased sensation to light touch David Stanley DPM May 20, 2017 14:11
[2017-05-20 16:00] VITALS: BP 137/49
--- NOTE | 2017-05-20 16:07 | Pulmonology Progress Note ---
Assessment/Plan Problems: (1) Hypoglycemia (2) ESRD (end stage renal disease) on dialysis (3) HTN (hypertension) (4) Anemia (5) Diabetes mellitus (6) Cellulitis in diabetic foot Assessment/Plan wbc better sliding scale wound care iv abx podiatry anemia work up Subjective ROS Limited/Unobtainable: No Constitutional: Reports: no symptoms HEENT: Repors: no symptoms Respiratory: Reports: no symptoms Allergies: Coded Allergies: No Known Allergies (Unverified , 02/15/13) Objective Last 24 Hour Vital Signs Date Time Temp Pulse Resp B/P (MAP) Pulse Ox O2 Delivery O2 Flow Rate FiO2 05/20/17 12:00 100.0 83 18 135/60 97 Room Air 05/20/17 10:15 97.0 05/20/17 10:00 97.0 05/20/17 09:19 151/66 05/20/17 09:18 83 151/66 05/20/17 08:40 82 18 Room Air 21 05/20/17 08:00 97.0 83 18 151/66 98 Room Air 05/20/17 04:00 98.4 74 19 125/64 95 Room Air 05/20/17 00:43 98.4 66 20 121/74 96 Room Air 05/19/17 20:00 98.6 70 19 126/68 95 Room Air 05/19/17 19:00 81 16 Room Air 21 05/19/17 18:44 121/76 05/19/17 16:30 Room Air Intake and Output 05/20/17 05/21/17 19:00 07:00 Intake Total 600 ml Output Total 550 ml Balance 50 ml Intake Oral 600 ml Output Urine Total 550 ml General Appearance: WD/WN HEENT: normocephalic, anicteric Respiratory/Chest: chest wall non-tender, lungs clear Cardiovascular: normal peripheral pulses Abdomen: normal bowel sounds Genitourinary: normal external genitalia 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 Complete 05/19/17 11:00 Foot Right Gram Stain - Final Resulted 05/19/17 11:00 Foot Right Aerobic Culture - Preliminary NO GROWTH Resulted Laboratory Tests 05/20/17 05:30: White Blood Count 10.1, Red Blood Count 2.80L, Hemoglobin 9.0L, Hematocrit 26.1L , Mean Corpuscular Volume 93, Mean Corpuscular Hemoglobin 32.0H, Mean Corpuscular Hemoglobin Concent 34.3, Red Cell Distribution Width 13.8, Platelet Count 256, Mean Platelet Volume 4.5L, Neutrophils (%) (Auto) 68.0, Lymphocytes ( %) (Auto) 14.1L, Monocytes (%) (Auto) 11.5H, Eosinophils (%) (Auto) 5.9H, Basophils (%) (Auto) 0.6, Erythrocyte Sedimentation Rate 126H, Sodium Level 139# , Potassium Level 4.0, Chloride Level 94L, Carbon Dioxide Level 29, Anion Gap 16H, Blood Urea Nitrogen 47H, Creatinine 4.6H, Estimat Glomerular Filtration Rate 12.9, Glucose Level 107#H, Uric Acid 3.3, Calcium Level 7.2L, Phosphorus Level 5.5H, Magnesium Level 2.0, Iron Level 73, Total Iron Binding Capacity 90L , Percent Iron Saturation 81H, Unsaturated Iron Binding 17L, Ferritin 1107H, Total Bilirubin 0.4, Aspartate Amino Transf (AST/SGOT) 31, Alanine Aminotransferase (ALT/SGPT) 29, Alkaline Phosphatase 81, C-Reactive Protein, Quantitative 8.9H, Pro-B-Type Natriuretic Peptide 6550H, Total Protein 7.0#, Albumin 2.1L, Globulin 4.9, Albumin/Globulin Ratio 0.4L, Triglycerides Level 131 , Cholesterol Level 119, LDL Cholesterol 70, HDL Cholesterol 23, Cholesterol/ HDL Ratio 5.2H, Vitamin B12 Level 146L, Folate [Pending], Thyroid Stimulating Hormone (TSH) 4.810H Current Medications Medications (Trade) Dose Ordered Sig/Ailyn Route PRN Reason Start Time Stop Time Status Last Admin Dose Admin Acetaminophen (Tylenol) 650 mg Q4H PRN ORAL fever 05/18/17 14:45 06/17/17 14:44 Acetaminophen/ Hydrocodone Bitart ([place] 5/325) 1 tab Q4H PRN ORAL For Pain 4-6 05/18/17 14:45 05/25/17 14:44 05/19/17 00:41 Albuterol/ Ipratropium (DuoNeb 0.5-3(2.5)mg/3ml) 3 ml Q6HR PRN HHN dyspnea 05/18/17 14:45 05/23/17 14:44 Ampicillin Sodium/ Sulbactam Sodium 3 gm/Sodium Chloride 110 ml @ 220 mls/hr Q24H IVPB 05/19/17 23:00 05/26/17 22:59 05/19/17 23:00 Chlorhexidine Gluconate (Lora-Hex 2%) 1 applic QHS TOPIC 05/19/17 21:00 06/18/17 20:59 05/19/17 21:00 Clonidine HCl (Catapres) 0.1 mg Q4H PRN ORAL SBP > 160 05/18/17 14:45 06/17/17 14:44 Dextrose (Dextrose 50%) STAT PRN IV Hypoglycemia 05/18/17 14:45 06/17/17 14:44 05/19/17 02:13 Duloxetine HCl (Cymbalta) 30 mg DAILY ORAL 05/19/17 09:00 06/18/17 08:59 05/20/17 09:19 Heparin Sodium (Porcine) (Heparin 5000 units/ml) 5,000 units EVERY 12 HOURS SUBQ 05/18/17 21:00 06/17/17 20:59 05/20/17 09:18 Insulin Aspart (NovoLOG) BEFORE MEALS AND HS SUBQ 05/18/17 16:30 06/17/17 16:29 Lisinopril (Zestril) 20 mg BID ORAL 05/20/17 18:00 06/19/17 17:59 Metoprolol Succinate (Toprol XL) 50 mg DAILY ORAL 05/19/17 09:00 06/18/17 08:59 05/20/17 09:18 Morphine Sulfate (Morphine Sulfate) 2 mg Q4H PRN IVP For Pain 7-10 05/19/17 13:00 05/26/17 12:59 05/20/17 15:30 Mupirocin (Bactroban Oint) 1 applic DAILY TOPIC 05/21/17 09:00 05/26/17 08:59 Ondansetron HCl (Zofran) 4 mg Q6H PRN IVP Nausea & Vomiting 05/18/17 14:45 06/17/17 14:44 Pantoprazole (Protonix) 40 mg DAILY ORAL 05/19/17 14:00 06/18/17 13:59 05/20/17 09:18 Polyethylene Glycol (Miralax) 17 gm HSPRN PRN ORAL Constipation 05/18/17 14:45 06/17/17 14:44 Pregabalin (Lyrica) 75 mg Q12HR ORAL 05/18/17 21:00 06/17/17 20:59 05/20/17 09:18 Vancomycin HCl (Vanco rx to dose) 1 ea DAILY PRN MISC Per rx protocol 05/19/17 22:30 06/18/17 22:29 Zolpidem Tartrate (Ambien) 5 mg HSPRN PRN ORAL Insomnia 05/18/17 14:45 05/25/17 14:44 JASPAL MENDOZA May 20, 2017 16:07
[2017-05-20 20:09] VITALS: BP 124/60
[2017-05-20] MEDS: Dyna-Hex 2% Top Sol 2oz TOPIC SCH (20:52)
[2017-05-20] MEDS: Ampicillin/Sulbactam Sod 3 GM in NS 110 ML IVPB SCH (20:52)
[2017-05-21 00:46] VITALS: BP 120/57
[2017-05-21 04:47] VITALS: BP 118/80
[2017-05-21] MEDS: NovoLOG Insulin Flexpen SUBQ SCH ×4 (06:24→21:00)
--- NOTE | 2017-05-21 07:30 | General Progress Note ---
Assessment/Plan Problem List: (1) Abnormal thyroid blood test ICD Codes: R94.6 - Abnormal results of thyroid function studies SNOMED: 392817203 (2) Diabetes mellitus ICD Codes: E11.9 - Type 2 diabetes mellitus without complications SNOMED: 52817805 (3) CAD (coronary artery disease) ICD Codes: I25.10 - Atherosclerotic heart disease of [place] coronary artery without angina pectoris SNOMED: 86144961 (4) HTN (hypertension) ICD Codes: I10 - Essential (primary) hypertension SNOMED: 66989621 (5) Hypoglycemia ICD Codes: E16.2 - Hypoglycemia, unspecified SNOMED: 701785639 (6) ESRD (end stage renal disease) on dialysis ICD Codes: N18.6 - End stage renal disease; Z99.2 - Dependence on renal dialysis SNOMED: 933090857 Assessment/Plan do not resume Glipizide will start Januvia 25 mg daily repeat thyroid function - TSH is elevated w/o hx of thyroid disease Subjective Allergies: Coded Allergies: No Known Allergies (Unverified , 02/15/13) All Systems: reviewed and negative except above Subjective 6 y/o M with hx of DM2, ESRD on HD MWF, HLD, HTN, CAD, CHF, diabetic foot ulcers is admitted on 05/18 with AMS, found to be hypoglycemic by paramedics on Glipizide monotherapy as OP Objective Last 24 Hour Vital Signs Date Time Temp Pulse Resp B/P (MAP) Pulse Ox O2 Delivery O2 Flow Rate FiO2 05/21/17 04:47 98.1 75 19 118/80 98 Room Air 05/21/17 00:46 97.8 69 18 120/57 97 Room Air 05/20/17 22:39 98.0 05/20/17 22:15 69 16 Room Air 21 05/20/17 21:51 98.0 05/20/17 20:09 98.0 75 18 124/60 98 Room Air 05/20/17 17:08 135/60 05/20/17 16:00 98.2 68 17 137/49 96 Room Air 05/20/17 15:40 Room Air 05/20/17 12:00 100.0 83 18 135/60 97 Room Air 05/20/17 09:19 151/66 05/20/17 09:18 83 151/66 05/20/17 08:40 82 18 Room Air 21 10/7/17 08:00 97.0 83 18 151/66 98 Room Air Height (Feet): 5 Height (Inches): 5.00 Weight (Pounds): 135 General Appearance: no apparent distress Neck: supple Cardiovascular: normal rate Respiratory/Chest: lungs clear Abdomen: normal bowel sounds Objective Current Medications Medications (Trade) Dose Ordered Sig/Ailyn Route PRN Reason Start Time Stop Time Status Last Admin Dose Admin Acetaminophen (Tylenol) 650 mg Q4H PRN ORAL fever 05/18/17 14:45 06/17/17 14:44 Acetaminophen/ Hydrocodone Bitart ([place] 5/325) 1 tab Q4H PRN ORAL For Pain 4-6 05/18/17 14:45 05/25/17 14:44 05/19/17 00:41 Albuterol/ Ipratropium (DuoNeb 0.5-3(2.5)mg/3ml) 3 ml Q6HR PRN HHN dyspnea 05/18/17 14:45 05/23/17 14:44 Ampicillin Sodium/ Sulbactam Sodium 3 gm/Sodium Chloride 110 ml @ 220 mls/hr Q24H IVPB 05/19/17 23:00 05/26/17 22:59 05/20/17 20:52 Chlorhexidine Gluconate ([place]-Hex 2%) 1 applic QHS TOPIC 05/19/17 21:00 06/18/17 20:59 05/20/17 20:52 Clonidine HCl (Catapres) 0.1 mg Q4H PRN ORAL SBP > 160 05/18/17 14:45 06/17/17 14:44 Dextrose (Dextrose 50%) STAT PRN IV Hypoglycemia 05/18/17 14:45 06/17/17 14:44 05/19/17 02:13 Duloxetine HCl (Cymbalta) 30 mg DAILY ORAL 05/19/17 09:00 06/18/17 08:59 05/20/17 09:19 Heparin Sodium (Porcine) (Heparin 5000 units/ml) 5,000 units EVERY 12 HOURS SUBQ 05/18/17 21:00 06/17/17 20:59 05/20/17 21:00 Insulin Aspart (NovoLOG) BEFORE MEALS AND HS SUBQ 05/18/17 16:30 06/17/17 16:29 05/20/17 17:09 Lisinopril (Zestril) 20 mg BID ORAL 05/20/17 18:00 06/19/17 17:59 05/20/17 17:08 Metoprolol Succinate (Toprol XL) 50 mg DAILY ORAL 05/19/17 09:00 06/18/17 08:59 05/20/17 09:18 Morphine Sulfate (Morphine Sulfate) 2 mg Q4H PRN IVP For Pain 7-05/19/17 13:00 05/26/17 12:59 05/20/17 22:09 Mupirocin (Bactroban Oint) 1 applic DAILY TOPIC 05/21/17 09:00 05/26/17 08:59 Ondansetron HCl (Zofran) 4 mg Q6H PRN IVP Nausea & Vomiting 05/18/17 14:45 06/17/17 14:44 Pantoprazole (Protonix) 40 mg DAILY ORAL 05/19/17 14:00 06/18/17 13:59 05/20/17 09:18 Polyethylene Glycol (Miralax) 17 gm HSPRN PRN ORAL Constipation 05/18/17 14:45 06/17/17 14:44 Pregabalin (Lyrica) 75 mg Q12HR ORAL 05/18/17 21:00 06/17/17 20:59 05/20/17 20:52 Vancomycin HCl (Vanco rx to dose) 1 ea DAILY PRN MISC Per rx protocol 05/19/17 22:30 06/18/17 22:29 Zolpidem Tartrate (Ambien) 5 mg HSPRN PRN ORAL Insomnia 05/18/17 14:45 05/25/17 14:44 Item Value Date Time Bedside Blood Glucose 146 mg/dl H 05/21/17 0630 Bedside Blood Glucose 124 mg/dl H 05/20/17 2100 Bedside Blood Glucose 202 mg/dl H 05/20/17 1709 Bedside Blood Glucose 138 mg/dl H 05/20/17 1130 Bedside Blood Glucose 107 mg/dl 05/20/17 0636 ADRI FONG May 21, 2017 07:30
[2017-05-21] MEDS: DULoxetine 30mg cap ORAL SCH (08:38)
[2017-05-21] MEDS: Metoprolol Succinate XL 50mg tab ORAL SCH (08:38)
[2017-05-21] MEDS: Lyrica 75mg cap ORAL SCH ×2 (08:39→21:58)
[2017-05-21] MEDS: Lisinopril 10mg tab ORAL SCH ×2 (08:39→17:13)
[2017-05-21] MEDS: Morphine Sulfate 2mg/ml Inj IVP PRN ×2 (08:42→15:08)
[2017-05-21 08:45] VITALS: BP 157/83
[2017-05-21] MEDS: Heparin 5000 units/ml inj SUBQ SCH ×2 (08:47→22:10)
--- NOTE | 2017-05-21 09:58 | General Progress Note ---
Assessment/Plan Status: stable Assessment/Plan ESRD- Right foot gangeren DM Retinopathy plan: next HD 05/22 per consultants dialysed 05/19 meds adjusted Subjective ROS Limited/Unobtainable: No Constitutional: Reports: malaise Allergies: Coded Allergies: No Known Allergies (Unverified , 02/15/13) Objective Last 24 Hour Vital Signs Date Time Temp Pulse Resp B/P (MAP) Pulse Ox O2 Delivery O2 Flow Rate FiO2 05/21/17 08:45 99.4 80 17 157/83 96 Room Air 05/21/17 08:39 151/83 05/21/17 08:38 80 151/83 05/21/17 07:30 64 16 Room Air 21 05/21/17 04:47 98.1 75 19 118/80 98 Room Air 05/21/17 00:46 97.8 69 18 120/57 97 Room Air 05/20/17 22:39 98.0 05/20/17 22:15 69 16 Room Air 21 05/20/17 21:51 98.0 05/20/17 20:09 98.0 75 18 124/60 98 Room Air 05/20/17 17:08 135/60 05/20/17 16:00 98.2 68 17 137/49 96 Room Air 05/20/17 15:40 Room Air 05/20/17 12:00 100.0 83 18 135/60 97 Room Air Intake and Output 05/21/17 05/22/17 19:00 07:00 Intake Total 240 ml Output Total 300 ml Balance -60 ml Intake Oral 240 ml Output Urine Total 300 ml Height (Feet): 5 Height (Inches): 5.00 Weight (Pounds): 135 General Appearance: no apparent distress Objective no change in PE JADON ROCKWELL May 21, 2017 09:58
--- NOTE | 2017-05-21 10:56 | Infectious Diseases Prog Note ---
Assessment/Plan Assessment/Plan A; Diabetic foot R foot osteomyelitis ESRD on HD PVD Peripheral neuropathy P; Continue Unasyn & Vancomycin will f/u cultures Subjective ROS Limited/Unobtainable: No Constitutional: Reports: other - dosen't feel good Respiratory: Reports: no symptoms Cardiovascular: Reports: no symptoms Gastrointestinal/Abdominal: Reports: no symptoms Genitourinary: Reports: no symptoms Musculoskeletal: Reports: pain, other - in both legs Allergies: Coded Allergies: No Known Allergies (Unverified , 02/15/13) Objective Vital Signs Last 24 Hour Vital Signs Date Time Temp Pulse Resp B/P (MAP) Pulse Ox O2 Delivery O2 Flow Rate FiO2 05/21/17 08:45 99.4 80 17 157/83 96 Room Air 05/21/17 08:39 151/83 05/21/17 08:38 80 151/83 05/21/17 07:30 64 16 Room Air 21 05/21/17 04:47 98.1 75 19 118/80 98 Room Air 05/21/17 00:46 97.8 69 18 120/57 97 Room Air 05/20/17 22:39 98.0 05/20/17 22:15 69 16 Room Air 21 05/20/17 21:51 98.0 05/20/17 20:09 98.0 75 18 124/60 98 Room Air 05/20/17 17:08 135/60 05/20/17 16:00 98.2 68 17 137/49 96 Room Air 05/20/17 15:40 Room Air 05/20/17 12:00 100.0 83 18 135/60 97 Room Air Height (Feet): 5 Height (Inches): 5.00 Weight (Pounds): 135 General Appearance: no acute distress HEENT: other - right eye blindness Respiratory/Chest: lungs clear Cardiovascular: normal rate Abdomen: soft, non tender Extremities: no edema Skin: ulcers, other - bilateral foot R>L Microbiology Date/Time Source Procedure Growth Status 05/18/17 12:10 Blood Blood Culture - Preliminary NO GROWTH AFTER 48 HOURS Resulted 05/18/17 11:55 Blood Blood Culture - Preliminary NO GROWTH AFTER 48 HOURS Resulted 05/18/17 22:10 Nasal Nares MRSA Culture - Final NO METHICILLIN RESISTANT STAPH AUREUS... Complete 05/19/17 11:00 Foot Right Gram Stain - Final Resulted 05/19/17 11:00 Foot Right Aerobic Culture - Preliminary NO GROWTH Resulted Current Medications Medications (Trade) Dose Ordered Sig/Ailyn Route PRN Reason Start Time Stop Time Status Last Admin Dose Admin Acetaminophen (Tylenol) 650 mg Q4H PRN ORAL fever 05/18/17 14:45 06/17/17 14:44 Acetaminophen/ Hydrocodone Bitart ([place] 5/325) 1 tab Q4H PRN ORAL For Pain 4-6 05/18/17 14:45 05/25/17 14:44 05/19/17 00:41 Albuterol/ Ipratropium (DuoNeb 0.5-3(2.5)mg/3ml) 3 ml Q6HR PRN HHN dyspnea 05/18/17 14:45 05/23/17 14:44 Ampicillin Sodium/ Sulbactam Sodium 3 gm/Sodium Chloride 110 ml @ 220 mls/hr Q24H IVPB 05/19/17 23:00 05/26/17 22:59 05/20/17 20:52 Chlorhexidine Gluconate (Lora-Hex 2%) 1 applic QHS TOPIC 05/19/17 21:00 06/18/17 20:59 05/20/17 20:52 Clonidine HCl (Catapres) 0.1 mg Q4H PRN ORAL SBP > 160 05/18/17 14:45 06/17/17 14:44 Dextrose (Dextrose 50%) STAT PRN IV Hypoglycemia 05/18/17 14:45 06/17/17 14:44 05/19/17 02:13 Duloxetine HCl (Cymbalta) 30 mg DAILY ORAL 05/19/17 09:00 06/18/17 08:59 05/21/17 08:38 Heparin Sodium (Porcine) (Heparin 5000 units/ml) 5,000 units EVERY 12 HOURS SUBQ 05/18/17 21:00 06/17/17 20:59 05/21/17 08:47 Insulin Aspart (NovoLOG) BEFORE MEALS AND HS SUBQ 05/18/17 16:30 06/17/17 16:29 05/20/17 17:09 Lisinopril (Zestril) 20 mg BID ORAL 05/20/17 18:00 06/19/17 17:59 05/21/17 08:39 Metoprolol Succinate (Toprol XL) 50 mg DAILY ORAL 05/19/17 09:00 06/18/17 08:59 05/21/17 08:38 Morphine Sulfate (Morphine Sulfate) 2 mg Q4H PRN IVP For Pain 7-10 05/19/17 13:00 05/26/17 12:59 05/21/17 08:42 Mupirocin (Bactroban Oint) 1 applic DAILY TOPIC 05/21/17 09:00 05/26/17 08:59 Ondansetron HCl (Zofran) 4 mg Q6H PRN IVP Nausea & Vomiting 05/18/17 14:45 06/17/17 14:44 Pantoprazole (Protonix) 40 mg DAILY ORAL 05/19/17 14:00 06/18/17 13:59 05/21/17 08:37 Polyethylene Glycol (Miralax) 17 gm HSPRN PRN ORAL Constipation 05/18/17 14:45 06/17/17 14:44 Pregabalin (Lyrica) 75 mg Q12HR ORAL 05/18/17 21:00 06/17/17 20:59 05/21/17 08:39 Sitagliptin Phosphate (Januvia) 25 mg ACBREAKFAST ORAL 05/21/17 11:30 06/20/17 11:29 Vancomycin HCl (Vanco rx to dose) 1 ea DAILY PRN MISC Per rx protocol 05/19/17 22:30 06/18/17 22:29 Zolpidem Tartrate (Ambien) 5 mg HSPRN PRN ORAL Insomnia 05/18/17 14:45 05/25/17 14:44 ROMEL NEGRO May 21, 2017 10:56
[2017-05-21 12:00] VITALS: BP 157/63
--- NOTE | 2017-05-21 12:07 | Pulmonology Progress Note ---
Assessment/Plan Problems: (1) Hypoglycemia (2) ESRD (end stage renal disease) on dialysis (3) HTN (hypertension) (4) Anemia (5) Diabetes mellitus (6) Cellulitis in diabetic foot Assessment/Plan all noted moderate arterial ischemia extensive infection sliding scale wound care iv abx Endo note appreciated, wont restart Glipizide Subjective Constitutional: Reports: no symptoms HEENT: Repors: no symptoms Respiratory: Reports: no symptoms Cardiovascular: Reports: no symptoms Allergies: Coded Allergies: No Known Allergies (Unverified , 02/15/13) Objective Last 24 Hour Vital Signs Date Time Temp Pulse Resp B/P (MAP) Pulse Ox O2 Delivery O2 Flow Rate FiO2 05/21/17 08:45 99.4 80 17 157/83 96 Room Air 05/21/17 08:39 151/83 05/21/17 08:38 80 151/83 05/21/17 07:30 64 16 Room Air 21 05/21/17 04:47 98.1 75 19 118/80 98 Room Air 05/21/17 00:46 97.8 69 18 120/57 97 Room Air 05/20/17 22:39 98.0 05/20/17 22:15 69 16 Room Air 21 05/20/17 21:51 98.0 05/20/17 20:09 98.0 75 18 124/60 98 Room Air 05/20/17 17:08 135/60 05/20/17 16:00 98.2 68 17 137/49 96 Room Air 05/20/17 15:40 Room Air Intake and Output 05/21/17 05/22/17 19:00 07:00 Intake Total 240 ml Output Total 300 ml Balance -60 ml Intake Oral 240 ml Output Urine Total 300 ml General Appearance: WD/WN HEENT: normocephalic, atraumatic Respiratory/Chest: chest wall non-tender, lungs clear Cardiovascular: normal peripheral pulses, normal rate Genitourinary: normal external genitalia Skin: no ulcers Neurologic/Psychiatric: no motor/sensory deficits Microbiology Date/Time Source Procedure Growth Status 05/18/17 12:10 Blood Blood Culture - Preliminary NO GROWTH AFTER 48 HOURS Resulted 05/18/17 22:10 Nasal Nares MRSA Culture - Final NO METHICILLIN RESISTANT STAPH AUREUS... Complete 05/19/17 11:00 Foot Right Gram Stain - Final Resulted 05/19/17 11:00 Foot Right Aerobic Culture - Preliminary NO GROWTH Resulted Current Medications Medications (Trade) Dose Ordered Sig/Ailyn Route PRN Reason Start Time Stop Time Status Last Admin Dose Admin Acetaminophen (Tylenol) 650 mg Q4H PRN ORAL fever 05/18/17 14:45 06/17/17 14:44 Acetaminophen/ Hydrocodone Bitart ([place] 5/325) 1 tab Q4H PRN ORAL For Pain 4-6 05/18/17 14:45 05/25/17 14:44 05/19/17 00:41 Albuterol/ Ipratropium (DuoNeb 0.5-3(2.5)mg/3ml) 3 ml Q6HR PRN HHN dyspnea 05/18/17 14:45 05/23/17 14:44 Ampicillin Sodium/ Sulbactam Sodium 3 gm/Sodium Chloride 110 ml @ 220 mls/hr Q24H IVPB 05/19/17 23:00 05/26/17 22:59 05/20/17 20:52 Chlorhexidine Gluconate (Lora-Hex 2%) 1 applic QHS TOPIC 05/19/17 21:00 06/18/17 20:59 05/20/17 20:52 Clonidine HCl (Catapres) 0.1 mg Q4H PRN ORAL SBP > 160 05/18/17 14:45 06/17/17 14:44 Dextrose (Dextrose 50%) STAT PRN IV Hypoglycemia 05/18/17 14:45 06/17/17 14:44 05/19/17 02:13 Duloxetine HCl (Cymbalta) 30 mg DAILY ORAL 05/19/17 09:00 06/18/17 08:59 05/21/17 08:38 Heparin Sodium (Porcine) (Heparin 5000 units/ml) 5,000 units EVERY 12 HOURS SUBQ 05/18/17 21:00 06/17/17 20:59 05/21/17 08:47 Insulin Aspart (NovoLOG) BEFORE MEALS AND HS SUBQ 05/18/17 16:30 06/17/17 16:29 05/20/17 17:09 Lisinopril (Zestril) 20 mg BID ORAL 05/20/17 18:00 06/19/17 17:59 05/21/17 08:39 Metoprolol Succinate (Toprol XL) 50 mg DAILY ORAL 05/19/17 09:00 06/18/17 08:59 05/21/17 08:38 Morphine Sulfate (Morphine Sulfate) 2 mg Q4H PRN IVP For Pain 7-05/19/17 13:00 05/26/17 12:59 05/21/17 08:42 Mupirocin (Bactroban Oint) 1 applic DAILY TOPIC 05/21/17 09:00 05/26/17 08:59 Ondansetron HCl (Zofran) 4 mg Q6H PRN IVP Nausea & Vomiting 05/18/17 14:45 06/17/17 14:44 Pantoprazole (Protonix) 40 mg DAILY ORAL 05/19/17 14:00 06/18/17 13:59 05/21/17 08:37 Polyethylene Glycol (Miralax) 17 gm HSPRN PRN ORAL Constipation 05/18/17 14:45 06/17/17 14:44 Pregabalin (Lyrica) 75 mg Q12HR ORAL 05/18/17 21:00 06/17/17 20:59 05/21/17 08:39 Sitagliptin Phosphate (Januvia) 25 mg ACBREAKFAST ORAL 05/21/17 11:30 06/20/17 11:29 Vancomycin HCl (Vanco rx to dose) 1 ea DAILY PRN MISC Per rx protocol 05/19/17 22:30 06/18/17 22:29 Zolpidem Tartrate (Ambien) 5 mg HSPRN PRN ORAL Insomnia 05/18/17 14:45 05/25/17 14:44 JASPAL MENDOZA May 21, 2017 12:07
[2017-05-21] MEDS: sitaGLIPtin 25mg tab ORAL SCH (12:53)
[2017-05-21 16:00] VITALS: BP 168/77
[2017-05-21 20:00] VITALS: BP 117/57
[2017-05-21] MEDS: Dyna-Hex 2% Top Sol 2oz TOPIC SCH (21:58)
[2017-05-21] MEDS: Ampicillin/Sulbactam Sod 3 GM in NS 110 ML IVPB SCH (22:15)
[2017-05-22] VITALS (9 sets, daily range): BP systolic 113–157; BP diastolic 55–109
[2017-05-22] MEDS: NovoLOG Insulin Flexpen SUBQ SCH ×4 (06:30→22:57)
[2017-05-22] MEDS: sitaGLIPtin 25mg tab ORAL SCH (06:47)
[2017-05-22 08:08] LABS: BASOPHILS % (AUTO) 0.3 % (0.0-2.0); EOSINOPHILS % (AUTO) 4.1 % (0.0-3.0); LYMPHOCYTES % (AUTO) 11.9 % (20.0-45.0); MEAN CORPUSCULAR HEMOGLOBIN 32.4 PG (27.0-31.0); MEAN CORPUSCULAR HGB CONC 33.5 G/DL (32.0-36.0); MEAN CORPUSCULAR VOLUME 97 FL (80-99); MEAN PLATELET VOLUME 4.8 FL (6.5-10.1); MONOCYTES % (AUTO) 8.5 % (1.0-10.0); NEUTROPHILS % (AUTO) 75.2 % (45.0-75.0); PLATELET COUNT 247 K/UL (150-450); RED BLOOD COUNT 2.51 M/UL (4.70-6.10); RED CELL DISTRIBUTION WIDTH 14.6 % (11.6-14.8); WHITE BLOOD COUNT 12.8 K/UL (4.8-10.8)
[2017-05-22 08:47] LABS: THYROID STIMULATING HORMONE 2.308 uiU/mL (0.360-3.740)
[2017-05-22] MEDS: Lyrica 75mg cap ORAL SCH ×2 (09:00→22:53)
[2017-05-22] MEDS: Lisinopril 10mg tab ORAL SCH ×2 (09:00→18:24)
[2017-05-22] MEDS: Heparin 5000 units/ml inj SUBQ SCH ×2 (09:00→22:55)
[2017-05-22] MEDS: Metoprolol Succinate XL 50mg tab ORAL SCH (09:00)
[2017-05-22] MEDS: DULoxetine 30mg cap ORAL SCH (09:00)
--- NOTE | 2017-05-22 10:12 | Podiatric Progress Note ---
Assessment/Plan Patient Ashwin Santos is a 66 year old male who was admitted on May 18, 2017 at 12:45 with hypoglycemia Problems: Assessment/Plan ASSESSMENT: - Right plantar foot necrotic ulcer with exposed bone - Left heel partial thickness ulcer - T2DM - PVD - Peripheral neuropathy PLAN: - Plan is to optimize patient's healing potential. Recommend vascular consult. Once patient's vascular status has been optimized will perform wound debridement in the operating room with application of graft and wound vac. Okay with podiatry team to perform this as an outpatient if patient is stable for discharge at this time - Discussed with patient that he is still at high risk for loosing his foot and more proximal amputation such as below knee amputation - Continue antibiotics per infectious disease specialist recommendations - Offload heels Subjective Reason for consult Bilateral lower extremity ulcers Allergies: Coded Allergies: No Known Allergies (Unverified , 02/15/13) Subjective Patient states he is doing well. No nausea, vomiting, fevers, or chills. Currently undergoing hemodialysis Objective Exam Last 24 Hour Vital Signs Date Time Temp Pulse Resp B/P (MAP) Pulse Ox O2 Delivery O2 Flow Rate FiO2 05/22/17 09:00 133/109 05/22/17 09:00 65 133/109 05/22/17 08:30 65 16 Room Air 21 05/22/17 08:00 100.6 117 20 133/109 96 Room Air 05/22/17 04:05 98.4 76 20 113/62 100 Room Air 05/22/17 00:58 98.4 85 18 142/73 98 Room Air 05/21/17 23:10 98.6 05/21/17 22:08 62 16 Room Air 21 05/21/17 20:00 100.2 85 18 117/57 97 Room Air 05/21/17 17:13 168/77 05/21/17 16:00 98.5 80 18 168/77 98 Room Air 21 05/21/17 15:30 99.2 05/21/17 12:00 99.2 78 20 157/63 98 Room Air Laboratory Tests Test 05/22/17 04:30 05/22/17 04:32 White Blood Count 12.8 K/UL (4.8-10.8) H Red Blood Count 2.51 M/UL (4.70-6.10) L Hemoglobin 8.1 G/DL (14.2-18.0) L Hematocrit 24.2 % (42.0-52.0) L Mean Corpuscular Volume 97 FL (80-99) Mean Corpuscular Hemoglobin 32.4 PG (27.0-31.0) H Mean Corpuscular Hemoglobin Concent 33.5 G/DL (32.0-36.0) Red Cell Distribution Width 14.6 % (11.6-14.8) Platelet Count 247 K/UL (150-450) Mean Platelet Volume 4.8 FL (6.5-10.1) L Neutrophils (%) (Auto) 75.2 % (45.0-75.0) H Lymphocytes (%) (Auto) 11.9 % (20.0-45.0) L Monocytes (%) (Auto) 8.5 % (1.0-10.0) Eosinophils (%) (Auto) 4.1 % (0.0-3.0) H Basophils (%) (Auto) 0.3 % (0.0-2.0) Sodium Level Pending Potassium Level Pending Chloride Level Pending Carbon Dioxide Level Pending Blood Urea Nitrogen Pending Creatinine Pending Estimat Glomerular Filtration Rate Pending Glucose Level Pending Uric Acid Pending Calcium Level Pending Phosphorus Level Pending Magnesium Level Pending Total Bilirubin Pending Aspartate Amino Transf (AST/SGOT) Pending Alanine Aminotransferase (ALT/SGPT) Pending Alkaline Phosphatase Pending C-Reactive Protein, Quantitative Pending Pro-B-Type Natriuretic Peptide Pending Total Protein Pending Albumin Pending Globulin Pending Random Vancomycin Level 11.4 ug/mL Thyroid Stimulating Hormone (TSH) 2.308 uiU/mL (0.360-3.740) Free Thyroxine 0.90 NG/DL (0.10-1.46) Microbiology Date/Time Source Procedure Growth Status 05/18/17 12:10 Blood Blood Culture - Preliminary NO GROWTH AFTER 72 HOURS Resulted 05/18/17 22:10 Nasal Nares MRSA Culture - Final NO METHICILLIN RESISTANT STAPH AUREUS... Complete 05/19/17 14:00 Foot Right Anaerobic Culture - Preliminary Resulted Exam Narrative Right plantar foot ulcer with necrotic edges and exposed bone from the 5th metatarsal base. Left heel partial thickness ulcer David Stanley DPM May 22, 2017 10:12
[2017-05-22 10:47] LABS: ALANINE AMINOTRANSFERASE 36 U/L (12-78); ALBUMIN/GLOBULIN RATIO 0.3 (1.0-2.7); ANION GAP 14 (5-15); ASPARTATE AMINO TRANSFERASE 34 U/L (15-37); CALCIUM 7.4 MG/DL (8.5-10.1); CARBON DIOXIDE 23 MMOL/L (21-32); CHLORIDE 95 MMOL/L (98-107); MAGNESIUM 2.2 MG/DL (1.8-2.4); PHOSPHORUS 7.5 MG/DL (2.5-4.9); POTASSIUM 4.6 MMOL/L (3.5-5.1); SODIUM 132 MMOL/L (136-145); TOTAL PROTEIN 6.2 G/DL (6.4-8.2); URIC ACID 5.2 MG/DL (2.6-7.2)
--- NOTE | 2017-05-22 11:03 | Diagnostic Imaging Report ---
APPROVED REPORT CPT Code: 44731 Symptoms Comments: Pain RIGHT LEG: Common femoral artery waveform analysis is within normal limits at rest. Color flow duplex sonography reveals calcification throughout the superficial femoral and popliteal arteries. There is no evidence of occlusion within these segments. The tibioperoneal trunk was not well visualized. A mild (1-49%) stenosis is seen in the mid posterior tibial artery.The distal posterior tibial, anterior and dorsalis pedis arteries are also mildly calcified. Doppler tibial artery waveform analysis is compatible with moderate ischemia at rest. LEFT LEG: Common femoral artery waveform analysis is within normal limits at rest. Color flow duplex sonography reveals calcification throughout the superficial femoral and popliteal arteries. There is no evidence of occlusion within these segments. The tibioperoneal trunk was not well visualized. The distal posterior tibial, anterior and dorsalis pedis arteries are also mildly calcified. Doppler tibial artery waveform analysis is compatible with moderate ischemia at rest.
--- NOTE | 2017-05-22 11:24 | General Progress Note ---
Assessment/Plan Status: stable Assessment/Plan ESRD- Right foot gangeren DM Retinopathy plan: next HD 05/22- in process now per consultants meds adjusted Subjective ROS Limited/Unobtainable: No Constitutional: Reports: malaise Allergies: Coded Allergies: No Known Allergies (Unverified , 02/15/13) Objective Last 24 Hour Vital Signs Date Time Temp Pulse Resp B/P (MAP) Pulse Ox O2 Delivery O2 Flow Rate FiO2 05/22/17 10:00 98.8 111 22 121/62 97 Room Air 05/22/17 10:00 Room Air 05/22/17 09:00 133/109 05/22/17 09:00 65 133/109 05/22/17 08:30 65 16 Room Air 21 05/22/17 08:00 100.6 117 20 133/109 96 Room Air 05/22/17 04:05 98.4 76 20 113/62 100 Room Air 05/22/17 00:58 98.4 85 18 142/73 98 Room Air 05/21/17 23:10 98.6 05/21/17 22:08 62 16 Room Air 21 05/21/17 20:00 100.2 85 18 117/57 97 Room Air 05/21/17 17:13 168/77 05/21/17 16:00 98.5 80 18 168/77 98 Room Air 21 05/21/17 15:30 99.2 05/21/17 12:00 99.2 78 20 157/63 98 Room Air Intake and Output 05/22/17 05/23/17 19:00 07:00 Intake Total 250 ml Output Total 300 ml Balance -50 ml Intake Oral 250 ml Output Urine Total 300 ml # Bowel Movements 1 Laboratory Tests 05/22/17 04:30: White Blood Count 12.8H, Red Blood Count 2.51L, Hemoglobin 8.1L, Hematocrit 24.2L, Mean Corpuscular Volume 97, Mean Corpuscular Hemoglobin 32.4H, Mean Corpuscular Hemoglobin Concent 33.5, Red Cell Distribution Width 14.6, Platelet Count 247, Mean Platelet Volume 4.8L, Neutrophils (%) (Auto) 75.2H, Lymphocytes (%) (Auto) 11.9L, Monocytes (%) (Auto) 8.5, Eosinophils (%) (Auto) 4.1H, Basophils (%) (Auto) 0.3, Sodium Level 132L, Potassium Level 4.6, Chloride Level 95L, Carbon Dioxide Level 23, Anion Gap 14, Blood Urea Nitrogen 60H, Creatinine 7.0H, Estimat Glomerular Filtration Rate 8.0, Glucose Level 153H, Uric Acid 5.2, Calcium Level 7.4L, Phosphorus Level 7.5H, Magnesium Level 2.2, Total Bilirubin 0.5, Aspartate Amino Transf (AST/SGOT) 34, Alanine Aminotransferase (ALT/SGPT) 36, Alkaline Phosphatase 94, C-Reactive Protein, Quantitative [Pending], Pro-B-Type Natriuretic Peptide 8021H, Total Protein 6.2L , Albumin 1.6L, Globulin 4.6, Albumin/Globulin Ratio 0.3L, Random Vancomycin Level 11.4 05/22/17 04:32: Thyroid Stimulating Hormone (TSH) 2.308, Free Thyroxine 0.90 Height (Feet): 5 Height (Inches): 5.00 Weight (Pounds): 135 General Appearance: no apparent distress Objective no change in PE JADON ROCKWELL May 22, 2017 11:24
--- NOTE | 2017-05-22 12:06 | Infectious Diseases Prog Note ---
Assessment/Plan Assessment/Plan Abx: IV Zosyn x1 05/18 Vanc/unasyn 05/19- Assesment: R Diabetic foot ulcer with OM (exposed bone) with possible early abscess/gas, L heel superficial ulceration -MRI R foot: Markedly limited by motion. Apparent abnormal STIR signal of the first distal phalanx, the second middle and distal phalanges in the base of the fifth metatarsal. early osteomyelitis should be considered. Reactive marrow edema is also a consideration. Apparent fluid signal surrounding the flexor digitorum tendons of the plantar midfoot. Few foci of apparent susceptibility artifact also noted within this area. Possibility of infected fluid and gas surrounding the flexor digitorum tendons -wound cx pending -Bcx NTD Leukocytosis, overall improved -CXR no acute diseae Low grade fever- 2ry to above AMS, 2ry to hypoglycemia- resolved s/p CT abd/p: dilatation of diffuse fluid-filled small bowel. Suspect enteritis. Atherosclerotic vascular disease involving small vessels. Right basal atelectasis Small hiatal hernia. Lower lumbar degenerative changes. DM2, ESRD on HD MWF, HLD, HTN, CAD, CHF, diabetic foot ulcers Plan: -Switch Unasyn to Zosyn in view of low grade fever, leukocytosis and gas seen on MRI -s/p 4d Unasyn 05/22 -Continue IV Vancomycin #4 pending cx -f/u cx -wound care -appreciate podiatry input; plan for debridement -Monitor CBC/BMP, temperatures Thank you for this consultation. Will continue to follow along with you. Discussed with RN. Subjective Allergies: Coded Allergies: No Known Allergies (Unverified , 02/15/13) Subjective low grade fever this am Tm 100.6 leukocytosis overall improved Bcx NTD wound cx pending Objective Vital Signs Last 24 Hour Vital Signs Date Time Temp Pulse Resp B/P (MAP) Pulse Ox O2 Delivery O2 Flow Rate FiO2 05/22/17 10:00 98.8 111 22 121/62 97 Room Air 05/22/17 10:00 Room Air 05/22/17 09:00 133/109 05/22/17 09:00 65 133/109 05/22/17 08:30 65 16 Room Air 21 05/22/17 08:00 100.6 117 20 133/109 96 Room Air 05/22/17 04:05 98.4 76 20 113/62 100 Room Air 05/22/17 00:58 98.4 85 18 142/73 98 Room Air 05/21/17 23:10 98.6 05/21/17 22:08 62 16 Room Air 21 05/21/17 20:00 100.2 85 18 117/57 97 Room Air 05/21/17 17:13 168/77 05/21/17 16:00 98.5 80 18 168/77 98 Room Air 21 05/21/17 15:30 99.2 Height (Feet): 5 Height (Inches): 5.00 Weight (Pounds): 135 Objective General Appearance: resting comforbly, AAO x3 HEENT: no oral lesions, PERRL Respiratory: lungs clear, normal breath sounds, no rhonchi Cardiovascular normal peripheral pulses, regular rate, rhythm, no edema, no gallop, no JVD, no murmur Gastrointestinal: normal bowel sounds, non tender, soft, no mass, no organomegaly, non-distended Musculoskeletal: R foot: large full thickness ulcer at the plantar right foot to the level of bone with exposed 5th metatarsal base. Necrotic tissue proximally. Patient also has skin necrosis at the right hallux nail bed. Patient has a left heel partial thickness ulcer. No purulence or malodor from either wounds Microbiology Date/Time Source Procedure Growth Status 05/19/17 14:00 Foot Right Anaerobic Culture - Preliminary Resulted Laboratory Tests Test 05/22/17 04:30 05/22/17 04:32 White Blood Count 12.8 K/UL (4.8-10.8) H Red Blood Count 2.51 M/UL (4.70-6.10) L Hemoglobin 8.1 G/DL (14.2-18.0) L Hematocrit 24.2 % (42.0-52.0) L Mean Corpuscular Volume 97 FL (80-99) Mean Corpuscular Hemoglobin 32.4 PG (27.0-31.0) H Mean Corpuscular Hemoglobin Concent 33.5 G/DL (32.0-36.0) Red Cell Distribution Width 14.6 % (11.6-14.8) Platelet Count 247 K/UL (150-450) Mean Platelet Volume 4.8 FL (6.5-10.1) L Neutrophils (%) (Auto) 75.2 % (45.0-75.0) H Lymphocytes (%) (Auto) 11.9 % (20.0-45.0) L Monocytes (%) (Auto) 8.5 % (1.0-10.0) Eosinophils (%) (Auto) 4.1 % (0.0-3.0) H Basophils (%) (Auto) 0.3 % (0.0-2.0) Sodium Level 132 MMOL/L (136-145) L Potassium Level 4.6 MMOL/L (3.5-5.1) Chloride Level 95 MMOL/L (98-107) L Carbon Dioxide Level 23 MMOL/L (21-32) Anion Gap 14 (5-15) Blood Urea Nitrogen 60 mg/dL (7-18) H Creatinine 7.0 MG/DL (0.55-1.30) H Estimat Glomerular Filtration Rate 8.0 mL/min (>60) Glucose Level 153 MG/DL (74-106) H Uric Acid 5.2 MG/DL (2.6-7.2) Calcium Level 7.4 MG/DL (8.5-10.1) L Phosphorus Level 7.5 MG/DL (2.5-4.9) H Magnesium Level 2.2 MG/DL (1.8-2.4) Total Bilirubin 0.5 MG/DL (0.2-1.0) Aspartate Amino Transf (AST/SGOT) 34 U/L (15-37) Alanine Aminotransferase (ALT/SGPT) 36 U/L (12-78) Alkaline Phosphatase 94 U/L (46-116) C-Reactive Protein, Quantitative Pending Pro-B-Type Natriuretic Peptide 8021 (0-125) H Total Protein 6.2 G/DL (6.4-8.2) L Albumin 1.6 G/DL (3.4-5.0) L Globulin 4.6 g/dL Albumin/Globulin Ratio 0.3 (1.0-2.7) L Random Vancomycin Level 11.4 ug/mL Thyroid Stimulating Hormone (TSH) 2.308 uiU/mL (0.360-3.740) Free Thyroxine 0.90 NG/DL (0.10-1.46) Current Medications Medications (Trade) Dose Ordered Sig/Ailyn Route PRN Reason Start Time Stop Time Status Last Admin Dose Admin Acetaminophen (Tylenol) 650 mg Q4H PRN ORAL fever 05/18/17 14:45 06/17/17 14:44 Acetaminophen/ Hydrocodone Bitart (Thomas 5/325) 1 tab Q4H PRN ORAL For Pain 4-6 05/18/17 14:45 05/25/17 14:44 05/19/17 00:41 Albuterol/ Ipratropium (DuoNeb 0.5-3(2.5)mg/3ml) 3 ml Q6HR PRN HHN dyspnea 05/18/17 14:45 05/23/17 14:44 Ampicillin Sodium/ Sulbactam Sodium 3 gm/Sodium Chloride 110 ml @ 220 mls/hr Q24H IVPB 05/19/17 23:00 05/26/17 22:59 05/21/17 22:15 Chlorhexidine Gluconate (Lora-Hex 2%) 1 applic DAILY@2000 TOPIC 05/21/17 20:00 06/20/17 19:59 05/21/17 21:58 Clonidine HCl (Catapres) 0.1 mg Q4H PRN ORAL SBP > 160 05/18/17 14:45 06/17/17 14:44 Dextrose (Dextrose 50%) STAT PRN IV Hypoglycemia 05/18/17 14:45 06/17/17 14:44 05/19/17 02:13 Duloxetine HCl (Cymbalta) 30 mg DAILY ORAL 05/19/17 09:00 06/18/17 08:59 05/21/17 08:38 Heparin Sodium (Porcine) (Heparin 5000 units/ml) 5,000 units EVERY 12 HOURS SUBQ 05/18/17 21:00 06/17/17 20:59 05/21/17 22:10 Insulin Aspart (NovoLOG) BEFORE MEALS AND HS SUBQ 05/18/17 16:30 06/17/17 16:29 05/20/17 17:09 Lisinopril (Zestril) 20 mg BID ORAL 05/20/17 18:00 06/19/17 17:59 05/21/17 17:13 Metoprolol Succinate (Toprol XL) 50 mg DAILY ORAL 05/19/17 09:00 06/18/17 08:59 05/21/17 08:38 Morphine Sulfate (Morphine Sulfate) 2 mg Q4H PRN IVP For Pain 7-10 05/19/17 13:00 05/26/17 12:59 05/21/17 15:08 Mupirocin (Bactroban Oint) 1 applic DAILY TOPIC 05/21/17 09:00 05/26/17 08:59 05/21/17 16:13 Ondansetron HCl (Zofran) 4 mg Q6H PRN IVP Nausea & Vomiting 05/18/17 14:45 06/17/17 14:44 Pantoprazole (Protonix) 40 mg DAILY ORAL 05/19/17 14:00 06/18/17 13:59 05/21/17 08:37 Polyethylene Glycol (Miralax) 17 gm HSPRN PRN ORAL Constipation 05/18/17 14:45 06/17/17 14:44 Pregabalin (Lyrica) 75 mg Q12HR ORAL 05/18/17 21:00 06/17/17 20:59 05/21/17 21:58 Sitagliptin Phosphate (Januvia) 25 mg ACBREAKFAST ORAL 05/21/17 11:30 06/20/17 11:29 05/22/17 06:47 Vancomycin HCl (Vanco rx to dose) 1 ea DAILY PRN MISC Per rx protocol 05/19/17 22:30 06/18/17 22:29 Vancomycin HCl/ Dextrose 250 ml @ 166.667 mls/hr ONCE ONCE IVPB 05/22/17 21:00 05/22/17 22:29 Zolpidem Tartrate (Ambien) 5 mg HSPRN PRN ORAL Insomnia 05/18/17 14:45 05/25/17 14:44 Ema Wallace M.D. May 22, 2017 12:06
[2017-05-22] MEDS ORDERED: Piperacillin/Tazobactam 2.25 GM in D5W 55 ML IVPB SCH (12:15)
[2017-05-22] MEDS: Zosyn 2.25 gm in D5W 55ml IV SCH (13:18)
[2017-05-22] MEDS: Norco 5mg/325mg tab ORAL PRN (14:34)
[2017-05-22] MEDS ORDERED: JANUVIA25 MG ORAL (14:52)
[2017-05-22] MEDS ORDERED: VANCO 1 GR1 GM/250 M IV (15:06)
[2017-05-22] MEDS ORDERED: INVANZ1 G1 IM (15:13)
--- NOTE | 2017-05-22 15:13 | Pulmonology Progress Note ---
Assessment/Plan Problems: (1) Hypoglycemia (2) ESRD (end stage renal disease) on dialysis (3) HTN (hypertension) (4) Anemia (5) Diabetes mellitus (6) Cellulitis in diabetic foot Assessment/Plan all noted moderate arterial ischemia extensive infection sliding scale wound care iv abx Endo note appreciated, wont restart Glipizide d/w Dr Tobias, pt will need outpatient vascular studies. Dr. Cuevas, physician at long-term informed. Subjective ROS Limited/Unobtainable: No Constitutional: Reports: no symptoms HEENT: Repors: no symptoms Respiratory: Reports: no symptoms Allergies: Coded Allergies: No Known Allergies (Unverified , 02/15/13) Objective Last 24 Hour Vital Signs Date Time Temp Pulse Resp B/P (MAP) Pulse Ox O2 Delivery O2 Flow Rate FiO2 05/22/17 13:44 Room Air 05/22/17 13:42 98.0 92 21 156/72 97 Room Air 05/22/17 12:00 98.2 96 19 157/69 96 Room Air 05/22/17 10:00 98.8 111 22 121/62 97 Room Air 05/22/17 10:00 Room Air 05/22/17 09:00 133/109 05/22/17 09:00 65 133/109 05/22/17 08:30 65 16 Room Air 05/22/17 08:00 100.6 117 20 133/109 96 Room Air 05/22/17 04:05 98.4 76 20 113/62 100 Room Air 05/22/17 00:58 98.4 85 18 142/73 98 Room Air 05/21/17 23:10 98.6 05/21/17 22:08 62 16 Room Air 05/21/17 20:00 100.2 85 18 117/57 97 Room Air 05/21/17 17:13 168/77 05/21/17 16:00 98.5 80 18 168/77 98 Room Air 05/21/17 15:30 99.2 Intake and Output 05/22/17 05/23/17 19:00 07:00 Intake Total 600 ml Output Total 2400 ml Balance -1800 ml Intake Oral 600 ml Output Urine Total 300 ml Hemodialysis UF 2100 ml # Voids 1 # Bowel Movements 2 General Appearance: WD/WN HEENT: normocephalic, atraumatic Cardiovascular: normal peripheral pulses, normal rate Abdomen: normal bowel sounds, soft, non tender Genitourinary: normal external genitalia Extremities: no cyanosis Skin: no lesions Neurologic/Psychiatric: river guide II-XII grossly normal Lymphatic: no groin adenopathy Laboratory Tests 05/22/17 04:30: White Blood Count 12.8H, Red Blood Count 2.51L, Hemoglobin 8.1L, Hematocrit 24.2L, Mean Corpuscular Volume 97, Mean Corpuscular Hemoglobin 32.4H, Mean Corpuscular Hemoglobin Concent 33.5, Red Cell Distribution Width 14.6, Platelet Count 247, Mean Platelet Volume 4.8L, Neutrophils (%) (Auto) 75.2H, Lymphocytes (%) (Auto) 11.9L, Monocytes (%) (Auto) 8.5, Eosinophils (%) (Auto) 4.1H, Basophils (%) (Auto) 0.3, Sodium Level 132L, Potassium Level 4.6, Chloride Level 95L, Carbon Dioxide Level 23, Anion Gap 14, Blood Urea Nitrogen 60H, Creatinine 7.0H, Estimat Glomerular Filtration Rate 8.0, Glucose Level 153H, Uric Acid 5.2, Calcium Level 7.4L, Phosphorus Level 7.5H, Magnesium Level 2.2, Total Bilirubin 0.5, Aspartate Amino Transf (AST/SGOT) 34, Alanine Aminotransferase (ALT/SGPT) 36, Alkaline Phosphatase 94, C-Reactive Protein, Quantitative 30.0H, Pro-B-Type Natriuretic Peptide 8021H, Total Protein 6.2L, Albumin 1.6L, Globulin 4.6, Albumin/Globulin Ratio 0.3L, Random Vancomycin Level 11.4 05/22/17 04:32: Thyroid Stimulating Hormone (TSH) 2.308, Free Thyroxine 0.90 Current Medications Medications (Trade) Dose Ordered Sig/Ailyn Route PRN Reason Start Time Stop Time Status Last Admin Dose Admin Acetaminophen (Tylenol) 650 mg Q4H PRN ORAL fever 05/18/17 14:45 06/17/17 14:44 Acetaminophen/ Hydrocodone Bitart ([place] 5/325) 1 tab Q4H PRN ORAL For Pain 4-6 05/18/17 14:45 05/25/17 14:44 05/22/17 14:34 Albuterol/ Ipratropium (DuoNeb 0.5-3(2.5)mg/3ml) 3 ml Q6HR PRN HHN dyspnea 05/18/17 14:45 05/23/17 14:44 Chlorhexidine Gluconate (Lora-Hex 2%) 1 applic DAILY@2000 TOPIC 05/21/17 20:00 06/20/17 19:59 05/21/17 21:58 Clonidine HCl (Catapres) 0.1 mg Q4H PRN ORAL SBP > 160 05/18/17 14:45 06/17/17 14:44 Dextrose (Dextrose 50%) STAT PRN IV Hypoglycemia 05/18/17 14:45 06/17/17 14:44 05/19/17 02:13 Duloxetine HCl (Cymbalta) 30 mg DAILY ORAL 05/19/17 09:00 06/18/17 08:59 05/21/17 08:38 Heparin Sodium (Porcine) (Heparin 5000 units/ml) 5,000 units EVERY 12 HOURS SUBQ 05/18/17 21:00 06/17/17 20:59 05/21/17 22:10 Insulin Aspart (NovoLOG) BEFORE MEALS AND HS SUBQ 05/18/17 16:30 06/17/17 16:29 05/20/17 17:09 Lisinopril (Zestril) 20 mg BID ORAL 05/20/17 18:00 06/19/17 17:59 05/21/17 17:13 Metoprolol Succinate (Toprol XL) 50 mg DAILY ORAL 05/19/17 09:00 06/18/17 08:59 05/21/17 08:38 Morphine Sulfate (Morphine Sulfate) 2 mg Q4H PRN IVP For Pain 7-10 05/19/17 13:00 05/26/17 12:59 05/21/17 15:08 Mupirocin (Bactroban Oint) 1 applic DAILY TOPIC 05/21/17 09:00 05/26/17 08:59 05/21/17 16:13 Ondansetron HCl (Zofran) 4 mg Q6H PRN IVP Nausea & Vomiting 05/18/17 14:45 06/17/17 14:44 Pantoprazole (Protonix) 40 mg DAILY ORAL 05/19/17 14:00 06/18/17 13:59 05/21/17 08:37 Piperacillin Sod/ Tazobactam Sod 2.25 gm/Dextrose 55 ml @ 110 mls/hr Q8HR IV 05/22/17 14:00 05/27/17 13:59 05/22/17 13:18 Polyethylene Glycol (Miralax) 17 gm HSPRN PRN ORAL Constipation 05/18/17 14:45 06/17/17 14:44 Pregabalin (Lyrica) 75 mg Q12HR ORAL 05/18/17 21:00 06/17/17 20:59 05/21/17 21:58 Sitagliptin Phosphate (Januvia) 25 mg ACBREAKFAST ORAL 05/21/17 11:30 06/20/17 11:29 05/22/17 06:47 Vancomycin HCl (Vanco rx to dose) 1 ea DAILY PRN MISC Per rx protocol 05/19/17 22:30 06/18/17 22:29 Vancomycin HCl/ Dextrose 250 ml @ 166.667 mls/hr ONCE ONCE IVPB 05/22/17 21:00 05/22/17 22:29 Zolpidem Tartrate (Ambien) 5 mg HSPRN PRN ORAL Insomnia 05/18/17 14:45 05/25/17 14:44 JASPAL MENDOZA May 22, 2017 15:13
--- NOTE | 2017-05-22 18:04 | Wound Nurse Progress Note ---
Wound RN Progress Note Wound Consult Pt under the care of David Stanley DPM . No recommendation at this time. TYRELL MON RN May 22, 2017 18:04
[2017-05-22] MEDS ORDERED: NS 275ml ONE (18:51)
--- NOTE | 2017-05-22 18:52 | General Progress Note ---
Assessment/Plan Problem List: (1) Abnormal thyroid blood test ICD Codes: R94.6 - Abnormal results of thyroid function studies SNOMED: 172026563 (2) Diabetes mellitus ICD Codes: E11.9 - Type 2 diabetes mellitus without complications SNOMED: 87748287 (3) CAD (coronary artery disease) ICD Codes: I25.10 - Atherosclerotic heart disease of [place] coronary artery without angina pectoris SNOMED: 30359452 (4) HTN (hypertension) ICD Codes: I10 - Essential (primary) hypertension SNOMED: 69616641 (5) Hypoglycemia ICD Codes: E16.2 - Hypoglycemia, unspecified SNOMED: 234703692 (6) ESRD (end stage renal disease) on dialysis ICD Codes: N18.6 - End stage renal disease; Z99.2 - Dependence on renal dialysis SNOMED: 158715690 Assessment/Plan hypoglycemia resolved glucose elevated before dinner continue Januvia 25 mg daily will consider adding Starlix 60 mg ac tid if he continues to have elevated glucose TSH normalized - no need for thyroid hormone replacement Subjective Allergies: Coded Allergies: No Known Allergies (Unverified , 02/15/13) All Systems: reviewed and negative except above Subjective events noted interval notes reviewed Objective Last 24 Hour Vital Signs Date Time Temp Pulse Resp B/P (MAP) Pulse Ox O2 Delivery O2 Flow Rate FiO2 05/22/17 18:24 133/67 05/22/17 16:53 98.6 98 18 133/67 96 Room Air 05/22/17 16:00 99.9 102 18 140/68 95 Room Air 05/22/17 13:44 Room Air 05/22/17 13:42 98.0 92 21 156/72 97 Room Air 05/22/17 12:00 98.2 96 19 157/69 96 Room Air 05/22/17 10:00 98.8 111 22 121/62 97 Room Air 05/22/17 10:00 Room Air 05/22/17 09:00 133/109 05/22/17 09:00 65 133/109 05/22/17 08:30 65 16 Room Air 21 05/22/17 08:00 100.6 117 20 133/109 96 Room Air 05/22/17 04:05 98.4 76 20 113/62 100 Room Air 05/22/17 00:58 98.4 85 18 142/73 98 Room Air 05/21/17 23:10 98.6 05/21/17 22:08 62 16 Room Air 21 05/21/17 20:00 100.2 85 18 117/57 97 Room Air Intake and Output 05/22/17 05/23/17 19:00 07:00 Intake Total 950 ml Output Total 2400 ml Balance -1450 ml Intake Oral 950 ml Output Urine Total 300 ml Hemodialysis UF 2100 ml # Voids 1 # Bowel Movements 2 Laboratory Tests 05/22/17 04:30: White Blood Count 12.8H, Red Blood Count 2.51L, Hemoglobin 8.1L, Hematocrit 24.2L, Mean Corpuscular Volume 97, Mean Corpuscular Hemoglobin 32.4H, Mean Corpuscular Hemoglobin Concent 33.5, Red Cell Distribution Width 14.6, Platelet Count 247, Mean Platelet Volume 4.8L, Neutrophils (%) (Auto) 75.2H, Lymphocytes (%) (Auto) 11.9L, Monocytes (%) (Auto) 8.5, Eosinophils (%) (Auto) 4.1H, Basophils (%) (Auto) 0.3, Sodium Level 132L, Potassium Level 4.6, Chloride Level 95L, Carbon Dioxide Level 23, Anion Gap 14, Blood Urea Nitrogen 60H, Creatinine 7.0H, Estimat Glomerular Filtration Rate 8.0, Glucose Level 153H, Uric Acid 5.2, Calcium Level 7.4L, Phosphorus Level 7.5H, Magnesium Level 2.2, Total Bilirubin 0.5, Aspartate Amino Transf (AST/SGOT) 34, Alanine Aminotransferase (ALT/SGPT) 36, Alkaline Phosphatase 94, C-Reactive Protein, Quantitative 30.0H, Pro-B-Type Natriuretic Peptide 8021H, Total Protein 6.2L, Albumin 1.6L, Globulin 4.6, Albumin/Globulin Ratio 0.3L, Random Vancomycin Level 11.4 05/22/17 04:32: Thyroid Stimulating Hormone (TSH) 2.308, Free Thyroxine 0.90 Height (Feet): 5 Height (Inches): 5.00 Weight (Pounds): 135 General Appearance: no apparent distress Neck: non-tender Cardiovascular: normal peripheral pulses Respiratory/Chest: lungs clear Edema: 1+ Arm (L), 1+ Arm (R), 1+ Leg (L), 1+ Leg (R), 1+ Pedal (L), 1+ Pedal ( R), 1+ Generalized Objective Current Medications Medications (Trade) Dose Ordered Sig/Ailyn Route PRN Reason Start Time Stop Time Status Last Admin Dose Admin Acetaminophen (Tylenol) 650 mg Q4H PRN ORAL fever 05/18/17 14:45 06/17/17 14:44 Acetaminophen/ Hydrocodone Bitart ([place] 5/325) 1 tab Q4H PRN ORAL For Pain 4-6 05/18/17 14:45 05/25/17 14:44 05/22/17 14:34 Albuterol/ Ipratropium (DuoNeb 0.5-3(2.5)mg/3ml) 3 ml Q6HR PRN HHN dyspnea 05/18/17 14:45 05/23/17 14:44 Chlorhexidine Gluconate (Lora-Hex 2%) 1 applic DAILY@2000 TOPIC 05/21/17 20:00 06/20/17 19:59 05/21/17 21:58 Clonidine HCl (Catapres) 0.1 mg Q4H PRN ORAL SBP > 160 05/18/17 14:45 06/17/17 14:44 Dextrose (Dextrose 50%) STAT PRN IV Hypoglycemia 05/18/17 14:45 06/17/17 14:44 05/19/17 02:13 Duloxetine HCl (Cymbalta) 30 mg DAILY ORAL 05/19/17 09:00 06/18/17 08:59 05/21/17 08:38 Heparin Sodium (Porcine) (Heparin 5000 units/ml) 5,000 units EVERY 12 HOURS SUBQ 05/18/17 21:00 06/17/17 20:59 05/21/17 22:10 Insulin Aspart (NovoLOG) BEFORE MEALS AND HS SUBQ 05/18/17 16:30 06/17/17 16:29 05/22/17 16:26 Lisinopril (Zestril) 20 mg BID ORAL 05/20/17 18:00 06/19/17 17:59 05/22/17 18:24 Metoprolol Succinate (Toprol XL) 50 mg DAILY ORAL 05/19/17 09:00 06/18/17 08:59 05/21/17 08:38 Morphine Sulfate (Morphine Sulfate) 2 mg Q4H PRN IVP For Pain 7-10 05/19/17 13:00 05/26/17 12:59 05/21/17 15:08 Mupirocin (Bactroban Oint) 1 applic DAILY TOPIC 05/21/17 09:00 05/26/17 08:59 05/21/17 16:13 Ondansetron HCl (Zofran) 4 mg Q6H PRN IVP Nausea & Vomiting 05/18/17 14:45 06/17/17 14:44 Pantoprazole (Protonix) 40 mg DAILY ORAL 05/19/17 14:00 06/18/17 13:59 05/21/17 08:37 Piperacillin Sod/ Tazobactam Sod 2.25 gm/Dextrose 55 ml @ 110 mls/hr Q8HR IV 05/22/17 14:00 05/27/17 13:59 05/22/17 13:18 Polyethylene Glycol (Miralax) 17 gm HSPRN PRN ORAL Constipation 05/18/17 14:45 06/17/17 14:44 Pregabalin (Lyrica) 75 mg Q12HR ORAL 05/18/17 21:00 06/17/17 20:59 05/21/17 21:58 Sitagliptin Phosphate (Januvia) 25 mg ACBREAKFAST ORAL 05/21/17 11:30 06/20/17 11:29 05/22/17 06:47 Vancomycin HCl (Vanco rx to dose) 1 ea DAILY PRN MISC Per rx protocol 05/19/17 22:30 06/18/17 22:29 Vancomycin HCl/ Dextrose 250 ml @ 166.667 mls/hr ONCE ONCE IVPB 05/22/17 21:00 05/22/17 22:29 Zolpidem Tartrate (Ambien) 5 mg HSPRN PRN ORAL Insomnia 05/18/17 14:45 05/25/17 14:44 Item Value Date Time Bedside Blood Glucose 280 mg/dl H 05/22/17 1630 Bedside Blood Glucose 175 mg/dl H 05/22/17 1155 Bedside Blood Glucose 168 mg/dl H 05/22/17 0630 Bedside Blood Glucose 191 mg/dl H 05/21/17 2100 ADRI FONG May 22, 2017 18:52
[2017-05-22] MEDS ORDERED: Vancomycin 1250mg/D5W 250ml IVPB ONE (21:00)
[2017-05-22] MEDS: Dyna-Hex 2% Top Sol 2oz TOPIC SCH (22:52)
[2017-05-23 00:47] VITALS: BP_SYST 127; BP_SYST 142; BP_DIAS 57; BP_DIAS 81
[2017-05-23] MEDS: Zosyn 2.25 gm in D5W 55ml IV SCH ×2 (00:57→06:48)
[2017-05-23 04:00] VITALS: BP 118/85
--- NOTE | 2017-05-23 05:59 | General Progress Note ---
Assessment/Plan Problem List: (1) Abnormal thyroid blood test ICD Codes: R94.6 - Abnormal results of thyroid function studies SNOMED: 528831620 (2) Diabetes mellitus ICD Codes: E11.9 - Type 2 diabetes mellitus without complications SNOMED: 58974786 (3) CAD (coronary artery disease) ICD Codes: I25.10 - Atherosclerotic heart disease of [place] coronary artery without angina pectoris SNOMED: 63475534 (4) HTN (hypertension) ICD Codes: I10 - Essential (primary) hypertension SNOMED: 33746483 (5) Hypoglycemia ICD Codes: E16.2 - Hypoglycemia, unspecified SNOMED: 743953176 (6) ESRD (end stage renal disease) on dialysis ICD Codes: N18.6 - End stage renal disease; Z99.2 - Dependence on renal dialysis SNOMED: 737531017 Assessment/Plan continue Januvia 25 mg daily may need Starlix 60 mg ac tid TSH normalized - no need for thyroid hormone replacement Subjective Allergies: Coded Allergies: No Known Allergies (Unverified , 02/15/13) All Systems: reviewed and negative except above Subjective events noted interval notes reviewed Objective Last 24 Hour Vital Signs Date Time Temp Pulse Resp B/P (MAP) Pulse Ox O2 Delivery O2 Flow Rate FiO2 05/23/17 04:00 98.1 90 18 118/85 97 Room Air 05/23/17 00:47 98.6 81 19 127/57 96 Room Air 05/23/17 00:00 98.6 05/22/17 20:44 98.8 88 18 132/55 95 Room Air 05/22/17 19:00 67 16 Room Air 21 05/22/17 18:24 133/67 05/22/17 16:53 98.6 98 18 133/67 96 Room Air 05/22/17 16:00 99.9 102 18 140/68 95 Room Air 05/22/17 13:44 Room Air 05/22/17 13:42 98.0 92 21 156/72 97 Room Air 05/22/17 12:00 98.2 96 19 157/69 96 Room Air 05/22/17 10:00 98.8 111 22 121/62 97 Room Air 05/22/17 10:00 Room Air 05/22/17 09:00 133/109 05/22/17 09:00 65 133/109 05/22/17 08:30 65 16 Room Air 21 05/22/17 08:00 100.6 117 20 133/109 96 Room Air Height (Feet): 5 Height (Inches): 5.00 Weight (Pounds): 135 General Appearance: no apparent distress Neck: normal alignment Cardiovascular: normal rate Respiratory/Chest: lungs clear Abdomen: normal bowel sounds Objective Current Medications Medications (Trade) Dose Ordered Sig/Ailyn Route PRN Reason Start Time Stop Time Status Last Admin Dose Admin Acetaminophen (Tylenol) 650 mg Q4H PRN ORAL fever 05/18/17 14:45 06/17/17 14:44 Acetaminophen/ Hydrocodone Bitart ([place] 5/325) 1 tab Q4H PRN ORAL For Pain 4-6 05/18/17 14:45 05/25/17 14:44 05/22/17 14:34 Albuterol/ Ipratropium (DuoNeb 0.5-3(2.5)mg/3ml) 3 ml Q6HR PRN HHN dyspnea 05/18/17 14:45 05/23/17 14:44 Chlorhexidine Gluconate (Lora-Hex 2%) 1 applic DAILY@2000 TOPIC 05/21/17 20:00 06/20/17 19:59 05/22/17 22:52 Clonidine HCl (Catapres) 0.1 mg Q4H PRN ORAL SBP > 160 05/18/17 14:45 06/17/17 14:44 Dextrose (Dextrose 50%) STAT PRN IV Hypoglycemia 05/18/17 14:45 06/17/17 14:44 05/19/17 02:13 Duloxetine HCl (Cymbalta) 30 mg DAILY ORAL 05/19/17 09:00 06/18/17 08:59 05/21/17 08:38 Heparin Sodium (Porcine) (Heparin 5000 units/ml) 5,000 units EVERY 12 HOURS SUBQ 05/18/17 21:00 06/17/17 20:59 05/22/17 22:55 Insulin Aspart (NovoLOG) BEFORE MEALS AND HS SUBQ 05/18/17 16:30 06/17/17 16:29 05/22/17 22:57 Lisinopril (Zestril) 20 mg BID ORAL 05/20/17 18:00 06/19/17 17:59 05/22/17 18:24 Metoprolol Succinate (Toprol XL) 50 mg DAILY ORAL 05/19/17 09:00 06/18/17 08:59 05/21/17 08:38 Morphine Sulfate (Morphine Sulfate) 2 mg Q4H PRN IVP For Pain 7-10 05/19/17 13:00 05/26/17 12:59 05/21/17 15:08 Mupirocin (Bactroban Oint) 1 applic DAILY TOPIC 05/21/17 09:00 05/26/17 08:59 05/21/17 16:13 Ondansetron HCl (Zofran) 4 mg Q6H PRN IVP Nausea & Vomiting 05/18/17 14:45 06/17/17 14:44 Pantoprazole (Protonix) 40 mg DAILY ORAL 05/19/17 14:00 06/18/17 13:59 05/21/17 08:37 Piperacillin Sod/ Tazobactam Sod 2.25 gm/Dextrose 55 ml @ 110 mls/hr Q8HR IV 05/22/17 14:00 05/27/17 13:59 05/23/17 00:57 Polyethylene Glycol (Miralax) 17 gm HSPRN PRN ORAL Constipation 05/18/17 14:45 06/17/17 14:44 Pregabalin (Lyrica) 75 mg Q12HR ORAL 05/18/17 21:00 06/17/17 20:59 05/22/17 22:53 Sitagliptin Phosphate (Januvia) 25 mg ACBREAKFAST ORAL 05/21/17 11:30 06/20/17 11:29 05/22/17 06:47 Vancomycin HCl (Vanco rx to dose) 1 ea DAILY PRN MISC Per rx protocol 05/19/17 22:30 06/18/17 22:29 Zolpidem Tartrate (Ambien) 5 mg HSPRN PRN ORAL Insomnia 05/18/17 14:45 05/25/17 14:44 Item Value Date Time Bedside Blood Glucose 182 mg/dl H 05/22/17 2257 Bedside Blood Glucose 280 mg/dl H 05/22/17 1630 Bedside Blood Glucose 175 mg/dl H 05/22/17 1155 ADRI FONG May 23, 2017 05:59
[2017-05-23] MEDS: NovoLOG Insulin Flexpen SUBQ SCH ×2 (06:47→12:04)
[2017-05-23] MEDS: sitaGLIPtin 25mg tab ORAL SCH (06:48)
[2017-05-23] MEDS: Morphine Sulfate 2mg/ml Inj IVP PRN (06:56)
[2017-05-23 08:30] VITALS: BP 123/79
[2017-05-23] MEDS: DULoxetine 30mg cap ORAL SCH (10:24)
[2017-05-23] MEDS: Lyrica 75mg cap ORAL SCH (10:24)
[2017-05-23] MEDS: Metoprolol Succinate XL 50mg tab ORAL SCH (10:26)
[2017-05-23] MEDS: Heparin 5000 units/ml inj SUBQ SCH (10:27)
[2017-05-23] MEDS: Lisinopril 10mg tab ORAL SCH (11:19)
[2017-05-23 12:03] VITALS: BP 143/59
[2017-05-23] MEDS ORDERED: NS Irrig 1000ml ONE (12:21)
[2017-05-23] MEDS ORDERED: NS 275ml ONE (12:21)
--- NOTE | 2017-05-23 12:21 | General Progress Note ---
Assessment/Plan Status: stable Assessment/Plan ESRD- Right foot gangerene DM Retinopathy plan: next HD 05/24 per consultants meds adjusted DC planning vs Sugical intervention?? Subjective ROS Limited/Unobtainable: No Constitutional: Reports: malaise Allergies: Coded Allergies: No Known Allergies (Unverified , 02/15/13) Objective Last 24 Hour Vital Signs Date Time Temp Pulse Resp B/P (MAP) Pulse Ox O2 Delivery O2 Flow Rate FiO2 05/23/17 12:03 98.8 80 18 143/59 96 Room Air 05/23/17 11:24 98.8 05/23/17 11:23 98.8 05/23/17 11:19 123/79 05/23/17 10:26 85 123/79 05/23/17 08:30 100.4 85 18 123/79 94 Room Air 05/23/17 07:49 90 16 Room Air 21 05/23/17 07:28 98.1 05/23/17 04:00 98.1 90 18 118/85 97 Room Air 05/23/17 00:47 98.6 81 19 127/57 96 Room Air 05/22/17 20:44 98.8 88 18 132/55 95 Room Air 05/22/17 19:00 67 16 Room Air 21 05/22/17 18:24 133/67 05/22/17 16:53 98.6 98 18 133/67 96 Room Air 05/22/17 16:00 99.9 102 18 140/68 95 Room Air 05/22/17 13:44 Room Air 05/22/17 13:42 98.0 92 21 156/72 97 Room Air Height (Feet): 5 Height (Inches): 5.00 Weight (Pounds): 135 General Appearance: no apparent distress Objective no change in PE JADON ROCKWELL May 23, 2017 12:21
--- NOTE | 2017-05-23 18:34 | Pulmonology Progress Note ---
Assessment/Plan Problems: (1) Hypoglycemia (2) ESRD (end stage renal disease) on dialysis (3) HTN (hypertension) (4) Anemia (5) Diabetes mellitus (6) Cellulitis in diabetic foot Assessment/Plan all noted moderate arterial ischemia extensive infection sliding scale wound care iv abx Endo note appreciated, wont restart Glipizide d/w Dr Tobias, pt will need outpatient vascular studies. Dr. Cuevas, physician at shelter informed. [facility] physician infomred ok to go back to CV easrt with close f/u with vascular surgeon and podiatry Subjective ROS Limited/Unobtainable: No Constitutional: Reports: no symptoms Respiratory: Reports: no symptoms Allergies: Coded Allergies: No Known Allergies (Unverified , 02/15/13) Objective Last 24 Hour Vital Signs Date Time Temp Pulse Resp B/P (MAP) Pulse Ox O2 Delivery O2 Flow Rate FiO2 05/23/17 12:03 98.8 80 18 143/59 96 Room Air 05/23/17 11:24 98.8 05/23/17 11:23 98.8 05/23/17 11:19 123/79 05/23/17 10:26 85 123/79 05/23/17 08:30 100.4 85 18 123/79 94 Room Air 05/23/17 07:49 90 16 Room Air 21 05/23/17 07:28 98.1 05/23/17 04:00 98.1 90 18 118/85 97 Room Air 05/23/17 00:47 98.6 81 19 127/57 96 Room Air 05/22/17 20:44 98.8 88 18 132/55 95 Room Air 05/22/17 19:00 67 16 Room Air 21 General Appearance: WD/WN HEENT: normocephalic, atraumatic Respiratory/Chest: chest wall non-tender, lungs clear, normal breath sounds Cardiovascular: normal peripheral pulses, normal rate Abdomen: normal bowel sounds, soft, non tender Genitourinary: normal external genitalia Extremities: no clubbing 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
--- NOTE | 2017-05-25 14:09 | Discharge Summary ---
Discharge Summary Hospital Course Date of Admission May 18, 2017 at 12:45 Date of Discharge May 23, 2017 at 12:22 Admitting Diagnosis persistant hypoglycemia HPI Ashwin Santos is a 66 year old male who was admitted on May 18, 2017 at 12:45 for Persistant Hypoglycemia Hospital Course [id number] Discharge Discharge Disposition Patient was discharged to SNF/Subacute Facility(03) Discharge Diagnoses: Joanie Jones NP May 25, 2017 14:09
--- NOTE | 2017-05-25 23:29 | Cardiology Report ---
APPROVED REPORT EKG Measurement Heart [id number] [place] [id number] [id number] Normal sinus rhythm Inferior infarct, age undetermined Abnormal ECG
--- NOTE | 2017-05-26 05:47 | Discharge Summary 2 SIG ---
DATE OF ADMISSION: 05/18/2017 DATE OF DISCHARGE: 05/23/2017 CONSULTANTS: 1. Zeferino Myers M.D. 2. Ema Wallace M.D. 3. David Stanley D.P.M. BRIEF HOSPITAL COURSE: The patient is a 66-year-old male with history of end-stage renal failure and diabetes mellitus with necrotic right foot. The patient came from [facility] and was brought in by paramedics for complaints of altered level of consciousness and hypoglycemia. On evaluation at ED, blood work showed significantly elevated WBC to 21. He had a PICC line in place. Chest x-ray showed no consolidation, no effusion, no pneumothorax, and no cardiopulmonary disease. Abdominal and pelvic CT showed mild dilatation of diffuse fluid-filled small bowel, suspect enteritis. He was persistently hypoglycemic at ED and was then admitted to medical floor for hypoglycemia, cellulitis, and diabetic foot. He was started on D5 water. Last dialysis was three days prior. He was continued on inpatient hemodialysis. He underwent Podiatry evaluation. He had a large full-thickness ulcer on the plantar right foot to the level of the bone with exposed fifth metatarsal base with necrotic tissue proximally. The patient also has a skin necrosis at the right hallux nail bed and has a partial-thickness ulcer on the left heel. He was given wound care. Foot MRI showed osteomyelitis. The patient would require extended antibiotics due to exposed bone and osteomyelitis seen on MRI. The patient would benefit from vascular optimization due to current necrotic tissue and poor healing potential. He was recommended wound debridement, which can be done as an outpatient. He was given IV vancomycin and Unasyn. Unasyn was eventually transitioned to Zosyn in view of low-grade fever and gas seen on MRI. His blood sugars were monitored and was given Januvia 25 mg daily. He was subsequently started on Starlix 60 mg before meals t.i.d. TSH initially was elevated, however normalized, no need for thyroid supplementation. Duplex scan of the lower extremities showed mild stenosis in the mid posterior tibial artery with waveform analysis compatible with moderate ischemia at rest. The patient was recommended outpatient vascular studies. He was cleared for discharge back to SNF. Recommended to follow up with vascular surgeon and Podiatry. FINAL DIAGNOSES: 1. Cellulitis in a diabetic right foot. 2. Hypoglycemia. 3. End-stage renal disease, on hemodialysis. 4. Hypertension. 5. Anemia. 6. Diabetes mellitus. 7. Right foot gangrene. 8. Peripheral vascular disease. 9. Peripheral neuropathy. 10. Acute osteomyelitis, right foot. 11. Left heel superficial ulceration, present on admission. 12. Altered mental status/acute metabolic encephalopathy secondary to hypoglycemia, resolved. 13. Abnormal thyroid blood test. 14. Coronary artery disease. DISPOSITION: The patient was discharged to [facility]. DISCHARGE MEDICATIONS: Refer to medication list. The patient will continue on intravenous Invanz and vancomycin for 60 days. FOLLOWUP: The patient will need outpatient vascular studies. Dr. Cuevas, physician at [facility] informed. Mitzi Whitley M.D. I have been assigned to dictate discharge summary on this account and I was not involved in the patient's management. Joanie Jones N.P. DR: NEHEMIAS JOB#: [id number] CC: THANH
== END 2017-05-23 12:22 | DRG 299 ==
LOC: EDBD 11:31 → EMR 11:50 → 3E 12:45 → EDBEDREQ 13:14 → 3E 05-19 13:12 → 4W 05-23 08:13
PROC: 5A1D70Z Performance of Urinary Filtration, Intermittent, Less than 6 Hours Per Day (ICD-10-PCS; principal; 2017-05-19)
DX: E11.52 Type 2 diabetes mellitus with diabetic peripheral angiopathy with gangrene (principal); N18.6 End stage renal disease; G93.41 Metabolic encephalopathy; I96 Gangrene, not elsewhere classified; I12.0 Hypertensive chronic kidney disease with stage 5 chronic kidney disease or end stage renal disease; M86.171 Other acute osteomyelitis, right ankle and foot; E11.42 Type 2 diabetes mellitus with diabetic polyneuropathy; L03.115 Cellulitis of right lower limb; E11.621 Type 2 diabetes mellitus with foot ulcer; Z99.2 Dependence on renal dialysis; E11.649 Type 2 diabetes mellitus with hypoglycemia without coma; I25.10 Atherosclerotic heart disease of native coronary artery without angina pectoris; E11.69 Type 2 diabetes mellitus with other specified complication; L97.514 Non-pressure chronic ulcer of other part of right foot with necrosis of bone; D72.829 Elevated white blood cell count, unspecified; D64.9 Anemia, unspecified; Z79.84 Long term (current) use of oral hypoglycemic drugs
CPT/HCPCS: 36415; 71010; 74176; 80053; 80061; 80202; 81003; 82550; 82553; 82607; 82728; 82746; 82962; 83036; 83540; 83550; 83605; 83735; 83880; 84100; 84439; 84443; 84484; 84550; 85007; 85025; 85651; 86140; 87040; 87070; 87075; 87081; 87205; 93005; 93925; 94664; 99285; J1815

== ENCOUNTER 2017-05-26 22:46 | Inpatient (IN) | payer MEDICARE, MEDICAID ==
[~2017-05-26] VITALS: Ht 167.6 cm; Wt 58.1 kg
[~2017-05-26 22:46] MED LIST changes: +ACETAMINOPHEN325 M1 ORAL; +ADALAT10 MG ORAL; +CALCITRIOL0.5 MCG PO; +CLOPIDOGREL75 MG ORAL; +CYMBALTA30 MG ORAL; +INVANZ1 G1 IM; +JANUVIA25 MG ORAL; +LEVOFLOXACIN250 MG ORAL; +LYRICA75 M1 ORAL; +METOPROLOL SUCC50 MG ORAL; +NEPHROVITE1 TAB ORAL; +NORCO 10/3251 EA ORAL; +NORCO 5-325 TA1 EAC1 ORAL; +PRINIVIL10 MG ORAL; +VANCO 1 GR1 GM/250 M IV
[2017-05-26] MEDS ORDERED: Vancomycin 1 GM in NS 275 ML IV ONE (23:00)
--- NOTE | 2017-05-26 23:35 | Emergency Room Report ---
History of Present Illness General Chief Complaint: Altered Level of Consciousness Source: Patient, Medical Record, EMS Present Illness HPI 66YOM BIBEMS from SNF for "more altered than usual." SNF says hypoxia but EMS stated that pulse Ox was on fingers which were "cold." When they placed pulse ox on ear, O2 sat was normal. Patient was alert and oriented to name and year "but not much else." Denies pain Was just DCed 3 days ago after admission for right osteomyelitis of right foot. Was on Vanc/zosyn. Blood Cx were negative X2. Was followed by ID who had Tx with Vanc/zosyn Allergies: Coded Allergies: No Known Allergies (Unverified , 02/15/13) Patient History Past Medical History: other - See EMR Past Surgical History: other - see HPI Pertinent Family History: none Social History: Denies: smoking, alcohol use, drug use Immunizations: UTD Reviewed Nursing Documentation: PMH: Agreed, PSxH: Agreed Nursing Documentation-PMH Hx Cardiac Problems: Yes - Arterial insufficiency with ischemic ulcer, Diabetic foot ulcer, Anemia Hx Hypertension: Yes - hyperlipidemia, peripheral vascular disease Hx Pacemaker: No - generalized muscle weakness Hx Asthma: No Hx COPD: No Hx Diabetes: Yes Hx Cancer: No Hx Gastrointestinal Problems: Yes Hx Dialysis: Yes - ESRD, Shunt on left arm, M-W-F DIALYSIS Hx Neurological Problems: No Hx Cerebrovascular Accident: No Hx Seizures: No Hx Neurologic Surgery: No Review of Systems All Other Systems: negative except mentioned in HPI Physical Exam Vital Signs Date Time Temp Pulse Resp B/P (MAP) Pulse Ox O2 Delivery O2 Flow Rate FiO2 05/26/17 22:45 100.4 74 16 150/70 95 Room Air Sp02 EP Interpretation: reviewed, normal General Appearance: normal inspection, well appearing, no apparent distress, alert, GCS 15, non-toxic Head: normocephalic, atraumatic Eyes: bilateral eye PERRL, bilateral eye EOMI ENT: normal ENT inspection, hearing grossly normal, normal voice Neck: normal inspection, full range of motion, supple, no bony tend Respiratory: normal inspection, lungs clear, normal breath sounds, no respiratory distress, no retraction, no wheezing Cardiovascular #1: regular rate, rhythm, no edema Gastrointestinal: normal inspection, normal bowel sounds, non tender, soft, no guarding, no hernia Genitourinary: no CVA tenderness Musculoskeletal: normal inspection, back normal, normal range of motion, Christian' s Sign negative Neurologic: normal inspection, alert, oriented x3, responsive, art department head III-XII nml as tested, speech normal Psychiatric: normal inspection, judgement/insight normal, mood/affect normal Skin: normal inspection, normal color, no rash Lymphatic: normal inspection Medical Decision Making Medicare Attestation I Graciela Saab MD hereby attest that the medical record entry for date of service, 05/27/17 accurately reflects signatures/notations that I made in my capacity as MD when I treated/diagnosed the above listed Medicare beneficiary. I attest that this information is true, accurate and complete to the best of my knowledge. I understand that any falsification, omission, or concealment of material fact may subject me to administrative, civil, or criminal liability. This patient warrants hospital admission for extreme of age and has a condition that cannot be treated as outpatient. Diagnostic Impression: Primary Impression: Altered level of consciousness Additional Impressions: Anemia Qualified Codes: D64.9 - Anemia, unspecified Troponin level elevated Hypoalbuminemia CKD (chronic kidney disease) Qualified Codes: N18.9 - Chronic kidney disease, unspecified ER Course AMS - multifactorial - Sepsis? VS significant for fever. Normotensive. Recent admission here for osteo 3 days prior Leuks elevated. Lactate >2 Will cover for HCAP, possible continued infection of foot CXR unremarkable. UA negative for infection. ?unknown source. Blood Cx were negative X2 on last admission. Will continue with ID recommended Vanc/Zosyn - Anemia Also Hb lowered. Will Transfuse 2U PRBC. Transfusion started in ED - Elevated troponin 0.3. ECG is NSR. No ischemia. Likely related to ESRD, serumCr 5.0 Does have underlying CAD. Tried to order MS aspirin but is unavailable in the ER or the hospital. Patient refusing to take PO meds. Will HOLD on heparin or tx for NSTEMI at this time given elevated trop likely from ESRD Endorsed to Dr Whitley for med/surg admission 1135pm EKG Diagnostic Results Rate: normal Rhythm: NSR ST Segments: no acute changes ASA given to the pt in ED: No Rhythm Strip Diag. Results EP Interpretation: yes Rate: 66 Rhythm: NSR, no PVC's, no ectopy Chest X-Ray Diagnostic Results Chest X-Ray Diagnostic Results : Chest X-Ray Ordered: Yes # of Views/Limited/Complete: 1 View Indication: Other - AMS EP Interpretation: Yes Interpretation: no consolidation, no effusion, no pneumothorax, no acute cardiopulmonary disease Impression: No acute disease Electronically Signed by: Dr Graciela Saab MD Last Vital Signs Date Time Temp Pulse Resp B/P (MAP) Pulse Ox O2 Delivery O2 Flow Rate FiO2 05/26/17 22:45 100.4 74 16 150/70 95 Room Air Status: improved Disposition: ADMITTED INPATIENT Condition: Serious Referrals: NON PHYSICIAN (PCP) GRACIELA SAAB M.D. May 26, 2017 23:35
[2017-05-26] MEDS ORDERED: Vancomycin 1gm inj IVPB ONE (23:36)
[2017-05-26] MEDS ORDERED: LYRICA20 MG/1 ML ORAL (23:37)
[2017-05-26] MEDS ORDERED: CYMBALTA30 MG ORAL (23:37)
[2017-05-26] MEDS ORDERED: DOCUSATE SODIU100 MG ORAL (23:37)
[2017-05-26 23:44] LABS: MEAN CORPUSCULAR HEMOGLOBIN 32.7 PG (27.0-31.0); MEAN CORPUSCULAR HGB CONC 33.3 G/DL (32.0-36.0); MEAN CORPUSCULAR VOLUME 98 FL (80-99); MEAN PLATELET VOLUME 4.9 FL (6.5-10.1); PLATELET COUNT 335 K/UL (150-450); RED BLOOD COUNT 2.28 M/UL (4.70-6.10); RED CELL DISTRIBUTION WIDTH 15.3 % (11.6-14.8); WHITE BLOOD COUNT 14.4 K/UL (4.8-10.8)
[2017-05-27] VITALS (7 sets, daily range): BP systolic 116–153; BP diastolic 54–72
[2017-05-27 00:05] LABS: REFLEX LACTIC ACID YES OR NO YES
[2017-05-27] MEDS ORDERED: Piperacillin/Tazobactam 4.5 GM in D5W 110 ML IVPB STA (00:21)
[2017-05-27 00:25] LABS: APPEARANCE,URINE CLEAR; KETONES,URINE NEGATIVE (NEGATIVE); LEUKOCYTE ESTERASE ,URINE 1+ (NEGATIVE); NITRITE,URINE NEGATIVE (NEGATIVE); PH,URINE 8 (4.5-8.0); PROTEIN,URINE 3+ (NEGATIVE); UROBILINOGEN,URINE NORMAL MG/DL (0.0-1.0)
[2017-05-27 00:41] LABS: BACTERIA,URINE FEW /HPF; RBC,URINE 0-2 /HPF (0 - 0); SQUAMOUS EPITHELIAL CELL,UR FEW /LPF (NONE/OCC); WBC,URINE 0-2 /HPF (0 - 0)
[2017-05-27 01:07] LABS: PROTHROMBIN TIME 10.4 SEC (9.30-11.50)
[2017-05-27] MEDS ORDERED: Zosyn 4.5gm inj ONE (01:08)
[2017-05-27 01:27] LABS: ALANINE AMINOTRANSFERASE 22 U/L (12-78); ALBUMIN/GLOBULIN RATIO 0.3 (1.0-2.7); ANION GAP 8 (5-15); ASPARTATE AMINO TRANSFERASE 29 U/L (15-37); CALCIUM 7.9 MG/DL (8.5-10.1); CARBON DIOXIDE 26 MMOL/L (21-32); CHLORIDE 99 MMOL/L (98-107); CKMB 0.7 NG/ML (0.0-3.6); GLOMERULAR FILTRATION RATE 11.7 mL/min (>60); POTASSIUM 4.2 MMOL/L (3.5-5.1); SODIUM 133 MMOL/L (136-145); TOTAL PROTEIN 5.9 G/DL (6.4-8.2)
[2017-05-27 02:39] LABS: ANISOCYTOSIS 1+; BAND NEUTROPHILS % (MANUAL) 4 % (0-8); BASOPHILS % (MANUAL) 0 % (0-2); EOSINOPHILS % (MANUAL) 1 % (0-3); LYMPHOCYTES % (MANUAL) 10 % (20-45); NEUTROPHILS % (MANUAL) 81 % (45-75); PLATELET ESTIMATE ADEQUATE; PLATELET MORPHOLOGY NORMAL; TOTAL CELLS COUNTED 100
[2017-05-27 02:41] LABS: HYPOCHROMASIA 1+; MACROCYTES 1+
[2017-05-27] MEDS ORDERED: Piperacillin/Tazobactam 4.5 GM in NS 110 ML IV SCH (06:00)
[2017-05-27] MEDS ORDERED: Miralax 17gm pkt ORAL PRN (07:30)
[2017-05-27] MEDS ORDERED: Nitroglycerin Subl 0.4mg tab SL PRN (07:30)
[2017-05-27] MEDS ORDERED: Albuterol/Ipratropium 3ml neb HHN PRN (07:30)
[2017-05-27] MEDS ORDERED: NIFEdipine 10mg cap ORAL SCH (09:00)
[2017-05-27] MEDS ORDERED: Heparin 5000 units/ml inj SUBQ SCH (09:00)
[2017-05-27] MEDS ORDERED: Ertapenem (INVanz) 1gm Inj IM SCH (09:00)
[2017-05-27] MEDS ORDERED: Enalapril 5mg tab ORAL SCH (09:00)
[2017-05-27] MEDS ORDERED: Cefepime HCl 2 GM in D5W 110 ML IV SCH (09:00)
--- NOTE | 2017-05-27 09:04 | Diagnostic Imaging Report ---
Indication: SOB Comparison: 05/18/2017 Findings: Single view of the chest shows a normal cardiomediastinal silhouette. Pulmonary vasculature is normal. Lung are clear. Soft tissues and osseous structures are within normal limits. There is elevation of the right hemidiaphragm compared to left. A right PICC line catheter with distal tip in superior vena cava remains unchanged. Surgical clips are seen overlying the cardiac silhouette, unchanged. Impression: No acute chest disease Right PICC line catheter are in stable and satisfactory position. Elevated right hemidiaphragm. Prior surgery.
[2017-05-27] MEDS: DULoxetine 30mg cap ORAL SCH (10:05)
[2017-05-27] MEDS: Aspirin EC 81mg tab ORAL SCH (10:05)
[2017-05-27] MEDS: Metoprolol Succinate XL 25mg tab ORAL SCH (10:07)
[2017-05-27] MEDS: Zosyn 2.25 gm in D5W 55ml IV SCH ×3 (10:10→21:46)
[2017-05-27] MEDS: Lisinopril 10mg tab ORAL SCH ×2 (10:28→21:39)
[2017-05-27] MEDS: Lyrica 75mg cap ORAL SCH (10:33)
--- NOTE | 2017-05-27 10:56 | Consultation ---
History of Present Illness General Date patient seen: May 27, 2017 Time patient seen: 10:54 Chief Complaint: Altered Level of Consciousness Reason for Consultation: diabetic foot ulcer Present Illness HPI 66 y/o M with hx of DM2, ESRD on HD MWF, HLD, HTN, CAD, CHF, diabetic foot ulcers who was recently admitted here from 05/18-05/23 with worsening R plantar foot ulcer with exposed bone and necrotic tissue. Was evaluated by vascular and podiatry and recommend for debridement and vascular interventions as an outpatient. Was discharged on IV Ertapenem and Vancomycin for expected course of 6 weeks. Patient presents back on 05/26 for AMS and reported hypoxia ( however no hypoxia noticed by EMS). Low grade fever Tm 100.4, Worsenign leukocytosis 12->14. On IV Vanco and Zosyn. u/a neg, cxr neg. Allergies: Coded Allergies: No Known Allergies (Unverified , 02/15/13) Medication History Scheduled Aspirin* (Aspir 81*), 81 MG ORAL DAILY, (Reported) Aspirin* (Aspir 81*), 81 MG ORAL DAILY, (Reported) Atorvastatin Calcium* (Lipitor*), 80 MG ORAL BEDTIME, (Reported) Calcitriol (Calcitriol), 0.5 MCG PO DAILY, (Reported) Clopidogrel* (Clopidogrel*), 75 MG ORAL DAILY, (Reported) Docusate Sodium* (Docusate Sodium*), 100 MG ORAL TWICE A DAY, (Reported) Duloxetine Hcl* (Cymbalta*), 30 MG ORAL DAILY, (Reported) Duloxetine Hcl* (Cymbalta*), 30 MG ORAL DAILY, (Reported) Ertapenem (Invanz), 1 GM IM DAILY Glipizide* (Glipizide*), 5 MG ORAL DAILY, (Reported) Levofloxacin (Levofloxacin*), 250 MG ORAL DAILY, (Reported) Lisinopril* (Prinivil*), 10 MG ORAL BID, (Reported) Metoprolol Succinate* (Metoprolol Succinate*), 25 MG ORAL DAILY, (Reported) Metoprolol Succinate* (Metoprolol Succinate*), 50 MG ORAL DAILY, (Reported) Metoprolol Succinate* (Metoprolol Succinate*), 50 MG ORAL DAILY, (Reported) Nifedipine (Nifedipine*), 10 MG ORAL DAILY, (Reported) Pregabalin (Lyrica), 75 MG ORAL TWICE A DAY, (Reported) Pregabalin* (Lyrica*), 75 MG ORAL Q12HR, (Reported) Sitagliptin* (Januvia*), 25 MG ORAL ACBREAKFAST Vancomycin/0.9 % Sod Chloride (Vanco 1 Gram/250 ml-0.9% NaCl), 1 GM IV DAILY Vitamin B Cmplx/Vit C/Folic AC (Nephro-Kofi Tablet), 1 TAB ORAL DAILY, (Reported ) Scheduled PRN Acetaminophen* (Acetaminophen 325MG Tablet*), 650 MG ORAL Q4H PRN for For Pain Level <=5, (Reported) Hydrocodone Bit/Acetaminophen 5-325* ([place] 5-325 Tablet*), 1 TAB ORAL Q4H PRN for For Pain, (Reported) Hydrocodone/Acetaminophen (Hydrocodon-Acetaminophn 10-325), 1 TAB ORAL Q4H PRN for For Pain, (Reported) Miscellaneous Medications Enalapril Maleate* (Enalapril Maleate*), 5 MG ORAL, (Reported) Patient History Healthcare decision maker Resuscitation status Advanced Directive on File No Patient History Narrative PMhx: as above Sx:Denies: smoking, alcohol use, drug use Fhx: non contributory Review of Systems ROS Narrative unable to obtain- patient confused Physical Exam Physical Exam Narrative General Appearance: chronic ill appearing,no in distress HEENT, atraumatic, PERRL, bilateral eye, EOMI, no oral lesions Neck: normal inspection, supple Respiratory: normal inspection, lungs clear, normal breath sounds, no respiratory distress Cardiovascular regular rate, rhythm, no edema Gastrointestinal: normal inspection, normal bowel sounds, non tender, soft, no guarding, no hernia Musculoskeletal: R foot: large full thickness ulcer at the plantar right foot to the level of bone with exposed 5th metatarsal base. Patient also has skin necrosis at the right hallux nail bed. ulcer more necrotic than on previous admission ; Foot is cold, erythema on dorsum and medial aspect of foot, no purulent drainage Patient has a left heel partial thickness ulcer with a black eschar overlying it Neurologic: confused, AAO x1 Skin: no rash Last 24 Hour Vital Signs Date Time Temp Pulse Resp B/P (MAP) Pulse Ox O2 Delivery O2 Flow Rate FiO2 05/27/17 10:28 136/59 05/27/17 10:07 64 136/59 10/14/17 08:23 97.7 64 20 136/59 97 Nasal Cannula 2.0 05/27/17 03:55 67 05/27/17 03:22 99.1 66 28 146/61 100 Nasal Cannula 2.0 05/27/17 03:21 70 05/27/17 03:14 99.1 63 28 05/27/17 02:55 99.1 66 28 144/62 100 Nasal Cannula 2.0 05/27/17 02:40 99.1 63 28 146/61 100 Nasal Cannula 2.0 05/27/17 01:28 100.4 56 16 134/72 95 Room Air 05/26/17 22:45 100.4 74 16 150/70 95 Room Air Intake and Output 05/27/17 05/28/17 19:00 07:00 Intake Total 120 ml Balance 120 ml Intake Oral 120 ml Laboratory Tests Test 05/26/17 23:27 05/26/17 23:59 05/27/17 00:45 05/27/17 00:55 White Blood Count 14.4 K/UL (4.8-10.8) H Red Blood Count 2.28 M/UL (4.70-6.10) L Hemoglobin 7.5 G/DL (14.2-18.0) L Hematocrit 22.4 % (42.0-52.0) L Mean Corpuscular Volume 98 FL (80-99) Mean Corpuscular Hemoglobin 32.7 PG (27.0-31.0) H Mean Corpuscular Hemoglobin Concent 33.3 G/DL (32.0-36.0) Red Cell Distribution Width 15.3 % (11.6-14.8) H Platelet Count 335 K/UL (150-450) Mean Platelet Volume 4.9 FL (6.5-10.1) L Neutrophils (%) (Auto) % (45.0-75.0) Lymphocytes (%) (Auto) % (20.0-45.0) Monocytes (%) (Auto) % (1.0-10.0) Eosinophils (%) (Auto) % (0.0-3.0) Basophils (%) (Auto) % (0.0-2.0) Differential Total Cells Counted 100 Neutrophils % (Manual) 81 % (45-75) H Lymphocytes % (Manual) 10 % (20-45) L Monocytes % (Manual) 4 % (1-10) Eosinophils % (Manual) 1 % (0-3) Basophils % (Manual) 0 % (0-2) Band Neutrophils 4 % (0-8) Platelet Estimate Adequate Platelet Morphology Normal Hypochromasia 1+ Anisocytosis 1+ Macrocytosis 1+ Lactic Acid Level 2.10 mmol/L (0.66-2.22) 0.80 mmol/L (0.66-2.22) Troponin I 0.326 ng/mL (0.000-0.056) Urine Color Pale yellow Urine Appearance Clear Urine pH 8 (4.5-8.0) Urine Specific [place] 1.010 (1.005-1.035) Urine Protein 3+ (NEGATIVE) H Urine Glucose (UA) 2+ (NEGATIVE) H Urine Ketones Negative (NEGATIVE) Urine Occult Blood Negative (NEGATIVE) Urine Nitrite Negative (NEGATIVE) Urine Bilirubin Negative (NEGATIVE) Urine Urobilinogen Normal MG/DL (0.0-1.0) Urine Leukocyte Esterase 1+ (NEGATIVE) H Urine RBC 0-2 /HPF (0 - 0) H Urine WBC 0-2 /HPF (0 - 0) Urine Squamous Epithelial Cells Few /LPF (NONE/OCC) Urine Bacteria Few /HPF (NONE) Prothrombin Time 10.4 SEC (9.30-11.50) Prothromb Time International Ratio 1.0 (0.9-1.1) Activated Partial Thromboplast Time 39 SEC (23-33) H Sodium Level 133 MMOL/L (136-145) L Potassium Level 4.2 MMOL/L (3.5-5.1) Chloride Level 99 MMOL/L (98-107) Carbon Dioxide Level 26 MMOL/L (21-32) Anion Gap 8 (5-15) Blood Urea Nitrogen 45 mg/dL (7-18) H Creatinine 5.0 MG/DL (0.55-1.30) H Estimat Glomerular Filtration Rate 11.7 mL/min (>60) Glucose Level 87 MG/DL (74-106) Calcium Level 7.9 MG/DL (8.5-10.1) L Total Bilirubin 0.6 MG/DL (0.2-1.0) Aspartate Amino Transf (AST/SGOT) 29 U/L (15-37) Alanine Aminotransferase (ALT/SGPT) 22 U/L (12-78) Alkaline Phosphatase 102 U/L (46-116) Total Creatine Kinase 20 U/L (26-308) L Creatine Kinase MB 0.7 NG/ML (0.0-3.6) Creatine Kinase MB Relative Index 3.5 Total Protein 5.9 G/DL (6.4-8.2) L Albumin 1.4 G/DL (3.4-5.0) L Globulin 4.5 g/dL Albumin/Globulin Ratio 0.3 (1.0-2.7) L reviewed Height (Feet): 5 Height (Inches): 6.00 Weight (Pounds): 150 Medications Current Medications Medications (Trade) Dose Ordered Sig/Ailyn Route PRN Reason Start Time Stop Time Status Last Admin Dose Admin Acetaminophen (Tylenol) 650 mg Q4H PRN ORAL fever 05/27/17 07:30 06/26/17 07:29 Albuterol/ Ipratropium (DuoNeb 0.5-3(2.5)mg/3ml) 3 ml Q4H PRN HHN Shortness of Breath 05/27/17 07:30 06/01/17 07:29 Aspirin (Ecotrin) 81 mg DAILY ORAL 05/27/17 09:00 06/26/17 08:59 05/27/17 10:05 Atorvastatin Calcium (Lipitor) 80 mg BEDTIME ORAL 05/27/17 21:00 06/26/17 20:59 Dextrose (Dextrose 50%) STAT PRN IV Hypoglycemia 05/27/17 07:30 06/26/17 07:29 Duloxetine HCl (Cymbalta) 30 mg DAILY ORAL 05/27/17 09:00 06/26/17 08:59 05/27/17 10:05 Heparin Sodium (Porcine) (Heparin 5000 units/ml) 5,000 units EVERY 12 HOURS SUBQ 05/27/17 09:00 06/26/17 08:59 Insulin Aspart (NovoLOG) BEFORE MEALS AND HS SUBQ 05/27/17 11:30 06/26/17 11:29 Lisinopril (Zestril) 10 mg Q12HR ORAL 05/27/17 09:00 06/26/17 08:59 05/27/17 10:28 Metoprolol Succinate (Toprol XL) 25 mg DAILY ORAL 05/27/17 09:00 06/26/17 08:59 05/27/17 10:07 Morphine Sulfate (Morphine Sulfate) 2 mg Q4H PRN IVP Moderate Pain (Pain Scale 4-6) 05/27/17 07:30 06/03/17 07:29 Nitroglycerin (Ntg) 0.4 mg Q5M PRN SL Prn Chest Pain 05/27/17 07:30 06/26/17 07:29 Ondansetron HCl (Zofran) 4 mg Q6H PRN IVP Nausea & Vomiting 05/27/17 07:30 06/26/17 07:29 Piperacillin Sod/ Tazobactam Sod 2.25 gm/Dextrose 55 ml @ 110 mls/hr Q8HR IV 05/27/17 09:00 06/01/17 08:59 05/27/17 10:10 Polyethylene Glycol (Miralax) 17 gm DAILYPRN PRN ORAL Constipation 05/27/17 07:30 06/26/17 07:29 Pregabalin (Lyrica) 75 mg DAILY ORAL 05/27/17 09:00 06/26/17 08:59 05/27/17 10:33 Sitagliptin Phosphate (Januvia) 25 mg ACBREAKFAST ORAL 05/28/17 06:30 06/27/17 06:29 Temazepam (Restoril) 15 mg HSPRN PRN ORAL Insomnia 05/27/17 07:30 06/03/17 07:29 Vancomycin HCl (Vanco rx to dose) 1 ea DAILY PRN MISC PER RX PROTOCOL 05/27/17 07:45 06/26/17 07:44 Assessment/Plan Assessment/Plan Abx: IV Vancomycin 05/19 Unasyn 05/19-05/22 Zosyn 05/18; 05/22-05/23; 05/26- Ertapenem 05/23-05/26 Assesment: AMS- ? worsening foot ulcers vs other (r/o metabolic causes/stroke, etc) R Diabetic foot ulcer with OM (exposed bone) with possible early abscess/gas, L heel superficial ulceration; worsening necrosis -MRI R foot 05/19: Markedly limited by motion. Apparent abnormal STIR signal of the first distal phalanx, the second middle and distal phalanges in the base of the fifth metatarsal. early osteomyelitis should be considered. Reactive marrow edema is also a consideration. Apparent fluid signal surrounding the flexor digitorum tendons of the plantar midfoot. Few foci of apparent susceptibility artifact also noted within this area. Possibility of infected fluid and gas surrounding the flexor digitorum tendons -05/19 wound cx ConS (represent colonizer and not true pathogen of infection) -Bcx 05/18 neg Fever/leukocytosis- likely 2ry to above; r/o bacteremia -u/a neg -CXR no acute disease DM2, ESRD on HD MWF, HLD, HTN, CAD, CHF, diabetic foot ulcers Plan: -Continue IV vancomycin and Zosyn -Check ESR and CRp -Recommend Podiatry a and vascular consult; appreciate obtaining deep wound tissue cultures as previous culture grew skin contaminant; ?debridement, surgical intervention -xray R foot; may need repeat MRI Foot -f/u Bcx -wound cx -Monitor CBC/BMP, temperatures Thank you for this consultation. Will continue to follow along with you. Discussed with SRINATH. Ema Wallace M.D. May 27, 2017 10:56
--- NOTE | 2017-05-27 11:22 | Consultation ---
Consult Note Consult Note asked to eval for dialysis management- 66YOM BIBEMS from SNF for "more altered than usual." SNF says hypoxia but EMS stated that pulse Ox was on fingers which were "cold." When they placed pulse ox on ear, O2 sat was normal. Patient was alert and oriented to name and year "but not much else." Denies pain Was just DCed 3 days ago after admission for right osteomyelitis of right foot. Was on Vanc/zosyn. Blood Cx were negative X2. Was followed by ID who had Tx with Vanc/zosyn Hx Cardiac Problems: Yes - Arterial insufficiency with ischemic ulcer, Diabetic foot ulcer, Anemia Hx Hypertension: Yes - hyperlipidemia, peripheral vascular disease Hx Diabetes: Yes Hx Gastrointestinal Problems: Yes Hx Dialysis: Yes - ESRD, Shunt on left arm, M-W-F DIALYSIS Assessment/Plan ESRD- Right foot gangeren DM Retinopathy Encephalopathy ? sepsis Anemia High Troponin Sugg: Anemia osborne Transfuse Echo HD as needed JADON ROCKWELL May 27, 2017 11:22
[2017-05-27] MEDS: NovoLOG Insulin Flexpen SUBQ SCH ×3 (12:23→21:00)
--- NOTE | 2017-05-27 14:46 | History and Physical ---
History of Present Illness General Date patient seen: May 27, 2017 Time patient seen: 14:00 Reason for Hospitalization: Altered Level of Consciousness Present Illness HPI 66 y/old male with PMH of diabetes, HTN, anemia, ESRD, on HD, PAD, recent acute R foot OM presented with altered mental status. Patient by himself was unable to provide meaningful history but denied chest pain, SOB, palpitations, dizziness Initially concern for hypoxia, but per paramedics, pulse oximetry was taking on ear was WNL but hands were cold amd gave false positive reading workup in ED revealed fever, leukocytosis, anemia renal parameters c/w known hx of ESRD noted elevated troponin 0.326 ECG with NSR , no ischemic changes patient was admitted for further management Allergies: Coded Allergies: No Known Allergies (Unverified , 02/15/13) Medication History Scheduled Aspirin* (Aspir 81*), 81 MG ORAL DAILY, (Reported) Aspirin* (Aspir 81*), 81 MG ORAL DAILY, (Reported) Atorvastatin Calcium* (Lipitor*), 80 MG ORAL BEDTIME, (Reported) Calcitriol (Calcitriol), 0.5 MCG PO DAILY, (Reported) Clopidogrel* (Clopidogrel*), 75 MG ORAL DAILY, (Reported) Docusate Sodium* (Docusate Sodium*), 100 MG ORAL TWICE A DAY, (Reported) Duloxetine Hcl* (Cymbalta*), 30 MG ORAL DAILY, (Reported) Duloxetine Hcl* (Cymbalta*), 30 MG ORAL DAILY, (Reported) Ertapenem (Invanz), 1 GM IM DAILY Glipizide* (Glipizide*), 5 MG ORAL DAILY, (Reported) Levofloxacin (Levofloxacin*), 250 MG ORAL DAILY, (Reported) Lisinopril* (Prinivil*), 10 MG ORAL BID, (Reported) Metoprolol Succinate* (Metoprolol Succinate*), 25 MG ORAL DAILY, (Reported) Metoprolol Succinate* (Metoprolol Succinate*), 50 MG ORAL DAILY, (Reported) Metoprolol Succinate* (Metoprolol Succinate*), 50 MG ORAL DAILY, (Reported) Nifedipine (Nifedipine*), 10 MG ORAL DAILY, (Reported) Pregabalin (Lyrica), 75 MG ORAL TWICE A DAY, (Reported) Pregabalin* (Lyrica*), 75 MG ORAL Q12HR, (Reported) Sitagliptin* (Januvia*), 25 MG ORAL ACBREAKFAST Vancomycin/0.9 % Sod Chloride (Vanco 1 Gram/250 ml-0.9% NaCl), 1 GM IV DAILY Vitamin B Cmplx/Vit C/Folic AC (Nephro-Kofi Tablet), 1 TAB ORAL DAILY, (Reported ) Scheduled PRN Acetaminophen* (Acetaminophen 325MG Tablet*), 650 MG ORAL Q4H PRN for For Pain Level <=5, (Reported) Hydrocodone Bit/Acetaminophen 5-325* ([place] 5-325 Tablet*), 1 TAB ORAL Q4H PRN for For Pain, (Reported) Hydrocodone/Acetaminophen (Hydrocodon-Acetaminophn 10-325), 1 TAB ORAL Q4H PRN for For Pain, (Reported) Miscellaneous Medications Enalapril Maleate* (Enalapril Maleate*), 5 MG ORAL, (Reported) Patient History Healthcare decision maker Resuscitation status Advanced Directive on File No Past Medical/Surgical History Past Medical/Surgical History: (1) Cardiomyopathy (2) Non-STEMI (non-ST elevated myocardial infarction) (3) Hypercholesterolemia (4) CAD (coronary artery disease) (5) HTN (hypertension) (6) Accelerated hypertension (7) Bronchitis (8) CKD (chronic kidney disease) (9) ESRD (end stage renal disease) on dialysis Review of Systems Constitutional: Reports: weakness ROS Narrative patient is unable to provide info due to AMS Physical Exam Extremities: other - BS maanegemtn with SS of insulin and optimize as needed Physical Exam Narrative General Appearance: chronically ill appearing male, inNAD HEENT, NC/AT PERRL, EOMI, OP moist , no lesions Neck: supple, trachea midline Respiratory: CTAB Cardiovascular RRR, no edema, LUE shunt with + bruit/thrill Gastrointestinal: NT/ND, + BS, Musculoskeletal: R foot with large full thickness ulcer at the plantar right foot to the level of bone with exposed 5th metatarsal base. Skin necrosis at the right hallux nail bed. Foot is cold, erythema on dorsum and medial aspect of foot, no purulent drainage Left heel partial thickness ulcer with a black eschar overlying it Neurologic: AAO x1 Skin: no rash, see also descriptions of ulcers under MS system Last 24 Hour Vital Signs Date Time Temp Pulse Resp B/P (MAP) Pulse Ox O2 Delivery O2 Flow Rate FiO2 05/27/17 11:56 97.9 62 20 153/57 98 Nasal Cannula 2.0 05/27/17 10:28 136/59 05/27/17 10:07 64 136/59 05/27/17 08:23 97.7 64 20 136/59 97 Nasal Cannula 2.0 05/27/17 03:55 67 05/27/17 03:22 99.1 66 28 146/61 100 Nasal Cannula 2.0 05/27/17 03:21 70 05/27/17 03:14 99.1 63 28 05/27/17 02:55 99.1 66 28 144/62 100 Nasal Cannula 2.0 05/27/17 02:40 99.1 63 28 146/61 100 Nasal Cannula 2.0 05/27/17 01:28 100.4 56 16 134/72 95 Room Air 05/26/17 22:45 100.4 74 16 150/70 95 Room Air Intake and Output 05/27/17 05/28/17 19:00 07:00 Intake Total 240 ml Balance 240 ml Intake Oral 240 ml Laboratory Tests Test 05/26/17 23:27 05/26/17 23:59 05/27/17 00:45 05/27/17 00:55 White Blood Count 14.4 K/UL (4.8-10.8) H Red Blood Count 2.28 M/UL (4.70-6.10) L Hemoglobin 7.5 G/DL (14.2-18.0) L Hematocrit 22.4 % (42.0-52.0) L Mean Corpuscular Volume 98 FL (80-99) Mean Corpuscular Hemoglobin 32.7 PG (27.0-31.0) H Mean Corpuscular Hemoglobin Concent 33.3 G/DL (32.0-36.0) Red Cell Distribution Width 15.3 % (11.6-14.8) H Platelet Count 335 K/UL (150-450) Mean Platelet Volume 4.9 FL (6.5-10.1) L Neutrophils (%) (Auto) % (45.0-75.0) Lymphocytes (%) (Auto) % (20.0-45.0) Monocytes (%) (Auto) % (1.0-10.0) Eosinophils (%) (Auto) % (0.0-3.0) Basophils (%) (Auto) % (0.0-2.0) Differential Total Cells Counted 100 Neutrophils % (Manual) 81 % (45-75) H Lymphocytes % (Manual) 10 % (20-45) L Monocytes % (Manual) 4 % (1-10) Eosinophils % (Manual) 1 % (0-3) Basophils % (Manual) 0 % (0-2) Band Neutrophils 4 % (0-8) Platelet Estimate Adequate Platelet Morphology Normal Hypochromasia 1+ Anisocytosis 1+ Macrocytosis 1+ Lactic Acid Level 2.10 mmol/L (0.66-2.22) 0.80 mmol/L (0.66-2.22) Troponin I 0.326 ng/mL (0.000-0.056) Urine Color Pale yellow Urine Appearance Clear Urine pH 8 (4.5-8.0) Urine Specific [place] 1.010 (1.005-1.035) Urine Protein 3+ (NEGATIVE) H Urine Glucose (UA) 2+ (NEGATIVE) H Urine Ketones Negative (NEGATIVE) Urine Occult Blood Negative (NEGATIVE) Urine Nitrite Negative (NEGATIVE) Urine Bilirubin Negative (NEGATIVE) Urine Urobilinogen Normal MG/DL (0.0-1.0) Urine Leukocyte Esterase 1+ (NEGATIVE) H Urine RBC 0-2 /HPF (0 - 0) H Urine WBC 0-2 /HPF (0 - 0) Urine Squamous Epithelial Cells Few /LPF (NONE/OCC) Urine Bacteria Few /HPF (NONE) Prothrombin Time 10.4 SEC (9.30-11.50) Prothromb Time International Ratio 1.0 (0.9-1.1) Activated Partial Thromboplast Time 39 SEC (23-33) H Sodium Level 133 MMOL/L (136-145) L Potassium Level 4.2 MMOL/L (3.5-5.1) Chloride Level 99 MMOL/L (98-107) Carbon Dioxide Level 26 MMOL/L (21-32) Anion Gap 8 (5-15) Blood Urea Nitrogen 45 mg/dL (7-18) H Creatinine 5.0 MG/DL (0.55-1.30) H Estimat Glomerular Filtration Rate 11.7 mL/min (>60) Glucose Level 87 MG/DL (74-106) Calcium Level 7.9 MG/DL (8.5-10.1) L Total Bilirubin 0.6 MG/DL (0.2-1.0) Aspartate Amino Transf (AST/SGOT) 29 U/L (15-37) Alanine Aminotransferase (ALT/SGPT) 22 U/L (12-78) Alkaline Phosphatase 102 U/L (46-116) Total Creatine Kinase 20 U/L (26-308) L Creatine Kinase MB 0.7 NG/ML (0.0-3.6) Creatine Kinase MB Relative Index 3.5 Total Protein 5.9 G/DL (6.4-8.2) L Albumin 1.4 G/DL (3.4-5.0) L Globulin 4.5 g/dL Albumin/Globulin Ratio 0.3 (1.0-2.7) L Height (Feet): 5 Height (Inches): 6.00 Weight (Pounds): 150 Medications Current Medications Medications (Trade) Dose Ordered Sig/Ailyn Route PRN Reason Start Time Stop Time Status Last Admin Dose Admin Acetaminophen (Tylenol) 650 mg Q4H PRN ORAL fever 05/27/17 07:30 06/26/17 07:29 Albuterol/ Ipratropium (DuoNeb 0.5-3(2.5)mg/3ml) 3 ml Q4H PRN HHN Shortness of Breath 05/27/17 07:30 06/01/17 07:29 Aspirin (Ecotrin) 81 mg DAILY ORAL 05/27/17 09:00 06/26/17 08:59 05/27/17 10:05 Atorvastatin Calcium (Lipitor) 80 mg BEDTIME ORAL 05/27/17 21:00 06/26/17 20:59 Clopidogrel Bisulfate (Plavix) 75 mg DAILY ORAL 05/27/17 12:00 06/26/17 11:59 05/27/17 13:45 Dextrose (Dextrose 50%) STAT PRN IV Hypoglycemia 05/27/17 07:30 06/26/17 07:29 Duloxetine HCl (Cymbalta) 30 mg DAILY ORAL 05/27/17 09:00 06/26/17 08:59 05/27/17 10:05 Epoetin Emmanuel (Procrit (for ESRD on dialysis)) 10,000 units MON-MON-MON SUBQ 05/29/17 21:00 06/28/17 20:59 Heparin Sodium (Porcine) (Heparin 5000 units/ml) 5,000 units EVERY 12 HOURS SUBQ 05/27/17 09:00 06/26/17 08:59 Insulin Aspart (NovoLOG) BEFORE MEALS AND HS SUBQ 05/27/17 11:30 06/26/17 11:29 05/27/17 12:23 Lisinopril (Zestril) 10 mg Q12HR ORAL 05/27/17 09:00 06/26/17 08:59 05/27/17 10:28 Metoprolol Succinate (Toprol XL) 25 mg DAILY ORAL 05/27/17 09:00 06/26/17 08:59 05/27/17 10:07 Morphine Sulfate (Morphine Sulfate) 2 mg Q4H PRN IVP Moderate Pain (Pain Scale 4-6) 05/27/17 07:30 06/03/17 07:29 Nitroglycerin (Ntg) 0.4 mg Q5M PRN SL Prn Chest Pain 05/27/17 07:30 06/26/17 07:29 Ondansetron HCl (Zofran) 4 mg Q6H PRN IVP Nausea & Vomiting 05/27/17 07:30 06/26/17 07:29 Pantoprazole (Protonix) 40 mg DAILY ORAL 05/27/17 12:00 06/26/17 11:59 05/27/17 13:45 Piperacillin Sod/ Tazobactam Sod 2.25 gm/Dextrose 55 ml @ 110 mls/hr Q8HR IV 05/27/17 09:00 06/01/17 08:59 05/27/17 10:10 Polyethylene Glycol (Miralax) 17 gm DAILYPRN PRN ORAL Constipation 05/27/17 07:30 06/26/17 07:29 Pregabalin (Lyrica) 75 mg DAILY ORAL 05/27/17 09:00 06/26/17 08:59 05/27/17 10:33 Sitagliptin Phosphate (Januvia) 25 mg ACBREAKFAST ORAL 05/28/17 06:30 06/27/17 06:29 Temazepam (Restoril) 15 mg HSPRN PRN ORAL Insomnia 05/27/17 07:30 06/03/17 07:29 Vancomycin HCl (Vanco rx to dose) 1 ea DAILY PRN MISC PER RX PROTOCOL 05/27/17 07:45 06/26/17 07:44 Assessment/Plan Assessment/Plan ASSESSMENT possible sepsis acute on chronic encephalopathy ( multifactorial) anemia, requiring blood transfusion ESRD, on HD DM elevated troponin PAD diabetic foot ulcer BLE ( R>L) OM R foot PLAN OF CARE tele abx ID follows fup with cx ESR CRP as per ID pending podiatry and vascular surgery eval as recommended by ID elevated troponin likely 2 to ESRD, no cardiac complainants, ECG no acute ischemic changes ASA, Plavix, statin BP management wit BB and ARIADNA hold heparin for now due to acute anemia venous Duplex BLE transfuse today anemia w/up started on EPO GI prophylaxis BS maanegemtn with Januvia and SS of insulin, and optimize as needed check HgA1c nephro follows for HD monitor renal parameters, lytes Bowel regimen wound care as per wound nurse recommendations case discussed and evaluated by supervising physician Stacia Ruelas NP ([facility]) May 27, 2017 14:46
[2017-05-27 15:14] LABS: MEAN CORPUSCULAR HGB CONC 33.4 G/DL (32.0-36.0); MEAN CORPUSCULAR VOLUME 99 FL (80-99); MEAN PLATELET VOLUME 5.2 FL (6.5-10.1); PLATELET COUNT 302 K/UL (150-450); RED BLOOD COUNT 2.11 M/UL (4.70-6.10); RED CELL DISTRIBUTION WIDTH 14.9 % (11.6-14.8); WHITE BLOOD COUNT 12.8 K/UL (4.8-10.8)
[2017-05-27 15:20] LABS: IRON 32 ug/dL (50-175); TOTAL IRON BINDING CAPACITY 52 ug/dL (250-450)
[2017-05-27 16:52] LABS: BAND NEUTROPHILS % (MANUAL) 1 % (0-8); BASOPHILS % (MANUAL) 0 % (0-2); EOSINOPHILS % (MANUAL) 1 % (0-3); LYMPHOCYTES % (MANUAL) 14 % (20-45); NEUTROPHILS % (MANUAL) 75 % (45-75); PLATELET ESTIMATE ADEQUATE; PLATELET MORPHOLOGY NORMAL; TOTAL CELLS COUNTED 100
[2017-05-27] MEDS: Dyna-Hex 2% Top Sol 2oz TOPIC SCH (20:31)
[2017-05-27] MEDS: Atorvastatin 80mg tab ORAL SCH (21:33)
[2017-05-28] VITALS: BP 141/65
[2017-05-28] MEDS: Morphine Sulfate 2mg/ml Inj IVP PRN ×3 (00:29→15:52)
[2017-05-28] MEDS ORDERED: Vancomycin 1 GM in D5W 275 ML IV SCH (00:30)
[2017-05-28 04:00] VITALS: BP_SYST 103; BP_SYST 131; BP_DIAS 51; BP_DIAS 88
[2017-05-28 05:28] LABS: CHOLESTEROL 117 MG/DL (< 200); CHOLESTEROL/HDL RATIO 7.3 (3.3-4.4)
[2017-05-28] MEDS: Zosyn 2.25 gm in D5W 55ml IV SCH ×3 (05:31→22:13)
[2017-05-28 05:34] LABS: BASOPHILS % (AUTO) 0.8 % (0.0-2.0); EOSINOPHILS % (AUTO) 5.3 % (0.0-3.0); LYMPHOCYTES % (AUTO) 10.7 % (20.0-45.0); MEAN CORPUSCULAR HGB CONC 34.4 G/DL (32.0-36.0); MEAN CORPUSCULAR VOLUME 96 FL (80-99); MEAN PLATELET VOLUME 5.3 FL (6.5-10.1); MONOCYTES % (AUTO) 7.2 % (1.0-10.0); NEUTROPHILS % (AUTO) 76.1 % (45.0-75.0); PLATELET COUNT 282 K/UL (150-450); RED BLOOD COUNT 2.43 M/UL (4.70-6.10); RED CELL DISTRIBUTION WIDTH 14.7 % (11.6-14.8); WHITE BLOOD COUNT 10.1 K/UL (4.8-10.8)
[2017-05-28 06:12] LABS: ALANINE AMINOTRANSFERASE 25 U/L (12-78); ALBUMIN/GLOBULIN RATIO 0.3 (1.0-2.7); ANION GAP 10 (5-15); ASPARTATE AMINO TRANSFERASE 61 U/L (15-37); CALCIUM 7.9 MG/DL (8.5-10.1); CARBON DIOXIDE 24 MMOL/L (21-32); CHLORIDE 102 MMOL/L (98-107); CREATININE 6.2 MG/DL (0.55-1.30); GLOMERULAR FILTRATION RATE 9.2 mL/min (>60); POTASSIUM 4.4 MMOL/L (3.5-5.1); SODIUM 136 MMOL/L (136-145); TOTAL PROTEIN 5.9 G/DL (6.4-8.2)
[2017-05-28] MEDS: sitaGLIPtin 25mg tab ORAL SCH (06:18)
[2017-05-28] MEDS: NovoLOG Insulin Flexpen SUBQ SCH ×4 (06:19→21:25)
[2017-05-28 06:28] LABS: HEMOGLOBIN A1C 6.8 % (4.3-6.0)
[2017-05-28 06:29] LABS: URIC ACID 5.5 MG/DL (2.6-7.2)
[2017-05-28 06:46] LABS: MAGNESIUM 2.2 MG/DL (1.8-2.4)
[2017-05-28 08:30] VITALS: BP 118/64
[2017-05-28] MEDS: DULoxetine 30mg cap ORAL SCH (09:41)
[2017-05-28] MEDS: Metoprolol Succinate XL 25mg tab ORAL SCH (09:42)
[2017-05-28] MEDS: Lyrica 75mg cap ORAL SCH (09:43)
[2017-05-28] MEDS: Lisinopril 10mg tab ORAL SCH (09:44)
[2017-05-28] MEDS: Vitamin B12 1000mcg/ml Inj SUBQ SCH (09:44)
[2017-05-28] MEDS ORDERED: Morphine Sulfate 2mg/ml Inj IVP ONE (10:15)
--- NOTE | 2017-05-28 10:45 | Infectious Diseases Prog Note ---
Assessment/Plan Assessment/Plan A; R foot osteomyelitis Diabetic foot ulcer AMS ESRD on HD Anemia P: Continue Zosyn & Vancomycin Podiatry evaluation Subjective ROS Limited/Unobtainable: No Constitutional: Reports: no symptoms Respiratory: Reports: no symptoms Gastrointestinal/Abdominal: Reports: no symptoms Genitourinary: Reports: no symptoms Musculoskeletal: Reports: pain, other - in both feet Allergies: Coded Allergies: No Known Allergies (Unverified , 02/15/13) Objective Vital Signs Last 24 Hour Vital Signs Date Time Temp Pulse Resp B/P (MAP) Pulse Ox O2 Delivery O2 Flow Rate FiO2 05/28/17 09:44 139/73 05/28/17 09:42 82 139/73 05/28/17 07:28 80 17 Nasal Cannula 2.0 05/28/17 04:00 97.4 78 18 103/51 99 Nasal Cannula 2.0 05/28/17 04:00 64 05/28/17 00:00 98.1 69 18 141/65 99 Nasal Cannula 2.0 05/28/17 00:00 64 05/27/17 21:39 120/58 05/27/17 20:00 98.1 66 20 116/54 98 Nasal Cannula 2.0 05/27/17 20:00 62 05/27/17 16:00 70 05/27/17 15:34 98.1 62 20 150/68 98 Nasal Cannula 2.0 05/27/17 12:00 62 05/27/17 11:56 97.9 62 20 153/57 98 Nasal Cannula 2.0 Height (Feet): 5 Height (Inches): 6.00 Weight (Pounds): 140 General Appearance: no acute distress HEENT: mucous membranes moist Respiratory/Chest: normal breath sounds Cardiovascular: normal rate, other - left arm AV shunt Abdomen: soft, non tender Extremities: no edema, other - R arm PICC line Skin: ulcers Neurologic/Psychiatric: alert, oriented x 3, responsive Microbiology Date/Time Source Procedure Growth Status 05/26/17 23:27 Blood Blood Culture - Preliminary NO GROWTH AFTER 24 HOURS Resulted 05/26/17 23:27 Blood Blood Culture - Preliminary NO GROWTH AFTER 24 HOURS Resulted 05/27/17 15:00 Wound Gram Stain - Final Resulted 05/27/17 15:00 Wound Wound Culture - Preliminary NO GROWTH Resulted Laboratory Tests Test 05/27/17 14:12 05/27/17 16:15 05/27/17 20:45 05/28/17 02:45 White Blood Count 12.8 K/UL (4.8-10.8) H Red Blood Count 2.11 M/UL (4.70-6.10) L Hemoglobin 7.0 G/DL (14.2-18.0) L Hematocrit 20.8 % (42.0-52.0) L Mean Corpuscular Volume 99 FL (80-99) Mean Corpuscular Hemoglobin 33.0 PG (27.0-31.0) H Mean Corpuscular Hemoglobin Concent 33.4 G/DL (32.0-36.0) Red Cell Distribution Width 14.9 % (11.6-14.8) H Platelet Count 302 K/UL (150-450) Mean Platelet Volume 5.2 FL (6.5-10.1) L Neutrophils (%) (Auto) % (45.0-75.0) Lymphocytes (%) (Auto) % (20.0-45.0) Monocytes (%) (Auto) % (1.0-10.0) Eosinophils (%) (Auto) % (0.0-3.0) Basophils (%) (Auto) % (0.0-2.0) Differential Total Cells Counted 100 Neutrophils % (Manual) 75 % (45-75) Lymphocytes % (Manual) 14 % (20-45) L Monocytes % (Manual) 9 % (1-10) Eosinophils % (Manual) 1 % (0-3) Basophils % (Manual) 0 % (0-2) Band Neutrophils 1 % (0-8) Platelet Estimate Adequate Platelet Morphology Normal Red Blood Cell Morphology Normal Erythrocyte Sedimentation Rate 144 MM/HR (0-20) H Iron Level 32 ug/dL (50-175) L Total Iron Binding Capacity 52 ug/dL (250-450) L Percent Iron Saturation 62 % (15-50) H Unsaturated Iron Binding 20 ug/dL (112-346) L Ferritin 2450 NG/ML (8-388) H C-Reactive Protein, Quantitative 27.0 mg/dL (0.00-0.90) H Vitamin B12 Level 138 PG/ML (193-986) L Folate 43.0 NG/ML (3.1-17.5) H Troponin I 0.340 ng/mL (0.000-0.056) 0.376 ng/mL (0.000-0.056) 0.319 ng/mL (0.000-0.056) Test 05/28/17 04:10 White Blood Count 10.1 K/UL (4.8-10.8) Red Blood Count 2.43 M/UL (4.70-6.10) L Hemoglobin 8.0 G/DL (14.2-18.0) L Hematocrit 23.4 % (42.0-52.0) L Mean Corpuscular Volume 96 FL (80-99) Mean Corpuscular Hemoglobin 33.0 PG (27.0-31.0) H Mean Corpuscular Hemoglobin Concent 34.4 G/DL (32.0-36.0) Red Cell Distribution Width 14.7 % (11.6-14.8) Platelet Count 282 K/UL (150-450) Mean Platelet Volume 5.3 FL (6.5-10.1) L Neutrophils (%) (Auto) 76.1 % (45.0-75.0) H Lymphocytes (%) (Auto) 10.7 % (20.0-45.0) L Monocytes (%) (Auto) 7.2 % (1.0-10.0) Eosinophils (%) (Auto) 5.3 % (0.0-3.0) H Basophils (%) (Auto) 0.8 % (0.0-2.0) Sodium Level 136 MMOL/L (136-145) Potassium Level 4.4 MMOL/L (3.5-5.1) Chloride Level 102 MMOL/L (98-107) Carbon Dioxide Level 24 MMOL/L (21-32) Anion Gap 10 (5-15) Blood Urea Nitrogen 56 mg/dL (7-18) H Creatinine 6.2 MG/DL (0.55-1.30) H Estimat Glomerular Filtration Rate 9.2 mL/min (>60) Glucose Level 95 MG/DL (74-106) Hemoglobin A1c 6.8 % (4.3-6.0) H Uric Acid 5.5 MG/DL (2.6-7.2) Calcium Level 7.9 MG/DL (8.5-10.1) L Phosphorus Level 6.0 MG/DL (2.5-4.9) H Magnesium Level 2.2 MG/DL (1.8-2.4) Total Bilirubin 0.6 MG/DL (0.2-1.0) Aspartate Amino Transf (AST/SGOT) 61 U/L (15-37) H Alanine Aminotransferase (ALT/SGPT) 25 U/L (12-78) Alkaline Phosphatase 93 U/L (46-116) C-Reactive Protein, Quantitative 23.0 mg/dL (0.00-0.90) H Pro-B-Type Natriuretic Peptide 02939 (0-125) H Total Protein 5.9 G/DL (6.4-8.2) L Albumin 1.3 G/DL (3.4-5.0) L Globulin 4.6 g/dL Albumin/Globulin Ratio 0.3 (1.0-2.7) L Triglycerides Level 125 MG/DL (0-200) Cholesterol Level 117 MG/DL (< 200) LDL Cholesterol 85 mg/dL (<100) HDL Cholesterol 16 MG/DL (40-60) L Cholesterol/HDL Ratio 7.3 (3.3-4.4) H Random Vancomycin Level 28.4 ug/mL Current Medications Medications (Trade) Dose Ordered Sig/Ailyn Route PRN Reason Start Time Stop Time Status Last Admin Dose Admin Acetaminophen (Tylenol) 650 mg Q4H PRN ORAL fever 05/27/17 07:30 06/26/17 07:29 Albuterol/ Ipratropium (DuoNeb 0.5-3(2.5)mg/3ml) 3 ml Q4H PRN HHN Shortness of Breath 05/27/17 07:30 06/01/17 07:29 Aspirin (Ecotrin) 81 mg DAILY ORAL 05/27/17 09:00 06/26/17 08:59 05/27/17 10:05 Atorvastatin Calcium (Lipitor) 80 mg BEDTIME ORAL 05/27/17 21:00 06/26/17 20:59 05/27/17 21:33 Chlorhexidine Gluconate (Lora-Hex 2%) 1 applic Q24H TOPIC 05/27/17 20:00 06/26/17 19:59 05/27/17 20:31 Clopidogrel Bisulfate (Plavix) 75 mg DAILY ORAL 05/27/17 12:00 06/26/17 11:59 05/28/17 09:43 Cyanocobalamin (Vitamin B12) 1,000 mcg DAILY SUBQ 05/28/17 09:00 05/30/17 09:01 05/28/17 09:44 Dextrose (Dextrose 50%) STAT PRN IV Hypoglycemia 05/27/17 07:30 06/26/17 07:29 Duloxetine HCl (Cymbalta) 30 mg DAILY ORAL 05/27/17 09:00 06/26/17 08:59 05/28/17 09:41 Epoetin Emmanuel (Procrit (for ESRD on dialysis)) 10,000 units MON-MON-MON SUBQ 05/29/17 21:00 06/28/17 20:59 Insulin Aspart (NovoLOG) BEFORE MEALS AND HS SUBQ 05/27/17 11:30 06/26/17 11:29 05/28/17 06:19 Lisinopril (Zestril) 10 mg Q12HR ORAL 05/27/17 09:00 06/26/17 08:59 05/28/17 09:44 Metoprolol Succinate (Toprol XL) 25 mg DAILY ORAL 05/27/17 09:00 06/26/17 08:59 05/28/17 09:42 Morphine Sulfate (Morphine Sulfate) 2 mg Q4H PRN IVP Moderate Pain (Pain Scale 4-6) 05/27/17 07:30 06/03/17 07:29 05/28/17 06:55 Nitroglycerin (Ntg) 0.4 mg Q5M PRN SL Prn Chest Pain 05/27/17 07:30 06/26/17 07:29 Ondansetron HCl (Zofran) 4 mg Q6H PRN IVP Nausea & Vomiting 05/27/17 07:30 06/26/17 07:29 Pantoprazole (Protonix) 40 mg DAILY ORAL 05/27/17 12:00 06/26/17 11:59 05/28/17 09:43 Piperacillin Sod/ Tazobactam Sod 2.25 gm/Dextrose 55 ml @ 110 mls/hr Q8HR IV 05/27/17 09:00 06/01/17 08:59 05/28/17 05:31 Polyethylene Glycol (Miralax) 17 gm DAILYPRN PRN ORAL Constipation 05/27/17 07:30 06/26/17 07:29 Pregabalin (Lyrica) 75 mg DAILY ORAL 05/27/17 09:00 06/26/17 08:59 05/28/17 09:43 Sevelamer Carbonate (Renvela) 1,600 mg THREE TIMES A DAY ORAL 05/28/17 13:00 06/27/17 12:59 Sitagliptin Phosphate (Januvia) 25 mg ACBREAKFAST ORAL 05/28/17 06:30 06/27/17 06:29 05/28/17 06:18 Temazepam (Restoril) 15 mg HSPRN PRN ORAL Insomnia 05/27/17 07:30 06/03/17 07:29 Vancomycin HCl (Vanco rx to dose) 1 ea DAILY PRN MISC PER RX PROTOCOL 05/27/17 07:45 06/26/17 07:44 ROMEL NEGRO May 28, 2017 10:45
--- NOTE | 2017-05-28 11:10 | General Progress Note ---
Assessment/Plan Status: unchanged Assessment/Plan ESRD- Right foot gangeren DM Retinopathy Encephalopathy ? sepsis Anemia- transfused High Troponin Sugg: Anemia osborne Transfuse 2 D Echo HD in am Subjective ROS Limited/Unobtainable: No Constitutional: Reports: malaise, weakness Allergies: Coded Allergies: No Known Allergies (Unverified , 02/15/13) Objective Last 24 Hour Vital Signs Date Time Temp Pulse Resp B/P (MAP) Pulse Ox O2 Delivery O2 Flow Rate FiO2 05/28/17 09:44 139/73 05/28/17 09:42 82 139/73 05/28/17 08:30 97.7 62 20 118/64 100 Nasal Cannula 2.0 05/28/17 07:28 80 17 Nasal Cannula 2.0 05/28/17 04:00 97.4 78 18 103/51 99 Nasal Cannula 2.0 05/28/17 04:00 64 05/28/17 00:00 98.1 69 18 141/65 99 Nasal Cannula 2.0 05/28/17 00:00 64 05/27/17 21:39 120/58 05/27/17 20:00 98.1 66 20 116/54 98 Nasal Cannula 2.0 05/27/17 20:00 62 05/27/17 16:00 70 05/27/17 15:34 98.1 62 20 150/68 98 Nasal Cannula 2.0 05/27/17 12:00 62 05/27/17 11:56 97.9 62 20 153/57 98 Nasal Cannula 2.0 Laboratory Tests 05/27/17 14:12: White Blood Count 12.8H, Red Blood Count 2.11L, Hemoglobin 7.0L, Hematocrit 20.8L, Mean Corpuscular Volume 99, Mean Corpuscular Hemoglobin 33.0H, Mean Corpuscular Hemoglobin Concent 33.4, Red Cell Distribution Width 14.9H, Platelet Count 302, Mean Platelet Volume 5.2L, Neutrophils (%) (Auto) , Lymphocytes (%) (Auto) , Monocytes (%) (Auto) , Eosinophils (%) (Auto) , Basophils (%) (Auto) , Differential Total Cells Counted 100, Neutrophils % ( Manual) 75, Lymphocytes % (Manual) 14L, Monocytes % (Manual) 9, Eosinophils % ( Manual) 1, Basophils % (Manual) 0, Band Neutrophils 1, Platelet Estimate Adequate, Platelet Morphology Normal, Red Blood Cell Morphology Normal, Erythrocyte Sedimentation Rate 144H, Iron Level 32L, Total Iron Binding Capacity 52L, Percent Iron Saturation 62H, Unsaturated Iron Binding 20L, Ferritin 2450H, C-Reactive Protein, Quantitative 27.0H, Vitamin B12 Level 138L, Folate 43.0H 05/27/17 16:15: Troponin I 0.340H 05/27/17 20:45: Troponin I 0.376H 05/28/17 02:45: Troponin I 0.319H 05/28/17 04:10: White Blood Count 10.1, Red Blood Count 2.43L, Hemoglobin 8.0L, Hematocrit 23.4L , Mean Corpuscular Volume 96, Mean Corpuscular Hemoglobin 33.0H, Mean Corpuscular Hemoglobin Concent 34.4, Red Cell Distribution Width 14.7, Platelet Count 282, Mean Platelet Volume 5.3L, Neutrophils (%) (Auto) 76.1H, Lymphocytes (%) (Auto) 10.7L, Monocytes (%) (Auto) 7.2, Eosinophils (%) (Auto) 5.3H, Basophils (%) (Auto) 0.8, Sodium Level 136, Potassium Level 4.4, Chloride Level 102, Carbon Dioxide Level 24, Anion Gap 10, Blood Urea Nitrogen 56H, Creatinine 6.2H, Estimat Glomerular Filtration Rate 9.2, Glucose Level 95, Hemoglobin A1c 6.8H, Uric Acid 5.5, Calcium Level 7.9L, Phosphorus Level 6.0H, Magnesium Level 2.2, Total Bilirubin 0.6, Aspartate Amino Transf (AST/SGOT) 61H, Alanine Aminotransferase (ALT/SGPT) 25, Alkaline Phosphatase 93, C-Reactive Protein, Quantitative 23.0H, Pro-B-Type Natriuretic Peptide 49764B, Total Protein 5.9L, Albumin 1.3L, Globulin 4.6, Albumin/Globulin Ratio 0.3L, Triglycerides Level 125 , Cholesterol Level 117, LDL Cholesterol 85, HDL Cholesterol 16L, Cholesterol/ HDL Ratio 7.3H, Random Vancomycin Level 28.4 Height (Feet): 5 Height (Inches): 6.00 Weight (Pounds): 140 General Appearance: no apparent distress, lethargic Cardiovascular: normal rate Respiratory/Chest: decreased breath sounds Abdomen: soft Extremities: other - not changed FOULADIAN,JADON May 28, 2017 11:10
[2017-05-28] MEDS: Aspirin EC 81mg tab ORAL SCH (11:56)
[2017-05-28 12:00] VITALS: BP 139/57
--- NOTE | 2017-05-28 14:04 | Pulmonology Progress Note ---
Assessment/Plan Assessment/Plan ASSESSMENT possible sepsis acute on chronic encephalopathy ( multifactorial) anemia, requiring blood transfusion ESRD, on HD DM elevated troponin possible NSTEMI vs 2 to ESRD PAD diabetic foot ulcer BLE ( R>L) OM R foot PLAN OF CARE tele abx ID follows fup with cx ESR CRP with significant elevation podiatry and vascular surgery eval as recommended by ID elevated troponin possibly 2 to ESRD, no cardiac complainants ECG no acute ischemic changes ASA, Plavix, statin lipid panel WNL cardio eval appreciated ECHO stress test BP management wit BB and ARIADNA hold heparin for now due to acute anemia venous Duplex BLE anemia w/up c/w anemia of chronci , likely renal disease on EPO GI prophylaxis BS management with Januvia and SS of insulin, and optimize as needed [id number] goal-6.8 nephro follows for HD monitor renal parameters, lytes Bowel regimen wound care as per wound nurse recommendations case discussed and evaluated by supervising physician Subjective Allergies: Coded Allergies: No Known Allergies (Unverified , 02/15/13) Subjective denies chest pain, SOB palpitations troponin started to go down nephro follows s/p blood transfusion 2u PRBC Objective Last 24 Hour Vital Signs Date Time Temp Pulse Resp B/P (MAP) Pulse Ox O2 Delivery O2 Flow Rate FiO2 05/28/17 12:00 97.5 65 20 139/57 100 Nasal Cannula 2.0 05/28/17 09:44 139/73 05/28/17 09:42 82 139/73 05/28/17 08:30 97.7 62 20 118/64 100 Nasal Cannula 2.0 05/28/17 07:28 80 17 Nasal Cannula 2.0 05/28/17 04:00 97.4 78 18 103/51 99 Nasal Cannula 2.0 05/28/17 04:00 64 05/28/17 00:00 98.1 69 18 141/65 99 Nasal Cannula 2.0 05/28/17 00:00 64 05/27/17 21:39 120/58 05/27/17 20:00 98.1 66 20 116/54 98 Nasal Cannula 2.0 05/27/17 20:00 62 05/27/17 16:00 70 05/27/17 15:34 98.1 62 20 150/68 98 Nasal Cannula 2.0 Intake and Output 05/28/17 05/29/17 19:00 07:00 Intake Total 480 ml Output Total 200 ml Balance 280 ml Intake Oral 480 ml Output Urine Total 200 ml Objective Extremities: other - BS maanegemtn with SS of insulin and optimize as needed Physical Exam Narrative General Appearance: chronically ill appearing male, inNAD HEENT, NC/AT PERRL, EOMI, OP moist , no lesions Neck: supple, trachea midline Respiratory: CTAB Cardiovascular RRR, no edema, LUE shunt with + bruit/thrill Gastrointestinal: NT/ND, + BS, Musculoskeletal: R foot with large full thickness ulcer at the plantar right foot to the level of bone with exposed 5th metatarsal base. Skin necrosis at the right hallux nail bed. Foot is cold, erythema on dorsum and medial aspect of foot, no purulent drainage Left heel partial thickness ulcer with a black eschar overlying it Neurologic: AAO x1 Skin: no rash, see also descriptions of ulcers under MS system Microbiology Date/Time Source Procedure Growth Status 05/26/17 23:27 Blood Blood Culture - Preliminary NO GROWTH AFTER 24 HOURS Resulted 05/26/17 23:27 Blood Blood Culture - Preliminary NO GROWTH AFTER 24 HOURS Resulted 05/27/17 15:00 Wound Gram Stain - Final Resulted 05/27/17 15:00 Wound Wound Culture - Preliminary NO GROWTH Resulted Laboratory Tests 05/27/17 14:12: White Blood Count 12.8H, Red Blood Count 2.11L, Hemoglobin 7.0L, Hematocrit 20.8L, Mean Corpuscular Volume 99, Mean Corpuscular Hemoglobin 33.0H, Mean Corpuscular Hemoglobin Concent 33.4, Red Cell Distribution Width 14.9H, Platelet Count 302, Mean Platelet Volume 5.2L, Neutrophils (%) (Auto) , Lymphocytes (%) (Auto) , Monocytes (%) (Auto) , Eosinophils (%) (Auto) , Basophils (%) (Auto) , Differential Total Cells Counted 100, Neutrophils % ( Manual) 75, Lymphocytes % (Manual) 14L, Monocytes % (Manual) 9, Eosinophils % ( Manual) 1, Basophils % (Manual) 0, Band Neutrophils 1, Platelet Estimate Adequate, Platelet Morphology Normal, Red Blood Cell Morphology Normal, Erythrocyte Sedimentation Rate 144H, Iron Level 32L, Total Iron Binding Capacity 52L, Percent Iron Saturation 62H, Unsaturated Iron Binding 20L, Ferritin 2450H, C-Reactive Protein, Quantitative 27.0H, Vitamin B12 Level 138L, Folate 43.0H 05/27/17 16:15: Troponin I 0.340H 05/27/17 20:45: Troponin I 0.376H 05/28/17 02:45: Troponin I 0.319H 05/28/17 04:10: White Blood Count 10.1, Red Blood Count 2.43L, Hemoglobin 8.0L, Hematocrit 23.4L , Mean Corpuscular Volume 96, Mean Corpuscular Hemoglobin 33.0H, Mean Corpuscular Hemoglobin Concent 34.4, Red Cell Distribution Width 14.7, Platelet Count 282, Mean Platelet Volume 5.3L, Neutrophils (%) (Auto) 76.1H, Lymphocytes (%) (Auto) 10.7L, Monocytes (%) (Auto) 7.2, Eosinophils (%) (Auto) 5.3H, Basophils (%) (Auto) 0.8, Sodium Level 136, Potassium Level 4.4, Chloride Level 102, Carbon Dioxide Level 24, Anion Gap 10, Blood Urea Nitrogen 56H, Creatinine 6.2H, Estimat Glomerular Filtration Rate 9.2, Glucose Level 95, Hemoglobin A1c 6.8H, Uric Acid 5.5, Calcium Level 7.9L, Phosphorus Level 6.0H, Magnesium Level 2.2, Total Bilirubin 0.6, Aspartate Amino Transf (AST/SGOT) 61H, Alanine Aminotransferase (ALT/SGPT) 25, Alkaline Phosphatase 93, C-Reactive Protein, Quantitative 23.0H, Pro-B-Type Natriuretic Peptide 76783O, Total Protein 5.9L, Albumin 1.3L, Globulin 4.6, Albumin/Globulin Ratio 0.3L, Triglycerides Level 125 , Cholesterol Level 117, LDL Cholesterol 85, HDL Cholesterol 16L, Cholesterol/ HDL Ratio 7.3H, Random Vancomycin Level 28.4 05/28/17 11:15: Troponin I 0.257H Current Medications Medications (Trade) Dose Ordered Sig/Ailyn Route PRN Reason Start Time Stop Time Status Last Admin Dose Admin Acetaminophen (Tylenol) 650 mg Q4H PRN ORAL fever 05/27/17 07:30 06/26/17 07:29 Albuterol/ Ipratropium (DuoNeb 0.5-3(2.5)mg/3ml) 3 ml Q4H PRN HHN Shortness of Breath 05/27/17 07:30 06/01/17 07:29 Aspirin (Ecotrin) 81 mg DAILY ORAL 05/27/17 09:00 06/26/17 08:59 05/28/17 11:56 Atorvastatin Calcium (Lipitor) 80 mg BEDTIME ORAL 05/27/17 21:00 06/26/17 20:59 05/27/17 21:33 Chlorhexidine Gluconate (Lora-Hex 2%) 1 applic Q24H TOPIC 05/27/17 20:00 06/26/17 19:59 05/27/17 20:31 Clopidogrel Bisulfate (Plavix) 75 mg DAILY ORAL 05/27/17 12:00 06/26/17 11:59 05/28/17 09:43 Cyanocobalamin (Vitamin B12) 1,000 mcg DAILY SUBQ 05/28/17 09:00 05/30/17 09:01 05/28/17 09:44 Dextrose (Dextrose 50%) STAT PRN IV Hypoglycemia 05/27/17 07:30 06/26/17 07:29 Docusate Sodium (Colace) 100 mg THREE TIMES A DAY ORAL 05/28/17 13:00 06/27/17 12:59 Duloxetine HCl (Cymbalta) 30 mg DAILY ORAL 05/27/17 09:00 06/26/17 08:59 05/28/17 09:41 Epoetin Emmanuel (Procrit (for ESRD on dialysis)) 10,000 units MON-WED-FRI SUBQ 05/29/17 21:00 06/28/17 20:59 Insulin Aspart (NovoLOG) BEFORE MEALS AND HS SUBQ 05/27/17 11:30 06/26/17 11:29 05/28/17 06:19 Lisinopril (Zestril) 10 mg DAILY ORAL 05/29/17 09:00 06/26/17 08:59 Metoprolol Succinate (Toprol XL) 25 mg DAILY ORAL 05/27/17 09:00 06/26/17 08:59 05/28/17 09:42 Morphine Sulfate (Morphine Sulfate) 2 mg Q4H PRN IVP Moderate Pain (Pain Scale 4-6) 05/27/17 07:30 06/03/17 07:29 05/28/17 06:55 Nitroglycerin (Ntg) 0.4 mg Q5M PRN SL Prn Chest Pain 05/27/17 07:30 06/26/17 07:29 Ondansetron HCl (Zofran) 4 mg Q6H PRN IVP Nausea & Vomiting 05/27/17 07:30 06/26/17 07:29 Pantoprazole (Protonix) 40 mg DAILY ORAL 05/27/17 12:00 06/26/17 11:59 05/28/17 09:43 Piperacillin Sod/ Tazobactam Sod 2.25 gm/Dextrose 55 ml @ 110 mls/hr Q8HR IV 05/27/17 09:00 06/01/17 08:59 05/28/17 05:31 Polyethylene Glycol (Miralax) 17 gm DAILYPRN PRN ORAL Constipation 05/27/17 07:30 06/26/17 07:29 Pregabalin (Lyrica) 75 mg DAILY ORAL 05/27/17 09:00 06/26/17 08:59 05/28/17 09:43 Sevelamer Carbonate (Renvela) 1,600 mg THREE TIMES A DAY ORAL 05/28/17 13:00 06/27/17 12:59 Sitagliptin Phosphate (Januvia) 25 mg ACBREAKFAST ORAL 05/28/17 06:30 06/27/17 06:29 05/28/17 06:18 Temazepam (Restoril) 15 mg HSPRN PRN ORAL Insomnia 05/27/17 07:30 06/03/17 07:29 Vancomycin HCl (Vanco rx to dose) 1 ea DAILY PRN MISC PER RX PROTOCOL 05/27/17 07:45 06/26/17 07:44 Stacia Ruelas NP ([facility]) May 28, 2017 14:04
[2017-05-28] MEDS: Docusate 100mg cap ORAL SCH ×2 (15:51→18:00)
[2017-05-28 16:30] VITALS: BP 145/64
[2017-05-28] MEDS ORDERED: Tubing Blood Filter IV ONE (17:10)
[2017-05-28] MEDS ORDERED: Vitamin B12 1000mcg/ml Inj IM ONE (19:00)
--- NOTE | 2017-05-28 20:00 | Cardiology Progress Note ---
Subjective Subjective [id number] Objective Last 24 Hour Vital Signs Date Time Temp Pulse Resp B/P (MAP) Pulse Ox O2 Delivery O2 Flow Rate FiO2 05/28/17 16:30 98.4 67 20 145/64 100 Nasal Cannula 2.0 05/28/17 12:00 97.5 65 20 139/57 100 Nasal Cannula 2.0 05/28/17 12:00 66 05/28/17 09:44 139/73 05/28/17 09:42 82 139/73 05/28/17 08:30 97.7 62 20 118/64 100 Nasal Cannula 2.0 05/28/17 08:00 60 05/28/17 07:28 80 17 Nasal Cannula 2.0 05/28/17 04:00 97.4 78 18 103/51 99 Nasal Cannula 2.0 05/28/17 04:00 64 05/28/17 00:00 98.1 69 18 141/65 99 Nasal Cannula 2.0 05/28/17 00:00 64 05/27/17 21:39 120/58 Intake and Output 05/28/17 05/29/17 19:00 07:00 Intake Total 720 ml Output Total 200 ml Balance 520 ml Intake Oral 720 ml Output Urine Total 200 ml # Voids 1 # Bowel Movements 2 Laboratory Tests Test 05/27/17 20:45 05/28/17 02:45 05/28/17 04:10 05/28/17 11:15 Troponin I 0.376 ng/mL (0.000-0.056) 0.319 ng/mL (0.000-0.056) 0.257 ng/mL (0.000-0.056) White Blood Count 10.1 K/UL (4.8-10.8) Red Blood Count 2.43 M/UL (4.70-6.10) L Hemoglobin 8.0 G/DL (14.2-18.0) L Hematocrit 23.4 % (42.0-52.0) L Mean Corpuscular Volume 96 FL (80-99) Mean Corpuscular Hemoglobin 33.0 PG (27.0-31.0) H Mean Corpuscular Hemoglobin Concent 34.4 G/DL (32.0-36.0) Red Cell Distribution Width 14.7 % (11.6-14.8) Platelet Count 282 K/UL (150-450) Mean Platelet Volume 5.3 FL (6.5-10.1) L Neutrophils (%) (Auto) 76.1 % (45.0-75.0) H Lymphocytes (%) (Auto) 10.7 % (20.0-45.0) L Monocytes (%) (Auto) 7.2 % (1.0-10.0) Eosinophils (%) (Auto) 5.3 % (0.0-3.0) H Basophils (%) (Auto) 0.8 % (0.0-2.0) Sodium Level 136 MMOL/L (136-145) Potassium Level 4.4 MMOL/L (3.5-5.1) Chloride Level 102 MMOL/L (98-107) Carbon Dioxide Level 24 MMOL/L (21-32) Anion Gap 10 (5-15) Blood Urea Nitrogen 56 mg/dL (7-18) H Creatinine 6.2 MG/DL (0.55-1.30) H Estimat Glomerular Filtration Rate 9.2 mL/min (>60) Glucose Level 95 MG/DL (74-106) Hemoglobin A1c 6.8 % (4.3-6.0) H Uric Acid 5.5 MG/DL (2.6-7.2) Calcium Level 7.9 MG/DL (8.5-10.1) L Phosphorus Level 6.0 MG/DL (2.5-4.9) H Magnesium Level 2.2 MG/DL (1.8-2.4) Total Bilirubin 0.6 MG/DL (0.2-1.0) Aspartate Amino Transf (AST/SGOT) 61 U/L (15-37) H Alanine Aminotransferase (ALT/SGPT) 25 U/L (12-78) Alkaline Phosphatase 93 U/L (46-116) C-Reactive Protein, Quantitative 23.0 mg/dL (0.00-0.90) H Pro-B-Type Natriuretic Peptide 33667 (0-125) H Total Protein 5.9 G/DL (6.4-8.2) L Albumin 1.3 G/DL (3.4-5.0) L Globulin 4.6 g/dL Albumin/Globulin Ratio 0.3 (1.0-2.7) L Triglycerides Level 125 MG/DL (0-200) Cholesterol Level 117 MG/DL (< 200) LDL Cholesterol 85 mg/dL (<100) HDL Cholesterol 16 MG/DL (40-60) L Cholesterol/HDL Ratio 7.3 (3.3-4.4) H Random Vancomycin Level 28.4 ug/mL Test 05/28/17 15:00 Troponin I 0.170 ng/mL (0.000-0.056) Microbiology Date/Time Source Procedure Growth Status 05/26/17 23:27 Blood Blood Culture - Preliminary NO GROWTH AFTER 24 HOURS Resulted 05/26/17 23:27 Blood Blood Culture - Preliminary NO GROWTH AFTER 24 HOURS Resulted 05/27/17 15:00 Wound Gram Stain - Final Resulted 05/27/17 15:00 Wound Wound Culture - Preliminary NO GROWTH Resulted YU VAN May 28, 2017 20:00
[2017-05-28] MEDS: Dyna-Hex 2% Top Sol 2oz TOPIC SCH (20:16)
[2017-05-28] MEDS: Atorvastatin 80mg tab ORAL SCH (21:22)
[2017-05-28] MEDS: Heparin 5000 units/ml inj SUBQ SCH (21:26)
--- NOTE | 2017-05-28 22:00 | Consultation ---
DATE OF CONSULTATION: 05/28/2017 CONSULTING PHYSICIAN: Aislinn Nice M.D. ATTENDING PHYSICIAN: Mitzi Whitley M.D. REFERRING PHYSICIAN: Alok Armendariz M.D. REASON FOR EVALUATION: The patient had elevated troponin. PATIENT IDENTIFYING DATA: A 66-year-old gentleman who came in with low blood pressure, post hemodialysis. HISTORY OF PRESENT ILLNESS: At the time I see him, he appears to be stable. He denies chest pain; however, he has generalized weakness. He was recently admitted to [facility] due to the infection of the right foot. The patient's cardiac disease is important for history of CABG, he had PINTO to LAD through [facility] and then he had stents, left main to OM and stent in the RCA vessel done in 02/2017. Prior to that, his ejection fraction was 30% and after that, it was reported to go up to 55%. The patient also has history of paroxysmal atrial fibrillation in the past. PAST MEDICAL HISTORY: Significant for diabetes, end-stage renal disease, he is on dialysis, as I stated ischemia of the right leg with an infection, and altered mental status. ALLERGIES: None reported. HABITS: No history of drinking, smoking, or drug abuse. SOCIAL HISTORY: He is more dependent now. REVIEW OF SYSTEMS: Significant for weight loss, generalized fatigue, and dyspnea. There is no syncope. He is on dialysis. His dialysis shunt is on the left arm. PHYSICAL EXAMINATION: GENERAL: This is a [id number] gentleman with moderate distress, chronically ill-appearing. VITAL SIGNS: Blood pressure 140/60, heart rate 60, temperature is normal, and oxygen saturation on 2 L of oxygen is 100%. HEENT: PERRLA. EOMI. NECK: Neck veins are not distended. Carotid upstroke is preserved. LUNGS: He has few crackles at bases. HEART: His heart is regular with accentuated A2. SKIN: He has IV access in the right arm. There is dialysis shunt in the left arm. ABDOMEN: Soft and nontender. EXTREMITIES: Lower extremities, right leg is wrapped with a dressing. I did not open. There is palpable popliteal pulse bilaterally. Left leg also has a dressing on. NEUROLOGIC: He is intact. LABORATORY DATA: Significant for troponin elevation to 0.257. His phosphorus is 6. His creatinine is 6.2. His HDL is 16. His chest x-ray was done and it revealed no acute disease, presence of PICC catheter from the right arm. IMPRESSION AND RECOMMENDATION: Troponin elevation. The patient with significant coronary artery disease. He is asymptomatic right now. His blood pressure is stable. I am going to order the stress test on him. We are going to treat him at present time with optimal medical management. Thank you very much for your consultation. Aislinn Nice M.D. DR: Kina JOB#: [id number] CC:
[2017-05-29] VITALS (7 sets, daily range): BP systolic 110–162; BP diastolic 56–100
--- NOTE | 2017-05-29 01:30 | Consultation ---
DATE OF CONSULTATION: 05/28/2017 CHIEF COMPLAINT: Altered mental status, anemia. Most of history per chart. HISTORY OF PRESENT ILLNESS: The patient is a very poor historian, cannot get any history from him. The patient is a 66, but he looks definitely older than his age. He was brought to the hospital with altered mental status. He has history of hypertension, diabetes, end-stage renal disease, on hemodialysis. Gastrointestinal consult was requested for evaluation of anemia. PAST MEDICAL HISTORY: 1. Diabetes. 2. Hypertension. 3. Anemia. 4. End-stage renal disease, on hemodialysis. PAST SURGICAL HISTORY: Unknown. ALLERGIES: No known drug allergies. MEDICATIONS: Please see medication reconciliation list. SOCIAL HISTORY: Unknown. FAMILY HISTORY: Unknown. REVIEW OF SYSTEMS: Unable to obtain. PHYSICAL EXAMINATION: VITAL SIGNS: Temperature is 98.4 degrees, pulse 61, respiratory rate 20, and blood pressure is 145/64. HEENT: Normocephalic and atraumatic. Pale conjunctiva. NECK: Supple. No evidence of lymphadenopathy. CARDIOVASCULAR: Regular rhythm. Plus S1 and S2. LUNGS: Decreased breath sounds bilaterally based on supine exam. ABDOMEN: Soft and nontender. No rebound. No guarding. No peritoneal sign. EXTREMITIES: No cyanosis. No clubbing. No edema. LABORATORY DATA: White count is 10, hemoglobin was as low as 7, now is 8 after blood transfusion, and platelet count is 282,000. Chem-7, sodium 133, potassium 4.2, BUN 45, and creatinine 5.0. Troponin elevated at 0.326. Albumin is low at 1.4. ASSESSMENT: This is a 66-year-old male with normocytic anemia, altered mental status, B12 deficiency, end-stage renal disease, diabetes, and hypertension. PLAN: Anemia, most probably secondary to renal disease. The patient unable to give the history of gastrointestinal bleeding. Stool OB is pending. Apparently, it has been sent. Plan to monitor hemoglobin and hematocrit and transfuse as needed. Give the patient vitamin B12 supplements. Given high folic acid, low B12 that is suspicious for responding just to bacterial overgrowth, therefore we are going to start the patient on Xifaxan three times a day. Meanwhile, in terms of GI procedures at this time, there is no active bleeding. The patient is unable to give any history. Troponins are mildly elevated, so we are going to hold off for now. We are also going to consult dietitian given albumin of 1.4 and malnutrition. I want to thank, Dr. Whitley, for this kind referral. Robinson Carl M.D. DR: Elbert JOB#: [id number] CC: Mitzi Whitley M.D.; Fax#: [phone]
[2017-05-29] MEDS: Morphine Sulfate 2mg/ml Inj IVP PRN (04:22)
[2017-05-29 05:37] LABS: BASOPHILS % (AUTO) 0.6 % (0.0-2.0); EOSINOPHILS % (AUTO) 6.7 % (0.0-3.0); LYMPHOCYTES % (AUTO) 11.5 % (20.0-45.0); MEAN CORPUSCULAR HEMOGLOBIN 32.4 PG (27.0-31.0); MEAN CORPUSCULAR HGB CONC 33.5 G/DL (32.0-36.0); MEAN CORPUSCULAR VOLUME 97 FL (80-99); MEAN PLATELET VOLUME 5.2 FL (6.5-10.1); MONOCYTES % (AUTO) 8.3 % (1.0-10.0); NEUTROPHILS % (AUTO) 72.9 % (45.0-75.0); PLATELET COUNT 303 K/UL (150-450); RED BLOOD COUNT 2.55 M/UL (4.70-6.10); RED CELL DISTRIBUTION WIDTH 14.7 % (11.6-14.8); WHITE BLOOD COUNT 9.2 K/UL (4.8-10.8)
[2017-05-29] MEDS: Zosyn 2.25 gm in D5W 55ml IV SCH ×3 (05:49→22:10)
[2017-05-29] MEDS: sitaGLIPtin 25mg tab ORAL SCH (05:49)
[2017-05-29 06:00] LABS: ALANINE AMINOTRANSFERASE 24 U/L (12-78); ALBUMIN/GLOBULIN RATIO 0.3 (1.0-2.7); ANION GAP 11 (5-15); ASPARTATE AMINO TRANSFERASE 43 U/L (15-37); CALCIUM 7.9 MG/DL (8.5-10.1); CARBON DIOXIDE 23 MMOL/L (21-32); CHLORIDE 100 MMOL/L (98-107); CREATININE 6.8 MG/DL (0.55-1.30); GLOMERULAR FILTRATION RATE 8.2 mL/min (>60); SODIUM 134 MMOL/L (136-145)
[2017-05-29] MEDS: NovoLOG Insulin Flexpen SUBQ SCH ×4 (06:30→21:26)
[2017-05-29] MEDS: Lyrica 75mg cap ORAL SCH (09:00)
[2017-05-29] MEDS: Lisinopril 10mg tab ORAL SCH (09:00)
[2017-05-29] MEDS: Aspirin EC 81mg tab ORAL SCH (09:00)
[2017-05-29] MEDS: Vitamin B12 1000mcg/ml Inj SUBQ SCH (09:00)
[2017-05-29] MEDS: Metoprolol Succinate XL 25mg tab ORAL SCH (09:00)
[2017-05-29] MEDS: DULoxetine 30mg cap ORAL SCH (09:00)
[2017-05-29] MEDS: Docusate 100mg cap ORAL SCH ×3 (09:30→17:54)
--- NOTE | 2017-05-29 09:31 | Consultation ---
Consult Note Consult Note PODIATRY CONSULTATION DATE OF CONSULTATION: 05/29/17 REASON FOR CONSULT: BILATERAL FOOT ULCERS HISTORY OF PRESENT ILLNESS: Patient is a 66 year old male with recent admission. He has a history of bilateral foot ulcers, right worse than left. The patient has a right plantar foot necrotic wound with exposed bone. Patient was to have a vascular workup after recent discharge. However, per patient and nursing staff it does not appear that a workup was performed. Local wound care was continued along with antibiotics. Patient reports no nausea, vomiting, fevers, or chills. PAST MEDICAL HISTORY: ESRD on hemodialysis, T2DM, hypercholesterolemia, HTN, CAD , NSTEMI, CHF, and foot cellulitis FAMILY, SURGICAL, AND SOCIAL HISTORY: No pertinent findings ALLERGIES: No known ANTIBIOTICS: Zosyn and Vancomycin Last 24 Hour Vital Signs Date Time Temp Pulse Resp B/P (MAP) Pulse Ox O2 Delivery O2 Flow Rate FiO2 05/29/17 08:36 97.0 62 20 158/56 100 Nasal Cannula 2.0 05/29/17 08:00 62 05/29/17 04:00 98.0 68 20 157/65 68 Nasal Cannula 2.0 05/29/17 04:00 63 05/29/17 00:15 98.0 63 20 110/57 99 Nasal Cannula 2.0 05/29/17 00:00 67 05/28/17 20:00 66 05/28/17 19:30 72 20 Nasal Cannula 2.0 28 05/28/17 19:30 95 Nasal Cannula 2.0 28 05/28/17 19:30 Nasal Cannula 2.0 28 05/28/17 16:30 98.4 67 20 145/64 100 Nasal Cannula 2.0 05/28/17 16:00 66 05/28/17 12:00 97.5 65 20 139/57 100 Nasal Cannula 2.0 05/28/17 12:00 66 05/28/17 09:44 139/73 05/28/17 09:42 82 139/73 Laboratory Tests Test 05/28/17 11:15 05/28/17 15:00 05/28/17 16:20 05/28/17 21:05 Troponin I 0.257 ng/mL (0.000-0.056) 0.170 ng/mL (0.000-0.056) 0.210 ng/mL (0.000-0.056) Stool Occult Blood Pending Test 05/29/17 04:00 05/29/17 05:20 Ammonia 20 umol/L (11.2-31.7) White Blood Count 9.2 K/UL (4.8-10.8) Red Blood Count 2.55 M/UL (4.70-6.10) L Hemoglobin 8.3 G/DL (14.2-18.0) L Hematocrit 24.7 % (42.0-52.0) L Mean Corpuscular Volume 97 FL (80-99) Mean Corpuscular Hemoglobin 32.4 PG (27.0-31.0) H Mean Corpuscular Hemoglobin Concent 33.5 G/DL (32.0-36.0) Red Cell Distribution Width 14.7 % (11.6-14.8) Platelet Count 303 K/UL (150-450) Mean Platelet Volume 5.2 FL (6.5-10.1) L Neutrophils (%) (Auto) 72.9 % (45.0-75.0) Lymphocytes (%) (Auto) 11.5 % (20.0-45.0) L Monocytes (%) (Auto) 8.3 % (1.0-10.0) Eosinophils (%) (Auto) 6.7 % (0.0-3.0) H Basophils (%) (Auto) 0.6 % (0.0-2.0) Sodium Level 134 MMOL/L (136-145) L Potassium Level 5.0 MMOL/L (3.5-5.1) Chloride Level 100 MMOL/L (98-107) Carbon Dioxide Level 23 MMOL/L (21-32) Anion Gap 11 (5-15) Blood Urea Nitrogen 61 mg/dL (7-18) H Creatinine 6.8 MG/DL (0.55-1.30) H Estimat Glomerular Filtration Rate 8.2 mL/min (>60) Glucose Level 91 MG/DL (74-106) Calcium Level 7.9 MG/DL (8.5-10.1) L Total Bilirubin 0.5 MG/DL (0.2-1.0) Aspartate Amino Transf (AST/SGOT) 43 U/L (15-37) H Alanine Aminotransferase (ALT/SGPT) 24 U/L (12-78) Alkaline Phosphatase 93 U/L (46-116) Total Protein 6.0 G/DL (6.4-8.2) L Albumin 1.3 G/DL (3.4-5.0) L Globulin 4.7 g/dL Albumin/Globulin Ratio 0.3 (1.0-2.7) L Microbiology Date/Time Source Procedure Growth Status 05/26/17 23:27 Blood Blood Culture - Preliminary NO GROWTH AFTER 48 HOURS Resulted 05/27/17 15:00 Wound Gram Stain - Final Resulted 05/27/17 15:00 Wound Wound Culture - Preliminary NO GROWTH Resulted 05/27/17 09:00 Nasal Nares MRSA Culture - Final NO METHICILLIN RESISTANT STAPH AUREUS... Complete 05/27/17 09:00 Rectum VRE Culture - Final Enterococcus Faecium - Vre Complete PHYSICAL EXAM: DERM: Patient has a large full thickness ulcer at the plantar right foot to the level of bone with exposed 5th metatarsal base. Necrotic tissue proximally. Absent right hallux nail. Patient has a left heel dry and necrotic unstageable wound. No purulence or malodor from either wounds NEURO: Decreased sensation to light touch VASC: Pedal pulses lightly palpable MSK: Decreased muscle strength noted . Assessment/Plan ASSESSMENT: - Large right plantar foot full thickness ulcer with osteomyelitis, exposed bone , and necrotic tissue - Left heel with dry and necrotic unstageable wound - PVD - T2DM - Peripheral neuropathy - ESRD on hemodialysis PLAN: - Recommend vascular consult. Will consider debridement and advanced wound care therapy once patient's vascular status has been optimized - Continue daily wound care using xeroform and dry dressing - Continue antibiotics - Offload heels - Discussed plan with patient. He remains at high risk for more proximal amputation, such as below the knee, if the wound does not improve David Stanley DPM May 29, 2017 09:31
[2017-05-29] MEDS: Heparin 5000 units/ml inj SUBQ SCH ×2 (09:34→21:27)
--- NOTE | 2017-05-29 09:37 | Cardiology Report ---
APPROVED REPORT EXAM: Two-dimensional and M-mode echocardiogram with Doppler and color Doppler. INDICATION Congestive Heart Failure M-Mode DIMENSIONS IVSd1.2 (0.7-1.1cm)Left Atrium (MM)4.4 (1.6-4.0cm) LVDd3.3 (3.5-5.6cm)Aortic Root3.3 (2.0-3.7cm) PWd1.2 (0.7-1.1cm)Aortic Cusp Exc.1.7 (1.5-2.0cm) LVDs2.0 (2.5-4.0cm) PWs1.5 cm Normal left ventricular chamber size, systolic function and wall motion. Left ventricular ejection fraction estimated to be 55 %. Mild left ventricular hypertrophy. Possible trace pericardial effusion. All other cardiac chamber sizes are within normal limits. Focal aortic valve sclerosis with adequate cusp excursion. Mildly thickened mitral valve leaflets with normal excursion. Mild mitral annulus and aortic root calcification. Normal pulmonic valve structure. Normal tricuspid valve structure. IVC not obtainable. A color flow and spectral Doppler study was performed and revealed: Mild aortic regurgitation. Moderate mitral regurgitation. Mitral inflow indicates normal left ventricular diastolic function. Moderate tricuspid regurgitation. Tricuspid systolic velocities suggests peak right ventricular systolic pressure of 42 mmHg, consistent with mild pulmonary hypertension. Trace pulmonic regurgitation present.
--- NOTE | 2017-05-29 09:50 | Diagnostic Imaging Report ---
Indication: Infection, pain, abnormal recent MRI demonstrating possible osteomyelitis Technique: 3 views right foot Comparison: none Findings: There is mild hammertoe deformity of the second through fifth digits. There is mild hallux valgus and metatarsus adductus. No acute fractures. No dislocations. There is pes cavus anomaly. There are vascular calcifications. No definite soft tissue gas. There is a large soft tissue defect of the plantar surface of the foot extending laterally, however. No definite osseous erosions. Nonspecific small calcific density is seen adjacent to the base of the fifth proximal phalanx. Impression: Large plantar and lateral foot soft tissue defect, in retrospect also evident on recent foot MRI, likely related to prior debridement. Correlate with clinical history and findings Note definite acute bony trauma. No gross osseous abnormality to suggest acute osteomyelitis. Note, however, limited sensitivity of plain radiographs for such Soft tissue gas is suspected on recent MRI is not visible radiographically. May have been subthreshold for visualization on plain radiographs or artifactual or may have resolved in the interim
--- NOTE | 2017-05-29 11:54 | GI Progress Note ---
Assessment/Plan Problems: (1) ESRD (end stage renal disease) on dialysis ICD Codes: N18.6 - End stage renal disease; Z99.2 - Dependence on renal dialysis SNOMED: 236003397 (2) Non-STEMI (non-ST elevated myocardial infarction) ICD Codes: I21.4 - Non-ST elevation (NSTEMI) myocardial infarction SNOMED: 312386575 (3) Anemia ICD Codes: D64.9 - Anemia, unspecified SNOMED: 439989166 Qualifiers: Qualified Codes: D64.9 - Anemia, unspecified (4) Diabetes mellitus ICD Codes: E11.9 - Type 2 diabetes mellitus without complications SNOMED: 88895561 (5) Hypoalbuminemia ICD Codes: E88.09 - Other disorders of plasma-protein metabolism, not elsewhere classified SNOMED: 112373124 Status: unchanged Status Narrative Discussed with Dr. Carl. Assessment/Plan OB stool negative B12 deficiency troponin mild elevation ammonia WNL Anemia, most probably secondary to renal disease. monitor H&H, prn tranfusions HD today cont xifaxan given high folic acid, low B12 defer GI procedures given mild troponin elevation ppi fu labs fu dietary recs noted patient on Plavix, will require dc min 48 hours prior any GI procedures. Subjective Subjective fatigue, having HD Objective Last 24 Hour Vital Signs Date Time Temp Pulse Resp B/P (MAP) Pulse Ox O2 Delivery O2 Flow Rate FiO2 05/29/17 08:36 97.0 62 20 158/56 100 Nasal Cannula 2.0 05/29/17 08:00 62 05/29/17 04:00 98.0 68 20 157/65 68 Nasal Cannula 2.0 05/29/17 04:00 63 05/29/17 00:15 98.0 63 20 110/57 99 Nasal Cannula 2.0 05/29/17 00:00 67 05/28/17 20:00 66 05/28/17 19:30 72 20 Nasal Cannula 2.0 28 05/28/17 19:30 95 Nasal Cannula 2.0 28 05/28/17 19:30 Nasal Cannula 2.0 28 05/28/17 16:30 98.4 67 20 145/64 100 Nasal Cannula 2.0 05/28/17 16:00 66 05/28/17 12:00 97.5 65 20 139/57 100 Nasal Cannula 2.0 05/28/17 12:00 66 Intake and Output 05/29/17 05/30/17 19:00 07:00 Intake Total 120 ml Balance 120 ml Intake Oral 120 ml Laboratory Tests Test 05/28/17 15:00 05/28/17 16:20 05/28/17 21:05 05/29/17 04:00 Troponin I 0.170 ng/mL (0.000-0.056) 0.210 ng/mL (0.000-0.056) Stool Occult Blood Negative (NEGATIVE) Ammonia 20 umol/L (11.2-31.7) Test 05/29/17 05:20 White Blood Count 9.2 K/UL (4.8-10.8) Red Blood Count 2.55 M/UL (4.70-6.10) L Hemoglobin 8.3 G/DL (14.2-18.0) L Hematocrit 24.7 % (42.0-52.0) L Mean Corpuscular Volume 97 FL (80-99) Mean Corpuscular Hemoglobin 32.4 PG (27.0-31.0) H Mean Corpuscular Hemoglobin Concent 33.5 G/DL (32.0-36.0) Red Cell Distribution Width 14.7 % (11.6-14.8) Platelet Count 303 K/UL (150-450) Mean Platelet Volume 5.2 FL (6.5-10.1) L Neutrophils (%) (Auto) 72.9 % (45.0-75.0) Lymphocytes (%) (Auto) 11.5 % (20.0-45.0) L Monocytes (%) (Auto) 8.3 % (1.0-10.0) Eosinophils (%) (Auto) 6.7 % (0.0-3.0) H Basophils (%) (Auto) 0.6 % (0.0-2.0) Sodium Level 134 MMOL/L (136-145) L Potassium Level 5.0 MMOL/L (3.5-5.1) Chloride Level 100 MMOL/L (98-107) Carbon Dioxide Level 23 MMOL/L (21-32) Anion Gap 11 (5-15) Blood Urea Nitrogen 61 mg/dL (7-18) H Creatinine 6.8 MG/DL (0.55-1.30) H Estimat Glomerular Filtration Rate 8.2 mL/min (>60) Glucose Level 91 MG/DL (74-106) Calcium Level 7.9 MG/DL (8.5-10.1) L Total Bilirubin 0.5 MG/DL (0.2-1.0) Aspartate Amino Transf (AST/SGOT) 43 U/L (15-37) H Alanine Aminotransferase (ALT/SGPT) 24 U/L (12-78) Alkaline Phosphatase 93 U/L (46-116) Total Protein 6.0 G/DL (6.4-8.2) L Albumin 1.3 G/DL (3.4-5.0) L Globulin 4.7 g/dL Albumin/Globulin Ratio 0.3 (1.0-2.7) L Height (Feet): 5 Height (Inches): 6.00 Weight (Pounds): 139 General Appearance: no apparent distress, alert Cardiovascular: normal rate Respiratory/Chest: normal breath sounds, no respiratory distress Abdominal Exam: normal bowel sounds, non tender, soft Shona Lucero N.P. May 29, 2017 11:54
--- NOTE | 2017-05-29 12:11 | General Progress Note ---
Assessment/Plan Status: stable Assessment/Plan ESRD- Right foot gangeren DM Retinopathy Encephalopathy ? sepsis Anemia- transfused High Troponin Sugg: Anemia osborne Transfuse 2 D Echo HD in process Subjective ROS Limited/Unobtainable: No Constitutional: Reports: malaise, weakness Allergies: Coded Allergies: No Known Allergies (Unverified , 02/15/13) Objective Last 24 Hour Vital Signs Date Time Temp Pulse Resp B/P (MAP) Pulse Ox O2 Delivery O2 Flow Rate FiO2 05/29/17 08:36 97.0 62 20 158/56 100 Nasal Cannula 2.0 05/29/17 08:00 62 05/29/17 04:00 98.0 68 20 157/65 68 Nasal Cannula 2.0 05/29/17 04:00 63 05/29/17 00:15 98.0 63 20 110/57 99 Nasal Cannula 2.0 05/29/17 00:00 67 05/28/17 20:00 66 05/28/17 19:30 72 20 Nasal Cannula 2.0 28 05/28/17 19:30 95 Nasal Cannula 2.0 28 05/28/17 19:30 Nasal Cannula 2.0 28 05/28/17 16:30 98.4 67 20 145/64 100 Nasal Cannula 2.0 05/28/17 16:00 66 Intake and Output 05/29/17 05/30/17 19:00 07:00 Intake Total 120 ml Balance 120 ml Intake Oral 120 ml Laboratory Tests 05/28/17 15:00: Troponin I 0.170H 05/28/17 16:20: Stool Occult Blood Negative 05/28/17 21:05: Troponin I 0.210H 05/29/17 04:00: Ammonia 20 05/29/17 05:20: White Blood Count 9.2, Red Blood Count 2.55L, Hemoglobin 8.3L, Hematocrit 24.7L , Mean Corpuscular Volume 97, Mean Corpuscular Hemoglobin 32.4H, Mean Corpuscular Hemoglobin Concent 33.5, Red Cell Distribution Width 14.7, Platelet Count 303, Mean Platelet Volume 5.2L, Neutrophils (%) (Auto) 72.9, Lymphocytes ( %) (Auto) 11.5L, Monocytes (%) (Auto) 8.3, Eosinophils (%) (Auto) 6.7H, Basophils (%) (Auto) 0.6, Sodium Level 134L, Potassium Level 5.0, Chloride Level 100, Carbon Dioxide Level 23, Anion Gap 11, Blood Urea Nitrogen 61H, Creatinine 6.8H, Estimat Glomerular Filtration Rate 8.2, Glucose Level 91, Calcium Level 7.9L, Total Bilirubin 0.5, Aspartate Amino Transf (AST/SGOT) 43H, Alanine Aminotransferase (ALT/SGPT) 24, Alkaline Phosphatase 93, Total Protein 6.0L, Albumin 1.3L, Globulin 4.7, Albumin/Globulin Ratio 0.3L Height (Feet): 5 Height (Inches): 6.00 Weight (Pounds): 139 General Appearance: no apparent distress Objective no change in PE JADON ROCKWELL May 29, 2017 12:11
[2017-05-29] MEDS ORDERED: Adenosine Inj IVP ONE (14:00)
--- NOTE | 2017-05-29 14:11 | Infectious Diseases Prog Note ---
Assessment/Plan Assessment/Plan Abx: IV Vancomycin 05/19 Unasyn 05/19-05/22 Zosyn 05/18; 05/22-05/23; 05/26- Ertapenem 05/23-05/26 Assesment: AMS, improving- ? worsening foot ulcers vs other (r/o metabolic causes/stroke, etc) R Diabetic foot ulcer with OM (exposed bone) with possible early abscess/gas, L heel superficial ulceration; worsening necrosis -Xray R foot 05/27: Large plantar and lateral foot soft tissue defect.No definite acute bony trauma. No gross osseous abnormality to suggest acute osteomyelitis. Soft tissue gas is suspected on recent MRI is not visible radiographically. -wound cx 05/27 p -MRI R foot 05/19: Markedly limited by motion. Apparent abnormal STIR signal of the first distal phalanx, the second middle and distal phalanges in the base of the fifth metatarsal. early osteomyelitis should be considered. Reactive marrow edema is also a consideration. Apparent fluid signal surrounding the flexor digitorum tendons of the plantar midfoot. Few foci of apparent susceptibility artifact also noted within this area. Possibility of infected fluid and gas surrounding the flexor digitorum tendons -05/19 wound cx ConS (represent colonizer and not true pathogen of infection) -Bcx 05/18 neg Fever/leukocytosis- likely 2ry to above; resolved -Bcx NTD -u/a neg -CXR no acute disease VRE colonized DM2, ESRD on HD MWF, HLD, HTN, CAD, CHF, diabetic foot ulcers Plan: -Continue IV vancomycin and Zosyn #11/42 -Appreciate podiatry and vascular input re surgical intervention/debridement -f/u Bcx -wound cx -Monitor CBC/BMP, temperatures Thank you for this consultation. Will continue to follow along with you. Discussed with RN. Subjective Allergies: Coded Allergies: No Known Allergies (Unverified , 02/15/13) Subjective afebrile in 48hrs leukocytosis resolved Bcx NTD wound cx p Objective Vital Signs Last 24 Hour Vital Signs Date Time Temp Pulse Resp B/P (MAP) Pulse Ox O2 Delivery O2 Flow Rate FiO2 05/29/17 12:30 Room Air 05/29/17 12:10 97.7 67 20 162/77 97 Nasal Cannula 2.0 05/29/17 12:00 67 05/29/17 09:25 Room Air 05/29/17 09:00 104/58 05/29/17 09:00 80 104/58 05/29/17 08:36 97.0 62 20 158/56 100 Nasal Cannula 2.0 05/29/17 08:00 62 05/29/17 04:00 98.0 68 20 157/65 68 Nasal Cannula 2.0 05/29/17 04:00 63 05/29/17 00:15 98.0 63 20 110/57 99 Nasal Cannula 2.0 05/29/17 00:00 67 05/28/17 20:00 66 05/28/17 19:30 72 20 Nasal Cannula 2.0 28 05/28/17 19:30 95 Nasal Cannula 2.0 28 05/28/17 19:30 Nasal Cannula 2.0 28 05/28/17 16:30 98.4 67 20 145/64 100 Nasal Cannula 2.0 05/28/17 16:00 66 Height (Feet): 5 Height (Inches): 6.00 Weight (Pounds): 139 Objective General Appearance: chronic ill appearing,no in distress HEENT, atraumatic, PERRL, bilateral eye, EOMI, no oral lesions Neck: normal inspection, supple Respiratory: normal inspection, lungs clear, normal breath sounds, no respiratory distress Cardiovascular regular rate, rhythm, no edema Gastrointestinal: normal inspection, normal bowel sounds, non tender, soft, no guarding, no hernia Musculoskeletal: R foot: large full thickness ulcer at the plantar right foot to the level of bone with exposed 5th metatarsal base. Patient also has skin necrosis at the right hallux nail bed. ulcer more necrotic than on previous admission ; Foot is cold, erythema on dorsum and medial aspect of foot, no purulent drainage Patient has a left heel partial thickness ulcer with a black eschar overlying it Neurologic: confused, AAO x3 Skin: no rash Microbiology Date/Time Source Procedure Growth Status 05/26/17 23:27 Blood Blood Culture - Preliminary NO GROWTH AFTER 48 HOURS Resulted 05/26/17 23:27 Blood Blood Culture - Preliminary NO GROWTH AFTER 48 HOURS Resulted 05/27/17 15:00 Wound Gram Stain - Final Resulted 05/27/17 15:00 Wound Wound Culture - Preliminary Resulted 05/27/17 09:00 Nasal Nares MRSA Culture - Final NO METHICILLIN RESISTANT STAPH AUREUS... Complete 05/27/17 09:00 Rectum VRE Culture - Final Enterococcus Faecium - Vre Complete Laboratory Tests Test 05/28/17 15:00 05/28/17 16:20 05/28/17 21:05 05/29/17 04:00 Troponin I 0.170 ng/mL (0.000-0.056) 0.210 ng/mL (0.000-0.056) Stool Occult Blood Negative (NEGATIVE) Ammonia 20 umol/L (11.2-31.7) Test 05/29/17 05:20 White Blood Count 9.2 K/UL (4.8-10.8) Red Blood Count 2.55 M/UL (4.70-6.10) L Hemoglobin 8.3 G/DL (14.2-18.0) L Hematocrit 24.7 % (42.0-52.0) L Mean Corpuscular Volume 97 FL (80-99) Mean Corpuscular Hemoglobin 32.4 PG (27.0-31.0) H Mean Corpuscular Hemoglobin Concent 33.5 G/DL (32.0-36.0) Red Cell Distribution Width 14.7 % (11.6-14.8) Platelet Count 303 K/UL (150-450) Mean Platelet Volume 5.2 FL (6.5-10.1) L Neutrophils (%) (Auto) 72.9 % (45.0-75.0) Lymphocytes (%) (Auto) 11.5 % (20.0-45.0) L Monocytes (%) (Auto) 8.3 % (1.0-10.0) Eosinophils (%) (Auto) 6.7 % (0.0-3.0) H Basophils (%) (Auto) 0.6 % (0.0-2.0) Sodium Level 134 MMOL/L (136-145) L Potassium Level 5.0 MMOL/L (3.5-5.1) Chloride Level 100 MMOL/L (98-107) Carbon Dioxide Level 23 MMOL/L (21-32) Anion Gap 11 (5-15) Blood Urea Nitrogen 61 mg/dL (7-18) H Creatinine 6.8 MG/DL (0.55-1.30) H Estimat Glomerular Filtration Rate 8.2 mL/min (>60) Glucose Level 91 MG/DL (74-106) Calcium Level 7.9 MG/DL (8.5-10.1) L Total Bilirubin 0.5 MG/DL (0.2-1.0) Aspartate Amino Transf (AST/SGOT) 43 U/L (15-37) H Alanine Aminotransferase (ALT/SGPT) 24 U/L (12-78) Alkaline Phosphatase 93 U/L (46-116) Total Protein 6.0 G/DL (6.4-8.2) L Albumin 1.3 G/DL (3.4-5.0) L Globulin 4.7 g/dL Albumin/Globulin Ratio 0.3 (1.0-2.7) L Current Medications Medications (Trade) Dose Ordered Sig/Ailyn Route PRN Reason Start Time Stop Time Status Last Admin Dose Admin Acetaminophen (Tylenol) 650 mg Q4H PRN ORAL fever 05/27/17 07:30 06/26/17 07:29 Albuterol/ Ipratropium (DuoNeb 0.5-3(2.5)mg/3ml) 3 ml Q4H PRN HHN Shortness of Breath 05/27/17 07:30 06/01/17 07:29 Aspirin (Ecotrin) 81 mg DAILY ORAL 05/27/17 09:00 06/26/17 08:59 05/28/17 11:56 Atorvastatin Calcium (Lipitor) 80 mg BEDTIME ORAL 05/27/17 21:00 06/26/17 20:59 05/28/17 21:22 Chlorhexidine Gluconate (Lora-Hex 2%) 1 applic Q24H TOPIC 05/27/17 20:00 06/26/17 19:59 05/28/17 20:16 Clopidogrel Bisulfate (Plavix) 75 mg DAILY ORAL 05/27/17 12:00 06/26/17 11:59 05/28/17 09:43 Cyanocobalamin (Vitamin B12) 1,000 mcg DAILY SUBQ 05/28/17 09:00 05/30/17 09:01 05/28/17 09:44 Dextrose (Dextrose 50%) STAT PRN IV Hypoglycemia 05/27/17 07:30 06/26/17 07:29 Docusate Sodium (Colace) 100 mg THREE TIMES A DAY ORAL 05/28/17 13:00 06/27/17 12:59 05/28/17 15:51 Duloxetine HCl (Cymbalta) 30 mg DAILY ORAL 05/27/17 09:00 06/26/17 08:59 05/28/17 09:41 Epoetin Emmanuel (Procrit (for ESRD on dialysis)) 10,000 units MON-WED-MON SUBQ 05/29/17 21:00 06/28/17 20:59 Heparin Sodium (Porcine) (Heparin 5000 units/ml) 5,000 units EVERY 12 HOURS SUBQ 05/28/17 21:00 06/27/17 20:59 05/28/17 21:26 Insulin Aspart (NovoLOG) BEFORE MEALS AND HS SUBQ 05/27/17 11:30 06/26/17 11:29 05/28/17 21:25 Lisinopril (Zestril) 10 mg DAILY ORAL 05/29/17 09:00 06/26/17 08:59 Metoprolol Succinate (Toprol XL) 25 mg DAILY ORAL 05/27/17 09:00 06/26/17 08:59 05/28/17 09:42 Morphine Sulfate (Morphine Sulfate) 2 mg Q4H PRN IVP Moderate Pain (Pain Scale 4-6) 05/27/17 07:30 06/03/17 07:29 05/29/17 04:22 Nitroglycerin (Ntg) 0.4 mg Q5M PRN SL Prn Chest Pain 05/27/17 07:30 06/26/17 07:29 Ondansetron HCl (Zofran) 4 mg Q6H PRN IVP Nausea & Vomiting 05/27/17 07:30 06/26/17 07:29 Pantoprazole (Protonix) 40 mg DAILY ORAL 05/27/17 12:00 06/26/17 11:59 05/28/17 09:43 Piperacillin Sod/ Tazobactam Sod 2.25 gm/Dextrose 55 ml @ 110 mls/hr Q8HR IV 05/27/17 09:00 06/01/17 08:59 05/29/17 05:49 Polyethylene Glycol (Miralax) 17 gm DAILYPRN PRN ORAL Constipation 05/27/17 07:30 06/26/17 07:29 Pregabalin (Lyrica) 75 mg DAILY ORAL 05/27/17 09:00 06/26/17 08:59 05/28/17 09:43 Rifaximin (Xifaxan) 400 mg EVERY 8 HOURS ORAL 05/28/17 22:00 06/04/17 21:59 05/29/17 05:49 Sevelamer Carbonate (Renvela) 1,600 mg THREE TIMES A DAY ORAL 05/28/17 13:00 06/27/17 12:59 05/28/17 18:15 Sitagliptin Phosphate (Januvia) 25 mg ACBREAKFAST ORAL 05/28/17 06:30 06/27/17 06:29 05/29/17 05:49 Temazepam (Restoril) 15 mg HSPRN PRN ORAL Insomnia 05/27/17 07:30 06/03/17 07:29 Vancomycin HCl (Vanco rx to dose) 1 ea DAILY PRN MISC PER RX PROTOCOL 05/27/17 07:45 06/26/17 07:44 Ema Wallace M.D. May 29, 2017 14:10
--- NOTE | 2017-05-29 14:46 | Pulmonology Progress Note ---
Assessment/Plan Problems: (1) ACS (acute coronary syndrome) (2) ESRD (end stage renal disease) on dialysis (3) Diabetes mellitus (4) Anemia (5) PVD (peripheral vascular disease) (6) Diabetic foot ulcer Assessment/Plan f/u stress test results podiatry to see continue abx day 11 of 40 sliding scale diabetic diet. Subjective ROS Limited/Unobtainable: No Interval Events: stress test Allergies: Coded Allergies: No Known Allergies (Unverified , 02/15/13) Objective Last 24 Hour Vital Signs Date Time Temp Pulse Resp B/P (MAP) Pulse Ox O2 Delivery O2 Flow Rate FiO2 05/29/17 12:30 Room Air 05/29/17 12:10 97.7 67 20 162/77 97 Nasal Cannula 2.0 05/29/17 12:00 67 05/29/17 09:25 Room Air 05/29/17 09:00 104/58 05/29/17 09:00 80 104/58 05/29/17 08:36 97.0 62 20 158/56 100 Nasal Cannula 2.0 05/29/17 08:00 62 05/29/17 04:00 98.0 68 20 157/65 68 Nasal Cannula 2.0 05/29/17 04:00 63 05/29/17 00:15 98.0 63 20 110/57 99 Nasal Cannula 2.0 05/29/17 00:00 67 05/28/17 20:00 66 05/28/17 19:30 72 20 Nasal Cannula 2.0 28 05/28/17 19:30 95 Nasal Cannula 2.0 28 05/28/17 19:30 Nasal Cannula 2.0 28 05/28/17 16:30 98.4 67 20 145/64 100 Nasal Cannula 2.0 05/28/17 16:00 66 Intake and Output 05/29/17 05/30/17 19:00 07:00 Intake Total 120 ml Output Total 2250 ml Balance -2130 ml Intake Oral 120 ml Hemodialysis UF 2250 ml General Appearance: cachetic HEENT: normocephalic, atraumatic Respiratory/Chest: chest wall non-tender, lungs clear Cardiovascular: normal peripheral pulses, normal rate Abdomen: normal bowel sounds, soft, non tender, no scars Genitourinary: normal external genitalia Extremities: no clubbing Skin: no rash, no ulcers Neurologic/Psychiatric: no motor/sensory deficits, alert Microbiology Date/Time Source Procedure Growth Status 05/26/17 23:27 Blood Blood Culture - Preliminary NO GROWTH AFTER 48 HOURS Resulted 05/26/17 23:27 Blood Blood Culture - Preliminary NO GROWTH AFTER 48 HOURS Resulted 05/27/17 15:00 Wound Gram Stain - Final Resulted 05/27/17 15:00 Wound Wound Culture - Preliminary Resulted 05/27/17 09:00 Nasal Nares MRSA Culture - Final NO METHICILLIN RESISTANT STAPH AUREUS... Complete 05/27/17 09:00 Rectum VRE Culture - Final Enterococcus Faecium - Vre Complete Laboratory Tests 05/28/17 15:00: Troponin I 0.170H 05/28/17 16:20: Stool Occult Blood Negative 05/28/17 21:05: Troponin I 0.210H 05/29/17 04:00: Ammonia 20 05/29/17 05:20: White Blood Count 9.2, Red Blood Count 2.55L, Hemoglobin 8.3L, Hematocrit 24.7L , Mean Corpuscular Volume 97, Mean Corpuscular Hemoglobin 32.4H, Mean Corpuscular Hemoglobin Concent 33.5, Red Cell Distribution Width 14.7, Platelet Count 303, Mean Platelet Volume 5.2L, Neutrophils (%) (Auto) 72.9, Lymphocytes ( %) (Auto) 11.5L, Monocytes (%) (Auto) 8.3, Eosinophils (%) (Auto) 6.7H, Basophils (%) (Auto) 0.6, Sodium Level 134L, Potassium Level 5.0, Chloride Level 100, Carbon Dioxide Level 23, Anion Gap 11, Blood Urea Nitrogen 61H, Creatinine 6.8H, Estimat Glomerular Filtration Rate 8.2, Glucose Level 91, Calcium Level 7.9L, Total Bilirubin 0.5, Aspartate Amino Transf (AST/SGOT) 43H, Alanine Aminotransferase (ALT/SGPT) 24, Alkaline Phosphatase 93, Total Protein 6.0L, Albumin 1.3L, Globulin 4.7, Albumin/Globulin Ratio 0.3L Current Medications Medications (Trade) Dose Ordered Sig/Ailyn Route PRN Reason Start Time Stop Time Status Last Admin Dose Admin Acetaminophen (Tylenol) 650 mg Q4H PRN ORAL fever 05/27/17 07:30 06/26/17 07:29 Albuterol/ Ipratropium (DuoNeb 0.5-3(2.5)mg/3ml) 3 ml Q4H PRN HHN Shortness of Breath 05/27/17 07:30 06/01/17 07:29 Aspirin (Ecotrin) 81 mg DAILY ORAL 05/27/17 09:00 06/26/17 08:59 05/28/17 11:56 Atorvastatin Calcium (Lipitor) 80 mg BEDTIME ORAL 05/27/17 21:00 06/26/17 20:59 05/28/17 21:22 Chlorhexidine Gluconate (Lora-Hex 2%) 1 applic Q24H TOPIC 05/27/17 20:00 06/26/17 19:59 05/28/17 20:16 Clopidogrel Bisulfate (Plavix) 75 mg DAILY ORAL 05/27/17 12:00 06/26/17 11:59 05/28/17 09:43 Cyanocobalamin (Vitamin B12) 1,000 mcg DAILY SUBQ 05/28/17 09:00 05/30/17 09:01 05/28/17 09:44 Dextrose (Dextrose 50%) STAT PRN IV Hypoglycemia 05/27/17 07:30 06/26/17 07:29 Docusate Sodium (Colace) 100 mg THREE TIMES A DAY ORAL 05/28/17 13:00 06/27/17 12:59 05/28/17 15:51 Duloxetine HCl (Cymbalta) 30 mg DAILY ORAL 05/27/17 09:00 06/26/17 08:59 05/28/17 09:41 Epoetin Emmanuel (Procrit (for ESRD on dialysis)) 10,000 units MON-MON-MON SUBQ 05/29/17 21:00 06/28/17 20:59 Heparin Sodium (Porcine) (Heparin 5000 units/ml) 5,000 units EVERY 12 HOURS SUBQ 05/28/17 21:00 06/27/17 20:59 05/28/17 21:26 Insulin Aspart (NovoLOG) BEFORE MEALS AND HS SUBQ 05/27/17 11:30 06/26/17 11:29 05/28/17 21:25 Lisinopril (Zestril) 10 mg DAILY ORAL 05/29/17 09:00 06/26/17 08:59 Metoprolol Succinate (Toprol XL) 25 mg DAILY ORAL 05/27/17 09:00 06/26/17 08:59 05/28/17 09:42 Morphine Sulfate (Morphine Sulfate) 2 mg Q4H PRN IVP Moderate Pain (Pain Scale 4-6) 05/27/17 07:30 06/03/17 07:29 05/29/17 04:22 Nitroglycerin (Ntg) 0.4 mg Q5M PRN SL Prn Chest Pain 05/27/17 07:30 06/26/17 07:29 Ondansetron HCl (Zofran) 4 mg Q6H PRN IVP Nausea & Vomiting 05/27/17 07:30 06/26/17 07:29 Pantoprazole (Protonix) 40 mg DAILY ORAL 05/27/17 12:00 06/26/17 11:59 05/28/17 09:43 Piperacillin Sod/ Tazobactam Sod 2.25 gm/Dextrose 55 ml @ 110 mls/hr Q8HR IV 05/27/17 09:00 06/01/17 08:59 05/29/17 05:49 Polyethylene Glycol (Miralax) 17 gm DAILYPRN PRN ORAL Constipation 05/27/17 07:30 06/26/17 07:29 Pregabalin (Lyrica) 75 mg DAILY ORAL 05/27/17 09:00 06/26/17 08:59 05/28/17 09:43 Rifaximin (Xifaxan) 400 mg EVERY 8 HOURS ORAL 05/28/17 22:00 06/04/17 21:59 05/29/17 05:49 Sevelamer Carbonate (Renvela) 1,600 mg THREE TIMES A DAY ORAL 05/28/17 13:00 06/27/17 12:59 05/28/17 18:15 Sitagliptin Phosphate (Januvia) 25 mg ACBREAKFAST ORAL 05/28/17 06:30 06/27/17 06:29 05/29/17 05:49 Temazepam (Restoril) 15 mg HSPRN PRN ORAL Insomnia 05/27/17 07:30 06/03/17 07:29 Vancomycin HCl (Vanco rx to dose) 1 ea DAILY PRN MISC PER RX PROTOCOL 05/27/17 07:45 06/26/17 07:44 JASPAL MENDOZA May 29, 2017 14:46
--- NOTE | 2017-05-29 18:15 | Diagnostic Imaging Report ---
Indications: Chest pain Technique: Single day single isotope protocol utilized. Initially, resting images obtained using IV administration 10 millicuries 99M technetium Myoview. Subsequently, patient underwent adenosine stress testing. See cardiology report for details. During adenosine infusion, IV administration 32 mCi 99 M technetium Myoview. SPECT and planar images obtained. SPECT images gated to 8 phases of the cardiac cycle were also obtained, and reformatted into cine images for evaluation of ejection fraction. Comparison: None Findings: Per cardiology report, patient experienced no symptoms. Per cardiology report, resting EKG demonstrates normal sinus rhythm. No ST changes during infusion. Imaging demonstrates a large perfusion defects involving the inferolateral wall. This is mostly fixed, but there is questionably minimal reperfusion at the apex.. Calculated post stress ejection fraction 61%. No focal wall motion abnormality Impression: Nonischemic clinical response to pharmacologic stress, per cardiology report Nonischemic electrocardiographic response to pharmacologic stress, per cardiology report Large inferolateral wall perfusion defect, mostly fixed but possibly some reperfusion near the apex. Findings are compatible with large infarct with some rachel-infarct ischemia Calculated post stress ejection fraction 61%
--- NOTE | 2017-05-29 19:27 | Cardiology Progress Note ---
Assessment/Plan Assessment/Plan abn cardiac enzyme cad s/p midl cabg, rca pci esrd on hdd diabetic retinopathy anemia systolic dysfunction hs p aflutter ischemia eval mainly nonreversible no need to change therapy asa restatt plavix satin bb tele reviewed dc planning Subjective Cardiovascular: Denies: chest pain, lightheadedness Respiratory: Denies: shortness of breath Gastrointestinal/Abdominal: Denies: abdominal pain Objective Last 24 Hour Vital Signs Date Time Temp Pulse Resp B/P (MAP) Pulse Ox O2 Delivery O2 Flow Rate FiO2 05/29/17 16:20 97.7 84 20 155/70 98 Nasal Cannula 2.0 05/29/17 16:00 86 05/29/17 12:30 Room Air 05/29/17 12:10 97.7 67 20 162/77 97 Nasal Cannula 2.0 05/29/17 12:00 67 05/29/17 09:25 Room Air 05/29/17 09:00 104/58 05/29/17 09:00 80 104/58 05/29/17 08:36 97.0 62 20 158/56 100 Nasal Cannula 2.0 05/29/17 08:00 62 05/29/17 04:00 98.0 68 20 157/65 68 Nasal Cannula 2.0 05/29/17 04:00 63 05/29/17 00:15 98.0 63 20 110/57 99 Nasal Cannula 2.0 05/29/17 00:00 67 05/28/17 20:00 66 05/28/17 19:30 72 20 Nasal Cannula 2.0 28 05/28/17 19:30 95 Nasal Cannula 2.0 28 05/28/17 19:30 Nasal Cannula 2.0 28 General Appearance: no apparent distress, alert Neck: no JVD Cardiovascular: normal rate, regular rhythm Respiratory/Chest: lungs clear Abdomen: normal bowel sounds, non tender, soft Extremities: no swelling Intake and Output 05/29/17 05/30/17 19:00 07:00 Intake Total 240 ml Output Total 2450 ml Balance -2210 ml Intake Oral 240 ml Output Urine Total 200 ml Hemodialysis UF 2250 ml # Bowel Movements 1 Laboratory Tests Test 05/28/17 21:05 05/29/17 04:00 05/29/17 05:20 Troponin I 0.210 ng/mL (0.000-0.056) Ammonia 20 umol/L (11.2-31.7) White Blood Count 9.2 K/UL (4.8-10.8) Red Blood Count 2.55 M/UL (4.70-6.10) L Hemoglobin 8.3 G/DL (14.2-18.0) L Hematocrit 24.7 % (42.0-52.0) L Mean Corpuscular Volume 97 FL (80-99) Mean Corpuscular Hemoglobin 32.4 PG (27.0-31.0) H Mean Corpuscular Hemoglobin Concent 33.5 G/DL (32.0-36.0) Red Cell Distribution Width 14.7 % (11.6-14.8) Platelet Count 303 K/UL (150-450) Mean Platelet Volume 5.2 FL (6.5-10.1) L Neutrophils (%) (Auto) 72.9 % (45.0-75.0) Lymphocytes (%) (Auto) 11.5 % (20.0-45.0) L Monocytes (%) (Auto) 8.3 % (1.0-10.0) Eosinophils (%) (Auto) 6.7 % (0.0-3.0) H Basophils (%) (Auto) 0.6 % (0.0-2.0) Sodium Level 134 MMOL/L (136-145) L Potassium Level 5.0 MMOL/L (3.5-5.1) Chloride Level 100 MMOL/L (98-107) Carbon Dioxide Level 23 MMOL/L (21-32) Anion Gap 11 (5-15) Blood Urea Nitrogen 61 mg/dL (7-18) H Creatinine 6.8 MG/DL (0.55-1.30) H Estimat Glomerular Filtration Rate 8.2 mL/min (>60) Glucose Level 91 MG/DL (74-106) Calcium Level 7.9 MG/DL (8.5-10.1) L Total Bilirubin 0.5 MG/DL (0.2-1.0) Aspartate Amino Transf (AST/SGOT) 43 U/L (15-37) H Alanine Aminotransferase (ALT/SGPT) 24 U/L (12-78) Alkaline Phosphatase 93 U/L (46-116) Total Protein 6.0 G/DL (6.4-8.2) L Albumin 1.3 G/DL (3.4-5.0) L Globulin 4.7 g/dL Albumin/Globulin Ratio 0.3 (1.0-2.7) L Microbiology Date/Time Source Procedure Growth Status 05/26/17 23:27 Blood Blood Culture - Preliminary NO GROWTH AFTER 48 HOURS Resulted 05/26/17 23:27 Blood Blood Culture - Preliminary NO GROWTH AFTER 48 HOURS Resulted 05/27/17 15:00 Wound Gram Stain - Final Resulted 05/27/17 15:00 Wound Wound Culture - Preliminary Resulted 05/27/17 09:00 Nasal Nares MRSA Culture - Final NO METHICILLIN RESISTANT STAPH AUREUS... Complete 05/27/17 09:00 Rectum VRE Culture - Final Enterococcus Faecium - Vre Complete RAY COYLE May 29, 2017 19:27
[2017-05-29] MEDS: Dyna-Hex 2% Top Sol 2oz TOPIC SCH (20:07)
[2017-05-29] MEDS ORDERED: Epogen (for ESRD on dialysis) SUBQ SCH (21:00)
[2017-05-29] MEDS: Atorvastatin 80mg tab ORAL SCH (21:24)
[2017-05-30] VITALS (7 sets, daily range): BP systolic 128–162; BP diastolic 56–79
[2017-05-30 05:44] LABS: MEAN CORPUSCULAR HEMOGLOBIN 33.5 PG (27.0-31.0); MEAN CORPUSCULAR HGB CONC 34.5 G/DL (32.0-36.0); MEAN CORPUSCULAR VOLUME 97 FL (80-99); MEAN PLATELET VOLUME 5.3 FL (6.5-10.1); PLATELET COUNT 339 K/UL (150-450); RED BLOOD COUNT 2.27 M/UL (4.70-6.10); RED CELL DISTRIBUTION WIDTH 14.5 % (11.6-14.8); WHITE BLOOD COUNT 8.9 K/UL (4.8-10.8)
[2017-05-30] MEDS: Zosyn 2.25 gm in D5W 55ml IV SCH ×2 (05:51→13:24)
[2017-05-30 06:00] LABS: ANISOCYTOSIS 1+; BAND NEUTROPHILS % (MANUAL) 0 % (0-8); BASOPHILS % (MANUAL) 0 % (0-2); EOSINOPHILS % (MANUAL) 8 % (0-3); HYPOCHROMASIA 3+; LYMPHOCYTES % (MANUAL) 14 % (20-45); METAMYELOCYTES % 1 % (0-0); NEUTROPHILS % (MANUAL) 68 % (45-75); PLATELET ESTIMATE ADEQUATE; SPHEROCYTES 2+; TOTAL CELLS COUNTED 100
[2017-05-30 06:01] LABS: PLATELET MORPHOLOGY NORMAL
[2017-05-30 06:14] LABS: ANION GAP 9 mmol/L (5-15); CARBON DIOXIDE 30 MMOL/L (21-32); CHLORIDE 100 MMOL/L (98-107); CREATININE 4.9 MG/DL (0.55-1.30); POTASSIUM 3.8 MMOL/L (3.5-5.1); SODIUM 139 MMOL/L (136-145)
[2017-05-30] MEDS: sitaGLIPtin 25mg tab ORAL SCH (06:20)
[2017-05-30] MEDS: NovoLOG Insulin Flexpen SUBQ SCH ×4 (06:21→21:00)
[2017-05-30] MEDS: Docusate 100mg cap ORAL SCH ×3 (09:00→18:30)
--- NOTE | 2017-05-30 09:11 | Infectious Diseases Prog Note ---
Assessment/Plan Assessment/Plan Assessment: AMS, improving- ? worsening foot ulcers vs other (r/o metabolic causes/stroke, etc) R Diabetic foot ulcer with OM (exposed bone) with possible early abscess/gas, L heel superficial ulceration; worsening necrosis -Xray R foot 05/27: Large plantar and lateral foot soft tissue defect.No definite acute bony trauma. No gross osseous abnormality to suggest acute osteomyelitis. Soft tissue gas is suspected on recent MRI is not visible radiographically. -wound cx 05/27 pending, GS(-) -MRI R foot 05/19: Markedly limited by motion. Apparent abnormal STIR signal of the first distal phalanx, the second middle and distal phalanges in the base of the fifth metatarsal. early osteomyelitis should be considered. Reactive marrow edema is also a consideration. Apparent fluid signal surrounding the flexor digitorum tendons of the plantar midfoot. Few foci of apparent susceptibility artifact also noted within this area. Possibility of infected fluid and gas surrounding the flexor digitorum tendons -05/19 wound cx ConS (represent colonizer and not true pathogen of infection) -Bcx 05/18 neg Fever/leukocytosis- likely 2ry to above; resolved -Bcx NTD -u/a neg -CXR no acute disease VRE colonized DM2, ESRD on HD MWF, HLD, HTN, CAD, CHF, diabetic foot ulcers Plan: -Continue IV vancomycin and Zosyn #12/ -Appreciate podiatry and vascular input re surgical intervention/debridement -f/u Bcx -wound cx -Monitor CBC/BMP, temperatures Subjective Allergies: Coded Allergies: No Known Allergies (Unverified , 02/15/13) Subjective remains afebrile comfortable NM stress noted Objective Vital Signs Last 24 Hour Vital Signs Date Time Temp Pulse Resp B/P (MAP) Pulse Ox O2 Delivery O2 Flow Rate FiO2 05/30/17 08:36 98.1 84 18 162/77 100 Nasal Cannula 05/30/17 04:00 97.7 70 20 156/58 100 Nasal Cannula 3.0 05/30/17 04:00 75 05/30/17 00:21 98.4 79 20 155/79 99 Nasal Cannula 2.0 05/30/17 00:00 76 05/29/17 20:10 80 125/78 05/29/17 20:00 74 05/29/17 20:00 98.2 82 21 128/100 99 Nasal Cannula 2.0 05/29/17 19:30 80 20 Nasal Cannula 2.0 28 05/29/17 19:30 Nasal Cannula 2.0 28 05/29/17 19:30 92 Nasal Cannula 2.0 28 05/29/17 16:20 97.7 84 20 155/70 98 Nasal Cannula 2.0 05/29/17 16:00 86 05/29/17 12:30 Room Air 05/29/17 12:10 97.7 67 20 162/77 97 Nasal Cannula 2.0 05/29/17 12:00 67 05/29/17 09:25 Room Air Height (Feet): 5 Height (Inches): 6.00 Weight (Pounds): 133 General Appearance: no acute distress Respiratory/Chest: no respiratory distress Cardiovascular: normal rate, regular rhythm Abdomen: normal bowel sounds, soft, non tender, non distended Microbiology Date/Time Source Procedure Growth Status 05/27/17 15:00 Wound Gram Stain - Final Resulted 05/27/17 15:00 Wound Wound Culture - Preliminary NO GROWTH AFTER 72 HOURS Resulted Laboratory Tests Test 05/30/17 05:10 White Blood Count 8.9 K/UL (4.8-10.8) Red Blood Count 2.27 M/UL (4.70-6.10) L Hemoglobin 7.6 G/DL (14.2-18.0) L Hematocrit 22.1 % (42.0-52.0) L Mean Corpuscular Volume 97 FL (80-99) Mean Corpuscular Hemoglobin 33.5 PG (27.0-31.0) H Mean Corpuscular Hemoglobin Concent 34.5 G/DL (32.0-36.0) Red Cell Distribution Width 14.5 % (11.6-14.8) Platelet Count 339 K/UL (150-450) Mean Platelet Volume 5.3 FL (6.5-10.1) L Neutrophils (%) (Auto) % (45.0-75.0) Lymphocytes (%) (Auto) % (20.0-45.0) Monocytes (%) (Auto) % (1.0-10.0) Eosinophils (%) (Auto) % (0.0-3.0) Basophils (%) (Auto) % (0.0-2.0) Differential Total Cells Counted 100 Neutrophils % (Manual) 68 % (45-75) Lymphocytes % (Manual) 14 % (20-45) L Monocytes % (Manual) 9 % (1-10) Eosinophils % (Manual) 8 % (0-3) H Basophils % (Manual) 0 % (0-2) Metamyelocytes % 1 % (0-0) H Band Neutrophils 0 % (0-8) Platelet Estimate Adequate Platelet Morphology Normal Hypochromasia 3+ Anisocytosis 1+ Spherocytes 2+ Sodium Level 139 MMOL/L (136-145) Potassium Level 3.8 MMOL/L (3.5-5.1) Chloride Level 100 MMOL/L (98-107) Carbon Dioxide Level 30 MMOL/L (21-32) Anion Gap 9 mmol/L (5-15) Blood Urea Nitrogen 39 mg/dL (7-18) H Creatinine 4.9 MG/DL (0.55-1.30) H Estimat Glomerular Filtration Rate 12.0 mL/min (>60) Glucose Level 118 MG/DL (74-106) H Calcium Level 8.0 MG/DL (8.5-10.1) L Random Vancomycin Level 21.0 ug/mL Current Medications Medications (Trade) Dose Ordered Sig/Ailyn Route PRN Reason Start Time Stop Time Status Last Admin Dose Admin Acetaminophen (Tylenol) 650 mg Q4H PRN ORAL fever 05/27/17 07:30 06/26/17 07:29 Albuterol/ Ipratropium (DuoNeb 0.5-3(2.5)mg/3ml) 3 ml Q4H PRN HHN Shortness of Breath 05/27/17 07:30 06/01/17 07:29 Aspirin (Ecotrin) 81 mg DAILY ORAL 05/27/17 09:00 06/26/17 08:59 05/28/17 11:56 Atorvastatin Calcium (Lipitor) 80 mg BEDTIME ORAL 05/27/17 21:00 06/26/17 20:59 05/29/17 21:24 Chlorhexidine Gluconate (Lora-Hex 2%) 1 applic Q24H TOPIC 05/27/17 20:00 06/26/17 19:59 05/29/17 20:07 Clopidogrel Bisulfate (Plavix) 75 mg DAILY ORAL 05/30/17 09:00 06/29/17 08:59 Dextrose (Dextrose 50%) STAT PRN IV Hypoglycemia 05/27/17 07:30 06/26/17 07:29 Docusate Sodium (Colace) 100 mg THREE TIMES A DAY ORAL 05/28/17 13:00 06/27/17 12:59 05/28/17 15:51 Duloxetine HCl (Cymbalta) 30 mg DAILY ORAL 05/27/17 09:00 06/26/17 08:59 05/28/17 09:41 Epoetin Emmanuel (Procrit (for ESRD on dialysis)) 10,000 units MON-MON-MON SUBQ 05/29/17 21:00 06/28/17 20:59 05/29/17 21:24 Heparin Sodium (Porcine) (Heparin 5000 units/ml) 5,000 units EVERY 12 HOURS SUBQ 05/28/17 21:00 06/27/17 20:59 05/29/17 21:27 Insulin Aspart (NovoLOG) BEFORE MEALS AND HS SUBQ 05/27/17 11:30 06/26/17 11:29 05/30/17 06:21 Lisinopril (Zestril) 10 mg DAILY ORAL 05/29/17 09:00 06/26/17 08:59 Metoprolol Succinate (Toprol XL) 25 mg DAILY ORAL 05/27/17 09:00 06/26/17 08:59 05/28/17 09:42 Morphine Sulfate (Morphine Sulfate) 2 mg Q4H PRN IVP Moderate Pain (Pain Scale 4-6) 05/27/17 07:30 06/03/17 07:29 05/29/17 04:22 Nitroglycerin (Ntg) 0.4 mg Q5M PRN SL Prn Chest Pain 05/27/17 07:30 06/26/17 07:29 Ondansetron HCl (Zofran) 4 mg Q6H PRN IVP Nausea & Vomiting 05/27/17 07:30 06/26/17 07:29 Pantoprazole (Protonix) 40 mg DAILY ORAL 05/27/17 12:00 06/26/17 11:59 05/28/17 09:43 Piperacillin Sod/ Tazobactam Sod 2.25 gm/Dextrose 55 ml @ 110 mls/hr Q8HR IV 05/27/17 09:00 06/01/17 08:59 05/30/17 05:51 Polyethylene Glycol (Miralax) 17 gm DAILYPRN PRN ORAL Constipation 05/27/17 07:30 06/26/17 07:29 Pregabalin (Lyrica) 75 mg DAILY ORAL 05/27/17 09:00 06/26/17 08:59 05/28/17 09:43 Rifaximin (Xifaxan) 400 mg EVERY 8 HOURS ORAL 05/28/17 22:00 06/04/17 21:59 05/30/17 06:20 Sevelamer Carbonate (Renvela) 1,600 mg THREE TIMES A DAY ORAL 05/28/17 13:00 06/27/17 12:59 05/29/17 17:57 Sitagliptin Phosphate (Januvia) 25 mg ACBREAKFAST ORAL 05/28/17 06:30 06/27/17 06:29 05/30/17 06:20 Temazepam (Restoril) 15 mg HSPRN PRN ORAL Insomnia 05/27/17 07:30 06/03/17 07:29 Vancomycin HCl (Vanco rx to dose) 1 ea DAILY PRN MISC PER RX PROTOCOL 05/27/17 07:45 06/26/17 07:44 ROBERTO GOLDSTEIN May 30, 2017 09:11
[2017-05-30] MEDS: Lyrica 75mg cap ORAL SCH (09:18)
[2017-05-30] MEDS: Lisinopril 10mg tab ORAL SCH (09:18)
[2017-05-30] MEDS: DULoxetine 30mg cap ORAL SCH (09:19)
[2017-05-30] MEDS: Aspirin EC 81mg tab ORAL SCH (09:19)
[2017-05-30] MEDS: Metoprolol Succinate XL 25mg tab ORAL SCH (09:19)
[2017-05-30] MEDS: Vitamin B12 1000mcg/ml Inj SUBQ SCH (09:20)
[2017-05-30] MEDS: Heparin 5000 units/ml inj SUBQ SCH ×2 (09:22→21:00)
--- NOTE | 2017-05-30 11:10 | General Progress Note ---
Assessment/Plan Status: stable - from renal stand Status Narrative H&H lower Assessment/Plan ESRD- Right foot gangeren DM Retinopathy Encephalopathy ? sepsis Anemia- transfused High Troponin Sugg: transfuse Anemia osborne 2 D Echo HD 05/29 repeat 05/31 per consultants Subjective ROS Limited/Unobtainable: No Constitutional: Reports: malaise Allergies: Coded Allergies: No Known Allergies (Unverified , 02/15/13) Objective Last 24 Hour Vital Signs Date Time Temp Pulse Resp B/P (MAP) Pulse Ox O2 Delivery O2 Flow Rate FiO2 05/30/17 09:19 84 162/77 05/30/17 09:18 162/77 05/30/17 08:36 98.1 84 18 162/77 100 Nasal Cannula 05/30/17 04:00 97.7 70 20 156/58 100 Nasal Cannula 3.0 05/30/17 04:00 75 05/30/17 00:21 98.4 79 20 155/79 99 Nasal Cannula 2.0 05/30/17 00:00 76 05/29/17 20:10 80 125/78 05/29/17 20:00 74 05/29/17 20:00 98.2 82 21 128/100 99 Nasal Cannula 2.0 05/29/17 19:30 80 20 Nasal Cannula 2.0 28 05/29/17 19:30 Nasal Cannula 2.0 28 05/29/17 19:30 92 Nasal Cannula 2.0 28 05/29/17 16:20 97.7 84 20 155/70 98 Nasal Cannula 2.0 05/29/17 16:00 86 05/29/17 12:30 Room Air 05/29/17 12:10 97.7 67 20 162/77 97 Nasal Cannula 2.0 05/29/17 12:00 67 Intake and Output 05/30/17 05/31/17 19:00 07:00 Intake Total 120 ml Balance 120 ml Intake Oral 120 ml # Voids 1 # Bowel Movements 1 Laboratory Tests 05/30/17 05:10: White Blood Count 8.9, Red Blood Count 2.27L, Hemoglobin 7.6L, Hematocrit 22.1L , Mean Corpuscular Volume 97, Mean Corpuscular Hemoglobin 33.5H, Mean Corpuscular Hemoglobin Concent 34.5, Red Cell Distribution Width 14.5, Platelet Count 339, Mean Platelet Volume 5.3L, Neutrophils (%) (Auto) , Lymphocytes (%) ( Auto) , Monocytes (%) (Auto) , Eosinophils (%) (Auto) , Basophils (%) (Auto) , Differential Total Cells Counted 100, Neutrophils % (Manual) 68, Lymphocytes % ( Manual) 14L, Monocytes % (Manual) 9, Eosinophils % (Manual) 8H, Basophils % ( Manual) 0, Metamyelocytes % 1H, Band Neutrophils 0, Platelet Estimate Adequate, Platelet Morphology Normal, Hypochromasia 3+, Anisocytosis 1+, Spherocytes 2+, Sodium Level 139, Potassium Level 3.8, Chloride Level 100, Carbon Dioxide Level 30, Anion Gap 9, Blood Urea Nitrogen 39H, Creatinine 4.9H, Estimat Glomerular Filtration Rate 12.0, Glucose Level 118H, Calcium Level 8.0L, Random Vancomycin Level 21.0 Height (Feet): 5 Height (Inches): 6.00 Weight (Pounds): 133 General Appearance: no apparent distress Cardiovascular: normal rate Respiratory/Chest: decreased breath sounds Abdomen: soft Objective no change in PE JADON ROCKWELL May 30, 2017 11:10
--- NOTE | 2017-05-30 12:36 | Wound Care Consultation ---
Wound Assessment Wound Assessment #1: Wound Number: 1 Wound Present on Admission: Yes New Wound: No Status Change of Wound: No Wound Location Body Site Modif: mid Wound Location Body Site: sacral Wound Type: pressure ulcer Keron Test: Does not Keron Pressure Ulcer Stage: Deep Tissue Injury Wound Thickness: Full Thickness Wound Length: 5.0 Wound Width: 4.5 Wound Depth: utd Percent of Wound Purple/Maroon: 100 Wound Drainage Amount: None Wound Drainage Odor: None/Absent Tissue Surrounding Wound: Erythemic Wound General Appearance: Reddened - purple Wound Assessment #2: Wound Number: 2 Wound Present on Admission: Yes New Wound: No Status Change of Wound: No Wound Location Body Site Modif: right Wound Location Body Site: heel Wound Type: pressure ulcer Keron Test: Does not Keron Pressure Ulcer Stage: Unstageable Wound Thickness: Full Thickness Wound Length: 6.0 Wound Width: 5.5 Wound Depth: utd Percent of Wound Black/Brown: 100 Wound Drainage Amount: None Wound Drainage Odor: None/Absent Tissue Surrounding Wound: Indurated Wound General Appearance: Blackened, Draining Wound Assessment #3: Wound Number: 3 Wound Present on Admission: Yes New Wound: No Status Change of Wound: No Wound Location Body Site Modif: left Wound Location Body Site: heel Wound Type: pressure ulcer Keron Test: Does not Keron Pressure Ulcer Stage: Deep Tissue Injury Wound Thickness: Full Thickness Wound Length: 3.5 Wound Width: 4.5 Wound Depth: utd Percent of Wound Purple/Maroon: 100 Wound Drainage Amount: None Wound Drainage Odor: None/Absent Tissue Surrounding Wound: Intact Wound General Appearance: Reddened - maroon Wound Assessment #4: Wound Number: 4 Wound Present on Admission: Yes New Wound: No Status Change of Wound: No Wound Location Body Site Modif: right, plantar Wound Location Body Site: foot Wound Type: other - Large full thickness ulcer at the plantar right foot to the level of bone exposed. Keron Test: Does not Keron Wound Thickness: Full Thickness Wound Length: 12.5 Wound Width: 6.0 Wound Depth: utd Percent of Wound [place]/Red: 30 Percent of Wound Bed Yellow/Wh: 20 Percent of Wound Black/Brown: 30 Percent of Wound Purple/Maroon: 20 Wound Drainage Description: Serosanguineous Wound Drainage Amount: Moderate Wound Drainage Odor: None/Absent Tissue Surrounding Wound: Indurated Wound General Appearance: Draining, Necrotic Wound Comment #1 Large full thickness ulcer at the plantar right foot to the level of bone exposed. #2 Left heel DTI pressure ulcer #3 Right heel unstageable pressure ulcer with black eschar adhered to the wound bed #4 Sacral DTI pressure ulcer #5 Scattered DTI on left dorsal foot Recommendation -Follow DPM order for both left and right foot -Local wound care per protocol for DTI and Unstageable pressure ulcers -Heel protector on both heels -Offload both heels -Optimize nutrition -Low air loss mattress -Turn and reposition -Keep clean and dry -Assess and f/u accordingly for any changes TYRELL MON RN May 30, 2017 12:36
--- NOTE | 2017-05-30 14:15 | GI Progress Note ---
Assessment/Plan Problems: (1) ESRD (end stage renal disease) on dialysis ICD Codes: N18.6 - End stage renal disease; Z99.2 - Dependence on renal dialysis SNOMED: 639569249 (2) Non-STEMI (non-ST elevated myocardial infarction) ICD Codes: I21.4 - Non-ST elevation (NSTEMI) myocardial infarction SNOMED: 070327483 (3) Anemia ICD Codes: D64.9 - Anemia, unspecified SNOMED: 883981339 Qualifiers: Qualified Codes: D64.9 - Anemia, unspecified (4) Diabetes mellitus ICD Codes: E11.9 - Type 2 diabetes mellitus without complications SNOMED: 65890440 (5) Hypoalbuminemia ICD Codes: E88.09 - Other disorders of plasma-protein metabolism, not elsewhere classified SNOMED: 780676328 Status: stable Status Narrative Discussed with Dr. Carl. Assessment/Plan OB stool negative B12 deficiency troponin mild elevation ammonia WNL anemia, most probably secondary to renal disease. monitor H&H, prn tranfusions cont xifaxan given high folic acid, low B12 defer GI procedures given mild troponin elevation ppi fu labs fu dietary recs noted patient on Plavix, will require dc min 48 hours prior any GI procedures. Subjective Subjective no symptoms Objective Last 24 Hour Vital Signs Date Time Temp Pulse Resp B/P (MAP) Pulse Ox O2 Delivery O2 Flow Rate FiO2 05/30/17 12:00 79 05/30/17 11:43 97.7 76 20 156/73 99 Nasal Cannula 2.0 05/30/17 09:19 84 162/77 05/30/17 09:18 162/77 05/30/17 08:36 98.1 84 18 162/77 100 Nasal Cannula 05/30/17 08:00 85 05/30/17 04:00 97.7 70 20 156/58 100 Nasal Cannula 3.0 05/30/17 04:00 75 05/30/17 00:21 98.4 79 20 155/79 99 Nasal Cannula 2.0 05/30/17 00:00 76 05/29/17 20:10 80 125/78 05/29/17 20:00 74 05/29/17 20:00 98.2 82 21 128/100 99 Nasal Cannula 2.0 05/29/17 19:30 80 20 Nasal Cannula 2.0 28 05/29/17 19:30 Nasal Cannula 2.0 28 05/29/17 19:30 92 Nasal Cannula 2.0 28 05/29/17 16:20 97.7 84 20 155/70 98 Nasal Cannula 2.0 05/29/17 16:00 86 Intake and Output 05/30/17 05/31/17 19:00 07:00 Intake Total 240 ml Balance 240 ml Intake Oral 240 ml # Voids 2 # Bowel Movements 1 Laboratory Tests Test 05/30/17 05:10 White Blood Count 8.9 K/UL (4.8-10.8) Red Blood Count 2.27 M/UL (4.70-6.10) L Hemoglobin 7.6 G/DL (14.2-18.0) L Hematocrit 22.1 % (42.0-52.0) L Mean Corpuscular Volume 97 FL (80-99) Mean Corpuscular Hemoglobin 33.5 PG (27.0-31.0) H Mean Corpuscular Hemoglobin Concent 34.5 G/DL (32.0-36.0) Red Cell Distribution Width 14.5 % (11.6-14.8) Platelet Count 339 K/UL (150-450) Mean Platelet Volume 5.3 FL (6.5-10.1) L Neutrophils (%) (Auto) % (45.0-75.0) Lymphocytes (%) (Auto) % (20.0-45.0) Monocytes (%) (Auto) % (1.0-10.0) Eosinophils (%) (Auto) % (0.0-3.0) Basophils (%) (Auto) % (0.0-2.0) Differential Total Cells Counted 100 Neutrophils % (Manual) 68 % (45-75) Lymphocytes % (Manual) 14 % (20-45) L Monocytes % (Manual) 9 % (1-10) Eosinophils % (Manual) 8 % (0-3) H Basophils % (Manual) 0 % (0-2) Metamyelocytes % 1 % (0-0) H Band Neutrophils 0 % (0-8) Platelet Estimate Adequate Platelet Morphology Normal Hypochromasia 3+ Anisocytosis 1+ Spherocytes 2+ Sodium Level 139 MMOL/L (136-145) Potassium Level 3.8 MMOL/L (3.5-5.1) Chloride Level 100 MMOL/L (98-107) Carbon Dioxide Level 30 MMOL/L (21-32) Anion Gap 9 mmol/L (5-15) Blood Urea Nitrogen 39 mg/dL (7-18) H Creatinine 4.9 MG/DL (0.55-1.30) H Estimat Glomerular Filtration Rate 12.0 mL/min (>60) Glucose Level 118 MG/DL (74-106) H Calcium Level 8.0 MG/DL (8.5-10.1) L Random Vancomycin Level 21.0 ug/mL Height (Feet): 5 Height (Inches): 6.00 Weight (Pounds): 133 General Appearance: no apparent distress, alert Cardiovascular: normal rate Respiratory/Chest: normal breath sounds, no respiratory distress Abdominal Exam: normal bowel sounds, non tender, soft Shona Lucero N.P. May 30, 2017 14:15
--- NOTE | 2017-05-30 14:40 | Pulmonology Progress Note ---
Assessment/Plan Problems: (1) ACS (acute coronary syndrome) (2) ESRD (end stage renal disease) on dialysis (3) Diabetes mellitus (4) Anemia (5) PVD (peripheral vascular disease) (6) Diabetic foot ulcer Assessment/Plan stress test showed irreversible changes continue abx day 11 of 40 sliding scale diabetic diet. HD in am surgery to see, doubt that the leg/foot is salvageable Subjective ROS Limited/Unobtainable: No Constitutional: Reports: no symptoms HEENT: Repors: no symptoms Respiratory: Reports: no symptoms Allergies: Coded Allergies: No Known Allergies (Unverified , 02/15/13) Objective Last 24 Hour Vital Signs Date Time Temp Pulse Resp B/P (MAP) Pulse Ox O2 Delivery O2 Flow Rate FiO2 05/30/17 12:00 79 05/30/17 11:43 97.7 76 20 156/73 99 Nasal Cannula 2.0 05/30/17 09:19 84 162/77 05/30/17 09:18 162/77 05/30/17 08:36 98.1 84 18 162/77 100 Nasal Cannula 05/30/17 08:00 85 05/30/17 04:00 97.7 70 20 156/58 100 Nasal Cannula 3.0 05/30/17 04:00 75 05/30/17 00:21 98.4 79 20 155/79 99 Nasal Cannula 2.0 05/30/17 00:00 76 05/29/17 20:10 80 125/78 05/29/17 20:00 74 05/29/17 20:00 98.2 82 21 128/100 99 Nasal Cannula 2.0 05/29/17 19:30 80 20 Nasal Cannula 2.0 28 05/29/17 19:30 Nasal Cannula 2.0 28 05/29/17 19:30 92 Nasal Cannula 2.0 28 05/29/17 16:20 97.7 84 20 155/70 98 Nasal Cannula 2.0 05/29/17 16:00 86 Intake and Output 05/30/17 05/31/17 19:00 07:00 Intake Total 240 ml Balance 240 ml Intake Oral 240 ml # Voids 2 # Bowel Movements 1 General Appearance: cachetic HEENT: normocephalic Respiratory/Chest: chest wall non-tender, lungs clear Cardiovascular: normal peripheral pulses, normal rate Abdomen: normal bowel sounds, soft, non tender, no scars Genitourinary: normal external genitalia Skin: no lesions Microbiology Date/Time Source Procedure Growth Status 05/27/17 15:00 Wound Gram Stain - Final Resulted 05/27/17 15:00 Wound Wound Culture - Preliminary NO GROWTH AFTER 72 HOURS Resulted Laboratory Tests 05/30/17 05:10: White Blood Count 8.9, Red Blood Count 2.27L, Hemoglobin 7.6L, Hematocrit 22.1L , Mean Corpuscular Volume 97, Mean Corpuscular Hemoglobin 33.5H, Mean Corpuscular Hemoglobin Concent 34.5, Red Cell Distribution Width 14.5, Platelet Count 339, Mean Platelet Volume 5.3L, Neutrophils (%) (Auto) , Lymphocytes (%) ( Auto) , Monocytes (%) (Auto) , Eosinophils (%) (Auto) , Basophils (%) (Auto) , Differential Total Cells Counted 100, Neutrophils % (Manual) 68, Lymphocytes % ( Manual) 14L, Monocytes % (Manual) 9, Eosinophils % (Manual) 8H, Basophils % ( Manual) 0, Metamyelocytes % 1H, Band Neutrophils 0, Platelet Estimate Adequate, Platelet Morphology Normal, Hypochromasia 3+, Anisocytosis 1+, Spherocytes 2+, Sodium Level 139, Potassium Level 3.8, Chloride Level 100, Carbon Dioxide Level 30, Anion Gap 9, Blood Urea Nitrogen 39H, Creatinine 4.9H, Estimat Glomerular Filtration Rate 12.0, Glucose Level 118H, Calcium Level 8.0L, Random Vancomycin Level 21.0 Current Medications Medications (Trade) Dose Ordered Sig/Ailyn Route PRN Reason Start Time Stop Time Status Last Admin Dose Admin Acetaminophen (Tylenol) 650 mg Q4H PRN ORAL fever 05/27/17 07:30 06/26/17 07:29 Albuterol/ Ipratropium (DuoNeb 0.5-3(2.5)mg/3ml) 3 ml Q4H PRN HHN Shortness of Breath 05/27/17 07:30 06/01/17 07:29 Aspirin (Ecotrin) 81 mg DAILY ORAL 05/27/17 09:00 06/26/17 08:59 05/30/17 09:19 Atorvastatin Calcium (Lipitor) 80 mg BEDTIME ORAL 05/27/17 21:00 06/26/17 20:59 05/29/17 21:24 Chlorhexidine Gluconate (Lora-Hex 2%) 1 applic Q24H TOPIC 05/27/17 20:00 06/26/17 19:59 05/29/17 20:07 Clopidogrel Bisulfate (Plavix) 75 mg DAILY ORAL 05/30/17 09:00 06/29/17 08:59 05/30/17 09:18 Cyanocobalamin (Vitamin B12) 1,000 mcg ONCE ONCE SUBQ 05/31/17 09:00 05/31/17 09:01 Dextrose (Dextrose 50%) STAT PRN IV Hypoglycemia 05/27/17 07:30 06/26/17 07:29 Docusate Sodium (Colace) 100 mg THREE TIMES A DAY ORAL 05/28/17 13:00 06/27/17 12:59 05/28/17 15:51 Duloxetine HCl (Cymbalta) 30 mg DAILY ORAL 05/27/17 09:00 06/26/17 08:59 05/30/17 09:19 Epoetin Emmanuel (Procrit (for ESRD on dialysis)) 10,000 units MON-WED-FRI SUBQ 05/29/17 21:00 06/28/17 20:59 05/29/17 21:24 Heparin Sodium (Porcine) (Heparin 5000 units/ml) 5,000 units EVERY 12 HOURS SUBQ 05/28/17 21:00 06/27/17 20:59 05/30/17 09:22 Insulin Aspart (NovoLOG) BEFORE MEALS AND HS SUBQ 05/27/17 11:30 06/26/17 11:29 05/30/17 13:35 Lisinopril (Zestril) 10 mg DAILY ORAL 05/29/17 09:00 06/26/17 08:59 05/30/17 09:18 Metoprolol Succinate (Toprol XL) 25 mg DAILY ORAL 05/27/17 09:00 06/26/17 08:59 05/30/17 09:19 Morphine Sulfate (Morphine Sulfate) 2 mg Q4H PRN IVP Moderate Pain (Pain Scale 4-6) 05/27/17 07:30 06/03/17 07:29 05/29/17 04:22 Nitroglycerin (Ntg) 0.4 mg Q5M PRN SL Prn Chest Pain 05/27/17 07:30 06/26/17 07:29 Ondansetron HCl (Zofran) 4 mg Q6H PRN IVP Nausea & Vomiting 05/27/17 07:30 06/26/17 07:29 Pantoprazole (Protonix) 40 mg DAILY ORAL 05/27/17 12:00 06/26/17 11:59 05/30/17 09:18 Piperacillin Sod/ Tazobactam Sod 2.25 gm/Dextrose 55 ml @ 110 mls/hr Q8HR IV 05/27/17 09:00 06/01/17 08:59 05/30/17 13:24 Polyethylene Glycol (Miralax) 17 gm DAILYPRN PRN ORAL Constipation 05/27/17 07:30 06/26/17 07:29 Pregabalin (Lyrica) 75 mg DAILY ORAL 05/27/17 09:00 06/26/17 08:59 05/30/17 09:18 Rifaximin (Xifaxan) 400 mg EVERY 8 HOURS ORAL 05/28/17 22:00 06/04/17 21:59 05/30/17 13:25 Sevelamer Carbonate (Renvela) 1,600 mg THREE TIMES A DAY ORAL 05/28/17 13:00 06/27/17 12:59 05/30/17 13:24 Sitagliptin Phosphate (Januvia) 25 mg ACBREAKFAST ORAL 05/28/17 06:30 06/27/17 06:29 05/30/17 06:20 Temazepam (Restoril) 15 mg HSPRN PRN ORAL Insomnia 05/27/17 07:30 06/03/17 07:29 Vancomycin HCl (Vanco rx to dose) 1 ea DAILY PRN MISC PER RX PROTOCOL 05/27/17 07:45 06/26/17 07:44 Vancomycin/Sodium Chloride 250 ml @ 166.667 mls/hr ONCE ONCE IVPB 05/30/17 21:00 05/30/17 22:29 JASPAL MENDOZA May 30, 2017 14:39
--- NOTE | 2017-05-30 16:24 | Cardiology Progress Note ---
Assessment/Plan Assessment/Plan abn cardiac enzyme cad s/p midl cabg, rca pci esrd on hdd diabetic retinopathy anemia systolic dysfunction hs p aflutter ischemia eval mainly nonreversible no need to change therapy asa restart plavix statin bb tele reviewed dc planning gettign prmb c tx Subjective Cardiovascular: Denies: chest pain, lightheadedness, palpitations Respiratory: Denies: shortness of breath Gastrointestinal/Abdominal: Denies: abdominal pain Genitourinary: Denies: burning Objective Last 24 Hour Vital Signs Date Time Temp Pulse Resp B/P (MAP) Pulse Ox O2 Delivery O2 Flow Rate FiO2 05/30/17 15:28 97.5 85 20 154/61 99 Nasal Cannula 2.0 05/30/17 12:00 79 05/30/17 11:43 97.7 76 20 156/73 99 Nasal Cannula 2.0 05/30/17 09:19 84 162/77 05/30/17 09:18 162/77 05/30/17 08:36 98.1 84 18 162/77 100 Nasal Cannula 05/30/17 08:00 85 05/30/17 04:00 97.7 70 20 156/58 100 Nasal Cannula 3.0 05/30/17 04:00 75 05/30/17 00:21 98.4 79 20 155/79 99 Nasal Cannula 2.0 05/30/17 00:00 76 05/29/17 20:10 80 125/78 05/29/17 20:00 74 05/29/17 20:00 98.2 82 21 128/100 99 Nasal Cannula 2.0 05/29/17 19:30 80 20 Nasal Cannula 2.0 28 05/29/17 19:30 Nasal Cannula 2.0 28 05/29/17 19:30 92 Nasal Cannula 2.0 28 General Appearance: no apparent distress, alert Cardiovascular: normal rate, regular rhythm Respiratory/Chest: lungs clear Abdomen: normal bowel sounds, non tender, soft Extremities: no swelling Intake and Output 05/30/17 05/31/17 19:00 07:00 Intake Total 240 ml Balance 240 ml Intake Oral 240 ml # Voids 2 # Bowel Movements 1 Laboratory Tests Test 05/30/17 05:10 White Blood Count 8.9 K/UL (4.8-10.8) Red Blood Count 2.27 M/UL (4.70-6.10) L Hemoglobin 7.6 G/DL (14.2-18.0) L Hematocrit 22.1 % (42.0-52.0) L Mean Corpuscular Volume 97 FL (80-99) Mean Corpuscular Hemoglobin 33.5 PG (27.0-31.0) H Mean Corpuscular Hemoglobin Concent 34.5 G/DL (32.0-36.0) Red Cell Distribution Width 14.5 % (11.6-14.8) Platelet Count 339 K/UL (150-450) Mean Platelet Volume 5.3 FL (6.5-10.1) L Neutrophils (%) (Auto) % (45.0-75.0) Lymphocytes (%) (Auto) % (20.0-45.0) Monocytes (%) (Auto) % (1.0-10.0) Eosinophils (%) (Auto) % (0.0-3.0) Basophils (%) (Auto) % (0.0-2.0) Differential Total Cells Counted 100 Neutrophils % (Manual) 68 % (45-75) Lymphocytes % (Manual) 14 % (20-45) L Monocytes % (Manual) 9 % (1-10) Eosinophils % (Manual) 8 % (0-3) H Basophils % (Manual) 0 % (0-2) Metamyelocytes % 1 % (0-0) H Band Neutrophils 0 % (0-8) Platelet Estimate Adequate Platelet Morphology Normal Hypochromasia 3+ Anisocytosis 1+ Spherocytes 2+ Sodium Level 139 MMOL/L (136-145) Potassium Level 3.8 MMOL/L (3.5-5.1) Chloride Level 100 MMOL/L (98-107) Carbon Dioxide Level 30 MMOL/L (21-32) Anion Gap 9 mmol/L (5-15) Blood Urea Nitrogen 39 mg/dL (7-18) H Creatinine 4.9 MG/DL (0.55-1.30) H Estimat Glomerular Filtration Rate 12.0 mL/min (>60) Glucose Level 118 MG/DL (74-106) H Calcium Level 8.0 MG/DL (8.5-10.1) L Random Vancomycin Level 21.0 ug/mL RAY COYLE May 30, 2017 16:24
[2017-05-30] MEDS ORDERED: Nitroglycerin Subl 0.4mg tab SL PRN (18:00)
[2017-05-30] MEDS ORDERED: Albuterol/Ipratropium 3ml neb HHN PRN (18:00)
[2017-05-30] MEDS ORDERED: Morphine Sulfate 2mg/ml Inj IVP PRN (18:00)
[2017-05-30] MEDS ORDERED: Miralax 17gm pkt ORAL PRN (18:00)
--- NOTE | 2017-05-30 18:23 | General Progress Note ---
Progress Note Progress Note Chart reviewed, Pt examined, consult dictated. Pt has extensive soft tissue damage of the rt foot as well as a left heel decubitus ulcer. He needs to be evaluated by a vascular surgeon in the remote hope that could undergo a rt BKA. He is heading for staged bilateral above knee amputations. He shows no signs of ascending infections of both lower extremities. Paulo Oden MD May 30, 2017 18:23
[2017-05-30] MEDS ORDERED: Dyna-Hex 2% Top Sol 2oz TOPIC SCH (20:00)
[2017-05-30] MEDS ORDERED: Morphine Sulfate 4mg/ml Inj IVP PRN (20:45)
[2017-05-30] MEDS ORDERED: Vancomycin 750mg/NS 250ml IVPB ONE (21:00)
[2017-05-30] MEDS ORDERED: Vancomycin 750mg/NS 250ml 250 ML IVPB ONE (21:00)
[2017-05-30] MEDS ORDERED: Atorvastatin 80mg tab ORAL SCH (21:00)
[2017-05-30] MEDS: Piperacillin/Tazobactam 2.25 GM in D5W 55 ML IV SCH (22:00)
--- NOTE | 2017-05-31 02:00 | Consultation ---
DATE OF CONSULTATION: 05/30/2017 SURGICAL CONSULTATION REASON FOR CONSULTATION: Gangrene of the right foot and decubitus ulcer of the left heel. HISTORY OF PRESENT ILLNESS: This 66-year-old male presents with multiple medical problems including diabetes mellitus, cardiomyopathy, non-ST elevation [place] and coronary artery disease as well as hypertension. The patient has been on hemodialysis for 8 months. He has not walked for the past year. He has a history of diabetes mellitus, but does not recall exactly how long he has had the disease. He is a nonsmoker. PAST MEDICAL HISTORY: Previous surgeries include coronary bypass 2 months ago at [facility]. ALLERGIES: None known. MEDICATIONS: Include aspirin 81 mg daily, Lipitor 80 mg daily, calcitriol 0.5 mg daily, Plavix 75 mg daily, Cymbalta 30 mg daily, enalapril 5 mg daily, glipizide 5 mg daily, lisinopril 10 mg daily, metoprolol 25 mg daily, nifedipine 10 mg daily, Lyrica 75 mg q.12 hours, Januvia 25 mg before breakfast, and vitamin B complex/vitamin C/folic acid 1 tablet daily. SOCIAL HISTORY: Tobacco, none. Alcohol, none. FAMILY HISTORY: Noncontributory. REVIEW OF SYSTEMS: Unobtainable. PHYSICAL EXAMINATION: GENERAL: Reveals a chronically ill-appearing male. VITAL SIGNS: Temperature 97.5, blood pressure 154/61, pulse 85, and respirations 20. HEENT: Normocephalic. Pupils are equal and reactive to light. There was no scleral icterus. NECK: Supple without adenopathy. LUNGS: Clear. There is a healing left thoracotomy scar from his recent bypass. ABDOMEN: Soft. There was no organomegaly. EXTREMITIES: Show dusky changes of the right forefoot with impending gangrene. The medial aspect of the foot shows a full-thickness skin loss with exposed tendon. The left foot shows a stage III decubitus ulcer. The pedal pulses were absent bilaterally. LABORATORY AND DIAGNOSTIC DATA: CBC today shows a white blood count of 8.9, hemoglobin 7.6, hematocrit 22.1, and platelet count 339,000. Clotting study show an INR of 1.0 and PTT 39 seconds. Serum electrolytes showed sodium 139, potassium 3.8, chloride 100, bicarbonate 30, BUN 39, and creatinine 4.9. Total bilirubin 0.5. SGOT 24 and SGPT slightly elevated to 43. Alkaline phosphatase 93. Total protein 6.0 with an albumin of 1.3. X-ray of the right foot shows a large plantar and lateral soft tissue defect. There were no gross osseous abnormalities to suggest acute osteomyelitis. Soft tissue gas was suspected on a recent MRI. This was not visible radiographically. Chest x-ray showed no acute chest disease. IMPRESSION: 1. Extensive soft tissue necrosis of right foot. 2. Left heel stage III decubitus ulcer. PLAN: The patient will need a vascular surgery consultation. He will most likely require staged bilateral above-knee amputation. Paulo Oden M.D. DR: JEANETTE JOB#: [id number] CC:
[2017-05-31 03:20] VITALS: BP 158/50
[2017-05-31] MEDS: Piperacillin/Tazobactam 2.25 GM in D5W 55 ML IV SCH ×2 (06:30→14:33)
[2017-05-31] MEDS: NovoLOG Insulin Flexpen SUBQ SCH ×3 (06:30→17:26)
[2017-05-31] MEDS ORDERED: sitaGLIPtin 25mg tab ORAL SCH (06:30)
[2017-05-31] MEDS: Zosyn 2.25 gm in D5W 55ml IV SCH ×2 (06:34→06:37)
[2017-05-31 08:00] VITALS: BP 164/76
[2017-05-31] MEDS ORDERED: DULoxetine 30mg cap ORAL SCH (09:00)
[2017-05-31] MEDS ORDERED: Aspirin EC 81mg tab ORAL SCH (09:00)
[2017-05-31] MEDS ORDERED: Lyrica 75mg cap ORAL SCH (09:00)
[2017-05-31] MEDS ORDERED: Vitamin B12 1000mcg/ml Inj SUBQ ONE ×2 (09:00)
[2017-05-31] MEDS ORDERED: Metoprolol Succinate XL 25mg tab ORAL SCH (09:00)
[2017-05-31] MEDS ORDERED: Lisinopril 10mg tab ORAL SCH (09:00)
[2017-05-31] MEDS: Docusate 100mg cap ORAL SCH ×4 (09:00→17:25)
[2017-05-31] MEDS: Heparin 5000 units/ml inj SUBQ SCH (09:26)
--- NOTE | 2017-05-31 10:45 | General Progress Note ---
Progress Note Progress Note Surgery: doing well. no acute events. right foot evaluated and with significant dry gangrene and tissue loss. dorsum of foot with almost 80% loss down to bone. toes with dry gangrene and nails falling off. good pulse at femoral and okay to popliteal. nothing in foot. spoke with patient about current condition. unfortunately there is no way to salvage the foot given amount of dry gangrene. recommend BKA for now. may even require AKA at later time if disease progressively worsens. Adria Chow May 31, 2017 10:45
[2017-05-31] MEDS ORDERED: Cathflo Alteplase 2mg Inj INJ ONE (11:30)
[2017-05-31 12:00] VITALS: BP 120/78
--- NOTE | 2017-05-31 12:10 | General Progress Note ---
Assessment/Plan Status: stable Assessment/Plan ESRD- Right foot gangeren DM Retinopathy Encephalopathy ? sepsis Anemia- transfused High Troponin Sugg: transfuse Anemia osborne 2 D Echo HD 05/29 repeat 05/31 per consultants Subjective ROS Limited/Unobtainable: No Constitutional: Reports: malaise Allergies: Coded Allergies: No Known Allergies (Unverified , 02/15/13) Objective Last 24 Hour Vital Signs Date Time Temp Pulse Resp B/P (MAP) Pulse Ox O2 Delivery O2 Flow Rate FiO2 05/31/17 09:27 164/76 05/31/17 09:23 76 164/76 05/31/17 08:00 97.7 76 20 164/76 98 Room Air 05/31/17 03:20 98.6 81 20 158/50 96 Room Air 05/30/17 23:39 98.2 86 20 128/56 97 Room Air 05/30/17 20:09 Nasal Cannula 2.0 28 05/30/17 20:09 94 Nasal Cannula 2.0 28 05/30/17 20:09 85 17 Nasal Cannula 2.0 05/30/17 20:00 100.0 20 162/68 97 Room Air 05/30/17 16:00 74 05/30/17 15:28 97.5 85 20 154/61 99 Nasal Cannula 2.0 Height (Feet): 5 Height (Inches): 6.00 Weight (Pounds): 128 General Appearance: no apparent distress Cardiovascular: normal rate Respiratory/Chest: decreased breath sounds Abdomen: soft Objective no change in PE JADON ROCKWELL May 31, 2017 12:10
[2017-05-31 15:59] VITALS: BP 176/81
[2017-05-31] MEDS ORDERED: 1/2 NS 1000ml IV ONE (16:04)
[2017-05-31] MEDS ORDERED: Tubing Blood Filter IV ONE (16:04)
[2017-05-31] MEDS ORDERED: HydrALAZINE 25mg tab ORAL PRN (16:45)
--- NOTE | 2017-05-31 17:14 | GI Progress Note ---
Assessment/Plan Problems: (1) ESRD (end stage renal disease) on dialysis ICD Codes: N18.6 - End stage renal disease; Z99.2 - Dependence on renal dialysis SNOMED: 262047171 (2) Non-STEMI (non-ST elevated myocardial infarction) ICD Codes: I21.4 - Non-ST elevation (NSTEMI) myocardial infarction SNOMED: 639860186 (3) Anemia ICD Codes: D64.9 - Anemia, unspecified SNOMED: 875508785 Qualifiers: Qualified Codes: D64.9 - Anemia, unspecified (4) Diabetes mellitus ICD Codes: E11.9 - Type 2 diabetes mellitus without complications SNOMED: 12765373 (5) Hypoalbuminemia ICD Codes: E88.09 - Other disorders of plasma-protein metabolism, not elsewhere classified SNOMED: 837468443 Status: stable Status Narrative Discussed with Dr. Carl. Assessment/Plan OB stool negative B12 deficiency troponin mild elevation ammonia WNL anemia, most probably secondary to renal disease. monitor H&H, prn transfusions cont xifaxan given high folic acid, low B12 defer GI procedures given mild troponin elevation ppi fu labs noted patient on Plavix, will require dc min 48 hours prior any GI procedures. Subjective Subjective no symptoms Objective Last 24 Hour Vital Signs Date Time Temp Pulse Resp B/P (MAP) Pulse Ox O2 Delivery O2 Flow Rate FiO2 05/31/17 16:39 Room Air 2.0 28 05/31/17 15:59 98.2 79 20 176/81 99 Room Air 05/31/17 12:00 98.1 72 20 120/78 100 Room Air 05/31/17 11:25 Room Air 2.0 28 05/31/17 09:27 164/76 05/31/17 09:23 76 164/76 05/31/17 08:06 78 17 Nasal Cannula 2.0 05/31/17 08:06 95 Nasal Cannula 2.0 28 05/31/17 08:06 Nasal Cannula 2.0 28 05/31/17 08:00 97.7 76 20 164/76 98 Room Air 05/31/17 03:20 98.6 81 20 158/50 96 Room Air 05/30/17 23:39 98.2 86 20 128/56 97 Room Air 05/30/17 20:09 Nasal Cannula 2.0 05/30/17 20:09 94 Nasal Cannula 2.0 28 05/30/17 20:09 85 17 Nasal Cannula 2.0 05/30/17 20:00 100.0 20 162/68 97 Room Air Intake and Output 05/31/17 06/01/17 19:00 07:00 Output Total 2160 ml Balance -2160 ml Hemodialysis UF 2160 ml # Voids 2 Laboratory Tests Test 05/31/17 16:50 White Blood Count Pending Red Blood Count Pending Hemoglobin Pending Hematocrit Pending Mean Corpuscular Volume Pending Mean Corpuscular Hemoglobin Pending Mean Corpuscular Hemoglobin Concent Pending Red Cell Distribution Width Pending Platelet Count Pending Mean Platelet Volume Pending Neutrophils (%) (Auto) Pending Lymphocytes (%) (Auto) Pending Monocytes (%) (Auto) Pending Eosinophils (%) (Auto) Pending Basophils (%) (Auto) Pending Sodium Level Pending Potassium Level Pending Chloride Level Pending Carbon Dioxide Level Pending Blood Urea Nitrogen Pending Creatinine Pending Estimat Glomerular Filtration Rate Pending Glucose Level Pending Calcium Level Pending Height (Feet): 5 Height (Inches): 6.00 Weight (Pounds): 128 General Appearance: no apparent distress, alert Cardiovascular: normal rate Respiratory/Chest: normal breath sounds, no respiratory distress Abdominal Exam: normal bowel sounds, non tender, soft Genitourinary/Rectal: normal rectal exam Shona Lucero N.P. May 31, 2017 17:14
[2017-05-31 17:20] LABS: BASOPHILS % (AUTO) 0.3 % (0.0-2.0); LYMPHOCYTES % (AUTO) 9.9 % (20.0-45.0); MEAN CORPUSCULAR HEMOGLOBIN 33.4 PG (27.0-31.0); MEAN CORPUSCULAR HGB CONC 34.9 G/DL (32.0-36.0); MEAN CORPUSCULAR VOLUME 96 FL (80-99); MEAN PLATELET VOLUME 5.1 FL (6.5-10.1); MONOCYTES % (AUTO) 8.6 % (1.0-10.0); NEUTROPHILS % (AUTO) 76.2 % (45.0-75.0); PLATELET COUNT 342 K/UL (150-450); RED BLOOD COUNT 2.75 M/UL (4.70-6.10); RED CELL DISTRIBUTION WIDTH 14.3 % (11.6-14.8); WHITE BLOOD COUNT 12.1 K/UL (4.8-10.8)
[2017-05-31 17:27] VITALS: BP 176/81
--- NOTE | 2017-05-31 17:30 | Pulmonology Progress Note ---
Assessment/Plan Problems: (1) ACS (acute coronary syndrome) (2) ESRD (end stage renal disease) on dialysis (3) Diabetes mellitus (4) Anemia (5) PVD (peripheral vascular disease) (6) Diabetic foot ulcer Assessment/Plan stress test showed irreversible changes surgery recommended amputation,,pt refused continue abx day 11 of 40 sliding scale diabetic diet. back to long term with iv abx and vascular surgery f/u/ Subjective ROS Limited/Unobtainable: No Constitutional: Reports: no symptoms HEENT: Repors: no symptoms Respiratory: Reports: no symptoms Allergies: Coded Allergies: No Known Allergies (Unverified , 02/15/13) Objective Last 24 Hour Vital Signs Date Time Temp Pulse Resp B/P (MAP) Pulse Ox O2 Delivery O2 Flow Rate FiO2 05/31/17 17:27 176/81 05/31/17 16:39 Room Air 2.0 28 05/31/17 15:59 98.2 79 20 176/81 99 Room Air 05/31/17 12:00 98.1 72 20 120/78 100 Room Air 05/31/17 11:25 Room Air 2.0 28 05/31/17 09:27 164/76 05/31/17 09:23 76 164/76 05/31/17 08:06 78 17 Nasal Cannula 2.0 05/31/17 08:06 95 Nasal Cannula 2.0 28 05/31/17 08:06 Nasal Cannula 2.0 28 05/31/17 08:00 97.7 76 20 164/76 98 Room Air 05/31/17 03:20 98.6 81 20 158/50 96 Room Air 05/30/17 23:39 98.2 86 20 128/56 97 Room Air 05/30/17 20:09 Nasal Cannula 2.0 28 05/30/17 20:09 94 Nasal Cannula 2.0 28 05/30/17 20:09 85 17 Nasal Cannula 2.0 05/30/17 20:00 100.0 20 162/68 97 Room Air Intake and Output 05/31/17 06/01/17 19:00 07:00 Output Total 2160 ml Balance -2160 ml Hemodialysis UF 2160 ml # Voids 2 General Appearance: WD/WN HEENT: normocephalic, atraumatic Respiratory/Chest: chest wall non-tender, lungs clear Abdomen: normal bowel sounds, no organomegaly Genitourinary: normal external genitalia Extremities: other - extensive wound Skin: no rash, no lesions Laboratory Tests 05/31/17 16:50: White Blood Count 12.1H, Red Blood Count 2.75L, Hemoglobin 9.2L, Hematocrit 26.3L, Mean Corpuscular Volume 96, Mean Corpuscular Hemoglobin 33.4H, Mean Corpuscular Hemoglobin Concent 34.9, Red Cell Distribution Width 14.3, Platelet Count 342, Mean Platelet Volume 5.1L, Neutrophils (%) (Auto) 76.2H, Lymphocytes (%) (Auto) 9.9L, Monocytes (%) (Auto) 8.6, Eosinophils (%) (Auto) 5.0H, Basophils (%) (Auto) 0.3, Sodium Level [Pending], Potassium Level [Pending], Chloride Level [Pending], Carbon Dioxide Level [Pending], Blood Urea Nitrogen [ Pending], Creatinine [Pending], Estimat Glomerular Filtration Rate [Pending], Glucose Level [Pending], Calcium Level [Pending] Current Medications Medications (Trade) Dose Ordered Sig/Ailyn Route PRN Reason Start Time Stop Time Status Last Admin Dose Admin Acetaminophen (Tylenol) 650 mg Q4H PRN ORAL fever 05/30/17 18:00 06/26/17 17:59 Albuterol/ Ipratropium (DuoNeb 0.5-3(2.5)mg/3ml) 3 ml Q4H PRN HHN Shortness of Breath 05/30/17 18:00 06/01/17 17:59 Aspirin (Ecotrin) 81 mg DAILY ORAL 05/31/17 09:00 06/26/17 08:59 05/31/17 09:23 Atorvastatin Calcium (Lipitor) 80 mg BEDTIME ORAL 05/30/17 21:00 06/26/17 20:59 05/30/17 22:16 Chlorhexidine Gluconate (Lora-Hex 2%) 1 applic Q24H TOPIC 05/30/17 20:00 06/26/17 19:59 05/30/17 20:00 Dextrose (Dextrose 50%) STAT PRN IV Hypoglycemia 05/30/17 18:00 06/29/17 17:59 Docusate Sodium (Colace) 100 mg THREE TIMES A DAY ORAL 05/30/17 18:30 06/27/17 18:29 05/30/17 18:30 Duloxetine HCl (Cymbalta) 30 mg DAILY ORAL 05/31/17 09:00 06/26/17 08:59 05/31/17 09:23 Epoetin Emmanuel (Procrit (for ESRD on dialysis)) 10,000 units MON-WED-FRI SUBQ 05/31/17 21:00 06/28/17 20:59 Heparin Sodium (Porcine) (Heparin 5000 units/ml) 5,000 units EVERY 12 HOURS SUBQ 05/30/17 21:00 06/27/17 20:59 05/31/17 09:26 Hydralazine HCl (Apresoline) 25 mg Q6H PRN ORAL sbp > 160 05/31/17 16:45 06/30/17 16:44 05/31/17 17:27 Insulin Aspart (NovoLOG) BEFORE MEALS AND HS SUBQ 05/30/17 21:00 06/26/17 11:29 05/31/17 12:02 Lisinopril (Zestril) 10 mg DAILY ORAL 05/31/17 09:00 06/26/17 08:59 05/31/17 09:27 Metoprolol Succinate (Toprol XL) 25 mg DAILY ORAL 05/31/17 09:00 06/26/17 08:59 05/31/17 09:23 Morphine Sulfate (Morphine Sulfate) 2 mg Q4H PRN IVP Moderate Pain (Pain Scale 4-6) 05/30/17 20:45 06/06/17 20:44 Nitroglycerin (Ntg) 0.4 mg Q5M PRN SL Prn Chest Pain 05/30/17 18:00 06/26/17 07:29 Ondansetron HCl (Zofran) 4 mg Q6H PRN IVP Nausea & Vomiting 05/30/17 18:00 06/26/17 17:59 Pantoprazole (Protonix) 40 mg DAILY ORAL 05/31/17 09:00 06/26/17 11:59 05/31/17 09:23 Piperacillin Sod/ Tazobactam Sod 2.25 gm/Dextrose 55 ml @ 110 mls/hr Q8HR IV 05/30/17 22:00 06/29/17 23:59 05/31/17 14:33 Polyethylene Glycol (Miralax) 17 gm DAILYPRN PRN ORAL Constipation 05/30/17 18:00 06/29/17 17:59 Pregabalin (Lyrica) 75 mg DAILY ORAL 05/31/17 09:00 06/26/17 08:59 05/31/17 09:26 Rifaximin (Xifaxan) 400 mg EVERY 8 HOURS ORAL 05/30/17 22:00 06/04/17 21:59 05/31/17 14:33 Sevelamer Carbonate (Renvela) 1,600 mg THREE TIMES A DAY ORAL 05/30/17 18:30 06/27/17 18:29 05/31/17 17:26 Sitagliptin Phosphate (Januvia) 25 mg ACBREAKFAST ORAL 05/31/17 06:30 06/27/17 06:29 05/31/17 06:35 Temazepam (Restoril) 15 mg HSPRN PRN ORAL Insomnia 05/30/17 18:00 06/06/17 17:59 Vancomycin HCl (Vanco rx to dose) 1 ea DAILY PRN MISC PER RX PROTOCOL 05/31/17 09:00 06/29/17 23:59 JASPAL MENDOZA May 31, 2017 17:30
[2017-05-31 18:03] LABS: ANION GAP 9 mmol/L (5-15); CARBON DIOXIDE 31 MMOL/L (21-32); CHLORIDE 103 MMOL/L (98-107); CREATININE 3.5 MG/DL (0.55-1.30); GLOMERULAR FILTRATION RATE 17.7 mL/min (>60); POTASSIUM 3.4 MMOL/L (3.5-5.1); SODIUM 143 MMOL/L (136-145)
[2017-05-31] MEDS ORDERED: Epogen (for ESRD on dialysis) SUBQ SCH (21:00)
--- NOTE | 2017-05-31 21:30 | Infectious Diseases Prog Note ---
Assessment/Plan Assessment/Plan Assessment: AMS, improving- ? worsening foot ulcers vs other (r/o metabolic causes/stroke, etc) R Diabetic foot ulcer with OM (exposed bone) with possible early abscess/gas, L heel superficial ulceration; worsening necrosis -Xray R foot 05/27: Large plantar and lateral foot soft tissue defect.No definite acute bony trauma. No gross osseous abnormality to suggest acute osteomyelitis. Soft tissue gas is suspected on recent MRI is not visible radiographically. -wound cx 05/27 NGTD, GS(-) -MRI R foot 05/19: Markedly limited by motion. Apparent abnormal STIR signal of the first distal phalanx, the second middle and distal phalanges in the base of the fifth metatarsal. early osteomyelitis should be considered. Reactive marrow edema is also a consideration. Apparent fluid signal surrounding the flexor digitorum tendons of the plantar midfoot. Few foci of apparent susceptibility artifact also noted within this area. Possibility of infected fluid and gas surrounding the flexor digitorum tendons -05/19 wound cx ConS (represent colonizer and not true pathogen of infection) -Bcx 05/18 neg Fever/leukocytosis- likely 2ry to above; recurrent -Bcx NTD -u/a neg -CXR no acute disease VRE colonized DM2, ESRD on HD MWF, HLD, HTN, CAD, CHF, diabetic foot ulcers Plan: -Continue IV vancomycin and Zosyn #13/42, rifaximin -outpt podiatry and vascular f/u -f/u Bcx -wound cx -Monitor CBC/BMP, temperatures Subjective Allergies: Coded Allergies: No Known Allergies (Unverified , 02/15/13) Subjective low grade fever x1 recurrent mild leukocytosis comfortable for possible DC Objective Vital Signs Last 24 Hour Vital Signs Date Time Temp Pulse Resp B/P (MAP) Pulse Ox O2 Delivery O2 Flow Rate FiO2 05/31/17 17:27 176/81 05/31/17 16:39 Room Air 2.0 05/31/17 15:59 98.2 79 20 176/81 99 Room Air 05/31/17 12:00 98.1 72 20 120/78 100 Room Air 05/31/17 11:25 Room Air 2.0 28 05/31/17 09:27 164/76 05/31/17 09:23 76 164/76 05/31/17 08:06 78 17 Nasal Cannula 2.0 05/31/17 08:06 95 Nasal Cannula 2.0 28 05/31/17 08:06 Nasal Cannula 2.0 28 05/31/17 08:00 97.7 76 20 164/76 98 Room Air 05/31/17 03:20 98.6 81 20 158/50 96 Room Air 05/30/17 23:39 98.2 86 20 128/56 97 Room Air Height (Feet): 5 Height (Inches): 6.00 Weight (Pounds): 128 General Appearance: no acute distress Respiratory/Chest: no respiratory distress Cardiovascular: normal rate, regular rhythm Abdomen: normal bowel sounds, soft, non tender, non distended Laboratory Tests Test 05/31/17 16:50 White Blood Count 12.1 K/UL (4.8-10.8) H Red Blood Count 2.75 M/UL (4.70-6.10) L Hemoglobin 9.2 G/DL (14.2-18.0) L Hematocrit 26.3 % (42.0-52.0) L Mean Corpuscular Volume 96 FL (80-99) Mean Corpuscular Hemoglobin 33.4 PG (27.0-31.0) H Mean Corpuscular Hemoglobin Concent 34.9 G/DL (32.0-36.0) Red Cell Distribution Width 14.3 % (11.6-14.8) Platelet Count 342 K/UL (150-450) Mean Platelet Volume 5.1 FL (6.5-10.1) L Neutrophils (%) (Auto) 76.2 % (45.0-75.0) H Lymphocytes (%) (Auto) 9.9 % (20.0-45.0) L Monocytes (%) (Auto) 8.6 % (1.0-10.0) Eosinophils (%) (Auto) 5.0 % (0.0-3.0) H Basophils (%) (Auto) 0.3 % (0.0-2.0) Sodium Level 143 MMOL/L (136-145) Potassium Level 3.4 MMOL/L (3.5-5.1) L Chloride Level 103 MMOL/L (98-107) Carbon Dioxide Level 31 MMOL/L (21-32) Anion Gap 9 mmol/L (5-15) Blood Urea Nitrogen 24 mg/dL (7-18) H Creatinine 3.5 MG/DL (0.55-1.30) H Estimat Glomerular Filtration Rate 17.7 mL/min (>60) Glucose Level 118 MG/DL (74-106) H Calcium Level 8.0 MG/DL (8.5-10.1) L Current Medications Medications (Trade) Dose Ordered Sig/Ailyn Route PRN Reason Start Time Stop Time Status Last Admin Dose Admin Acetaminophen (Tylenol) 650 mg Q4H PRN ORAL fever 05/30/17 18:00 06/26/17 17:59 Albuterol/ Ipratropium (DuoNeb 0.5-3(2.5)mg/3ml) 3 ml Q4H PRN HHN Shortness of Breath 05/30/17 18:00 06/01/17 17:59 Aspirin (Ecotrin) 81 mg DAILY ORAL 05/31/17 09:00 06/26/17 08:59 05/31/17 09:23 Atorvastatin Calcium (Lipitor) 80 mg BEDTIME ORAL 05/30/17 21:00 06/26/17 20:59 05/30/17 22:16 Chlorhexidine Gluconate (Lora-Hex 2%) 1 applic Q24H TOPIC 05/30/17 20:00 06/26/17 19:59 05/30/17 20:00 Dextrose (Dextrose 50%) STAT PRN IV Hypoglycemia 05/30/17 18:00 06/29/17 17:59 Docusate Sodium (Colace) 100 mg THREE TIMES A DAY ORAL 05/30/17 18:30 06/27/17 18:29 05/30/17 18:30 Duloxetine HCl (Cymbalta) 30 mg DAILY ORAL 05/31/17 09:00 06/26/17 08:59 05/31/17 09:23 Epoetin Emmanuel (Procrit (for ESRD on dialysis)) 10,000 units MON-MON-MON SUBQ 05/31/17 21:00 06/28/17 20:59 Heparin Sodium (Porcine) (Heparin 5000 units/ml) 5,000 units EVERY 12 HOURS SUBQ 05/30/17 21:00 06/27/17 20:59 05/31/17 09:26 Hydralazine HCl (Apresoline) 25 mg Q6H PRN ORAL sbp > 160 05/31/17 16:45 06/30/17 16:44 05/31/17 17:27 Insulin Aspart (NovoLOG) BEFORE MEALS AND HS SUBQ 05/30/17 21:00 06/26/17 11:29 05/31/17 12:02 Lisinopril (Zestril) 10 mg DAILY ORAL 05/31/17 09:00 06/26/17 08:59 05/31/17 09:27 Metoprolol Succinate (Toprol XL) 25 mg DAILY ORAL 05/31/17 09:00 06/26/17 08:59 05/31/17 09:23 Morphine Sulfate (Morphine Sulfate) 2 mg Q4H PRN IVP Moderate Pain (Pain Scale 4-6) 05/30/17 20:45 06/06/17 20:44 Nitroglycerin (Ntg) 0.4 mg Q5M PRN SL Prn Chest Pain 05/30/17 18:00 06/26/17 07:29 Ondansetron HCl (Zofran) 4 mg Q6H PRN IVP Nausea & Vomiting 05/30/17 18:00 06/26/17 17:59 Pantoprazole (Protonix) 40 mg DAILY ORAL 05/31/17 09:00 06/26/17 11:59 05/31/17 09:23 Piperacillin Sod/ Tazobactam Sod 2.25 gm/Dextrose 55 ml @ 110 mls/hr Q8HR IV 05/30/17 22:00 06/29/17 23:59 05/31/17 14:33 Polyethylene Glycol (Miralax) 17 gm DAILYPRN PRN ORAL Constipation 05/30/17 18:00 06/29/17 17:59 Pregabalin (Lyrica) 75 mg DAILY ORAL 05/31/17 09:00 06/26/17 08:59 05/31/17 09:26 Rifaximin (Xifaxan) 400 mg EVERY 8 HOURS ORAL 05/30/17 22:00 06/04/17 21:59 05/31/17 14:33 Sevelamer Carbonate (Renvela) 1,600 mg THREE TIMES A DAY ORAL 05/30/17 18:30 06/27/17 18:29 05/31/17 17:26 Sitagliptin Phosphate (Januvia) 25 mg ACBREAKFAST ORAL 05/31/17 06:30 06/27/17 06:29 05/31/17 06:35 Temazepam (Restoril) 15 mg HSPRN PRN ORAL Insomnia 05/30/17 18:00 06/06/17 17:59 Vancomycin HCl (Vanco rx to dose) 1 ea DAILY PRN MISC PER RX PROTOCOL 05/31/17 09:00 06/29/17 23:59 ROBERTO GOLDSTEIN May 31, 2017 21:30
--- NOTE | 2017-05-31 23:36 | Diagnostic Imaging Report ---
APPROVED REPORT CPT Code: 86547 Present Symptoms Lower Extremity Pain: Bilateral BILATERAL: Imaging reveals a patent deep venous system bilaterally. There is no evidence of thrombus within the femoral, popliteal or tibial segments. The greater saphenous veins are also within normal limits. Doppler indicates normal spontaneous flow within these segments.
--- NOTE | 2017-05-31 23:54 | Consultation ---
History of Present Illness General Date patient seen: May 28, 2017 Chief Complaint: Altered Level of Consciousness Reason for Consultation: diabetic foot ulcer Present Illness HPI 66-year-old male presents with multiple medical problems including diabetes mellitus, cardiomyopathy, non-ST elevation FL and coronary artery disease as well as hypertension. The patient has been on hemodialysis for 8 months.the pt pw depressive sxs Allergies: Coded Allergies: No Known Allergies (Unverified , 02/15/13) Medication History Scheduled Aspirin* (Aspir 81*), 81 MG ORAL DAILY, (Reported) Aspirin* (Aspir 81*), 81 MG ORAL DAILY, (Reported) Atorvastatin Calcium* (Lipitor*), 80 MG ORAL BEDTIME, (Reported) Calcitriol (Calcitriol), 0.5 MCG PO DAILY, (Reported) Clopidogrel* (Clopidogrel*), 75 MG ORAL DAILY, (Reported) Docusate Sodium* (Docusate Sodium*), 100 MG ORAL TWICE A DAY, (Reported) Duloxetine Hcl* (Cymbalta*), 30 MG ORAL DAILY, (Reported) Duloxetine Hcl* (Cymbalta*), 30 MG ORAL DAILY, (Reported) Ertapenem (Invanz), 1 GM IM DAILY Glipizide* (Glipizide*), 5 MG ORAL DAILY, (Reported) Levofloxacin (Levofloxacin*), 250 MG ORAL DAILY, (Reported) Lisinopril* (Prinivil*), 10 MG ORAL BID, (Reported) Metoprolol Succinate* (Metoprolol Succinate*), 25 MG ORAL DAILY, (Reported) Metoprolol Succinate* (Metoprolol Succinate*), 50 MG ORAL DAILY, (Reported) Metoprolol Succinate* (Metoprolol Succinate*), 50 MG ORAL DAILY, (Reported) Nifedipine (Nifedipine*), 10 MG ORAL DAILY, (Reported) Pregabalin (Lyrica), 75 MG ORAL TWICE A DAY, (Reported) Pregabalin* (Lyrica*), 75 MG ORAL Q12HR, (Reported) Sitagliptin* (Januvia*), 25 MG ORAL ACBREAKFAST Vancomycin/0.9 % Sod Chloride (Vanco 1 Gram/250 ml-0.9% NaCl), 1 GM IV DAILY Vitamin B Cmplx/Vit C/Folic AC (Nephro-Kofi Tablet), 1 TAB ORAL DAILY, (Reported ) Scheduled PRN Acetaminophen* (Acetaminophen 325MG Tablet*), 650 MG ORAL Q4H PRN for For Pain Level <=5, (Reported) Hydrocodone Bit/Acetaminophen 5-325* (Drury 5-325 Tablet*), 1 TAB ORAL Q4H PRN for For Pain, (Reported) Hydrocodone/Acetaminophen (Hydrocodon-Acetaminophn 10-325), 1 TAB ORAL Q4H PRN for For Pain, (Reported) Miscellaneous Medications Enalapril Maleate* (Enalapril Maleate*), 5 MG ORAL, (Reported) Patient History History Provided By: Patient, Medical Record Healthcare decision maker Resuscitation status Advanced Directive on File No Past Medical/Surgical History Past Medical/Surgical History: (1) Renal insufficiency (2) Respiratory failure, acute (3) Hypercholesteremia (4) Pleural effusion (5) Renal failure (6) Abnormal EKG (7) Atrial flutter (8) Shortness of breath (9) CHF exacerbation (10) Intractable hiccups (11) Hypoglycemia (12) Abnormal thyroid blood test (13) CKD (chronic kidney disease) (14) Elevated troponin (15) CAD (coronary artery disease) (16) Hypercholesterolemia (17) Bronchitis (18) Cardiomyopathy (19) HTN (hypertension) (20) Accelerated hypertension (21) Non-STEMI (non-ST elevated myocardial infarction) (22) ESRD (end stage renal disease) on dialysis (23) Diabetes mellitus (24) Anemia (25) PVD (peripheral vascular disease) (26) Diabetic foot ulcer (27) ACS (acute coronary syndrome) (28) SVT (supraventricular tachycardia) Review of Systems Psychiatric: Reports: prior hx, anxiety, depressed feelings Physical Exam General Appearance: no apparent distress, alert, thin Neurologic: alert, oriented x 3, responsive, depressed affect Last 24 Hour Vital Signs Date Time Temp Pulse Resp B/P (MAP) Pulse Ox O2 Delivery O2 Flow Rate FiO2 05/31/17 17:27 176/81 05/31/17 16:39 Room Air 2.0 05/31/17 15:59 98.2 79 20 176/81 99 Room Air 05/31/17 12:00 98.1 72 20 120/78 100 Room Air 05/31/17 11:25 Room Air 2.0 05/31/17 09:27 164/76 05/31/17 09:23 76 164/76 05/31/17 08:06 78 17 Nasal Cannula 2.0 05/31/17 08:06 95 Nasal Cannula 2.0 28 05/31/17 08:06 Nasal Cannula 2.0 28 05/31/17 08:00 97.7 76 20 164/76 98 Room Air 05/31/17 03:20 98.6 81 20 158/50 96 Room Air Intake and Output 05/31/17 06/01/17 19:00 07:00 Intake Total 120 ml Output Total 2160 ml Balance -2040 ml Intake Oral 120 ml Output Urine Total 0 ml Hemodialysis UF 2160 ml # Voids 2 Laboratory Tests Test 05/31/17 16:50 White Blood Count 12.1 K/UL (4.8-10.8) H Red Blood Count 2.75 M/UL (4.70-6.10) L Hemoglobin 9.2 G/DL (14.2-18.0) L Hematocrit 26.3 % (42.0-52.0) L Mean Corpuscular Volume 96 FL (80-99) Mean Corpuscular Hemoglobin 33.4 PG (27.0-31.0) H Mean Corpuscular Hemoglobin Concent 34.9 G/DL (32.0-36.0) Red Cell Distribution Width 14.3 % (11.6-14.8) Platelet Count 342 K/UL (150-450) Mean Platelet Volume 5.1 FL (6.5-10.1) L Neutrophils (%) (Auto) 76.2 % (45.0-75.0) H Lymphocytes (%) (Auto) 9.9 % (20.0-45.0) L Monocytes (%) (Auto) 8.6 % (1.0-10.0) Eosinophils (%) (Auto) 5.0 % (0.0-3.0) H Basophils (%) (Auto) 0.3 % (0.0-2.0) Sodium Level 143 MMOL/L (136-145) Potassium Level 3.4 MMOL/L (3.5-5.1) L Chloride Level 103 MMOL/L (98-107) Carbon Dioxide Level 31 MMOL/L (21-32) Anion Gap 9 mmol/L (5-15) Blood Urea Nitrogen 24 mg/dL (7-18) H Creatinine 3.5 MG/DL (0.55-1.30) H Estimat Glomerular Filtration Rate 17.7 mL/min (>60) Glucose Level 118 MG/DL (74-106) H Calcium Level 8.0 MG/DL (8.5-10.1) L Height (Feet): 5 Height (Inches): 6.00 Weight (Pounds): 128 Assessment/Plan Status: stable Assessment/Plan mdd cymbolta 30mg qhs Anthony Bravo M.D. May 31, 2017 23:54
--- NOTE | 2017-05-31 23:54 | General Progress Note ---
Assessment/Plan Status: stable, progressing Assessment/Plan mdd Subjective Date patient seen: May 30, 2017 Neurologic/Psychiatric: Reports: anxiety, depressed, emotional problems Allergies: Coded Allergies: No Known Allergies (Unverified , 02/15/13) Objective Last 24 Hour Vital Signs Date Time Temp Pulse Resp B/P (MAP) Pulse Ox O2 Delivery O2 Flow Rate FiO2 05/31/17 17:27 176/81 05/31/17 16:39 Room Air 2.0 28 05/31/17 15:59 98.2 79 20 176/81 99 Room Air 05/31/17 12:00 98.1 72 20 120/78 100 Room Air 05/31/17 11:25 Room Air 2.0 28 05/31/17 09:27 164/76 05/31/17 09:23 76 164/76 05/31/17 08:06 78 17 Nasal Cannula 2.0 05/31/17 08:06 95 Nasal Cannula 2.0 28 05/31/17 08:06 Nasal Cannula 2.0 28 05/31/17 08:00 97.7 76 20 164/76 98 Room Air 05/31/17 03:20 98.6 81 20 158/50 96 Room Air Intake and Output 05/31/17 06/01/17 19:00 07:00 Intake Total 120 ml Output Total 2160 ml Balance -2040 ml Intake Oral 120 ml Output Urine Total 0 ml Hemodialysis UF 2160 ml # Voids 2 Laboratory Tests 05/31/17 16:50: White Blood Count 12.1H, Red Blood Count 2.75L, Hemoglobin 9.2L, Hematocrit 26.3L, Mean Corpuscular Volume 96, Mean Corpuscular Hemoglobin 33.4H, Mean Corpuscular Hemoglobin Concent 34.9, Red Cell Distribution Width 14.3, Platelet Count 342, Mean Platelet Volume 5.1L, Neutrophils (%) (Auto) 76.2H, Lymphocytes (%) (Auto) 9.9L, Monocytes (%) (Auto) 8.6, Eosinophils (%) (Auto) 5.0H, Basophils (%) (Auto) 0.3, Sodium Level 143, Potassium Level 3.4L, Chloride Level 103, Carbon Dioxide Level 31, Anion Gap 9, Blood Urea Nitrogen 24H, Creatinine 3.5H, Estimat Glomerular Filtration Rate 17.7, Glucose Level 118H, Calcium Level 8.0L Height (Feet): 5 Height (Inches): 6.00 Weight (Pounds): 128 Anthony Bravo M.D. May 31, 2017 23:54
--- NOTE | 2017-06-01 00:11 | Geriatric Progress Note ---
Assessment/Plan Assessment/Plan mdd cymbolta 30mg daily Discussed with: patient Subjective Interval Events 05/31 Mood/Memory: Reports: prior hx, anxiety, depressed feelings Geriatric Geriatric Last 24 Hour Vital Signs Date Time Temp Pulse Resp B/P (MAP) Pulse Ox O2 Delivery O2 Flow Rate FiO2 05/31/17 17:27 176/81 05/31/17 16:39 Room Air 2.0 28 05/31/17 15:59 98.2 79 20 176/81 99 Room Air 05/31/17 12:00 98.1 72 20 120/78 100 Room Air 05/31/17 11:25 Room Air 2.0 28 05/31/17 09:27 164/76 05/31/17 09:23 76 164/76 05/31/17 08:06 78 17 Nasal Cannula 2.0 05/31/17 08:06 95 Nasal Cannula 2.0 28 05/31/17 08:06 Nasal Cannula 2.0 28 05/31/17 08:00 97.7 76 20 164/76 98 Room Air 05/31/17 03:20 98.6 81 20 158/50 96 Room Air Laboratory Tests Test 05/31/17 16:50 White Blood Count 12.1 K/UL (4.8-10.8) H Red Blood Count 2.75 M/UL (4.70-6.10) L Hemoglobin 9.2 G/DL (14.2-18.0) L Hematocrit 26.3 % (42.0-52.0) L Mean Corpuscular Volume 96 FL (80-99) Mean Corpuscular Hemoglobin 33.4 PG (27.0-31.0) H Mean Corpuscular Hemoglobin Concent 34.9 G/DL (32.0-36.0) Red Cell Distribution Width 14.3 % (11.6-14.8) Platelet Count 342 K/UL (150-450) Mean Platelet Volume 5.1 FL (6.5-10.1) L Neutrophils (%) (Auto) 76.2 % (45.0-75.0) H Lymphocytes (%) (Auto) 9.9 % (20.0-45.0) L Monocytes (%) (Auto) 8.6 % (1.0-10.0) Eosinophils (%) (Auto) 5.0 % (0.0-3.0) H Basophils (%) (Auto) 0.3 % (0.0-2.0) Sodium Level 143 MMOL/L (136-145) Potassium Level 3.4 MMOL/L (3.5-5.1) L Chloride Level 103 MMOL/L (98-107) Carbon Dioxide Level 31 MMOL/L (21-32) Anion Gap 9 mmol/L (5-15) Blood Urea Nitrogen 24 mg/dL (7-18) H Creatinine 3.5 MG/DL (0.55-1.30) H Estimat Glomerular Filtration Rate 17.7 mL/min (>60) Glucose Level 118 MG/DL (74-106) H Calcium Level 8.0 MG/DL (8.5-10.1) L Height (Feet): 5 Height (Inches): 6.00 Weight (Pounds): 128 Psychiatric Behavior: cooperative Language/Speech: intact Orientation: person, place, time, situation Affect: appropriate, blunt, restricted Anthony Bravo M.D. Jun 01, 2017 00:11
[2017-06-01 11:45] LABS: OTHERS PATHOLOGIST COMMENT
--- NOTE | 2017-06-02 12:09 | Discharge Summary ---
Discharge Summary Hospital Course Date of Admission May 26, 2017 at 23:27 Date of Discharge May 31, 2017 at 20:20 Admitting Diagnosis Sepsis/anemia/NSTEMI HPI Ashwin Santos is a 66 year old male who was admitted on May 26, 2017 at 23:27 for Sepsis Hospital Course [id number] Discharge Discharge Disposition Patient was discharged to SNF/Subacute Facility(03) Discharge Diagnoses: Joanie Jones NP Jun 02, 2017 12:09
--- NOTE | 2017-06-02 19:30 | Discharge Summary 2 SIG ---
DATE OF ADMISSION: 05/26/2017 DATE OF DISCHARGE: 05/31/2017 CONSULTANTS: 1. Anthony Bravo M.D. 2. Robinson Carl M.D. 3. Zeferino Myers M.D. 4. Adria Chow M.D. 5. Donnie Schroeder M.D. 6. Ra Limon M.D. 7. David Stanley D.P.M. BRIEF HOSPITAL COURSE: The patient is a 66-year-old male with history of diabetes, hypertension, anemia, end-stage renal disease, on hemodialysis, peripheral arterial disease, and recent acute right foot osteomyelitis, presented to ED complaining of altered mental status. The patient was noted to be more altered than usual at detention and was hypoxic. The patient was recently discharged from hospital for osteomyelitis on the right foot and was receiving intravenous antibiotics at the detention. On evaluation at ED, the patient was febrile. Blood work showed leukocytosis, WBC was 14. Lactic acid was 2.1. Chest x-ray was unremarkable. He was noted to have anemia, hemoglobin was 7.5 and hematocrit 22. Troponin was 0.3. EKG done did not show any acute ischemia. Creatinine was elevated to 5.0. He was admitted to telemetry for elevated troponin, anemia, and altered level of consciousness. He was continued on IV vancomycin and Zosyn by Infectious Disease specialist. He was given two units packed RBC transfusion. ESR and CRP were elevated. He was given aspirin and Plavix. Lipid panel was checked and was given Lipitor 80 mg at bedtime. He had elevated troponin and has coronary artery disease. Echocardiogram showed ejection fraction of 55% with mild pulmonary hypertension. He underwent myocardial perfusion scan, which showed a large inferolateral wall perfusion defect, mostly fixed. Dr. Stanley was consulted. The patient has bilateral foot ulcer, right worse than left with exposed bone and necrotic tissues. He was recommended daily wound care and offloading. Discussed with the patient that he has a high risk for proximal amputation if wound does not improve as he has extensive soft tissue necrosis on the right foot and left heel stage III decubitus ulcer. The patient's anemia workup done showed anemia secondary to renal disease. There was no active bleeding noted. Stool OB was negative. Folic acid was elevated. Vitamin B12 low, possibly suspicious for bacterial overgrowth. He was given Xifaxan. He has major depressive disorder and was given Cymbalta. He was recommended vascular surgery workup which can be done as outpatient. He was eventually discharged to [facility]. FINAL DIAGNOSES: 1. Right diabetic foot ulcer with osteomyelitis and possible early abscess, left heel superficial ulceration with worsening necrosis. 2. Acute metabolic encephalopathy/altered mental status, improving. 3. Major depressive disorder. 4. End-stage renal disease, on hemodialysis. 5. Peripheral vascular disease. 6. Diabetic foot ulcer, present on admission. 7. Anemia of chronic disease. 8. [id number] myocardial infarction. 9. Hypoalbuminemia. 10. Diabetes mellitus with diabetic retinopathy. 11. Paroxysmal atrial flutter. 12. Coronary artery disease. 13. Peripheral neuropathy. 14. Acute anemia requiring blood transfusion. DISPOSITION: The patient was discharged to SNF. DISCHARGE MEDICATIONS: Refer to medication list. FOLLOWUP: The patient will eventually need [id number] amputation for outpatient vascular workup. Mitzi Whitley M.D. I have been assigned to dictate discharge summary on this account and I was not involved in the patient's management. Joanie Jones N.P. DR: NEHEMIAS JOB#: [id number] CC: THANH
--- NOTE | 2017-06-06 08:23 | Cardiology Report ---
APPROVED REPORT EKG Measurement Heart [id number] Normal sinus rhythm Nonspecific ST and T wave abnormality Abnormal ECG
--- NOTE | 2017-06-06 08:31 | Cardiology Report ---
APPROVED REPORT EKG Measurement Heart [id number] Normal sinus rhythm Normal ECG
== END 2017-05-31 20:20 | DRG 871 ==
LOC: EDBD 22:46 → EMR 22:59 → 4E 23:27 → ENRESERV 23:36 → EDBEDREQ 23:38 → 2E 05-27 00:50 → 4E 05-30 17:34
PROC: 30233N1 Transfusion of Nonautologous Red Blood Cells into Peripheral Vein, Percutaneous Approach (ICD-10-PCS; principal; 2017-05-27)
PROC: 5A1D70Z Performance of Urinary Filtration, Intermittent, Less than 6 Hours Per Day (ICD-10-PCS; 2017-05-31)
DX: A41.9 Sepsis, unspecified organism (principal); I21.4 Non-ST elevation (NSTEMI) myocardial infarction; G93.41 Metabolic encephalopathy; I96 Gangrene, not elsewhere classified; N18.6 End stage renal disease; L89.623 Pressure ulcer of left heel, stage 3; E11.52 Type 2 diabetes mellitus with diabetic peripheral angiopathy with gangrene; I12.0 Hypertensive chronic kidney disease with stage 5 chronic kidney disease or end stage renal disease; I42.9 Cardiomyopathy, unspecified; I48.92 Unspecified atrial flutter; M86.9 Osteomyelitis, unspecified; L02.611 Cutaneous abscess of right foot; L97.414 Non-pressure chronic ulcer of right heel and midfoot with necrosis of bone; E11.69 Type 2 diabetes mellitus with other specified complication; E11.621 Type 2 diabetes mellitus with foot ulcer; E11.22 Type 2 diabetes mellitus with diabetic chronic kidney disease; Z99.2 Dependence on renal dialysis; I25.2 Old myocardial infarction; E11.319 Type 2 diabetes mellitus with unspecified diabetic retinopathy without macular edema; E11.42 Type 2 diabetes mellitus with diabetic polyneuropathy; E53.8 Deficiency of other specified B group vitamins; D63.1 Anemia in chronic kidney disease; Z95.1 Presence of aortocoronary bypass graft; I25.10 Atherosclerotic heart disease of native coronary artery without angina pectoris; Z79.02 Long term (current) use of antithrombotics/antiplatelets; E78.00 Pure hypercholesterolemia, unspecified; E88.09 Other disorders of plasma-protein metabolism, not elsewhere classified; F32.9 Major depressive disorder, single episode, unspecified; Z95.5 Presence of coronary angioplasty implant and graft; Z79.84 Long term (current) use of oral hypoglycemic drugs
CPT/HCPCS: 36415; 71010; 78452; 80048; 80053; 80061; 80202; 81003; 82140; 82270; 82550; 82553; 82607; 82728; 82746; 82962; 83036; 83540; 83550; 83605; 83735; 83880; 84100; 84484; 84550; 85007; 85025; 85610; 85651; 85730; 86140; 86850; 86900; 86901; 86920; 87040; 87070; 87081; 87205; 93005; 93017; 93306; 93970; 94664; 94760; 99285; J1815